=== PATIENT | female | born 1955 | race Caucasian/White ===

== ENCOUNTER 2016-11-10 12:42 | Inpatient (IN) | payer OTHER ==
[~2016-11-10 12:42] MED LIST: cefTRIAXone 2,000 MG in SODIUM CHLORIDE 0.9% 100 ML IVPB SCH
--- NOTE | 2016-11-10 13:10 | ED ---
General Adult HPI - General Chief complaint: Shortness of Breath Stated complaint: Sob Time Seen by Provider: 11/10/16 12:54 Source: patient, EMS, RN notes reviewed Mode of arrival: EMS Limitations: altered mental status - History of Present Illness Initial comments: Patient is a pleasant 61-year-old female presenting to the emergency department as a poor historian. Patient admits she is a poor historian however does not feel confused. Patient admits her abdomen is distended. Patient states she has had previous drainage of her abdomen. History is further limited. - Related Data Home Medications Medication Instructions Recorded Confirmed Cholecalciferol [Vitamin D3] 2,000 unit PO DAILY 11/10/16 11/10/16 Furosemide [Lasix] 40 mg PO DAILY 11/10/16 11/10/16 LORazepam ORAL CONC [Ativan 2 mg PO Q1H PRN 11/10/16 11/10/16 Intensol] LORazepam [Ativan] 2 mg PO Q6H PRN 11/10/16 11/10/16 Lactulose 40 ml PO QID 11/10/16 11/10/16 Magnesium Oxide [Magox 400] 400 mg PO BID 11/10/16 11/10/16 Multivitamins, Thera [Multivitamin 1 tab PO DIRECTED 11/10/16 11/10/16 (formulary)] Nicotine 21Mg/24Hr Patch [Habitrol 1 patch TRANSDERM DAILY 11/10/16 11/10/16 21Mg/24Hr Patch] Phenytoin Sodium Extended 100 mg PO TID 11/10/16 11/10/16 [Dilantin] Potassium Chloride ER [K-Dur 20] 20 meq PO DAILY 11/10/16 11/10/16 Propranolol HCl 10 mg PO TID 11/10/16 11/10/16 Spironolactone [Aldactone] 100 mg PO DAILY 11/10/16 11/10/16 Allergies Allergy/AdvReac Type Severity Reaction Status Date / Time No Known Allergies Allergy Verified 11/10/16 13:45 Review of Systems ROS Statement: Those systems with pertinent positive or pertinent negative responses have been documented in the HPI. ROS Other: All systems not noted in ROS Statement are negative. Constitutional: Denies: fever Eyes: Denies: eye pain ENT: Denies: ear pain Respiratory: Reports: cough Cardiovascular: Denies: chest pain Endocrine: Denies: fatigue Gastrointestinal: Reports: abdominal pain Genitourinary: Denies: dysuria Skin: Denies: rash Neurological: Denies: weakness Psychiatric: Denies: depression Past Medical History Past Medical History: Renal Disease Additional Past Medical History / Comment(s): cirrhosis,thrombocytopenia, alcohol abuse,hypokalemia History of Any Multi-Drug Resistant Organisms: Unobtainable Past Surgical History: Unable to Obtain Past Psychological History: Anxiety Smoking Status: Former smoker Past Alcohol Use History: Abuse, Heavy Past Drug Use History: None Reported General Exam Limitations: altered mental status General appearance: alert, in no apparent distress Head exam: Present: other (Ecchymosis right eyebrow) Eye exam: Present: normal appearance, PERRL ENT exam: Present: normal oropharynx Neck exam: Present: normal inspection. Absent: tenderness, meningismus Respiratory exam: Present: normal lung sounds bilaterally Cardiovascular Exam: Present: regular rate, normal rhythm GI/Abdominal exam: Present: distended (Ascites) Extremities exam: Present: pedal edema. Absent: calf tenderness Neurological exam: Present: alert, altered. Absent: motor sensory deficit Expanded Patient oriented to: Present: person, place. Absent: time Psychiatric exam: Present: normal affect, normal mood Skin exam: Absent: rash Course Vital Signs 11/10/16 11/10/16 12:52 13:24 Temperature 99.8 F H Pulse Rate 70 72 Respiratory 28 H 18 Rate Blood Pressure 116/66 116/55 O2 Sat by Pulse 99 96 Oximetry EKG Findings - EKG Comments: EKG Findings:: Normal sinus rhythm at 72. Normal intervals. Normal axis. Low QRS.. No acute ST change. Medical Decision Making - Medical Decision Making Patient reevaluated and unchanged. Patient updated on results and plan. Patient will be covered with IV antibiotics in case of early SBP. Computed tomography scan of the brain will be ordered. Case discussed in detail with Dr. millan, who will admit for Dr. Barnes. - Lab Data Result diagrams: 11/10/16 15:06 11/10/16 15:06 Lab Results 11/10/16 11/10/16 11/10/16 Range/Units 13:18 13:24 14:25 WBC (3.8-10.6) k/uL RBC (3.80-5.40) m/uL Hgb (11.4-16.0) gm/dL Hct (34.0-46.0) % MCV (80.0-100.0) fL MCH (25.0-35.0) pg MCHC (31.0-37.0) g/dL RDW (11.5-15.5) % Plt Count (150-450) k/uL Neutrophils % (Manual) % Lymphocytes % (Manual) % Monocytes % (Manual) % Eosinophils % (Manual) % Neutrophils # (Manual) (1.3-7.7) k/uL Lymphocytes # (Manual) (1.0-4.8) k/uL Monocytes # (Manual) (0-1.0) k/uL Eosinophils # (Manual) (0-0.7) k/uL Nucleated RBCs (0-0) /100 WBC Polychromasia Macrocytosis PT (9.0-12.0) sec INR (<1.1) APTT (22.0-30.0) sec Sodium (137-145) mmol/L Potassium (3.5-5.1) mmol/L Chloride (98-107) mmol/L Carbon Dioxide (22-30) mmol/L Anion Gap mmol/L BUN (7-17) mg/dL Creatinine (0.52-1.04) mg/dL Est GFR (MDRD) Af Amer (>60 ml/min/1.73 sqM) Est GFR (MDRD) Non-Af (>60 ml/min/1.73 sqM) Glucose (74-99) mg/dL Plasma Lactic Acid Vinnie 1.5 (0.7-2.0) mmol/L Calcium (8.4-10.2) mg/dL Total Bilirubin (0.2-1.3) mg/dL AST (14-36) U/L ALT (9-52) U/L Alkaline Phosphatase (38-126) U/L Ammonia 18 (<30) umol/L Total Protein (6.3-8.2) g/dL Albumin (3.5-5.0) g/dL Urine Color Yellow Urine Appearance Cloudy H (Clear) Urine pH 5.0 (5.0-8.0) Ur Specific [place] 1.011 (1.001-1.035) Urine Protein Negative (Negative) Urine Glucose (UA) Negative (Negative) Urine Ketones Negative (Negative) Urine Blood Negative (Negative) Urine Nitrite Negative (Negative) Urine Bilirubin Negative (Negative) Urine Urobilinogen <2.0 (<2.0) mg/dL Ur Leukocyte Esterase Large H (Negative) Urine RBC 3 (0-5) /hpf Urine WBC 18 H (0-5) /hpf Ur Squamous Epith Cells 18 H (0-4) /hpf Urine Bacteria Many H (None) /hpf Hyaline Casts 19 H (0-2) /lpf Urine Opiates Screen Not Detected (NotDetected) Ur Oxycodone Screen Not Detected (NotDetected) Urine Methadone Screen Not Detected (NotDetected) Ur Propoxyphene Screen Not Detected (NotDetected) Ur Barbiturates Screen Detected H (NotDetected) U Tricyclic Antidepress Not Detected (NotDetected) Ur Phencyclidine Scrn Not Detected (NotDetected) Ur Amphetamines Screen Not Detected (NotDetected) U Methamphetamines Scrn Not Detected (NotDetected) U Benzodiazepines Scrn Not Detected (NotDetected) Urine Cocaine Screen Not Detected (NotDetected) U Marijuana (THC) Screen Not Detected (NotDetected) Influenza Type A RNA Not Detected (Not Detectd) Influenza Type B (PCR) Not Detected (Not Detectd) 11/10/16 11/10/16 11/10/16 Range/Units 15:06 15:06 15:06 WBC 8.9 (3.8-10.6) k/uL RBC 3.21 L (3.80-5.40) m/uL Hgb 11.5 (11.4-16.0) gm/dL Hct 33.7 L (34.0-46.0) % MCV 105.0 H (80.0-100.0) fL MCH 35.7 H (25.0-35.0) pg MCHC 34.0 (31.0-37.0) g/dL RDW 15.2 (11.5-15.5) % Plt Count 135 L (150-450) k/uL Neutrophils % (Manual) 40.0 % Lymphocytes % (Manual) 33.0 % Monocytes % (Manual) 22.0 % Eosinophils % (Manual) 5.0 % Neutrophils # (Manual) 3.6 (1.3-7.7) k/uL Lymphocytes # (Manual) 2.9 (1.0-4.8) k/uL Monocytes # (Manual) 2.0 H (0-1.0) k/uL Eosinophils # (Manual) 0.4 (0-0.7) k/uL Nucleated RBCs 0 (0-0) /100 WBC Polychromasia Present Macrocytosis Moderate PT 15.7 H (9.0-12.0) sec INR 1.6 (<1.1) APTT 29.0 (22.0-30.0) sec Sodium 132 L (137-145) mmol/L Potassium 4.3 (3.5-5.1) mmol/L Chloride 100 (98-107) mmol/L Carbon Dioxide 24 (22-30) mmol/L Anion Gap 8 mmol/L BUN 13 (7-17) mg/dL Creatinine 0.51 L (0.52-1.04) mg/dL Est GFR (MDRD) Af Amer >60 (>60 ml/min/1.73 sqM) Est GFR (MDRD) Non-Af >60 (>60 ml/min/1.73 sqM) Glucose 75 (74-99) mg/dL Plasma Lactic Acid Vinnie (0.7-2.0) mmol/L Calcium 7.8 L (8.4-10.2) mg/dL Total Bilirubin 2.5 H (0.2-1.3) mg/dL AST 60 H (14-36) U/L ALT 36 (9-52) U/L Alkaline Phosphatase 146 H (38-126) U/L Ammonia (<30) umol/L Total Protein 6.2 L (6.3-8.2) g/dL Albumin 2.2 L (3.5-5.0) g/dL Urine Color Urine Appearance (Clear) Urine pH (5.0-8.0) Ur Specific [place] (1.001-1.035) Urine Protein (Negative) Urine Glucose (UA) (Negative) Urine Ketones (Negative) Urine Blood (Negative) Urine Nitrite (Negative) Urine Bilirubin (Negative) Urine Urobilinogen (<2.0) mg/dL Ur Leukocyte Esterase (Negative) Urine RBC (0-5) /hpf Urine WBC (0-5) /hpf Ur Squamous Epith Cells (0-4) /hpf Urine Bacteria (None) /hpf Hyaline Casts (0-2) /lpf Urine Opiates Screen (NotDetected) Ur Oxycodone Screen (NotDetected) Urine Methadone Screen (NotDetected) Ur Propoxyphene Screen (NotDetected) Ur Barbiturates Screen (NotDetected) U Tricyclic Antidepress (NotDetected) Ur Phencyclidine Scrn (NotDetected) Ur Amphetamines Screen (NotDetected) U Methamphetamines Scrn (NotDetected) U Benzodiazepines Scrn (NotDetected) Urine Cocaine Screen (NotDetected) U Marijuana (THC) Screen (NotDetected) Influenza Type A RNA (Not Detectd) Influenza Type B (PCR) (Not Detectd) - Radiology Data Radiology results: image reviewed (Abdominal x-rays shows nonspecific findings. Two-view chest x-ray shows left lower lobe atelectasis. Nonspecific abdomen.) Disposition Clinical Impression: Ascites, Altered mental status Disposition: ADMITTED IP TO THIS HOSP
[2016-11-10 13:56] LABS: Appearance,Urine Cloudy (Clear); Bacteria,Urine Many /hpf; Bilirubin,Urine Negative (Negative); Glucose,Urine (UA) Negative (Negative); Ketones,Urine Negative (Negative); Leukocyte Esterase,Urine Large (Negative); Nitrite,Urine Negative (Negative); Particle Count 5757; Protein,Urine Negative (Negative); RBC,Urine 3 /hpf (0-5); Specific Gravity,Urine 1.011 (1.001-1.035); Squamous Epithelial Cell,Urine 18 /hpf (0-4); UA Billing (MACRO vs. MICRO) MICRO; Urobilinogen,Urine <2.0 mg/dL (<2.0); WBC,Urine 18 /hpf (0-5)
--- NOTE | 2016-11-10 14:20 | XR ---
EXAMINATION TYPE: XR chest 2V DATE OF EXAM: 11/10/2016 2:02 PM COMPARISON: NONE INDICATION: Altered mental status, fall TECHNIQUE: Single frontal view of the chest is obtained. FINDINGS: The heart size is normal. The pulmonary vasculature is normal. Mild bibasilar infiltrates are present. Correlate for atelectasis. Areas within loop of bowel under t he right diaphragm. IMPRESSION: 1. Mild left lower lobe atelectasis. 2. Nonspecific air within the abdomen.
--- NOTE | 2016-11-10 14:21 | XR ---
EXAMINATION TYPE: XR abdomen 1V DATE OF EXAM: 11/10/2016 2:02 PM COMPARISON: NONE INDICATION: Pain abdomen distention mental status change TECHNIQUE: Single view abdomen supine FINDINGS: There is present within the colon. Some small bowel loops contain air present. No mass effect is evid ent. Psoas margins are poorly visualized. No organomegaly is present. IMPRESSION: 1. Nonspecific abdomen.
[2016-11-10 15:25] LABS: INR 1.6 (<1.1); Prothrombin Time 15.7 sec (9.0-12.0)
[2016-11-10 15:32] LABS: Aty Lym Flag Slight; CH 34.4; CHCM 32.9; HCT 33.7 % (34.0-46.0); HDW 2.23; HGB 11.5 gm/dL (11.4-16.0); MCH 35.7 pg (25.0-35.0); Macrocytosis Moderate; Mean Platelet Volume 7.5; RBC 3.21 m/uL (3.80-5.40); RDW 15.2 % (11.5-15.5); WBC 8.9 k/uL (3.8-10.6); WBC (Perox) 9.12
[2016-11-10 15:33] LABS: ALT 36 U/L (9-52); AST 60 U/L (14-36); Alkaline Phosphatase 146 U/L (38-126); Anion Gap 8 mmol/L; Blood Urea Nitrogen 13 mg/dL (7-17); Calcium 7.8 mg/dL (8.4-10.2); Carbon Dioxide 24 mmol/L (22-30); Chloride 100 mmol/L (98-107); Glucose 75 mg/dL (74-99); Non-African American GFR(MDRD) >60 (>60 ml/min/1.73 sqM); Potassium 4.3 mmol/L (3.5-5.1); Sodium 132 mmol/L (137-145); Total Bilirubin 2.5 mg/dL (0.2-1.3); Total Protein 6.2 g/dL (6.3-8.2)
[2016-11-10 15:47] LABS: Add Differential Manual Differential
[2016-11-10 15:49] LABS: Nucleated Red Blood Cells 0 /100 WBC (0-0); Polychromasia Present; Total Cells Counted 100
[2016-11-10 15:51] LABS: Creatine Kinase 27 U/L (30-135)
[2016-11-10 16:04] LABS: Creatine Kinase MB 0.5 ng/mL (0.0-2.4); Troponin I <0.012 ng/mL (0.000-0.034)
[2016-11-10] MEDS ORDERED: cefTRIAXone 2,000 MG in SODIUM CHLORIDE 0.9% 100 ML IVPB STA (16:11)
[2016-11-10] MEDS ORDERED: NALOXONE 0.4 MG/ML 1 ML VIAL IV PRN (16:11)
--- NOTE | 2016-11-10 16:54 | CT ---
EXAMINATION TYPE: CT brain wo con DATE OF EXAM: 11/10/2016 4:47 PM COMPARISON: NONE INDICATION: Altered mental status. DLP: 1165 mGycm, Automated exposure control for dose reduction was used. CONTRAST: None CT of the brain is performed utilizing 3 mm thick sections through the posterior fossa and 3 mm thick sections through the remaining calvarium. Study is performed within 24 hours of arrival to the hosp [facility]. No abnormal hyperdensity is present to suggest an acute intracranial hemorrhage. No mass lesion is evident. No acute infarcts are evident. Periventricular white matter hypodensity is present, likely on the bas is of chronic white matter ischemic changes. Ventricles and sulci are prominent for the patient age. Paranasal sinuses and mastoid air cells within the [id number] are clear. IMPRESSIONS: 1. Atrophy with periventricular white matter ischemic changes.
[2016-11-10] MEDS: SODIUM CHLORIDE 0.9% 1,000 ML IV SCH (17:12)
--- NOTE | 2016-11-10 17:13 | XR ---
EXAMINATION TYPE: XR abdomen 1V DATE OF EXAM: 11/10/2016 5:02 PM CLINICAL HISTORY: Abdominal distention. TECHNIQUE: Single left side down lateral decubitus of the abdomen is obtained. COMPARISON: Abdominal x-ray and chest x-ray from earlier today FINDINGS: Gas prominent bowel loops layer against the abdominal wall with air-fluid levels. No defini tive pneumoperitoneum is identified when correlating with upright chest x-ray earlier today. IMPRESSION: As above, no convincing evidence of pneumoperitoneum
[2016-11-10] MEDS ORDERED: LORazepam 1 MG TAB PO PRN ×2 (21:41)
[2016-11-10] MEDS: PROPRANOLOL 10 MG TAB PO SCH (22:35)
[2016-11-10] MEDS: PHENYTOIN SODIUM EXTENDED 100 MG CAP PO SCH (22:46)
[2016-11-10] MEDS: LACTULOSE 20 GM/30 ML CUP PO SCH (22:47)
[2016-11-10] MEDS: PHYTONADIONE ORAL 5 MG/5 ML ORAL.SYRG PO SCH (23:37)
[2016-11-10] MEDS: FUROSEMIDE 10 MG/ML 2 ML VIAL IV SCH (23:42)
[2016-11-11] MEDS ORDERED: cefTRIAXone 2,000 MG in SODIUM CHLORIDE 0.9% 100 ML IVPB SCH (06:00)
[2016-11-11] MEDS ORDERED: FUROSEMIDE 40 MG TAB PO SCH (09:00)
[2016-11-11] MEDS ORDERED: PANTOPRAZOLE 40 MG/10 ML VIAL IV SCH (09:00)
[2016-11-11] MEDS: SPIRONOLACTONE 25 MG TAB PO SCH (09:29)
[2016-11-11] MEDS: PROPRANOLOL 10 MG TAB PO SCH ×3 (09:29→21:17)
[2016-11-11] MEDS: PHENYTOIN SODIUM EXTENDED 100 MG CAP PO SCH ×3 (09:29→21:17)
[2016-11-11] MEDS: FUROSEMIDE 10 MG/ML 2 ML VIAL IV SCH (09:29)
[2016-11-11] MEDS: LACTULOSE 20 GM/30 ML CUP PO SCH ×3 (09:29→21:17)
[2016-11-11] MEDS: NICOTINE 21MG/24HR PATCH TRANSDERM SCH (09:30)
[2016-11-11] MEDS: MAGNESIUM OXIDE 400 MG TAB PO SCH ×2 (09:30→21:17)
[2016-11-11] MEDS: CHOLECALCIFEROL 1,000 UNIT TAB PO SCH (09:30)
[2016-11-11] MEDS: POTASSIUM CHLORIDE ER 20 MEQ TAB.ER PO SCH (09:30)
--- NOTE | 2016-11-11 09:42 | P.CONS ---
History of Present Illness - Reason for Consult Consult date: 11/11/16 ascites Requesting physician: Mohamud Park - History of Present Illness 61-year-old female patient Dr. Barnes with a past medical history of EtOH abuse with underlying alcohol liver disease thrombocytopenia ascites possible paracentesis. Patient presents with worsening ascites with chronic lower extremity edema Ortega wrap's. Patient is a poor historian most of medical history is obtained from nursing staff and medical records. She was evaluated at the GI clinic in [place] about a week ago with Dr. Vinson follow-up scheduled next month. Appears patient may have fallen recently she has ecchymosis to the right eye with an abrasion and scabbing. Unsure if patient is still drinking alcohol. She reports taking alcohol "for some time". Admission chemistries sodium 132. BUN 13 creatinine 0.5. Total bilirubin 2.5. AST 60. ALT 36. Alkaline phosphates 146. Ammonia 48. Albumin 2.2. INR 1.6. Influenza screen not detected. Hemoglobin 11.5. MCV 105. Platelet 135. White count 8.9. Urinalysis detected barbiturates. Afebrile. Review of Systems Constitutional: Denies fever, chills, sweats, weight gain, or loss. HEENT: Negative for migraines, blurred vision or loss, earaches, drainage, tinnitus, oral mucosal lesions, dysphagia, or odynophagia. CARDIAC: Hypertension Negative for chest pain, arrhythmias, or palpitation. RESPIRATORY: Negative for shortness of breath, hemoptysis, cough, or sputum production. GI: See HPI for pertinent findings. : Negative for hematuria, urgency, frequency, polyuria, or dysuria. GYNc: Negative vaginal discharge. MUSCULOSKELETAL: Negative for muscle aches, swelling, arthritis, and arthralgias. NEUROLOGIC: Negative for stroke or TIA. ENDOCRINE: Negative for thyroid problems. SKIN: Chronic bilateral lower extremity edema with Ortega wraps. Negative for rash or itching. PSYCHIATRIC: Negative history for depression and history of anxiety All systems: negative (See HPI) Past Medical History Past Medical History: Hypertension, Liver Disease, Renal Disease Additional Past Medical History / Comment(s): cirrhosis,thrombocytopenia, alcohol abuse,hypokalemia History of Any Multi-Drug Resistant Organisms: Unobtainable Past Surgical History: Unable to Obtain Past Psychological History: Anxiety Smoking Status: Former smoker Past Alcohol Use History: Abuse, Heavy Past Drug Use History: None Reported Medications and Allergies Home Medications Medication Instructions Recorded Confirmed Type Cholecalciferol [Vitamin D3] 2,000 unit PO DAILY 11/10/16 11/10/16 History Furosemide [Lasix] 40 mg PO DAILY 11/10/16 11/10/16 History LORazepam ORAL CONC [Ativan 2 mg PO Q1H PRN 11/10/16 11/10/16 History Intensol] LORazepam [Ativan] 2 mg PO Q6H PRN 11/10/16 11/10/16 History Lactulose 40 ml PO QID 11/10/16 11/10/16 History Magnesium Oxide [Magox 400] 400 mg PO BID 11/10/16 11/10/16 History Multivitamins, Thera [Multivitamin 1 tab PO DIRECTED 11/10/16 11/10/16 History (formulary)] Nicotine 21Mg/24Hr Patch [Habitrol 1 patch TRANSDERM DAILY 11/10/16 11/10/16 History 21Mg/24Hr Patch] Phenytoin Sodium Extended 100 mg PO TID 11/10/16 11/10/16 History [Dilantin] Potassium Chloride ER [K-Dur 20] 20 meq PO DAILY 11/10/16 11/10/16 History Propranolol HCl 10 mg PO TID 11/10/16 11/10/16 History Spironolactone [Aldactone] 100 mg PO DAILY 11/10/16 11/10/16 History Allergies Allergy/AdvReac Type Severity Reaction Status Date / Time No Known Allergies Allergy Verified 11/10/16 13:45 Physical Exam Vitals: Vital Signs Temp Pulse Pulse Resp BP BP Pulse Ox 11/11/16 07:00 97.2 F L 67 18 107/61 98 11/10/16 22:48 98.2 F 67 18 111/61 96 11/10/16 20:11 18 11/10/16 18:33 97.1 F L 62 18 148/84 97 11/10/16 18:15 97.0 F L 91 18 123/72 94 L 11/10/16 17:41 72 18 123/72 100 11/10/16 17:09 70 18 110/68 100 Intake and Output 11/10/16 11/11/16 11/11/16 22:59 06:59 14:59 Intake Total 310 Balance 310 Intake: Intake, IV Titration 310 Amount Sodium Chloride 0.9% 1, 160 000 ml @ 20 mls/hr IV . Q24H [facility] Rx#:[id number] cefTRIAXone 1,000 mg In 50 Sodium Chloride 0.9% 50 ml @ 100 mls/hr IVPB Q24H [facility] Rx#:[id number] cefTRIAXone 2,000 mg In 100 Sodium Chloride 0.9% 100 ml @ 100 mls/hr IVPB Q12H [facility] Rx#:[id number] Other: Voiding Method Diaper # Voids 1 # Bowel Movements 0 General appearance: The patient is alert, oriented, in no acute distress. HET: Head is normocephalic and atraumatic. Ecchymosis to right eye with scabbing supraorbital region. Pupils are equal and reactive. Oropharynx is clear without lesions. Neck: Supple without lymphadenopathy. Trachea midline. Heart: S1 S2. Regular rate and rhythm. Lungs: No crackles or wheezes are heard. Abdomen: Grossly distended tense with ascites with bowel sounds. No peritoneal signs. No palpable organomegaly or masses. Extremities: +2+3 bilateral lower extremity edema with Ortega wraps. Neurological: No focal deficits. Strength and sensation are grossly intact. Results CBC & Chem 7: 11/10/16 15:06 11/10/16 15:06 Labs: Abnormal Lab Results - Last 24 Hours (Table) 11/10/16 Range/Units 19:46 Ammonia 48 H (<30) umol/L Assessment and Plan (1) Alcoholic liver disease Narrative/Plan: Suspect cirrhosis Status: Acute (2) Thrombocytopenia Status: Acute (3) Coagulopathy Status: Acute (4) Macrocytosis Status: Acute (5) Hepatic encephalopathy Status: Acute (6) Ascites Status: Acute (7) ETOH abuse Status: Chronic Plan: 1. Therapeutic diagnostic paracentesis scheduled today. Will send ascitic fluid analysis for culture Gram stain, cell count, glucose, WBC, and cytology. Lasix 40 mg daily. Aldactone 100 mg daily. Lactulose 20 g 3 times daily titrated for at least 3 bowel movements daily. Low-salt diet. Alcohol abstinence was advised. Repeat ammonia level in a.m. Will obtain hepatitis panel and alpha-fetoprotein marker. Thank you for this kind referral and the opportunity to participate in the care of your patient. This consultation was discussed with Dr. Phillip. The impression and plan of care have been directed as dictated.
--- NOTE | 2016-11-11 09:53 | HP ---
DATE OF ADMISSION: 11/10/2016 PRESENTING COMPLAINT: Distended abdomen. HISTORY OF PRESENTING COMPLAINT: This is a 59-year-old patient of Dr. Barnes with chronic stable conditions include hypertension, cirrhosis, thrombocytopenia. Patient is rather lethargic, not really able to give much of a history. As per the ER notes, she has had previous drainage of the abdomen. Abdomen was distended. Per the EMS run sheet, patient simply tired, very distended abdomen, history of alcoholism in the past. REVIEW OF SYSTEMS: Difficult to obtain as patient is a poor historian. PAST MEDICAL HISTORY: Chronic alcoholism, ascites, cirrhosis, hypertension, low platelets. PAST SURGICAL HISTORY: Patient cannot state. SOCIAL HISTORY: Patient heavy alcohol drinker in the past; also a smoker. Patient is unable to give history. , lives with her . FAMILY HISTORY: Patient cannot state. HOME MEDICATIONS: 1. Dilantin 100 mg p.o. t.i.d. 2. Magnesium 4 mg b.i.d. 3. Lactulose 40 mL p.o. q.i.d. 4. Lasix 40 mg p.o. daily. 5. Potassium 20 mEq p.o. daily. 6. Nicotine 20 mg patch. 7. Multivitamin 1 tablet p.o. daily. 8. Aldactone 100 mg p.o. daily. 9. Propranolol 10 mg p.o. t.i.d. 10. Vitamin D3 2000 units p.o. daily. 11. Ativan 2 mg p.o. q.6 p.r.n. ALLERGIES: None. On examination, temperature 99.8, pulse 70, respiration 28, blood pressure 106/56, pulse ox 99% on room air. GENERAL APPEARANCE: Very thin built with diffuse wasting of the muscles, rather emaciated. Lethargic, but arousable. EYES: Pupils equal. Conjunctivae pale. HEENT: External appearance of nose and ears normal. Oral cavity, dry mucous membrane. NECK: JVD unable to assess. Mass not palpable. RESPIRATORY: Effort increased. LUNGS: Diminished breath sounds. CARDIOVASCULAR: First and second sounds. Gross edema present. ABDOMEN: Increasing distended, tense, superficial veins are prominent. Dullness to percussion on the dependent part. Liver and spleen not palpable. LYMPHATIC: No lymph node palpable in neck or axilla. PSYCHIATRY: Patient is rather lethargic. Able to answer some simple questions but rather lethargic. NEUROLOGICAL: Pupils equal. Cranial nerves grossly intact. The patient does move her limbs. MUSCULOSKELETAL: Diffuse wasting of the muscles. Spider nevi in the upper chest wall. INVESTIGATIONS: White count 8.9, hemoglobin 11.5, platelets 135, potassium 4.3, pro time 15.7, bilirubin 2.5, AST 60. Albumin 2.2. UA positive for leukocyte esterase and WBC. Urine drug screen positive for barbiturates. Plain abdominal x-ray: Some air fluid levels. ASSESSMENT: 1. Severe ascites, probably from underlying cirrhosis. 2. Alcoholic cirrhosis. 3. Suspect underlying portal hypertension given the fact that patient is on low-dose beta vika. 4. Severe protein calorie malnutrition with diffuse wasting of the muscles, hypoalbuminemia, and bony prominences. 5. Acute metabolic encephalopathy, likely from hepatic. 6. Thrombocytopenia from cirrhosis. 7. Coagulopathy from chronic liver disease cirrhosis. PLAN: Patient will be put on fluid restriction. Also start on IV Lasix. Will get large-volume paracentesis done. Lactulose will be given. Will do aspiration precautions. Also give some vitamin K overall prognosis is guarded. Also consult GI.
[2016-11-11] MEDS: PHYTONADIONE ORAL 5 MG/5 ML ORAL.SYRG PO SCH (10:59)
[2016-11-11] MEDS: FUROSEMIDE 40 MG TAB PO SCH (11:00)
--- NOTE | 2016-11-11 13:25 | US ---
EXAMINATION TYPE: US abdomen limited DATE OF EXAM: 11/11/2016 11:06 AM COMPARISON: NONE CLINICAL HISTORY: ascites. Moderate amount of abdominal ascites. *Incidental finding: gallstones with thickened gallbladder wal l IMPRESSION: Ascites.
--- NOTE | 2016-11-11 14:14 | US ---
EXAMINATION TYPE: US paracentesis abd w/image DATE OF EXAM: 11/11/2016 1:15 PM COMPARISON: NONE HISTORY: Ascites. PROCEDURE: Maximal barrier technique was utilized. The skin overlying a suitable pocket of fluid was localized with ultrasound and the overlying skin was prepped and draped. Ultrasound was utilized with sterile technique. Lidocaine was used for local anesthesia and a skin mario made with a scalpel. Catheter was advanced under direct ultrasound guidance into a suitable pocket of fluid and approximately 8.4 liter s of serous fluid were removed. Catheter was withdrawn and hemostasis achieved. There is no immedia te complication; the patient is discharged in stable condition. IMPRESSION: STATUS POST ULTRASOUND GUIDED PARACENTESIS FOR PALLIATION OF ASCITES. THIS PROCEDURE WA S PERFORMED BY THE UNDERSIGNED. Specimen sent for laboratory analysis
[2016-11-11 14:34] LABS: RBC, Body Fluid 562 /uL
--- NOTE | 2016-11-11 17:03 | P.CNNES ---
History of Present Illness Consult date: 11/11/16 Requesting physician: Mohamud Park Reason for Consult: Altered mental status History of Present Illness: Patient is a pleasant 59-year-old female who is being evaluated by the neurology service today 11/11/2016 per the request of Dr. Park for altered mental status. Patient is a poor historian. Patient does have history of cirrhosis with periodic paracentesis. Reportedly, patient had fall at home and was in rehab and missed paracentesis appointment. Patient became severely dyspneic and lethargic and was brought to the emergency room. Upon admission, WBC 8.9, RBC 3.21, hemoglobin 11.5, hematocrit 33.7. Albumin is 2.2 and high ammonia level of 48. Patient underwent paracentesis earlier today. At the time of my evaluation, patient is awake, alert, and oriented 3. Patient is sitting up in bed and appears to be in no acute distress. Review of Systems REVIEW OF SYSTEMS: Otherwise unremarkable and noncontributory. Past Medical History Past Medical History: Hypertension, Liver Disease, Renal Disease Additional Past Medical History / Comment(s): cirrhosis,thrombocytopenia, alcohol abuse,hypokalemia History of Any Multi-Drug Resistant Organisms: Unobtainable Past Surgical History: Unable to Obtain Past Psychological History: Anxiety Smoking Status: Former smoker Past Alcohol Use History: Abuse, Heavy Past Drug Use History: None Reported Medications and Allergies Home Medications Medication Instructions Recorded Confirmed Type Cholecalciferol [Vitamin D3] 2,000 unit PO DAILY 11/10/16 11/10/16 History Furosemide [Lasix] 40 mg PO DAILY 11/10/16 11/10/16 History LORazepam ORAL CONC [Ativan 2 mg PO Q1H PRN 11/10/16 11/10/16 History Intensol] LORazepam [Ativan] 2 mg PO Q6H PRN 11/10/16 11/10/16 History Lactulose 40 ml PO QID 11/10/16 11/10/16 History Magnesium Oxide [Magox 400] 400 mg PO BID 11/10/16 11/10/16 History Multivitamins, Thera [Multivitamin 1 tab PO DIRECTED 11/10/16 11/10/16 History (formulary)] Nicotine 21Mg/24Hr Patch [Habitrol 1 patch TRANSDERM DAILY 11/10/16 11/10/16 History 21Mg/24Hr Patch] Phenytoin Sodium Extended 100 mg PO TID 11/10/16 11/10/16 History [Dilantin] Potassium Chloride ER [K-Dur 20] 20 meq PO DAILY 11/10/16 11/10/16 History Propranolol HCl 10 mg PO TID 11/10/16 11/10/16 History Spironolactone [Aldactone] 100 mg PO DAILY 11/10/16 11/10/16 History Allergies Allergy/AdvReac Type Severity Reaction Status Date / Time No Known Allergies Allergy Verified 11/10/16 13:45 Physical Examination - Vital Signs Vital Signs: Vital Signs Temp Pulse Pulse Resp BP BP Pulse Ox 11/11/16 14:00 74 16 95/49 98 11/11/16 12:18 68 16 102/59 100 11/11/16 12:02 68 16 102/58 100 11/11/16 11:44 69 16 114/62 100 11/11/16 11:08 72 18 122/73 100 11/11/16 07:00 97.2 F L 67 18 107/61 98 11/10/16 22:48 98.2 F 67 18 111/61 96 11/10/16 20:11 18 11/10/16 18:33 97.1 F L 62 18 148/84 97 11/10/16 18:15 97.0 F L 91 18 123/72 94 L 11/10/16 17:41 72 18 123/72 100 11/10/16 17:09 70 18 110/68 100 Intake and Output 11/11/16 11/11/16 11/11/16 06:59 14:59 22:59 Intake Total 310 Balance 310 Intake: Intake, IV Titration 310 Amount Sodium Chloride 0.9% 1, 160 000 ml @ 20 mls/hr IV . Q24H [facility] Rx#:[id number] cefTRIAXone 1,000 mg In 50 Sodium Chloride 0.9% 50 ml @ 100 mls/hr IVPB Q24H [facility] Rx#:[id number] cefTRIAXone 2,000 mg In 100 Sodium Chloride 0.9% 100 ml @ 100 mls/hr IVPB Q12H [facility] Rx#:[id number] PHYSICAL EXAM: GENERAL APPEARANCE: Patient is a well-developed, female who appears to be in no acute distress. HEENT: Normocephalic, atraumatic, no facial asymmetry is seen. Neck is supple with no masses felt. CARDIOVASCULAR: Regular rate and rhythm. ABDOMEN: Tender, distended. EXTREMITIES: Show no edema or clubbing. NEUROLOGICAL EXAM: Patient is awake, alert, and oriented 3. Speech and language are normal. Strength is 4/5 in bilateral lower extremities and 5-/5 in bilateral upper extremities. Sensory is normal to light touch in all 4 extremities. No facial asymmetry is seen on cranial nerve testing. No tremors or seizure-like activity is noted. Results - Laboratory Findings CBC and BMP: 11/10/16 15:06 11/10/16 15:06 Abnormal Lab Findings: Abnormal Labs 11/10/16 19:46 Ammonia 48 H Assessment and Plan (1) Alcoholic liver disease Status: Acute (2) Altered mental status Status: Acute (3) Ascites Status: Acute (4) Coagulopathy Status: Acute (5) Hepatic encephalopathy Status: Acute Plan: Recommendations: Patient's mental status appears to be back at her baseline at this time. She is alert and oriented 3. Altered mental status appears to be related to hepatic encephalopathy. As previously mentioned, patient is a poor historian. Patient is on Dilantin 100 mg by mouth 3 times a day in the home setting. It is unclear regarding seizure history. Patient has not had any seizure activity reported during this admission. Continue current dose of Dilantin. I will order an EEG and Dilantin level. CT of the brain showed atrophy with periventricular white matter ischemic changes with no acute process. I do recommend physical therapy for her generalized weakness. Continue current medical management. Barring any abnormalities in the EEG patient is stable for discharge from neurology standpoint. I will continue to follow with you on an as-needed basis. Further recommendations to follow after testing. Thank you for allowing me to participate in the care of your patient. Feel free to call with any questions or concerns. I performed an examination of the patient and discussed the management with the SENIOR DESIGNER/ART DIRECTOR. I have reviewed the SENIOR DESIGNER/ART DIRECTOR notes and agree with the findings and plan of care.
[2016-11-11] MEDS: SODIUM CHLORIDE 0.9% 1,000 ML IV SCH (17:33)
[2016-11-11] MEDS: CEFUROXIME 250 MG TAB PO SCH (21:17)
[2016-11-11 22:21] LABS: Hepatitis B Surface Ag Index 0.06
[2016-11-11 22:27] LABS: Hepatitis B Core IgM Index 0.06
[2016-11-11 22:38] LABS: Hepatitis C Virus IgG Index 0.06
[2016-11-11 22:56] LABS: Hepatitis C Virus IgG Ab Negative (Negative)
--- NOTE | 2016-11-11 22:57 | PN ---
DATE OF SERVICE: 11/11/2016 PRESENTING COMPLAINT: Fluid overload. INTERVAL HISTORY: This is a patient with multiple problems including multiple complications from cirrhosis, did undergo large volume paracentesis, about 8 L of abdominal fluid was removed. Patient more awake today. Actually ate fairly well. Getting Lasix. Review of systems done for constitutional, cardiovascular, GI, pulmonary; relevant findings as above. Current medications are reviewed that include IV ceftriaxone, p.o. Lasix and Aldactone. On examination, temperature 97.2, pulse 87, respiration 18, blood pressure 122/33, pulse ox 100% on 3 liters. GENERAL APPEARANCE: Lying in bed, more awake. EYES: Pupils equal. Conjunctivae pale. NECK: JVD not raised. Mass not palpable. RESPIRATORY: Effort increased. LUNGS: Diminished breath sounds. CARDIOVASCULAR: First and second sounds normal. Decreased edema. ABDOMEN: Less distended, soft. Liver and spleen not palpable. PSYCHIATRY: A bit more awake, answering simple questions. MUSCULOSKELETAL: Diffuse wasting of muscles. INVESTIGATIONS: Patient's polynuclear WBCs 1. Urine cultures are pending. ASSESSMENT: 1. Severe ascites from cirrhosis status post large volume paracentesis. 2. Alcoholic cirrhosis. 3. Secondary portal hypertension from cirrhosis. 4. Severe protein calorie malnutrition with diffuse wasting of muscles. 5. Hypoalbuminemia. 6. Bony prominences from poor oral intake. 7. Acute metabolic encephalopathy probably hepatic with some improvement. 8. Thrombocytopenia from cirrhosis. 9. Coagulopathy from chronic liver disease and cirrhosis. 10. Medical debility, multifactorial. 11. Acute urinary tract infection. PLAN: Will check labs in the morning. Overall prognosis is guarded. The patient will probably go to inpatient rehab.
[2016-11-12] MEDS: NICOTINE 21MG/24HR PATCH TRANSDERM SCH (08:35)
[2016-11-12] MEDS: PROPRANOLOL 10 MG TAB PO SCH ×4 (08:37→21:08)
[2016-11-12] MEDS: PANTOPRAZOLE 40 MG TABLET PO SCH (08:38)
[2016-11-12] MEDS: PHENYTOIN SODIUM EXTENDED 100 MG CAP PO SCH ×3 (08:38→21:08)
[2016-11-12] MEDS: CHOLECALCIFEROL 1,000 UNIT TAB PO SCH (08:38)
[2016-11-12] MEDS: CEFUROXIME 250 MG TAB PO SCH ×2 (08:38→21:08)
[2016-11-12] MEDS: SPIRONOLACTONE 25 MG TAB PO SCH (08:38)
[2016-11-12] MEDS: FUROSEMIDE 40 MG TAB PO SCH (08:38)
[2016-11-12] MEDS: MAGNESIUM OXIDE 400 MG TAB PO SCH ×2 (08:38→21:08)
[2016-11-12] MEDS: POTASSIUM CHLORIDE ER 20 MEQ TAB.ER PO SCH (08:38)
[2016-11-12] MEDS: LACTULOSE 20 GM/30 ML CUP PO SCH ×3 (08:42→21:08)
[2016-11-12 09:55] LABS: Basophils # (A) 0.1 k/uL (0-0.2); Basophils % (A) 1 %; CH 34.2; CHCM 31.7; Eosinophils # (A) 0.4 k/uL (0-0.7); Eosinophils % (A) 5 %; HCT 36.6 % (34.0-46.0); HDW 2.16; HGB 12.4 gm/dL (11.4-16.0); Luc # (Auto) 0.36; Luc % (Auto) 4; Lymphocytes # (A) 2.1 k/uL (1.0-4.8); Lymphocytes % (A) 26 %; MCH 36.7 pg (25.0-35.0); MCHC 33.8 g/dL (31.0-37.0); MCV 108.5 fL (80.0-100.0); Macrocytosis Marked; Mean Platelet Volume 7.7; Monocytes # (A) 1.2 k/uL (0-1.0); Monocytes % (A) 15 %; Neutrophils # (A) 3.9 k/uL (1.3-7.7); Neutrophils % (A) 48 %; RBC 3.37 m/uL (3.80-5.40); RDW 15.3 % (11.5-15.5); WBC 8.1 k/uL (3.8-10.6); WBC (Perox) 8.53
[2016-11-12 10:03] LABS: ALT 36 U/L (9-52); AST 62 U/L (14-36); Alkaline Phosphatase 102 U/L (38-126); Anion Gap 6 mmol/L; Blood Urea Nitrogen 15 mg/dL (7-17); Calcium 7.6 mg/dL (8.4-10.2); Carbon Dioxide 27 mmol/L (22-30); Chloride 102 mmol/L (98-107); Glucose 129 mg/dL (74-99); Non-African American GFR(MDRD) >60 (>60 ml/min/1.73 sqM); Sodium 135 mmol/L (137-145); Total Bilirubin 2.8 mg/dL (0.2-1.3)
[2016-11-12 10:12] LABS: Potassium 4.5 mmol/L (3.5-5.1)
[2016-11-12] MEDS: PHYTONADIONE ORAL 5 MG/5 ML ORAL.SYRG PO SCH (13:14)
--- NOTE | 2016-11-12 16:33 | P.PN ---
Subjective Principal diagnosis: Patient is a pleasant 59-year-old female is being followed by the neurology service for encephalopathy. Patient is a poor historian. Patient is being followed for multiple complications from cirrhosis. Patient had paracentesis done yesterday with large amount of fluid removed. Patient is alert and oriented and conversant. Prior seizure history continues to be unclear. At the time of my evaluation, patient sitting up at the bedside in the chair and appears to be in no acute distress. Objective - Vital Signs Vital signs: Vital Signs Temp 97.0 F L 11/12/16 15:00 Pulse 62 11/12/16 15:00 Resp 16 11/12/16 15:00 BP 118/57 11/12/16 15:00 Pulse Ox 94 L 11/12/16 15:00 Intake & Output 11/11/16 11/12/16 11/12/16 18:59 06:59 18:59 Intake Total 50 200 Balance 50 200 Intake: Intake, IV Titration 50 Amount Sodium Chloride 0.9% 1, 50 000 ml @ 20 mls/hr IV . Q24H [facility] Rx#:[id number] Oral 200 Other: Voiding Method Diaper Diaper Diaper Incontinent Incontinent Incontinent # Voids 3 0 1 # Bowel Movements 1 - Exam PHYSICAL EXAM: GENERAL APPEARANCE: Patient is a well-developed, female who appears to be in no acute distress. HEENT: Normocephalic, atraumatic, no facial asymmetry is seen. Neck is supple with no masses felt. CARDIOVASCULAR: Regular rate and rhythm. ABDOMEN: Distended, ascites. EXTREMITIES: Show no edema or clubbing. NEUROLOGICAL EXAM: Patient is awake, alert, and oriented 3. Speech and language are normal. Strength is 4/5 in bilateral lower extremities and 5-/5 in bilateral upper extremities. Sensory is normal to light touch in all 4 extremities. No facial asymmetry is seen on cranial nerve testing. No tremors or seizure-like activity is noted. - Labs CBC & Chem 7: 11/12/16 09:32 11/12/16 09:32 Labs: Abnormal Lab Results - Last 24 Hours (Table) 11/12/16 11/12/16 11/12/16 Range/Units 09:32 09:32 09:32 RBC 3.37 L (3.80-5.40) m/uL MCV 108.5 H (80.0-100.0) fL MCH 36.7 H (25.0-35.0) pg Plt Count 131 L (150-450) k/uL Monocytes # 1.2 H (0-1.0) k/uL Sodium 135 L (137-145) mmol/L Glucose 129 H (74-99) mg/dL Calcium 7.6 L (8.4-10.2) mg/dL Total Bilirubin 2.8 H (0.2-1.3) mg/dL AST 62 H (14-36) U/L Ammonia 31 H (<30) umol/L Total Protein 6.0 L (6.3-8.2) g/dL Albumin 2.1 L (3.5-5.0) g/dL Microbiology - Last 24 Hours (Table) 11/11/16 11:20 Gram Stain - Preliminary Peritoneal Fluid Body Fluid Culture - Preliminary 11/11/16 11:20 Anaerobic Culture - Preliminary Peritoneal Fluid Assessment and Plan (1) Alcoholic liver disease Status: Acute (2) Altered mental status Status: Acute (3) Ascites Status: Acute (4) Coagulopathy Status: Acute (5) Hepatic encephalopathy Status: Acute Plan: Recommendations: Patient's mental status appears to be back at her baseline at this time. She is alert and oriented 3. Altered mental status appears to be related to hepatic encephalopathy. As previously mentioned, patient is a poor historian. Patient is on Dilantin 100 mg by mouth 3 times a day in the home setting. It is unclear regarding seizure history. Patient has not had any seizure activity reported during this admission. Continue current dose of Dilantin. EEG is pending and Dilantin level was therapeutic at 19.6. CT of the brain showed atrophy with periventricular white matter ischemic changes with no acute process. I do recommend physical therapy for her generalized weakness. Continue current medical management. Barring any abnormalities in the EEG patient is stable for discharge from neurology standpoint. I will continue to follow with you on an as-needed basis. Further recommendations to follow after testing. Thank you for allowing me to participate in the care of your patient. Feel free to call with any questions or concerns. I performed an examination of the patient and discussed the management with the TENSION WORKER. I have reviewed the TENSION WORKER notes and agree with the findings and plan of care.
--- NOTE | 2016-11-12 18:28 | PN ---
DATE OF SERVICE: 11/12/2016 PRESENTING COMPLAINT: Fluid overload. This is a patient with multiple medical problems, including multiple complications of cirrhosis, status post large-volume paracentesis. Sitting up in a chair. Did tolerate a diet. Patient had a large bowel movement today. Looking at going to be placed at rehab. Patient is more awake, answering questions, though still lethargic at times. Review systems done for constitutional, cardiovascular, GI, pulmonary; relevant findings as above. Current medications are reviewed that include p.o. Lasix, Dilantin, aldactone. On examination, temperature 97, pulse 62, respiration 16, blood pressure 118/57, pulse ox 94% on room air. GENERAL APPEARANCE: Sitting up on a chair. A bit tired but awake. EYES: Pupils equal. Conjunctivae pale. NECK: JVD not raised. Mass not palpable. RESPIRATORY: Effort increased. LUNGS: Diminished breath sounds. CARDIOVASCULAR: First and second sounds normal. LOWER EXTREMITIES: Ortega wrapped. ABDOMEN: Some distention. Soft. Liver and spleen not palpable. PSYCHIATRY: Awake. Answering simple questions but lethargic. MUSCULOSKELETAL: Diffuse wasting of the muscles. INVESTIGATIONS: White count 8.1, hemoglobin 12.4. Potassium 4.5. BUN and creatinine are normal. ASSESSMENT: 1. Severe ascites from cirrhosis, status post large-volume paracentesis. 2. Alcoholic cirrhosis. 3. Secondary portal hypertension from cirrhosis. 4. Severe protein-calorie malnutrition with diffuse wasting of muscles from decreased oral intake. 5. Hypoalbuminemia from cirrhosis. 6. Acute metabolic encephalopathy, probably hepatic, with some improvement. 7. Thrombocytopenia from cirrhosis. 8. Coagulopathy from chronic liver disease and cirrhosis. 9. Medical debility, multifactorial. 10. Acute urinary tract infection. PLAN: Continue current medication and treatment plan. Will discontinue patient's potassium. Looking at inpatient rehab.
--- NOTE | 2016-11-12 18:40 | PN ---
Patient is a 61-year-old white female who was admitted to the hospital with altered mental status, abdominal distention, for which she underwent large-volume paracentesis 2 days ago, and approximately 8.4 L of fluid was removed. She is at present on Lasix 40 mg daily as well as Aldactone 100 mg daily. She is somewhat confused as well as a poor historian. She denies any abdominal pain. Reports no nausea or vomiting. Eating her dinner with no complaints. On physical examination, appears comfortable, in no apparent distress. Vital signs are stable. Blood pressure 118/57, pulse rate 62, temperature 97. HEENT EXAMINATION: Unremarkable. Conjunctivae pink. Sclerae anicteric. Oral cavity with no lesions. NECK: No JVD or lymph node enlargement. Chest was clear to auscultation. HEART: Regular rate and rhythm. ABDOMEN: Soft. It was distended. There was some free fluid noted. EXTREMITIES: No pedal edema. SKIN: No rashes. NEURO: She is awake but not alert or oriented to name or place. LABS FROM TODAY: Ammonia is 31. AST 62. ALT is 36. T-bili is 2.8. WBC 8.1, hemoglobin 12.4, platelets 131. Hepatitis serologies for A, B and C are negative. IMPRESSION: 1. Alcoholic cirrhosis of the liver with portal hypertension. 2. Ascites, status post large-volume paracentesis 2 days ago, at present on Lasix 40 mg daily as well as Aldactone 100 mg daily and doing better. 3. Hepatic encephalopathy, on oral lactulose. 4. Mild dementia. RECOMMENDATIONS: 1. Continue with low-salt diet. 2. Continue current dose of diuretics. 3. Continue oral lactulose. 4. Repeat labs in the morning. We will follow her closely during her hospital stay.
[2016-11-13] MEDS: PHENYTOIN SODIUM EXTENDED 100 MG CAP PO SCH ×3 (08:07→21:14)
[2016-11-13] MEDS: SPIRONOLACTONE 25 MG TAB PO SCH (08:07)
[2016-11-13] MEDS: NICOTINE 21MG/24HR PATCH TRANSDERM SCH (08:07)
[2016-11-13] MEDS: PROPRANOLOL 10 MG TAB PO SCH ×3 (08:07→21:14)
[2016-11-13] MEDS: CEFUROXIME 250 MG TAB PO SCH (08:08)
[2016-11-13] MEDS: FUROSEMIDE 40 MG TAB PO SCH (08:08)
[2016-11-13] MEDS: PANTOPRAZOLE 40 MG TABLET PO SCH (08:08)
[2016-11-13] MEDS: CHOLECALCIFEROL 1,000 UNIT TAB PO SCH (08:08)
[2016-11-13] MEDS: LACTULOSE 20 GM/30 ML CUP PO SCH ×3 (08:08→21:14)
[2016-11-13] MEDS: MAGNESIUM OXIDE 400 MG TAB PO SCH ×2 (08:09→21:26)
[2016-11-13] MEDS: PHYTONADIONE ORAL 5 MG/5 ML ORAL.SYRG PO SCH (08:39)
[2016-11-13] MEDS: AMOXICILLIN 250 MG CAP PO SCH (16:06)
--- NOTE | 2016-11-13 16:23 | DS ---
DATE OF ADMISSION: 11/10/2016 DATE OF DISCHARGE: 11/13/2016 FINAL DIAGNOSES: 1. Severe ascites from cirrhosis leading to large-volume paracentesis. 2. Alcoholic cirrhosis causing secondary portal hypertension. 3. Severe protein-calorie malnutrition, including diffuse wasting of muscles/myopathy from decreased oral intake. 4. Hypoalbuminemia from cirrhosis. 5. Acute metabolic encephalopathy, probably hepatic. 6. Thrombocytopenia from cirrhosis. 7. Coagulopathy from chronic liver disease. 8. Medical debility, multifactorial. 9. Acute urinary tract infection from Enterococcus faecalis. HOSPITAL COURSE: This patient presented with large ascites, edema. Large-volume paracentesis was carried out. Aggressively diuresed. Also had a UTI with Enterococcus faecalis. Patient is tolerating a diet. Tired. Getting lactulose for hepatic encephalopathy. Overall prognosis is guarded. On examination, abdomen is distended. Edema is present. Patient is able to answer simple questions. CONSULTATIONS: 1. Dr. Yuri Phillip from GI. 2. Dr. Palacios from Neurology. CT scan of the brain showed some chronic changes. DISCHARGE MEDICATIONS: 1. Vitamin D3, 2000 units p.o. daily. 2. Magnesium oxide 400 mg p.o. b.i.d. 3. Multivitamin 1 tablet p.o. daily. 4. Nicotine 20 mg patch daily for 2 weeks. 5. Dilantin 100 mg p.o. t.i.d. 6. Potassium 20 mEq daily. 7. Propranolol 10 mg p.o. t.i.d. 8. Amoxicillin 250 mg p.o. q.8; 28 capsules. 9. Lasix 40 mg p.o. daily. 10. Ativan 1 mg p.o. q.6 p.r.n. for anxiety. 11. Lactulose 30 mL p.o. t.i.d. Titrate to 2 or 3 bowel movements a day. 12. Protonix 40 mg a day. 13. Aldactone 100 mg p.o. b.i.d. DIET: Fluid restriction 1800 mL a day. Low-salt diet. Follow up with Dr. Barnes upon discharge from [facility]. Follow up with Dr. Bray at [facility]. Follow up with Dr. Vinson in 2 weeks. Patient will probably need large-volume paracentesis in the near future. LABS: BMP in 4 days. Discharge planning more than 35 minutes.
--- NOTE | 2016-11-13 18:00 | PN ---
DATE OF SERVICE: 11/13/2016 Patient is a 61-year-old white female with history of alcoholic cirrhosis of the liver, admitted to the hospital with abdominal distention and altered mental status. She is doing much better today. She is status post large-volume paracentesis 2 days ago and approximately 8.4 L of fluid was removed. She is at present on Lasix and Aldactone at 40 and 100 mg, respectively. She is feeling much better. She denies any new symptoms other than abdominal distention. On physical examination she appears comfortable. Vital signs are stable. Blood pressure is 100/59, pulse rate 65, temperature 97.5. HEENT EXAMINATION: Unremarkable. Conjunctivae are pink, sclerae anicteric. Oral cavity with no lesions. NECK: No JVD or lymph node enlargement. Chest was clear to auscultation. HEART: Regular rate and rhythm. ABDOMEN: Soft, distended, tympanic. Some free fluid noted. EXTREMITIES: No pedal edema. SKIN: No rashes. NEURO: Alert and oriented x3. No focal deficits. LABS TODAY: WBC 8.1, hemoglobin 12.4, platelets 131. T-bili is 2.8. AST 62, ALT 36. Ammonia 31. IMPRESSION: 1. Ascites, status post large-volume paracentesis, at present on Lasix 40 and Aldactone 100 mg daily and doing well. 2. Elevated AST, ALT and total bilirubin of 2.8, consistent with chronic alcoholic liver disease. 3. Cirrhosis of the liver with portal hypertension/thrombocytopenia. RECOMMENDATIONS: 1. Continue with the current diuretic regimen. 2. Low-salt diet. 3. Continue with oral lactulose. 4. She can be discharged home with outpatient followup in 2 to 3 weeks.
[2016-11-14] MEDS ORDERED: AMOXICILLIN 250 MG CAP ONE (00:20)
--- NOTE | 2016-11-14 07:01 | EEG ---
DATE OF SERVICE: 11/12/2016 INDICATIONS FOR EXAMINATION: Altered mental status. AGE: 61Y DESCRIPTION OF THE PROCEDURE: This EEG was performed using a 21-channel digital electroencephalograph, following the international 10 to 20 system. DESCRIPTION OF THE RECORDING: From the beginning of the tracing, and with the patient's eyes closed, the background rhythm was mostly consisting of 7 Hz theta frequency in the posterior occipital leads. No obvious asymmetry is seen. Occasional movement artifacts are noticed. Photic stimulation was performed with no driving response seen. No pathological waves were elicited. More muscle and movement artifacts are seen later in the tracing. Rare sharp wave activity is seen mostly involving the left temporal region. No generalized epileptiform discharges were seen. The patient remains awake throughout the tracing. Her EKG lead showed a regular rate and rhythm. INTERPRETATION: This awake EEG is abnormal due to the presence of generalized slowing of the background rhythm, mostly in the theta range. This is consistent with mild encephalopathy. Rare sharp wave activity is seen in the left temporal region. This could be consistent with a reduced seizure threshold or focal epileptic discharges. No generalized epileptiform discharges were seen. Clinical correlation is recommended.
[2016-11-14 07:43] VITALS: BP 101/57; PULSE 63; TEMP 96.1
[2016-11-14] MEDS: PHENYTOIN SODIUM EXTENDED 100 MG CAP PO SCH (08:19)
[2016-11-14] MEDS: AMOXICILLIN 250 MG CAP PO SCH ×2 (08:19→10:00)
[2016-11-14] MEDS: SPIRONOLACTONE 25 MG TAB PO SCH (08:19)
[2016-11-14] MEDS: LACTULOSE 20 GM/30 ML CUP PO SCH (08:19)
[2016-11-14] MEDS: FUROSEMIDE 40 MG TAB PO SCH (08:20)
[2016-11-14] MEDS: NICOTINE 21MG/24HR PATCH TRANSDERM SCH (08:20)
[2016-11-14] MEDS: PROPRANOLOL 10 MG TAB PO SCH (08:20)
[2016-11-14] MEDS: MAGNESIUM OXIDE 400 MG TAB PO SCH (08:20)
[2016-11-14] MEDS: PANTOPRAZOLE 40 MG TABLET PO SCH (08:20)
[2016-11-14] MEDS: CHOLECALCIFEROL 1,000 UNIT TAB PO SCH (08:20)
[2016-11-14 08:41] VITALS: RESP 18
[2016-11-14] MEDS: PHYTONADIONE ORAL 5 MG/5 ML ORAL.SYRG PO SCH (11:48)
[2016-11-14] MEDS ORDERED: MULTIVITAMINS, THERA 1 EACH TAB PO SCH (12:00)
[2016-11-14 14:32] VITALS: BMI 28.9
== END 2016-11-14 14:35 | DRG 432 ==
LOC: EC 12:42 → 4MS4W 16:11
PROVIDERS: ADMIT Hospitalist; ATTEND Hospitalist
PROC: 0W9G3ZX Drainage of Peritoneal Cavity, Percutaneous Approach, Diagnostic (ICD-10-PCS; principal; 2016-11-11)
DX: K70.31 Alcoholic cirrhosis of liver with ascites (principal); E43 Unspecified severe protein-calorie malnutrition; D68.4 Acquired coagulation factor deficiency; K76.6 Portal hypertension; N39.0 Urinary tract infection, site not specified; D69.59 Other secondary thrombocytopenia; F03.90 Unspecified dementia, unspecified severity, without behavioral disturbance, psychotic disturbance, mood disturbance, and anxiety; K72.90 Hepatic failure, unspecified without coma; B95.2 Enterococcus as the cause of diseases classified elsewhere; D75.89 Other specified diseases of blood and blood-forming organs; F17.200 Nicotine dependence, unspecified, uncomplicated; I10 Essential (primary) hypertension; F10.20 Alcohol dependence, uncomplicated; F41.9 Anxiety disorder, unspecified; R32 Unspecified urinary incontinence; Z79.899 Other long term (current) drug therapy; Z68.28 Body mass index [BMI] 28.0-28.9, adult
CPT/HCPCS: 36415; 49083; 70450; 71020; 74000; 76705; 80053; 80074; 80185; 80306; 81001; 82042; 82105; 82140; 82550; 82553; 82945; 83605; 83880; 84484; 85025; 85610; 85730; 87040; 87070; 87075; 87077; 87086; 87186; 87205; 87502; 88108; 88305; 89050; 93005; 95816; 99285

== ENCOUNTER → 2019-05-25 | Outpatient (CLI) | payer MEDICARE, OTHER ==
--- NOTE | 2019-05-25 11:53 | XR ---
EXAMINATION TYPE: XR ankle complete LT, XR foot complete LT DATE OF EXAM: 05/25/2019 CLINICAL HISTORY: Pain and swelling for 3 months. TECHNIQUE: Frontal, lateral and oblique images of the left ankle and foot are obtained. COMPARISON: None. FINDINGS: Demineralization is present. There is no acute fracture/dislocation evident in the left ank le. Small inferior calcaneal spur. The ankle mortise appears within normal limits. Posterior pelvic p hleboliths. There is no acute fracture or dislocation evident in the left foot. Moderate to severe narrowing firs t metatarsophalangeal joint. Small superior calcaneal spur also noted. Leuv-[id number] spurring dors al surface midfoot level near navicular articulation with cuneiforms. Some flexion of the toes. Mild diffuse subcutaneous edema in the left foot. IMPRESSION: As above .
--- NOTE | 2019-05-25 14:38 | CT ---
EXAMINATION TYPE: CT abdomen pelvis wo con DATE OF EXAM: 05/25/2019 HISTORY: Distention and swelling. CT DLP: 884 mGycm. Automated Exposure Control for Dose Reduction was Utilized. TECHNIQUE: CT scan of the abdomen and pelvis is performed with oral but without IV contrast. COMPARISON: Limited abdominal ultrasound November 11, 2016 FINDINGS: Within the limitations of a non-contrast study, the following observations are made. LUNG BASES: Oval 1.4 x 0.7 cm structure deep to the pericardium could reflect trapped fluid coronal i mage 35. Solid mass at this level is not excluded. Suspect some pericardial ascites near apex axial i mage 1. Coronary artery calcification and/or stents. LIVER/GB: Heterogeneous small liver with lobulated peripheral margin consistent with underlying cirrh osis. Stone filled contracted gallbladder with mild wall thickening latter suspected product of under lying liver disease. No surrounding inflammatory change. Trace ascites anterior superior aspect of li tamara. PANCREAS: No significant abnormality is seen. SPLEEN: No definitive splenomegaly. ADRENALS: No significant abnormality is seen. KIDNEYS: Retroaortic left renal vein which is normal variant. BOWEL: Oral contrast extends to level of the proximal transverse colon. No suspicious small or large bowel dilatation. A few scattered diverticula throughout the proximal sigmoid colon. GENITAL ORGANS: Slightly retroverted uterus. LYMPH NODES: No greater than 1cm abdominal or pelvic lymph nodes are appreciated. OSSEOUS STRUCTURES: Slight grade 1 anterolisthesis of L5 on L6. Moderate to severe disc space narrowi ng and vacuum disc phenomenon at this level. Transitional type L6 vertebra. OTHER: Moderate to severe calcified plaque of the aorta extends into branch vessels. There is recanalized umbilical vein anterior to the liver. There are suspected some perigastric varic es with tiny linear or nodular prominence in the epigastric region just superior to the pancreas. The re may be collateral vessels at the gerda hepatis. IMPRESSION: Cirrhosis with underlying portal hypertension. Trace perihepatic ascites. No bowel obstru ction. No drainable abdominal or pelvic ascites noted. Intracardiac lesion of uncertain etiology and may benefit with contrast enhanced CT.
== END | disposition home or self-care (01) ==
LOC: RADCTMAIN 11:12
PROVIDERS: ATTEND Family Medicine
DX: M77.32 Calcaneal spur, left foot (principal); M79.89 Other specified soft tissue disorders; K74.60 Unspecified cirrhosis of liver; K76.6 Portal hypertension
CPT/HCPCS: 73610; 73630; 74176; Q9967

== ENCOUNTER → 2019-06-02 | Outpatient (CLI) | payer MEDICARE, OTHER ==
--- NOTE | 2019-06-02 15:18 | CT ---
EXAMINATION TYPE: CT chest w con DATE OF EXAM: 06/02/2019 COMPARISON: CT abdomen pelvis 05/25/2019 HISTORY: Abnormal findings on prior abdomen/pelvis ct scan. CT DLP: 448 mGycm Automated exposure control for dose reduction was used. CONTRAST: CT scan of the chest is performed with IV Contrast, patient injected with 100ml mL of Isovue 300. FINDINGS: LUNGS: The lungs are grossly clear, there is no concerning parenchymal mass or nodule identified. Ate lectasis or parenchymal scar in the region of the lingula. There is no pleural effusion or pneumotho rax seen. The tracheobronchial tree is patent. MEDIASTINUM: There are no greater than 1 cm hilar or mediastinal lymph nodes. No pericardial effusi on is seen. Thoracic aorta is of normal caliber. The heart is not enlarged. Left-sided pericardial t hickening with some pericardial nodule measuring 9 mm. Further evaluation with echocardiography advis ed. Findings may reflect trapped fluid. UPPER ABDOMEN: Chronic liver disease with venous collaterals noted. OTHER: No additional significant abnormality is seen. IMPRESSION: 1.Left-sided pericardial thickening with some pericardial nodule measuring 9 mm. Further evaluation w ith echocardiography advised. Findings may reflect trapped fluid.
== END | disposition home or self-care (01) ==
LOC: RADCTMAIN 13:28
PROVIDERS: ATTEND Family Medicine
DX: I31.8 Other specified diseases of pericardium (principal)
CPT/HCPCS: 82565; 84520; 71260; 36415; Q9967

== ENCOUNTER → 2019-06-24 | Outpatient (CLI) | payer MEDICARE, OTHER ==
[2019-06-24 14:12] LABS: Basophils % (A) 1 %; Eosinophils # (A) 0.2 k/uL (0-0.7); Eosinophils % (A) 3 %; HCT 40.5 % (34.0-46.0); HGB 13.3 gm/dL (11.4-16.0); Lymphocytes # (A) 1.8 k/uL (1.0-4.8); Lymphocytes % (A) 31 %; MCH 29.7 pg (25.0-35.0); MCHC 32.9 g/dL (31.0-37.0); MCV 90.3 fL (80.0-100.0); Mean Platelet Volume 7.5; Monocytes # (A) 0.6 k/uL (0-1.0); Monocytes % (A) 10 %; Neutrophils # (A) 3.1 k/uL (1.3-7.7); Neutrophils % (A) 53 %; Platelet Count 140 k/uL (150-450); RBC 4.48 m/uL (3.80-5.40); RDW 13.9 % (11.5-15.5); WBC 5.9 k/uL (3.8-10.6)
[2019-06-24 19:43] LABS: % Iron Saturation 23.56 (12.00-45.00); African American GFR (CKD) 105.4 (60.0-200.0); Albumin 4.3 g/dL (3.80-4.90); Albumin/Globulin Ratio 1.87 (1.60-3.17); Anion Gap 7.9 mmol/L (4.00-12.00); BUN/Creat Ratio 18.57 Ratio (12.00-20.00); Calcium 9.3 mg/dL (8.7-10.3); Carbon Dioxide 27.1 mmol/L (21.6-31.8); Globulin 2.3 g/dL (1.6-3.3); Magnesium 1.9 mg/dL (1.5-2.4); Non-African American GFR(CKD) 90.9 (60.0-200.0); Potassium 3.7 mmol/L (3.5-5.5); Total Bilirubin 0.8 mg/dL (0.3-1.2); Total Protein 6.6 g/dL (6.2-8.2); Uric Acid 6.3 mg/dL (2.9-7.7)
[2019-06-24 19:50] LABS: Ferritin 37.7 ng/mL (10.0-291.0)
== END | disposition home or self-care (01) ==
LOC: LABWHC1 13:26
DX: K74.69 Other cirrhosis of liver (principal); R14.0 Abdominal distension (gaseous); M25.579 Pain in unspecified ankle and joints of unspecified foot; M25.473 Effusion, unspecified ankle; Z79.899 Other long term (current) drug therapy
CPT/HCPCS: 36415; 80053; 82105; 82140; 82550; 82728; 82977; 83540; 83550; 83615; 83735; 83880; 84443; 84550; 85025

== ENCOUNTER → 2019-07-19 | Outpatient (CLI) | payer MEDICARE ==
[2019-07-19 17:04] LABS: Chol/HDL Ratio 4.21; LDL Cholesterol,Calculated 74.2 mg/dL (0.0-131.0); VLDL Calculation 18.8 mg/dL (5.00-40.00)
[2019-07-19 19:37] LABS: Hemoglobin A1C 5.4 % (4.0-6.0)
== END | disposition home or self-care (01) ==
LOC: LABWHC1 08:13
PROVIDERS: ATTEND Family Medicine
DX: K74.60 Unspecified cirrhosis of liver (principal); R14.0 Abdominal distension (gaseous); M25.579 Pain in unspecified ankle and joints of unspecified foot; M25.473 Effusion, unspecified ankle; Z79.899 Other long term (current) drug therapy
CPT/HCPCS: 36415; 80061; 82306; 83036

== ENCOUNTER → 2020-01-10 | Outpatient (CLI) | payer MEDICARE, OTHER ==
[2020-01-10 11:02] LABS: INR 1.3 (<1.2); Prothrombin Time 13.3 sec (9.0-12.0)
[2020-01-10 11:03] LABS: Basophils # (A) 0.1 k/uL (0-0.2); Basophils % (A) 1 %; Eosinophils # (A) 0.1 k/uL (0-0.7); Eosinophils % (A) 2 %; HCT 41.2 % (34.0-46.0); HGB 13.5 gm/dL (11.4-16.0); Lymphocytes # (A) 1.6 k/uL (1.0-4.8); Lymphocytes % (A) 23 %; MCH 29.3 pg (25.0-35.0); MCHC 32.8 g/dL (31.0-37.0); MCV 89.3 fL (80.0-100.0); Mean Platelet Volume 8.8; Monocytes # (A) 0.6 k/uL (0-1.0); Monocytes % (A) 9 %; Neutrophils # (A) 4.2 k/uL (1.3-7.7); Neutrophils % (A) 63 %; Platelet Count 158 k/uL (150-450); RBC 4.61 m/uL (3.80-5.40); RDW 14.7 % (11.5-15.5); WBC 6.7 k/uL (3.8-10.6)
[2020-01-10 17:20] LABS: African American GFR (CKD) 104.6 (60.0-200.0); Albumin 4.4 g/dL (3.80-4.90); Albumin/Globulin Ratio 2.1 (1.60-3.17); Anion Gap 8.8 mmol/L (4.00-12.00); BUN/Creat Ratio 12.86 Ratio (12.00-20.00); Calcium 9.6 mg/dL (8.7-10.3); Carbon Dioxide 24.2 mmol/L (21.6-31.8); Chol/HDL Ratio 3.9; Globulin 2.1 g/dL (1.6-3.3); LDL Cholesterol,Calculated 64.8 mg/dL (0.0-131.0); Non-African American GFR(CKD) 90.3 (60.0-200.0); Potassium 4.1 mmol/L (3.5-5.5); Total Bilirubin 0.9 mg/dL (0.2-1.2); Total Protein 6.5 g/dL (6.2-8.2); VLDL Calculation 19.2 mg/dL (5.00-40.00)
== END | disposition home or self-care (01) ==
LOC: LABWHC1 09:31
PROVIDERS: ATTEND Internal Medicine
DX: E78.5 Hyperlipidemia, unspecified (principal); K74.69 Other cirrhosis of liver
CPT/HCPCS: 36415; 80053; 80061; 82105; 85025; 85610

== ENCOUNTER → 2020-11-23 | Outpatient (CLI) | payer MEDICARE, OTHER ==
--- NOTE | 2020-11-23 12:42 | US ---
EXAMINATION TYPE: US abdomen complete DATE OF EXAM: 11/23/2020 COMPARISON: 07/19/2019 CLINICAL HISTORY: 65-year-old female K74.69 other cirrhosis of liver. TECHNIQUE: Multiple sonographic images of the abdomen are obtained. FINDINGS: EXAM MEASUREMENTS: Liver Length: 8.8 cm Gallbladder Wall: 0.6 cm CBD: 0.4 cm Spleen: 10.5 cm Right Kidney: 10.7 x 4.4 cm Left Kidney: 10.7 x 5.4 x 5.1 cm Scattered moderate ascites. Pancreas: Mostly obscured by bowel gas Liver: atrophic, nodular contour, heterogeneous. No focal lesion is seen. Gallbladder: Layering gravel or tiny calculi. Wall thickening is nonspecific and probably relates to cirrhosis. There is no abnormal hydropic change. Evidence for sonographic Roque's sign: no CBD: wnl Spleen: wnl Right Kidney: No hydronephrosis, limited visualization Left Kidney: Lobulated renal cortical contour. No hydronephrosis. Upper IVC: wnl Abd Aorta: Obscured by overlying bowel gas/ascites. IMPRESSION: 1. Shrunken cirrhotic liver. No ultrasound evidence for hepatoma. 2. Numerous small layering gallstones/gravel. Gallbladder wall thickening is nonspecific and most lik catherine relates to cirrhosis. No sonographic Roque's sign or hydropic change.
== END | disposition home or self-care (01) ==
LOC: RADUSWWP 09:01
PROVIDERS: ATTEND Internal Medicine
DX: K74.69 Other cirrhosis of liver (principal); K80.20 Calculus of gallbladder without cholecystitis without obstruction
CPT/HCPCS: 36415; 76700; 80053; 80061; 81001; 82105; 83036; 84443; 85025; 85610

== ENCOUNTER → 2020-11-23 | Outpatient (CLI) | payer MEDICARE, OTHER ==
[2020-11-23 13:39] LABS: Appearance,Urine Clear (Clear); Bilirubin,Urine Negative (Negative); Blood,Urine Negative (Negative); Color,Urine Yellow; Glucose,Urine (UA) Negative (Negative); Ketones,Urine Negative (Negative); Leukocyte Esterase,Urine Small (Negative); Mucus,Urine Many /hpf; Nitrite,Urine Negative (Negative); Protein,Urine Trace (Negative); RBC,Urine 2 /hpf (0-5); Specific Gravity,Urine 1.031 (1.001-1.035); Squamous Epithelial Cell,Urine <1 /hpf (0-4); Urobilinogen,Urine <2.0 mg/dL (<2.0); WBC,Urine 7 /hpf (0-5)
[2020-11-23 19:24] LABS: Basophils # (A) 0.06 X 10*3/uL (0.00-0.10); Eosinophils # (A) 0.12 X 10*3/uL (0.04-0.35); HCT 38.2 % (37.2-46.3); HGB 12.2 g/dL (12.0-15.0); Lymphocytes # (A) 1.19 X 10*3/uL (0.90-5.00); Lymphocytes % (A) 20.1 %; MCH 28.3 pg (27.0-32.0); MCHC 31.9 g/dL (32.0-37.0); MCV 88.6 fL (80.0-97.0); Mean Platelet Volume 12.8 fL (9.5-12.2); Monocytes # (A) 0.73 X 10*3/uL (0.20-1.00); Monocytes % (A) 12.3 %; Neutrophils # (A) 3.81 X 10*3/uL (1.80-7.70); Neutrophils % (A) 64.3 %; Platelet Count 154 X 10*3/uL (140-440); RBC 4.31 X 10*6/uL (4.10-5.20); RDW 14.5 % (11.5-14.5); WBC 5.93 X 10*3/uL (4.50-10.00)
[2020-11-23 20:09] LABS: INR 1.27 (0.90-1.11); Prothrombin Time 13.6 sec (9.9-11.9)
[2020-11-23 20:49] LABS: Hemoglobin A1C 5.4 % (4.0-6.0)
[2020-11-24 10:19] LABS: African American GFR (CKD) 110.1 (60.0-200.0); Albumin 4.5 g/dL (3.80-4.90); Albumin/Globulin Ratio 2.05 (1.60-3.17); Anion Gap 14.5 mmol/L (4.00-12.00); Calcium 9.6 mg/dL (8.7-10.3); Carbon Dioxide 20.5 mmol/L (21.6-31.8); Chol/HDL Ratio 4.23; Globulin 2.2 g/dL (1.6-3.3); LDL Cholesterol,Calculated 62.6 mg/dL (0.0-131.0); Total Bilirubin 0.7 mg/dL (0.2-1.2); Total Protein 6.7 g/dL (6.2-8.2); VLDL Calculation 21.4 mg/dL (5.00-40.00)
== END | disposition home or self-care (01) ==
LOC: LABWHC1 10:03
PROVIDERS: ATTEND Internal Medicine
DX: K74.69 Other cirrhosis of liver (principal); I48.91 Unspecified atrial fibrillation; Z79.899 Other long term (current) drug therapy
CPT/HCPCS: 36415; 80053; 80061; 81001; 82105; 83036; 84443; 85025; 85610

== ENCOUNTER → 2021-01-22 | Outpatient (CLI) | payer MEDICARE, OTHER ==
[2021-01-22 19:00] LABS: African American GFR (CKD) 109.3 (60.0-200.0); Albumin 4.2 g/dL (3.80-4.90); Albumin/Globulin Ratio 1.68 (1.60-3.17); Anion Gap 8.3 mmol/L (4.00-12.00); Calcium 8.8 mg/dL (8.7-10.3); Carbon Dioxide 21.7 mmol/L (21.6-31.8); Globulin 2.5 g/dL (1.6-3.3); Non-African American GFR(CKD) 94.3 (60.0-200.0); Potassium 4.1 mmol/L (3.5-5.5); Total Bilirubin 0.7 mg/dL (0.2-1.2); Total Protein 6.7 g/dL (6.2-8.2)
== END | disposition home or self-care (01) ==
LOC: LABWHC1 08:35
PROVIDERS: ATTEND Internal Medicine
DX: K74.69 Other cirrhosis of liver (principal)
CPT/HCPCS: 36415; 80053

== ENCOUNTER 2021-02-12 08:51 | Day surgery (SDC) | payer MEDICARE, OTHER ==
[2021-02-12 09:39] LABS: Mean Platelet Volume 8.7; Platelet Count 164 k/uL (150-450)
[2021-02-12 09:44] LABS: INR 1.1 (<1.2); Prothrombin Time 11.6 sec (9.0-12.0)
[2021-02-12 09:52] LABS: African American GFR (CKD) >90 (>60 ml/min/1.73 sqM); Non-African American GFR(CKD) >90 (>60 ml/min/1.73 sqM)
[2021-02-12] MEDS: ALBUMIN HUMAN 25% 50 ML in EMPTY BAG 1 BAG IVPB SCH ×3 (11:11→11:40)
[2021-02-12 11:29] VITALS: BP 115/73; RESP 18; TEMP 98.1
--- NOTE | 2021-02-12 17:03 | US ---
EXAMINATION TYPE: US paracentesis abd w/image DATE OF EXAM: 02/12/2021 CLINICAL HISTORY: Cirrhosis of liver. Ascites. COMPARISON: Abdominal ultrasound 11/23/2020 COLLAR STARCHER: Dr. Aggie Rai PROCEDURE: Preprocedure preliminary ultrasound imaging demonstrates large volume ascites. The procedure was discussed with the patient. The risks, complications, benefits, and alternatives we re discussed and any questions were answered. Informed consent was obtained. The patient was placed s upine on the ultrasound table and prepped and draped in the usual sterile fashion. All elements of maximal barrier technique were utilized. Under ultrasound guidance, access into the right upper quadrant was obtained with a 5 Cuban one-step centesis catheter. Approximately 6.2 liters of clear serosanguineous fluid was removed. Catheter was removed and sterile bandage was applied. The patient was stable throughout the procedure and remained stable upon discha rge from Department of Radiology. IMPRESSION: Successful ultrasound-guided paracentesis, with removal of 6.2 liters of clear serosanguineous fluid.
[2021-02-12 18:42] VITALS: PULSE 74
[2021-02-12 20:16] LABS: Appearance,BF Bloody; Color,BF Red; Nucleated Cells, Body Fluid 500 /uL; RBC, Body Fluid 154000 /uL
[2021-02-12 20:50] LABS: Mononuclear WBC,Body Fluid 94 %; Polynuclear WBC,Body Fluid 6 %; Total Cells Counted,Body Fluid 100
[2021-02-13 06:51] LABS: Albumin, Fluid Source Paracentesis Fluid
== END 2021-02-12 11:55 | disposition home or self-care (01) ==
LOC: RADPROMAIN 08:51
PROVIDERS: ATTEND Internal Medicine
DX: K74.69 Other cirrhosis of liver (principal); Z79.899 Other long term (current) drug therapy; Z79.01 Long term (current) use of anticoagulants
CPT/HCPCS: 88108; 88305; 82042; 89050; 82565; 85049; 85610; 84157; 49083; P9047

== ENCOUNTER → 2021-02-20 | Outpatient (CLI) | payer MEDICARE, OTHER ==
[2021-02-21 03:39] LABS: African American GFR (CKD) 103.9 (60.0-200.0); Albumin 4.3 g/dL (3.80-4.90); Albumin/Globulin Ratio 1.72 (1.60-3.17); Anion Gap 15.1 mmol/L (4.00-12.00); BUN/Creat Ratio 22.86 Ratio (12.00-20.00); Calcium 9.4 mg/dL (8.7-10.3); Carbon Dioxide 22.9 mmol/L (21.6-31.8); Globulin 2.5 g/dL (1.6-3.3); Non-African American GFR(CKD) 89.7 (60.0-200.0); Potassium 4.5 mmol/L (3.5-5.5); Total Bilirubin 0.5 mg/dL (0.3-1.2); Total Protein 6.8 g/dL (6.2-8.2)
== END | disposition home or self-care (01) ==
LOC: LABWHC1 08:15
PROVIDERS: ATTEND Internal Medicine
DX: K74.69 Other cirrhosis of liver (principal)
CPT/HCPCS: 36415; 80053

== ENCOUNTER → 2021-07-01 | Outpatient (CLI) | payer MEDICARE ==
--- NOTE | 2021-07-02 11:51 | MM ---
Reason for exam: screening (asymptomatic). Last mammogram was performed 1 year and 2 months ago. History: Patient is postmenopausal. Benign excisional biopsy of the left breast. Physical Findings: A clinical breast exam by your physician is recommended on an annual basis and results should be correlated with mammographic findings. MG 3D Screening Mammo W/Cad Bilateral CC and MLO view(s) were taken. Prior study comparison: May 10, 2020, mammogram, performed at [facility]. July 07, 2018, mammogram, performed at [facility]. The breast tissue is heterogeneously dense. This may lower the sensitivity of mammography. There are benign appearing round calcifications bilaterally. There is no discrete abnormality. ASSESSMENT: Benign, BI-RAD 2 RECOMMENDATION: Routine screening mammogram of both breasts in 1 year.
== END | disposition home or self-care (01) ==
LOC: RADMAMWWP 09:59
PROVIDERS: ATTEND Family Medicine
DX: Z12.31 Encounter for screening mammogram for malignant neoplasm of breast (principal); Z78.0 Asymptomatic menopausal state
CPT/HCPCS: 77063; 77067

== ENCOUNTER → 2021-08-22 | Outpatient (CLI) | payer MEDICARE ==
[2021-08-22 08:36] LABS: Basophils # (A) 0.1 k/uL (0-0.2); Basophils % (A) 1 %; Eosinophils # (A) 0.2 k/uL (0-0.7); Eosinophils % (A) 3 %; HGB 11.9 gm/dL (11.4-16.0); Lymphocytes # (A) 1.2 k/uL (1.0-4.8); Lymphocytes % (A) 23 %; MCH 28.6 pg (25.0-35.0); MCHC 32.2 g/dL (31.0-37.0); MCV 88.8 fL (80.0-100.0); Mean Platelet Volume 8.5; Monocytes # (A) 0.6 k/uL (0-1.0); Monocytes % (A) 11 %; Neutrophils % (A) 59 %; Platelet Count 146 k/uL (150-450); RBC 4.16 m/uL (3.80-5.40); RDW 14.8 % (11.5-15.5); WBC 5.1 k/uL (3.8-10.6)
[2021-08-22 15:09] LABS: Albumin 4.3 g/dL (3.8-4.9); Anion Gap 11.2 mmol/L (10.00-18.00); Blood Urea Nitrogen 14.4 mg/dL (9.0-27.0); Calcium 9.4 mg/dL (8.7-10.3); Carbon Dioxide 21.9 mmol/L (20.0-27.5); Non-African American GFR(CKD) 83.7 (60.0-200.0); Total Bilirubin 0.5 mg/dL (0.30-1.20); Total Protein 7.2 g/dL (6.2-8.2)
--- NOTE | 2021-08-22 16:05 | US ---
EXAMINATION TYPE: US abdomen complete DATE OF EXAM: 08/22/2021 COMPARISON: CT abdomen and pelvis May 25, 2019 CLINICAL HISTORY: K70.30 alcoholic cirrhosis of liver. cirrhosis EXAM MEASUREMENTS: Liver Length: 17.5 cm Gallbladder Wall: 0.5 cm CBD: 0.3 cm Spleen: 11.1 cm Right Kidney: 10.6 x 4.2 x 4.6 cm Left Kidney: 10.7 x 4.5 x 4.3 cm Pancreas: Tail obscured by overlying bowel gas. visualized portions appears heterogeneous Liver: nodular contour, heterogeneous Gallbladder: multiple stones, thickened GB wall Evidence for sonographic Roque's sign: no CBD: wnl Spleen: wnl Right Kidney: no evidence of hydronephrosis Left Kidney: no evidence of hydronephrosis Upper IVC: Obscured by overlying bowel gas Abd Aorta: Obscured by overlying bowel gas The visualized liver is heterogeneously hyperechoic with nodular peripheral contour and adjacent smal l amount of ascites. Finding consistent with known hepatocellular disease or cirrhosis. No intrahepat ic or extra hepatic biliary dilatation is seen. Evaluation for focal masses suboptimal due to the het erogeneity. The intrahepatic portion of the IVC and proximal abdominal aorta are within normal limits . Mid to distal abdominal aorta suboptimally seen secondary to overlying bowel gas. There is redemons tration of mobile shadowing gallstones. Gallbladder wall is thickened to 5 mm which is nonspecific fi nding with known liver disease. Common bile duct is within normal limits. The visualized portions of the pancreas are slightly heterogeneous. The spleen remains normal in size. Kidneys are symmetric and free of hydronephrosis. No renal lesions are seen. IMPRESSION: Cirrhotic liver with some adjacent ascites redemonstrated consistent with underlying port al venous hypertension. Spleen remains normal in size. No new biliary dilatation noted.
== END | disposition home or self-care (01) ==
LOC: RADUSWWP 07:45
PROVIDERS: ATTEND Internal Medicine Gastroenterology
DX: K70.30 Alcoholic cirrhosis of liver without ascites (principal)
CPT/HCPCS: 36415; 76700; 80053; 82105; 85025

== ENCOUNTER → 2022-01-17 | Outpatient (CLI) | payer MEDICARE ==
--- NOTE | 2022-01-17 11:22 | CTL ---
EXAMINATION TYPE: CT Low Dose Lung DATE OF EXAM ORDERED: 01/17/2022 HISTORY: 67-year-old female Z87.891, personal history of tobacco use. Lung cancer screening CT DLP: 92.[address] CTDI: 2.7 mGy Automated exposure control for dose reduction was used. SCREENING VISIT: Baseline COMPARISON: Prior CT chest 06/02/2019 TECHNIQUE: Low dose computed tomography scan was performed through the chest with coronal and sagitta l reconstructions. CT DIAGNOSTIC QUALITY: Satisfactory FINDINGS: Heart normal size with small pericardial effusion though decreased in size from 2019. A nodular low d ensity area measuring 9 mm along the anterior base of the heart remains unchanged from 2019, possible small pericardiac cyst. Extensive three-vessel coronary artery calcifications are present in remarka ble for coronary artery disease. Mild aneurysm ascending aorta at 4.0 cm versus 3.8 cm, previously. Mild atherosclerotic arch calcific ations with conventional arch vessel branching anatomy. No thoracic lymphadenopathy by CT size criteria. There is mild centrilobular emphysema with scattered areas of strandy scarring bilaterally. A few areas of groundglass density right upper and midlung seem to have been present in 2019 as well. However, there is an associated new 6 mm nodule in the right upper lobe, axial image 106. Unchanged 4 mm posterior right apical pulmonary nodule, axial image 60. Single small groundglass focus medial apex on the left. Redemonstrated cirrhotic morphology of the liver. Recanalized umbilical vein noted as well as new mod erate upper abdominal ascites. Bones: Moderate degenerative disc disease mid thoracic spine. IMPRESSION: 1. LungRADS Category 3 (probably benign, 1-2% chance of malignancy); a 6 mm right upper lobe pulmonar y nodule on baseline screening associated with a groundglass focus. Additional groundglass areas righ t upper and midlung were present previously. Areas of chronic interstitial scarring or adenomatous hy perplasia are considerations. Six-month follow-up CT chest recommended for the 6 mm nodule that has d eveloped. 2. COPD with mild emphysema. Recommend smoking cessation. 3. Redemonstrated cirrhosis and evidence of portal venous hypertension. There is new moderate upper a bdominal ascites. Appropriate GI/hepatology referral and management recommended. 4. 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 CAD with extensive three-vessel co ronary artery calcifications. CT LUNG RAD AND CT CHEST RECOMMENDATION: Lung-Rad 3 Probably Benign: 6 month follow-up LDCT. S Modifier (other clinically significant findings): S, see above
== END | disposition home or self-care (01) ==
LOC: RADCTMAIN 09:43
PROVIDERS: ATTEND Internal Medicine
DX: Z12.2 Encounter for screening for malignant neoplasm of respiratory organs (principal); R91.1 Solitary pulmonary nodule; J43.9 Emphysema, unspecified; I71.2 Thoracic aortic aneurysm, without rupture; I25.10 Atherosclerotic heart disease of native coronary artery without angina pectoris; Z87.891 Personal history of nicotine dependence
CPT/HCPCS: 71271

== ENCOUNTER → 2022-02-10 | Outpatient (CLI) | payer MEDICARE ==
--- NOTE | 2022-02-10 10:34 | US ---
EXAMINATION TYPE: US abdomen complete DATE OF EXAM: 02/10/2022 COMPARISON: US 2021, CT 2019 CLINICAL HISTORY: K70.30 ALCOHOLIC CIRRHOSIS OF LIVER. Alcoholic cirrhosis, hx gallstones. EXAM MEASUREMENTS: Liver Length: 15.5 cm Gallbladder Wall: 0.57 cm CBD: 0.32 cm Spleen: 10.0 cm Right Kidney: 11.2 x 6.3 x 4.5 cm Left Kidney: 10.1 x 4.2 x 5.2 cm Limited due to gas. Pancreas: Limited. Appears heterogeneous. Liver: Appears very coarse with nodular contour. Gallbladder: Wall appears thickened. Multiple hyperechoic foci with posterior shadowing seen within. Evidence for sonographic Roque's sign: no CBD: Portions seen appear wnl Spleen: Appears wnl Right Kidney: Appears wnl Left Kidney: Anechoic elongating appearance of possible dilated upper collecting system. Upper IVC: Appears wnl Abd Aorta: Proximal aorta appears ectatic measurin.6 cm in AP and 2.8 cm in transverse. Distal ao rta and iliacs are obscured. No aneurysm is visualized abdominal aorta. Visualized pancreas unremarkable. Visualized liver heterog eneously hyperechoic with adjacent ascites. Lobulated contour. Gallbladder has shadowing mobile galls tone. There is mild wall thickening up to 6 mm. Spleen is normal in size. No hydronephrosis seen bila terally. Small amount of intra-abdominal ascites greatest in the left lower quadrant is redemonstrate d. IMPRESSION: Persistent small amount of intraperitoneal ascites. Persistent cirrhotic liver. Suboptima l study without new biliary dilatation. Gallstones redemonstrated.
[2022-02-10 14:24] LABS: Basophils # (A) 0.05 X 10*3/uL (0.00-0.10); Basophils % (A) 0.9 %; Eosinophils # (A) 0.14 X 10*3/uL (0.04-0.35); Eosinophils % (A) 2.6 %; HCT 38.5 % (37.2-46.3); Immature Grans, Automated 0.2 %; Lymphocytes # (A) 1.06 X 10*3/uL (0.90-5.00); Lymphocytes % (A) 19.7 %; MCH 27.6 pg (27.0-32.0); MCHC 31.2 g/dL (32.0-37.0); MCV 88.7 fL (80.0-97.0); Mean Platelet Volume 12.2 fL (9.5-12.2); Monocytes # (A) 0.79 X 10*3/uL (0.20-1.00); Monocytes % (A) 14.7 %; NRBC Per 100 WBC 0 /100 WBCS (0.0-0.0); Neutrophils # (A) 3.33 X 10*3/uL (1.80-7.70); Neutrophils % (A) 61.9 %; Platelet Count 143 X 10*3/uL (140-440); RBC 4.34 X 10*6/uL (4.10-5.20); RDW 15.3 % (11.5-14.5); WBC 5.38 X 10*3/uL (4.50-10.00)
[2022-02-10 22:42] LABS: African American GFR (CKD) 87.8 (60.0-200.0); Albumin 4.3 g/dL (3.8-4.9); Albumin/Globulin Ratio 1.54 (1.60-3.17); Anion Gap 16.8 mmol/L (10.00-18.00); BUN/Creat Ratio 17.38 Ratio (12.00-20.00); Blood Urea Nitrogen 13.9 mg/dL (9.0-27.0); Calcium 9.5 mg/dL (8.7-10.3); Carbon Dioxide 19.2 mmol/L (20.0-27.5); Globulin 2.8 g/dL (1.6-3.3); Non-African American GFR(CKD) 75.8 (60.0-200.0); Potassium 4.5 mmol/L (3.5-5.5); Total Bilirubin 0.5 mg/dL (0.30-1.20); Total Protein 7.1 g/dL (6.2-8.2)
== END | disposition home or self-care (01) ==
LOC: RADUSWWP 08:51
PROVIDERS: ATTEND Internal Medicine Gastroenterology
DX: K80.20 Calculus of gallbladder without cholecystitis without obstruction (principal); K70.31 Alcoholic cirrhosis of liver with ascites
CPT/HCPCS: 76700; 80053; 82105; 85025

== ENCOUNTER → 2022-07-03 | Outpatient (CLI) | payer MEDICARE ==
--- NOTE | 2022-07-03 08:16 | CT ---
EXAMINATION TYPE: CT chest wo con DATE OF EXAM: 07/03/2022 COMPARISON: 06/02/2019 HISTORY: lung nodule CT DLP: 339.[address] of the chest was performed with lung and mediastinal window settings submitted. The la ck of contrast limits evaluation of the vascular, mediastinal and parenchymal structures including th e upper abdomen. LUNGS: Groundglass nodule right upper lobe is unchanged relative to prior examination and measures 8 mm. Additional right lower lobe groundglass nodule measures 6 mm versus 6 mm previously. Additional 6 .3 mm groundglass nodule right lower lobe is also unchanged. No new nodules are seen. As noted previo usly there is a pericardial nodule measuring 9 mm versus 9 mm on prior examination. The lungs are oth erwise clear. No focal consolidation or pleural effusion. No volume loss. MEDIASTINUM/ALMA: Thoracic aorta is of normal caliber with limited evaluation given lack of contrast . The heart is mildly enlarged. Pericardial thickening anteriorly air or fluid is unchanged relativ e to prior study. No evidence for mediastinal mass. No lymph nodes greater than 1cm. UPPER ABDOMEN: Large amount of ascites within the upper abdomen. Findings suspicious for cirrhotic li tamara disease. Venous collaterals redemonstrated. OTHER: No significant other abnormality. IMPRESSION: 1. Stable groundglass nodules as noted likely reflect postinflammatory change. 2. Pericardial nodule is unchanged. 3. No new nodules.
--- NOTE | 2022-07-03 12:16 | US ---
EXAMINATION TYPE: US st tissue neck DATE OF EXAM: 07/03/2022 COMPARISON: NONE CLINICAL HISTORY: 67-year-old female R221 MASS OF LEFT SIDE OF NECK. Palpable on left side of neck fo r over 1 year, no pain, no change in size, no recent infections TECHNIQUE: Limited ultrasound examination along the left side of neck particularly targeted to the pa tient's palpable sites. FINDINGS: Multiple thickened lymph nodes seen at area of palpable. These show rounded appearance with effacemen t of the fatty hilum. Largest is at the submandibular region measuring 1.8 x 2.0 x 1.4cm IMPRESSION: Left-sided cervical lymphadenopathy. Largest node measuring 1.8 cm short axis in the left submandibul ar region. Neoplastic etiology should be excluded.
--- NOTE | 2022-07-04 16:24 | MM ---
Reason for Exam: Screening (asymptomatic). Last mammogram was performed 1 year(s) and 1 month(s) ago. Patient History: Menarche at age 12. Patient has no children. Postmenopausal. Benign Excisional Biopsy on the left side. Risk Values: Sanjana 5 year model risk: 2.2%. NCI Lifetime model risk: 7.2%. Prior Study Comparison: 07/07/2018 Screening Mammogram, [facility]. 05/10/2020 Screening Mammogram, [facility]. 07/01/2021 Bilateral Screening Mammogram, [facility]. Tissue Density: The breast tissue is heterogeneously dense. This may lower the sensitivity of mammography. Findings: Analyzed By CAD. No significant interval change. No suspicious groups of microcalcifications, spiculated or lobular masses, architectural distortion or other secondary signs of malignancy are mammographically apparent. Overall Assessment: Benign, BI-RAD 2 Management: Screening Mammogram of both breasts in 1 year. A negative mammogram report should not preclude additional follow up of suspicious palpable abnormalities. Patient should continue monthly self breast exam. A clinical breast exam by your physician is recommended on an annual basis and results should be correlated with mammographic findings. Electronically signed and approved by: Ignacio Trammell D.O. Radiologis
== END | disposition home or self-care (01) ==
LOC: RADCTMAIN 07:41
PROVIDERS: ATTEND Family Medicine
DX: Z12.31 Encounter for screening mammogram for malignant neoplasm of breast (principal); R91.8 Other nonspecific abnormal finding of lung field; Z78.0 Asymptomatic menopausal state; R59.0 Localized enlarged lymph nodes; Z98.890 Other specified postprocedural states
CPT/HCPCS: 71250; 76536; 77063; 77067

== ENCOUNTER → 2022-08-08 | Outpatient (CLI) | payer MEDICARE ==
--- NOTE | 2022-08-08 08:39 | US ---
EXAMINATION TYPE: US abdomen complete DATE OF EXAM: 08/08/2022 COMPARISON: Abdominal ultrasound 02/10/2022 CLINICAL HISTORY: K70.30 CIRRHOSIS. Hx liver cirrhosis, gallstones and ascites. TECHNIQUE: Multiple sonographic images of the abdomen are obtained. FINDINGS: EXAM MEASUREMENTS: Liver Length: 15.9 cm Gallbladder Wall: 0.5 cm Spleen: 9.8 cm Right Kidney: 10.8 x 5.7 x 3.8 cm Left Kidney: 9.6 x 3.7 x 5.2 cm Pancreas: Not well visualized Liver: Appears coarse and lobular. Gallbladder: Mobile stones and wall thickening Evidence for sonographic Roque's sign: neg CBD: Obscured by overlying bowel gas Spleen: wnl Right Kidney: No hydronephrosis or masses seen, cortex appears lobular. Left Kidney: No hydronephrosis or masses seen, cortex appears lobular. Prominent pyramids seen. Upper IVC: wnl Abd Aorta: Mid and distal portion obscured by bowel gas. Cirrhotic appearance of the liver with nodular contour and coarsened echotexture. No focal lesion ritesh ntified. The intrahepatic portion of the IVC and proximal abdominal aorta are within normal limits. T he mid and distal portion of the abdominal aorta is obscured by overlying bowel gas. Cholelithiasis d emonstrated with wall thickening likely related to known cirrhosis/ascites. Common bile duct is obscu red by overlying bowel gas. The visualized portions of the pancreas are homogenous. The spleen is un remarkable. Kidneys are symmetric and free of hydronephrosis. No renal lesions are seen. Small amou nt of intra-abdominal ascites. IMPRESSION: 1. Hepatic cirrhosis without focal lesion identified. 2. Small amount of intraperitoneal ascites. 3. Cholelithiasis without evidence of acute cholecystitis.
[2022-08-08 15:25] LABS: Basophils # (A) 0.05 X 10*3/uL (0.00-0.10); Eosinophils # (A) 0.13 X 10*3/uL (0.04-0.35); Eosinophils % (A) 2.5 %; HCT 38.2 % (37.2-46.3); HGB 11.9 g/dL (12.0-15.0); Immature Grans, Automated 0.2 %; Lymphocytes # (A) 1.21 X 10*3/uL (0.90-5.00); Lymphocytes % (A) 23.3 %; MCH 28.4 pg (27.0-32.0); MCHC 31.2 g/dL (32.0-37.0); MCV 91.2 fL (80.0-97.0); Mean Platelet Volume 12.4 fL (9.5-12.2); Monocytes # (A) 0.77 X 10*3/uL (0.20-1.00); Monocytes % (A) 14.8 %; NRBC Per 100 WBC 0 /100 WBCS (0.0-0.0); Neutrophils # (A) 3.03 X 10*3/uL (1.80-7.70); Neutrophils % (A) 58.2 %; Platelet Count 172 X 10*3/uL (140-440); RBC 4.19 X 10*6/uL (4.10-5.20); RDW 14.7 % (11.5-14.5)
[2022-08-08 15:50] LABS: African American GFR (CKD) 103.2 (60.0-200.0); Albumin 4.4 g/dL (3.8-4.9); Albumin/Globulin Ratio 1.69 (1.60-3.17); Anion Gap 10.8 mmol/L (10.00-18.00); Blood Urea Nitrogen 14.7 mg/dL (9.0-27.0); Calcium 9.5 mg/dL (8.7-10.3); Carbon Dioxide 23.2 mmol/L (20.0-27.5); Globulin 2.6 g/dL (1.6-3.3); Potassium 4.5 mmol/L (3.5-5.5); Total Bilirubin 0.6 mg/dL (0.30-1.20)
== END | disposition home or self-care (01) ==
LOC: RADUSWWP 07:35
PROVIDERS: ATTEND Internal Medicine Gastroenterology
DX: K80.20 Calculus of gallbladder without cholecystitis without obstruction (principal); K70.31 Alcoholic cirrhosis of liver with ascites
CPT/HCPCS: 76700; 80053; 82105; 85025

== ENCOUNTER 2022-08-18 12:19 | Day surgery (SDC) | payer MEDICARE ==
[2022-08-18] MEDS ORDERED: ALPRAZolam 0.25 MG TAB PO PRN (12:51)
[2022-08-18 13:04] VITALS: TEMP 97.4
[2022-08-18 13:48] VITALS: RESP 14
[2022-08-18 14:16] VITALS: BP 118/60; PULSE 61
--- NOTE | 2022-08-18 14:18 | US ---
ULTRASOUND GUIDED FNA AND CORE BIOPSY LEFT NECK MASS: CLINICAL HISTORY: Left neck mass FINDINGS: The procedure was explained to the patient. The risks, complications, benefits and alternatives were discussed and any questions were answered. Informed consent was obtained. Patient was placed supin e on the ultrasound table and prepped and draped in the usual sterile fashion. Utilizing a 25 gauge needle, three passes were made into the question of left neck mass. Needle 18-gauge core biopsy samp le also obtained. Patient was stable throughout the procedure. Pathology is pending. All elements of maximal barrier technique were utilized. IMPRESSION: 1. Successful ultrasound guided FNA and core biopsy neck mass.
== END 2022-08-18 13:55 | disposition home or self-care (01) ==
LOC: RADPROMAIN 12:19
PROVIDERS: ATTEND Otolaryngology
DX: R22.1 Localized swelling, mass and lump, neck (principal); I48.91 Unspecified atrial fibrillation; I10 Essential (primary) hypertension; K76.9 Liver disease, unspecified; Z79.01 Long term (current) use of anticoagulants; Z79.02 Long term (current) use of antithrombotics/antiplatelets; Z79.83 Long term (current) use of bisphosphonates; Z79.891 Long term (current) use of opiate analgesic; Z80.42 Family history of malignant neoplasm of prostate; F17.210 Nicotine dependence, cigarettes, uncomplicated; F10.20 Alcohol dependence, uncomplicated; D49.89 Neoplasm of unspecified behavior of other specified sites
CPT/HCPCS: 10005; 88173; 88305; 88341; 88342

== ENCOUNTER → 2022-09-01 | Outpatient (CLI) | payer MEDICARE ==
[2022-09-01 07:47] LABS: African American GFR (CKD) >90 (>60 ml/min/1.73 sqM); Blood Urea Nitrogen 16 mg/dL (7-17); Non-African American GFR(CKD) >90 (>60 ml/min/1.73 sqM)
--- NOTE | 2022-09-01 08:57 | CT ---
EXAMINATION TYPE: CT soft tissue neck w con DATE OF EXAM: 09/01/2022 HISTORY: lump COMPARISON: Neck ultrasound July 03, 2022 CT DLP: 451 mGycm. Automated Exposure Control for Dose Reduction was Utilized. TECHNIQUE: CT scan of the neck is performed with IV Contrast, patient injected with 70 mL of Isovue 300, axial images are obtained, coronal and sagittal reformatted images are reviewed. FINDINGS: Airway: Mild emphysematous change. Areas of linear scarring and additional scarlike with slight nodul arity measuring up to 5 mm right upper lobe axial image 88. This is unchanged from most recent chest CT. Slight blunting of the right piriform sinus without obvious mass. Subcentimeter posterior left th yroid nodule axial image 58. Parotid/submandibular glands: Slight asymmetric prominence to left submandibular gland without surrou nding fat stranding or suspicious mass. Carotid/Vascular Structures: Moderate to severe calcified plaque bilateral carotid bulb level extends into proximal internal carotid arteries bilaterally without significant stenosis seen . Moderate per ipheral plaque at origin of the 3 great vessels without significant stenosis. Osseous Structures: Exaggerated cervical curvature. Slight S-shaped scoliosis. Multilevel facet degen erative change in the cervical spine. Other: There are prominent small enhancing vessels present vascular anomaly in the region of the ante rior left parapharyngeal space extending into the left external jugular vein. At the palpable abnormality anterior to the jugular and carotid vessels there is 1.0 cm hypodense rou nd lesion axial image 58 with mild surrounding fat stranding corresponding to ultrasound finding Dece mber 1, correlate with biopsy results August 18. This is along the course of the anterior aspect of the SCM. There are additional abnormal right neck masses in the posterior cervical triangle superior to this, for reference is a 1.6 x 1.3 cm oval mass axial image 48 at the superior level of the hyoid bone, suspect abnormal neck adenopathy. IMPRESSION: Left neck masses suspicious for abnormal adenopathy. Correlate with biopsy performed . Primary mucosal mass or neoplasm not clearly seen. Consider PET/CT follow-up based on clinica l correlation.
== END | disposition home or self-care (01) ==
LOC: RADCTMAIN 06:57
PROVIDERS: ATTEND Otolaryngology
DX: R22.1 Localized swelling, mass and lump, neck (principal)
CPT/HCPCS: 82565; 84520; 70491; 36415; Q9967

== ENCOUNTER 2022-10-29 12:53 | Day surgery (SDC) | payer MEDICARE ==
[2022-10-29 13:36] LABS: Mean Platelet Volume 8.2; Platelet Count 239 k/uL (150-450)
[2022-10-29 13:45] LABS: INR 1.1 (<1.2); Prothrombin Time 11.7 sec (9.0-12.0)
[2022-10-29] MEDS: ALBUMIN HUMAN 25% 50 ML in EMPTY BAG 1 BAG IVPB SCH ×4 (14:00→15:09)
[2022-10-29 14:20] VITALS: TEMP 97.8
[2022-10-29 14:25] VITALS: RESP 16
[2022-10-29 15:09] VITALS: BP 99/54; PULSE 65
--- NOTE | 2022-10-29 15:52 | US ---
Ultrasound-guided paracentesis. DATE OF EXAM: 10/29/2022 CLINICAL HISTORY: Ascites The procedure was discussed with the patient. The risks, complications, benefits, and alternatives we re discussed and any questions were answered. Informed consent was obtained. The patient was placed s upine on the ultrasound table and prepped and draped in the usual sterile fashion. All elements of maximal barrier technique were utilized. Under ultrasound guidance, access into the right lower quadrant was obtained, via the paracentesis catheter system and direct ultrasound guidanc e. The patient was stable throughout the procedure and remained stable upon discharge from Department of Radiology. IMPRESSION: Successful paracentesis under ultrasound guidance.
== END 2022-10-29 15:30 | disposition home or self-care (01) ==
LOC: EEVIPCON 12:53 → RADPROMAIN 12:53
PROVIDERS: ATTEND Internal Medicine Gastroenterology
DX: R18.8 Other ascites (principal)
CPT/HCPCS: 82565; 85049; 85610; 36415; 49083; P9047

== ENCOUNTER → 2022-12-10 | Outpatient (CLI) | payer MEDICARE ==
[2022-12-10 15:35] LABS: Basophils # (A) 0 X 10*3/uL (0.00-0.10); Basophils % (A) 0 %; Eosinophils # (A) 0 X 10*3/uL (0.04-0.35); Eosinophils % (A) 0 %; HCT 25.7 % (37.2-46.3); HGB 8.1 g/dL (12.0-15.0); Immature Grans, Automated 0.6 %; Lymphocytes # (A) 0.54 X 10*3/uL (0.90-5.00); Lymphocytes % (A) 4.3 %; MCH 29.7 pg (27.0-32.0); MCHC 31.5 g/dL (32.0-37.0); MCV 94.1 fL (80.0-97.0); Mean Platelet Volume 11.8 fL (9.5-12.2); Monocytes # (A) 0.53 X 10*3/uL (0.20-1.00); Monocytes % (A) 4.2 %; NRBC Per 100 WBC 0 /100 WBCS (0.0-0.0); Neutrophils # (A) 11.33 X 10*3/uL (1.80-7.70); Neutrophils % (A) 90.9 %; Platelet Count 247 X 10*3/uL (140-440); RBC 2.73 X 10*6/uL (4.10-5.20); RDW 15.4 % (11.5-14.5); WBC 12.48 X 10*3/uL (4.50-10.00)
[2022-12-10 19:15] LABS: African American GFR (CKD) 14.2 (60.0-200.0); Albumin 3.8 g/dL (3.8-4.9); Albumin/Globulin Ratio 1.62 (1.60-3.17); Anion Gap 17.7 mmol/L (10.00-18.00); BUN/Creat Ratio 19.58 Ratio (12.00-20.00); Blood Urea Nitrogen 70.7 mg/dL (9.0-27.0); Calcium 9.1 mg/dL (8.7-10.3); Carbon Dioxide 17.6 mmol/L (20.0-27.5); Globulin 2.3 g/dL (1.6-3.3); Non-African American GFR(CKD) 12.3 (60.0-200.0); Potassium 5.6 mmol/L (3.5-5.5); Total Bilirubin 0.3 mg/dL (0.30-1.20); Total Protein 6.1 g/dL (6.2-8.2)
== END | disposition home or self-care (01) ==
LOC: LABWHC1 09:25
PROVIDERS: ATTEND Internal Medicine Gastroenterology
DX: K70.30 Alcoholic cirrhosis of liver without ascites (principal)
CPT/HCPCS: 36415; 80053; 85025

== ENCOUNTER → 2022-12-18 | Outpatient (CLI) | payer MEDICARE ==
[2022-12-18 14:51] LABS: HCT 25.9 % (37.2-46.3); HGB 8.1 g/dL (12.0-15.0); MCH 29.5 pg (27.0-32.0); MCHC 31.3 g/dL (32.0-37.0); MCV 94.2 fL (80.0-97.0); Mean Platelet Volume 11.6 fL (9.5-12.2); NRBC Per 100 WBC 0 /100 WBCS (0.0-0.0); Platelet Count 265 X 10*3/uL (140-440); RBC 2.75 X 10*6/uL (4.10-5.20); RDW 15.8 % (11.5-14.5); WBC 11.23 X 10*3/uL (4.50-10.00)
[2022-12-18 15:03] LABS: African American GFR (CKD) 41.1 (60.0-200.0); Albumin 3.7 g/dL (3.8-4.9); Albumin/Globulin Ratio 1.76 (1.60-3.17); Anion Gap 13.4 mmol/L (10.00-18.00); BUN/Creat Ratio 23.47 Ratio (12.00-20.00); Blood Urea Nitrogen 35.2 mg/dL (9.0-27.0); Calcium 8.6 mg/dL (8.7-10.3); Carbon Dioxide 20.6 mmol/L (20.0-27.5); Globulin 2.1 g/dL (1.6-3.3); Non-African American GFR(CKD) 35.4 (60.0-200.0); Potassium 3.6 mmol/L (3.5-5.5); Total Bilirubin 0.3 mg/dL (0.30-1.20); Total Protein 5.8 g/dL (6.2-8.2)
[2022-12-18 15:23] LABS: Basophils # (A) 0.02 X 10*3/uL (0.00-0.10); Basophils % (A) 0.2 %; Eosinophils # (A) 0.06 X 10*3/uL (0.04-0.35); Eosinophils % (A) 0.5 %; Immature Grans, Automated 0.6 %; Lymphocytes # (A) 0.74 X 10*3/uL (0.90-5.00); Lymphocytes % (A) 6.6 %; Monocytes # (A) 1.54 X 10*3/uL (0.20-1.00); Monocytes % (A) 13.7 %; Neutrophils % (A) 78.4 %
[2022-12-18 15:24] LABS: RBC Morphology NORMAL
== END | disposition home or self-care (01) ==
LOC: LABWHC1 09:19
PROVIDERS: ATTEND Internal Medicine Gastroenterology
DX: K70.30 Alcoholic cirrhosis of liver without ascites (principal)
CPT/HCPCS: 36415; 80053; 85025

== ENCOUNTER 2022-12-25 12:50 | Day surgery (SDC) | payer MEDICARE ==
[2022-12-25 13:40] LABS: Platelet Count 177 k/uL (150-450)
[2022-12-25 13:46] VITALS: RESP 16; TEMP 98.1
[2022-12-25 14:09] LABS: INR 1.1 (<1.2); Prothrombin Time 11.4 sec (9.0-12.0)
[2022-12-25] MEDS: ALBUMIN HUMAN 25% 50 ML in EMPTY BAG 1 BAG IVPB SCH ×3 (14:22→14:59)
[2022-12-25 15:21] VITALS: BP 102/51; PULSE 68
[2022-12-25] MEDS ORDERED: ALBUMIN HUMAN 25% 50 ML in EMPTY BAG 1 BAG IVPB ONE (15:30)
--- NOTE | 2022-12-25 15:49 | US ---
EXAMINATION TYPE: US paracentesis abd w/image DATE OF EXAM: 12/25/2022 CLINICAL HISTORY: 67-year-old female K70.30, alcoholic cirrhosis of liver without ascites The procedure was discussed with the patient. The risks, complications, benefits, and alternatives we re discussed and any questions were answered. Informed consent was obtained. The patient was placed s upine on the ultrasound table and prepped and draped in the usual sterile fashion. All elements of maximal barrier technique were utilized. Ultrasound was utilized to determine the precise skin entry site along the right lower quadrant. Utilizing trocar technique, a 6 Palauan safety centesis catheter was inserted into the right lower pau drant ascites collection. Approximately 8.8 liters of serosanguineous fluid was removed. The patient was stable throughout the procedure. The catheter was removed, hemostasis obtained, and a dressing placed. The patient remained stable upon discharge from Department of Radiology. IMPRESSION: Successful therapeutic paracentesis under ultrasound guidance. 9.9 L of typical serosanguineous fluid was removed.
== END 2022-12-25 15:49 | disposition home or self-care (01) ==
LOC: RADPROMAIN 12:50
PROVIDERS: ATTEND Internal Medicine Gastroenterology
DX: R18.8 Other ascites (principal)
CPT/HCPCS: 82565; 85049; 85610; 36415; 49083; P9047

== ENCOUNTER 2023-01-01 11:34 | Day surgery (SDC) | payer MEDICARE ==
[2022-12-31 15:10] VITALS: BMI 20.5
[2023-01-01] MEDS ORDERED: LIDOCAINE 1% INJ 10MG/ML (5 ML VIAL-PF) SQ ONE (12:31)
[2023-01-01 12:42] VITALS: RESP 16
[2023-01-01 12:43] VITALS: BP 98/56; PULSE 59
--- NOTE | 2023-01-01 13:09 | XR ---
EXAMINATION TYPE: XR chest 1V DATE OF EXAM: 01/01/2023 COMPARISON: 11/10/2016 HISTORY: 67-year-old female PICC line placement TECHNIQUE: Single frontal view of the chest is obtained. FINDINGS: Heart upper limits of normal in size. Minimal atherosclerotic arch calcifications. Left PICC tip at t he cavoatrial junction. No consolidation or pleural effusion. IMPRESSION: No acute process seen.
--- NOTE | 2023-01-01 15:10 | IR ---
PICC LINE PLACEMENT: HISTORY: Infection requiring long-term antibiotic therapy PROCEDURE: Ultrasound guidance of PICC line placement. OPERATIONS RESEARCH ANALYST: Dr. Dobbs. COMPLICATIONS: None ANESTHESIA: 1. 1% Lidocaine locally. FINDINGS/TECHNIQUE: The procedure was explained to the patient. The risks, complications, benefits and alternatives were discussed and any questions were answered. Informed consent was obtained. The patient was placed supine on the fluoroscopic table and prepped and draped in the usual sterile [facility] ion. Utilizing a 21 gauge needle and sonographic guidance, access in the left basilic vein was achi eved and there is placement of a 0.018 guidewire. The vein is patent. A 5-F. sheath was placed over the guidewire. The guidewire and dilator were removed and a 5-F. Double lumen PICC line was placed through the sheath with the chest x-ray confirming the tip at the level of the SVC. The sheath was r emoved, the catheter was flushed and sutured into position. The patient was stable throughout the pr ocedure and remained stable upon discharge from the Department of Radiology. The vein puncture was patent under ultrasound. A meyer scale image was obtained to document patency of the vein punctured. All elements of the maximal barrier technique were utilized. IMPRESSION: 1. Successful PICC line placement under ultrasound performed bedside.
== END 2023-01-01 13:10 | disposition home or self-care (01) ==
LOC: CATHCVL 11:34
PROVIDERS: ATTEND Radiology Diagnostic Radiology
DX: T82.898A Other specified complication of vascular prosthetic devices, implants and grafts, initial encounter (principal); Y82.8 Other medical devices associated with adverse incidents; C13.9 Malignant neoplasm of hypopharynx, unspecified; I70.0 Atherosclerosis of aorta
CPT/HCPCS: 36573; 71045; C1751; C1769; J2001

== ENCOUNTER 2023-01-26 08:43 | Observation (INO) | payer MEDICARE ==
--- NOTE | 2023-01-26 09:11 | ED ---
General Adult HPI - General Chief complaint: Dizziness Stated complaint: Weakness Time Seen by Provider: 01/26/23 08:48 Source: patient Mode of arrival: EMS Limitations: no limitations - History of Present Illness Initial comments: Dictation was produced using [employer] dictation software. please excuse any grammatical, word or spelling errors. Chief Complaint: 68-year-old female presents emergency department for syncopal episode History of Present Illness: Patient 68-year-old female she has multiple comorbidities. She presents to emergency department after syncopal episode. Patient states she got up this morning to use the bathroom. She tried to have a urinary movement however states that she couldn't have one because her kidneys are acting up. She stood up and fell to the ground. Patient has history of cardiac disease. States that she laid on the ground for several minutes. When she starts to feel a symptomatic she crawled to her bed when EMS was finally called. Since that since being in the ER her symptoms feel significantly improved The ROS documented in this emergency department record has been reviewed and confirmed by me. Those systems with pertinent positive or negative responses have been documented in the HPI. All other systems are other negative and/or noncontributory. - Related Data Home Medications Medication Instructions Recorded Confirmed Lactulose [Constulose] 20 gm PO DAILY 02/06/21 01/26/23 Rivaroxaban [Xarelto] 20 mg PO HS 02/06/21 01/26/23 Rosuvastatin [Crestor] 10 mg PO DAILY 08/15/22 01/26/23 diphenhydrAMINE [Benadryl] 25 mg PO HS PRN 08/15/22 01/26/23 Melatonin 5 mg PO HS PRN 10/02/22 01/26/23 Unk Elevation Shake 1 bottle PO DAILY 10/02/22 01/26/23 Ondansetron [Zofran] 4 mg PO Q6H PRN 12/09/22 01/26/23 Acetaminophen-Codeine 300-30mg 1 tab PO Q4H PRN 01/26/23 01/26/23 [Tylenol w/codeine #3] Furosemide [Lasix] 40 mg PO SUWEFR 01/26/23 01/26/23 Lidocaine Viscous 2% [Xylocaine 10 - 15 ml PO ACHS PRN 01/26/23 01/26/23 Viscous] Loperamide HCl [Imodium A-D] 2 - 4 mg PO QID PRN 01/26/23 01/26/23 Midodrine HCl [ProAmatine] 10 mg PO TID 01/26/23 01/26/23 Spironolactone 100 mg PO SUWEFR 01/26/23 01/26/23 Allergies Allergy/AdvReac Type Severity Reaction Status Date / Time bee venom protein (honey bee) Allergy Nausea & Verified 01/26/23 11:02 Vomiting Review of Systems ROS Statement: Those systems with pertinent positive or pertinent negative responses have been documented in the HPI. ROS Other: All systems not noted in ROS Statement are negative. Past Medical History Past Medical History: Atrial Fibrillation, Hyperlipidemia, Liver Disease, Rheumatoid Arthritis (RA) Additional Past Medical History / Comment(s): hypopharnyx cancer-currently receiving radiation daily M-F (throat is sore when swallowing), last chemo on 12-31-22 ,cirrhosis-had paracentesis done on 12-25-22 removed 9.9 L per report, thrombocytopenia, alcohol abuse, hypokalemia, hypotension History of Any Multi-Drug Resistant Organisms: Unobtainable Past Surgical History: Heart Catheterization Additional Past Surgical History / Comment(s): breast biopy (benign), bilateral eye surgery; Left lymph node biopsy October Past Anesthesia/Blood Transfusion Reactions: No Reported Reaction Past Psychological History: No Psychological Hx Reported Smoking Status: Current some day smoker Past Alcohol Use History: None Reported Past Drug Use History: None Reported - Past Family History Brother(s) Family Medical History: Cancer Additional Family Medical History / Comment(s): pancreatic cancer General Exam - General Exam Comments Initial Comments: PHYSICAL EXAM: General Impression: Alert and oriented x3, not in acute distress HEENT: Normocephalic atraumatic, extra-ocular movements intact, pupils equal and reactive to light bilaterally, mucous membranes moist. Cardiovascular: Heart regular rate and rhythm Chest: Able to complete full sentences, no retractions, no tachypnea Abdomen: abdomen soft, non-tender, distended, no organomegaly, positive fluid wave Musculoskeletal: Pulses present and equal in all extremities, no peripheral edema Motor: no focal deficits noted Neurological: CN II-XII grossly intact, no focal motor or sensory deficits noted Skin: Intact with no visualized rashes Psych: Normal affect and mood Limitations: no limitations Course Vital Signs 01/26/23 08:44 Temperature 98.5 F Pulse Rate 62 Respiratory 18 Rate Blood Pressure 101/57 O2 Sat by Pulse 100 Oximetry EKG Findings - EKG Comments: EKG Findings:: My EKG interpretation: Ventricular rate 70, sinus rhythm,. 144, QRS 74, QTC 43, sinus arrhythmia. No [place] prolongation, no QTC prolongation, no ST or T-wave changes noted. Overall, this EKG is unremarkable Medical Decision Making - Medical Decision Making Was pt. sent in by a medical professional or institution (, [facility], LEARNING COORDINATOR, urgent care, hospital, or fpc...) When possible be specific @ -No Did you speak to anyone other than the patient for history (EMS, parent, family, police, friend...)? What history was obtained from this source @ -No Did you review nursing and triage notes (agree or disagree)? Why? @ -I reviewed and agree with nursing and triage notes Were old charts reviewed (outside hosp., previous admission, EMS record, old EKG, old radiological studies, urgent care reports/EKG's, fpc records)? Report findings @ -None done Differential Diagnosis (chest pain, altered mental status, abdominal pain women, abdominal pain men, vaginal bleeding, musculoskeletal, weakness, fever, dyspnea, syncope, headache, dizziness, GI bleed, back pain, seizure, CVA, palpatations, mental health)? @ -Differential Syncope: Valvular disease, hypertrophic cardiomyopathy, pulmonary embolism, tamponade, tachycardia, bradycardia, [place], hypovolemia, hemorrhage, dissection, anemia, intracranial hemorrhage, seizure, hypoglycemia, carbon monoxide poisoning, this is not meant to be an all-inclusive list. EKG interpreted by me (3pts min.). @ -as above X-rays interpreted by me (1pt min.). @ -None done CT interpreted by me (1pt min.). @ -None done U/S interpreted by me (1pt. min.). @ -None done What testing was considered but not performed or refused? (CT, X-rays, U/S, labs)? Why? @ -None What meds were considered but not given or refused? Why? @ -None Did you discuss the management of the patient with other professionals (professionals i.e. , [facility], LEARNING COORDINATOR, lab, RT, psych nurse, clinical social work aide, squeegee operator, teacher, community services officer, nurse case management)? Give summary @ -Imaging EKG and medical history including risk factors discussed with Dr. Meneses for admission Was smoking cessation discussed for >3mins.? @ -No Was critical care preformed (if so, how long)? @ -No Were there social determinants of health that impacted care today? How? (Homelessness, low income, unemployed, alcoholism, drug addiction, transportation, low edu. Level, literacy, decrease access to med. care, [facility], rehab)? @ -No Was there de-escalation of care discussed even if they declined (Discuss DNR or withdrawal of care, Hospice)? DNR status @ -No What co-morbidities impacted this encounter? (DM, HTN, Smoking, COPD, CAD, Cancer, CVA, ARF, Chemo, Hep., AIDS, mental health diagnosis, sleep apnea, morbid obesity)? @ -None Was patient admitted / discharged? Hospital course, mention meds given and route, prescriptions, significant lab abnormalities, going to OR and other pertinent info. @ -68-year-old female presents emergency Department with syncopal episode. Vital signs upon arrival are within acceptable limits. Patient's well-appearing reports no symptoms at this time. She does have multiple risk factors. Patient agreeable for admission. Labs all within acceptable limits. Undiagnosed new problem with uncertain prognosis? @ -No Drug Therapy requiring intensive monitoring for toxicity (Heparin, Nitro, Insulin, Cardizem)? @ -No Were any procedures done? @ -No Diagnosis/symptom? Acute, or Chronic, or Acute on Chronic? Uncomplicated (without systemic symptoms) or Complicated (systemic symptoms)? @ -Syncopal episode Side effects of treatment? @ -No Exacerbation, Progression, or Severe Exacerbation? @ -No Poses a threat to life or bodily function? How? (Chest pain, [place], [place], pneumonia, PE, COPD, DKA, ARF, appy, cholecystitis, CVA, Diverticulitis, Homicidal, Suicidal, threat to staff... and all critical care pts) @ -yes - Lab Data Result diagrams: 01/26/23 09:08 01/26/23 09:08 Lab Results 01/26/23 01/26/23 01/26/23 Range/Units 09:08 09:08 09:08 WBC 3.6 L (3.8-10.6) k/uL RBC 2.78 L (3.80-5.40) m/uL Hgb 8.8 L (11.4-16.0) gm/dL Hct 27.5 L (34.0-46.0) % MCV 98.7 (80.0-100.0) fL MCH 31.8 (25.0-35.0) pg MCHC 32.2 (31.0-37.0) g/dL RDW 18.6 H (11.5-15.5) % Plt Count 152 (150-450) k/uL MPV 8.3 Neutrophils % 76 % Lymphocytes % 6 % Monocytes % 12 % Eosinophils % 1 % Basophils % 1 % Neutrophils # 2.7 (1.3-7.7) k/uL Lymphocytes # 0.2 L (1.0-4.8) k/uL Monocytes # 0.4 (0-1.0) k/uL Eosinophils # 0.0 (0-0.7) k/uL Basophils # 0.0 (0-0.2) k/uL Hypochromasia Moderate Anisocytosis Slight Macrocytosis Slight PT 15.8 H (9.0-12.0) sec INR 1.6 H (<1.2) APTT 28.0 (22.0-30.0) sec Sodium 138 (137-145) mmol/L Potassium 3.1 L (3.5-5.1) mmol/L Chloride 106 (98-107) mmol/L Carbon Dioxide 20 L (22-30) mmol/L Anion Gap 12 mmol/L BUN 33 H (7-17) mg/dL Creatinine 1.37 H (0.52-1.04) mg/dL Est GFR (CKD-EPI)AfAm 46 (>60 ml/min/1.73 sqM) Est GFR (CKD-EPI)NonAf 40 (>60 ml/min/1.73 sqM) Glucose 83 (74-99) mg/dL Plasma Lactic Acid Vinnie (0.7-2.0) mmol/L Calcium 8.0 L (8.4-10.2) mg/dL Magnesium 1.8 (1.6-2.3) mg/dL Total Bilirubin 0.9 (0.2-1.3) mg/dL AST 27 (14-36) U/L ALT 15 (4-34) U/L Alkaline Phosphatase 56 (38-126) U/L Creatine Kinase 29 L (30-135) U/L Troponin I (0.000-0.034) ng/mL Total Protein 5.6 L (6.3-8.2) g/dL Albumin 3.1 L (3.5-5.0) g/dL 01/26/23 01/26/23 Range/Units 09:08 09:08 WBC (3.8-10.6) k/uL RBC (3.80-5.40) m/uL Hgb (11.4-16.0) gm/dL Hct (34.0-46.0) % MCV (80.0-100.0) fL MCH (25.0-35.0) pg MCHC (31.0-37.0) g/dL RDW (11.5-15.5) % Plt Count (150-450) k/uL MPV Neutrophils % % Lymphocytes % % Monocytes % % Eosinophils % % Basophils % % Neutrophils # (1.3-7.7) k/uL Lymphocytes # (1.0-4.8) k/uL Monocytes # (0-1.0) k/uL Eosinophils # (0-0.7) k/uL Basophils # (0-0.2) k/uL Hypochromasia Anisocytosis Macrocytosis PT (9.0-12.0) sec INR (<1.2) APTT (22.0-30.0) sec Sodium (137-145) mmol/L Potassium (3.5-5.1) mmol/L Chloride (98-107) mmol/L Carbon Dioxide (22-30) mmol/L Anion Gap mmol/L BUN (7-17) mg/dL Creatinine (0.52-1.04) mg/dL Est GFR (CKD-EPI)AfAm (>60 ml/min/1.73 sqM) Est GFR (CKD-EPI)NonAf (>60 ml/min/1.73 sqM) Glucose (74-99) mg/dL Plasma Lactic Acid Vinnie 1.7 (0.7-2.0) mmol/L Calcium (8.4-10.2) mg/dL Magnesium (1.6-2.3) mg/dL Total Bilirubin (0.2-1.3) mg/dL AST (14-36) U/L ALT (4-34) U/L Alkaline Phosphatase (38-126) U/L Creatine Kinase (30-135) U/L Troponin I 0.020 (0.000-0.034) ng/mL Total Protein (6.3-8.2) g/dL Albumin (3.5-5.0) g/dL Disposition Clinical Impression: Syncope Disposition: ADMITTED IP TO THIS HOSP Condition: Fair Referrals: Emery Mckeon MD [Primary Care Provider] - 1-2 days Decision Time: 11:00
[2023-01-26 09:35] LABS: ALT 15 U/L (4-34); AST 27 U/L (14-36); African American GFR (CKD) 46 (>60 ml/min/1.73 sqM); Albumin 3.1 g/dL (3.5-5.0); Alkaline Phosphatase 56 U/L (38-126); Anion Gap 12 mmol/L; Blood Urea Nitrogen 33 mg/dL (7-17); Carbon Dioxide 20 mmol/L (22-30); Chloride 106 mmol/L (98-107); Creatine Kinase 29 U/L (30-135); Glucose 83 mg/dL (74-99); Magnesium 1.8 mg/dL (1.6-2.3); Non-African American GFR(CKD) 40 (>60 ml/min/1.73 sqM); Potassium 3.1 mmol/L (3.5-5.1); Sodium 138 mmol/L (137-145); Total Bilirubin 0.9 mg/dL (0.2-1.3); Total Protein 5.6 g/dL (6.3-8.2)
[2023-01-26 09:52] LABS: INR 1.6 (<1.2); Prothrombin Time 15.8 sec (9.0-12.0)
[2023-01-26 10:45] LABS: Anisocytosis Slight; Basophils % (A) 1 %; Eosinophils % (A) 1 %; HCT 27.5 % (34.0-46.0); HGB 8.8 gm/dL (11.4-16.0); Hypochromasia Moderate; Lymphocytes # (A) 0.2 k/uL (1.0-4.8); Lymphocytes % (A) 6 %; MCH 31.8 pg (25.0-35.0); MCHC 32.2 g/dL (31.0-37.0); MCV 98.7 fL (80.0-100.0); Macrocytosis Slight; Mean Platelet Volume 8.3; Monocytes # (A) 0.4 k/uL (0-1.0); Monocytes % (A) 12 %; Neutrophils # (A) 2.7 k/uL (1.3-7.7); Neutrophils % (A) 76 %; Platelet Count 152 k/uL (150-450); RBC 2.78 m/uL (3.80-5.40); RDW 18.6 % (11.5-15.5); WBC 3.6 k/uL (3.8-10.6)
[2023-01-26] MEDS ORDERED: NALOXONE 0.4 MG/ML 1 ML VIAL IV PRN (11:36)
[2023-01-26 15:10] LABS: Appearance,Urine Turbid (Clear); Bacteria,Urine Many /hpf; Bilirubin,Urine Negative (Negative); Blood,Urine Large (Negative); Color,Urine Yellow; Glucose,Urine (UA) Negative (Negative); Ketones,Urine 1+ (Negative); Leukocyte Esterase,Urine Large (Negative); Mucus,Urine Rare /hpf; Nitrite,Urine Positive (Negative); Protein,Urine 2+ (Negative); RBC,Urine >182 /hpf (0-5); Specific Gravity,Urine 1.019 (1.001-1.035); Squamous Epithelial Cell,Urine 3 /hpf (0-4); Urobilinogen,Urine <2.0 mg/dL (<2.0); WBC,Urine >182 /hpf (0-5)
--- NOTE | 2023-01-26 16:54 | P.HPIM ---
History of Present Illness H&P Date: 01/26/23 68-year-old female with PMH of atrial fibrillation, dyslipidemia, cirrhosis, smoker, history of alcohol abuse, hypopharyngeal CA presents ED for syncopal episode. Patient reports waking up this morning to use the washroom. She reports feeling lightheaded when standing up from the toilet. She was able to walk 7 feet prior to passing out. She is unsure if she hit her head. She was able to get back in bed and go back to sleep prior to calling EMS. She currently reports feeling well. Patient states that she was supposed to have a radiation treatment today. Patient reports dysuria and difficulty urinating. She reports decreased appetite. She denies any headache, lower extremity edema, nausea or vomiting, fever or chills, cough, chest pain, shortness of breath, palpitations, changes in bowel habits. She denies any numbness/weakness/tingling of the extremities. In the ED, vital signs are stable. CBC showed WBC count of 3.6, hemoglobin of 8.8. Correlation panel showed INR 1.6. CMP shows potassium of 3.1, bicarb of 20, BUN of 33, creatinine 1.37, calcium of 8, albumin at 3.1. CPK was 29. Magnesium 1.8. Lactic acid 1.7. Urinalysis positive for nitrite and large leukocyte esterase. EKG showed sinus rhythm with PVCs, low voltage QRS, ventricular rate of 70. Pertinent positives and negatives as discussed in HPI, a complete review of systems was performed and all other systems are negative. General: non toxic, no distress, appears at stated age, cachectic Derm: warm, dry Head: atraumatic, normocephalic, symmetric Eyes: EOMI, no lid lag, anicteric sclera Mouth: no lip lesion, mucus membranes moist Cardiovascular: Irregularly irregular, no murmur Lungs: CTA bilateral, no rhonchi, no rales , no accessory muscle use Abdominal: soft, distended, no guarding, no appreciable organomegaly Ext: no gross muscle atrophy, no edema, no contractures Neuro: no focal neuro deficits Psych: Alert, oriented, appropriate affect Syncopal episode likely orthostatic Acute kidney injury Hypokalemia Urinary tract infection Normocytic anemia Supratherapeutic INR Chronic conditions: Atrial fibrillation, dyslipidemia, cirrhosis, smoker, history of alcohol abuse, hypopharyngeal CA Based on my assessment of this patient, this patient meets a high complexity level of care. Patient has an acute diagnosis of syncope that poses a threat to life or bodily function. Given her history, this is likely orthostatic in nature. Trend Trop/EKG to rule out ACS. Echocardiogram to evaluate for valvular causes. Telemetry monitoring. Fall precautions. Replace potassium with potassium chloride 40 meq IV. Start Rocephin 1g IV QD and follow urine culture. Abdominal US to evaluate for ascites. CT head ordered. PT and OT consult. Oncology consulted for continuity of care. Xarelto for DVT prophylaxis. FULL CODE. I have reviewed the following [employer] consultant notes: I have reviewed the results of the following tests: CBC, CMP, Coagulation panel, Magnesium level, Lactic acid, Troponin, UA, CPK as above. I have ordered the following tests: Troponin. Echocardiogram. CT head. Abd US. CBC and BMP ordered for tomorrow morning. I have discussed the care of this patient with the following independent historian: I have independently interpreted the following test below: EKG interpreted as above. I have discussed the management of this patient with the following physician: Past Medical History Past Medical History: Atrial Fibrillation, Hyperlipidemia, Liver Disease, Rheumatoid Arthritis (RA) Additional Past Medical History / Comment(s): hypopharnyx cancer-currently receiving radiation daily M- (throat is sore when swallowing), last chemo on 12-31-22 ,cirrhosis-had paracentesis done on 12-25-22 removed 9.9 L per report, thrombocytopenia, alcohol abuse, hypokalemia, hypotension History of Any Multi-Drug Resistant Organisms: Unobtainable Past Surgical History: Heart Catheterization Additional Past Surgical History / Comment(s): breast biopy (benign), bilateral eye surgery; Left lymph node biopsy October Past Anesthesia/Blood Transfusion Reactions: No Reported Reaction Past Psychological History: No Psychological Hx Reported Smoking Status: Current some day smoker Past Alcohol Use History: None Reported Additional Past Alcohol Use History / Comment(s): quit drinking 2016 Past Drug Use History: None Reported - Past Family History Brother(s) Family Medical History: Cancer Additional Family Medical History / Comment(s): pancreatic cancer Medications and Allergies Home Medications Medication Instructions Recorded Confirmed Type Lactulose [Constulose] 20 gm PO DAILY 02/06/21 01/26/23 History Rivaroxaban [Xarelto] 20 mg PO HS 02/06/21 01/26/23 History Rosuvastatin [Crestor] 10 mg PO DAILY 08/15/22 01/26/23 History diphenhydrAMINE [Benadryl] 25 mg PO HS PRN 08/15/22 01/26/23 History Melatonin 5 mg PO HS PRN 10/02/22 01/26/23 History Unk Elevation Shake 1 bottle PO DAILY 10/02/22 01/26/23 History Ondansetron [Zofran] 4 mg PO Q6H PRN 12/09/22 01/26/23 History Acetaminophen-Codeine 300-30mg 1 tab PO Q4H PRN 01/26/23 01/26/23 History [Tylenol w/codeine #3] Furosemide [Lasix] 40 mg PO SUWEFR 01/26/23 01/26/23 History Lidocaine Viscous 2% [Xylocaine 10 - 15 ml PO ACHS PRN 01/26/23 01/26/23 History Viscous] Loperamide HCl [Imodium A-D] 2 - 4 mg PO QID PRN 01/26/23 01/26/23 History Midodrine HCl [ProAmatine] 10 mg PO TID 01/26/23 01/26/23 History Spironolactone 100 mg PO SUWEFR 01/26/23 01/26/23 History Allergies Allergy/AdvReac Type Severity Reaction Status Date / Time bee venom protein (honey bee) Allergy Nausea & Verified 01/26/23 11:02 Vomiting Physical Exam Vitals: Vital Signs Temp Pulse Pulse Pulse Pulse Resp BP 01/26/23 14:00 98.1 F 71 76 66 18 01/26/23 12:48 75 16 106/58 01/26/23 08:44 98.5 F 62 18 101/57 BP BP BP Pulse Ox 01/26/23 14:00 110/54 93/44 105/52 98 01/26/23 12:48 100 01/26/23 08:44 100 Intake and Output 01/26/23 01/26/23 01/26/23 06:59 14:59 22:59 Other: Weight 51.71 kg Results CBC & Chem 7: 01/26/23 09:08 01/26/23 09:08 Labs: Abnormal Lab Results - Last 24 Hours (Table) 01/26/23 01/26/23 01/26/23 Range/Units 09:08 09:08 09:08 WBC 3.6 L (3.8-10.6) k/uL RBC 2.78 L (3.80-5.40) m/uL Hgb 8.8 L (11.4-16.0) gm/dL Hct 27.5 L (34.0-46.0) % RDW 18.6 H (11.5-15.5) % Lymphocytes # 0.2 L (1.0-4.8) k/uL PT 15.8 H (9.0-12.0) sec INR 1.6 H (<1.2) Potassium 3.1 L (3.5-5.1) mmol/L Carbon Dioxide 20 L (22-30) mmol/L BUN 33 H (7-17) mg/dL Creatinine 1.37 H (0.52-1.04) mg/dL Calcium 8.0 L (8.4-10.2) mg/dL Creatine Kinase 29 L (30-135) U/L Total Protein 5.6 L (6.3-8.2) g/dL Albumin 3.1 L (3.5-5.0) g/dL Urine Appearance (Clear) Urine Protein (Negative) Urine Ketones (Negative) Urine Blood (Negative) Urine Nitrite (Negative) Ur Leukocyte Esterase (Negative) Urine RBC (0-5) /hpf Urine WBC (0-5) /hpf Urine WBC Clumps (None) /hpf Urine Bacteria (None) /hpf Urine Mucus (None) /hpf 01/26/23 Range/Units 14:00 WBC (3.8-10.6) k/uL RBC (3.80-5.40) m/uL Hgb (11.4-16.0) gm/dL Hct (34.0-46.0) % RDW (11.5-15.5) % Lymphocytes # (1.0-4.8) k/uL PT (9.0-12.0) sec INR (<1.2) Potassium (3.5-5.1) mmol/L Carbon Dioxide (22-30) mmol/L BUN (7-17) mg/dL Creatinine (0.52-1.04) mg/dL Calcium (8.4-10.2) mg/dL Creatine Kinase (30-135) U/L Total Protein (6.3-8.2) g/dL Albumin (3.5-5.0) g/dL Urine Appearance Turbid H (Clear) Urine Protein 2+ H (Negative) Urine Ketones 1+ H (Negative) Urine Blood Large H (Negative) Urine Nitrite Positive H (Negative) Ur Leukocyte Esterase Large H (Negative) Urine RBC >182 H (0-5) /hpf Urine WBC >182 H (0-5) /hpf Urine WBC Clumps Many H (None) /hpf Urine Bacteria Many H (None) /hpf Urine Mucus Rare H (None) /hpf
[2023-01-26] MEDS: SODIUM CHLORIDE 0.9% 1,000 ML IV SCH (17:04)
[2023-01-26] MEDS: MIDODRINE 5 MG TAB PO SCH (17:05)
--- NOTE | 2023-01-26 17:37 | CT ---
EXAMINATION TYPE: CT brain wo con DATE OF EXAM: 01/26/2023 COMPARISON: 11/10/2016 HISTORY: syncope possible head trauma. CT DLP: 1047.[address] of the brain was performed. The ventricles, basal cisterns and sulci overlying the cerebral convexities demonstrate mild enlargem ent. There is no evidence for intracranial hemorrhage or sulcal effacement. There is decreased attenuation about the periventricular white matter and deep white matter of both c erebral hemispheres, compatible with chronic small vessel ischemia. Differential diagnosis does inclu de demyelination. No mass effects are seen.No midline shift. Osseous calvarium is intact. If symptoms persist consider MRI. IMPRESSION: 1. Age related atrophic and chronic small vessel ischemic change without acute intracranial process s een at this time.
[2023-01-26] MEDS: POTASSIUM CHLORIDE 10 MEQ in WATER FOR INJECTION 1 100ML.BAG IVPB SCH ×4 (17:45→23:26)
--- NOTE | 2023-01-26 19:39 | US ---
EXAMINATION TYPE: US abdomen limited DATE OF EXAM: 01/26/2023 COMPARISON: NONE CLINICAL INDICATION: Female, 68 years old with history of ascites; ascites check Fluid seen in all four quadrants IMPRESSION: four-quadrant ascites.
[2023-01-26] MEDS: RIVAROXABAN 20 MG TAB PO SCH (21:57)
[2023-01-26] MEDS: Acetaminophen-Codeine 300-30mg TAB PO PRN (22:24)
[2023-01-27] MEDS ORDERED: DEXTROSE 5% IN WATER 100 ML with AMIODARONE 150 MG IV ONE (02:07)
[2023-01-27] MEDS ORDERED: AMIODARONE 360 MG in DEXTROSE 5% IN WATER 200 ML IV ONE ×2 (02:16)
[2023-01-27] MEDS: SODIUM CHLORIDE 0.9% 1,000 ML IV SCH (05:36)
[2023-01-27 06:21] LABS: African American GFR (CKD) 62 (>60 ml/min/1.73 sqM); Anion Gap 7 mmol/L; Blood Urea Nitrogen 29 mg/dL (7-17); Calcium 7.6 mg/dL (8.4-10.2); Carbon Dioxide 21 mmol/L (22-30); Chloride 110 mmol/L (98-107); Glucose 86 mg/dL (74-99); Non-African American GFR(CKD) 54 (>60 ml/min/1.73 sqM); Potassium 3.4 mmol/L (3.5-5.1); Sodium 138 mmol/L (137-145)
[2023-01-27] MEDS: Acetaminophen-Codeine 300-30mg TAB PO PRN ×3 (06:46→22:26)
[2023-01-27] MEDS ORDERED: AMIODARONE 450 MG in DEXTROSE 5% IN WATER 250 ML IV SCH ×2 (08:15)
[2023-01-27] MEDS: ATORVASTATIN 20 MG TAB PO SCH (09:21)
[2023-01-27] MEDS: LACTULOSE 20 GM/30 ML CUP PO SCH (09:21)
[2023-01-27] MEDS: METOPROLOL TARTRATE 12.5 MG TAB PO SCH ×2 (09:21→22:05)
[2023-01-27] MEDS: POTASSIUM CHLORIDE ER 20 MEQ TAB.ER PO SCH ×2 (09:21→13:15)
[2023-01-27] MEDS: MIDODRINE 5 MG TAB PO SCH ×3 (09:22→17:56)
--- NOTE | 2023-01-27 10:10 | P.CRDCN ---
History of Present Illness Consult date: 01/27/23 Consult reason: sycope History of present illness: History of present illness: This is a 68-year-old female patient of Dr. reddy with past medical history of liver cirrhosis and recurrent paracentesis, paroxysmal atrial fibrillation, valvular heart disease with aortic and mitral regurgitation, dilatation of the aortic, thoracic aorta, hypertension, dyslipidemia, coronary artery disease, hypopharyngeal cancer, history of alcohol abuse. We have been asked to evaluate the patient for syncopal episode. Patient apparently was walking to the [employer] and felt lightheaded than falling down and passing out. She denies any injury to herself. Patient denies having any chest pain. Patient was found to be in and out of atrial fibrillation overnight. She was briefly started on amiodarone drip by attending. EKG sinus rhythm 2, atrial fibrillation and ventricular rate of 157 at 2 AM, sinus rhythm at 2:30 AM WBC 3.6, hemoglobin 8.8, platelet count 152. INR 1.6. Potassium 3. 1 repeat today 3.4, BUN 33 creatinine 1.379 1.06. Troponin negative 3. CK 29. Magnesium 1.8. Liver function tests normal. Urinalysis positive for infection. Home cardiac medications: Lasix 40 mg Thursday, midodrine 10 mg 3 times daily, Xarelto 29 g at bedtime, Crestor 10 mg daily, aldactone 100 mg on Thursday Cardiac catheterization 2018 intermediate to severe disease of the RCA and left circumflex. Echocardiogram 07/2022 normal EF, moderate TR, moderate MR, dilated aorta at 3.9 cm. Lexiscan stress test 2018 normal EF, small reversible defect in the distal anterior wall indicating possible ischemia. Review Of Systems: At the time of my evaluation: Constitutional: No fever, no chills. Reports weakness, and fatigue. EENT: No headache. Reports dizziness. Lungs: Reports chronic shortness of breath, cough, no sputum production. No wheezing. Cardiovascular: No chest pain, no lower extremity edema. Reports palpitations. No paroxysmal nocturnal dyspnea. No orthopnea. Reports lightheadedness or dizziness. Reports syncopal episodes. Abdominal: No abdominal pain. Chronic abdominal distention. No nausea, vomi ting. No bloody or tarry stools. Musculoskeletal: No myalgias. No muscle weakness, no frequent falls. No back pain. No neck pain. Integumentary: No wounds. No rash. No unusual bruising. Neurologic: No aphasia. No facial droop. No change in mentation. No head injury. No headache. Physical examination: Gen: This is a fragile appearing 68-year-old female. Patient appears much older than 68 years. She is resting in bed and appears to be in no acute distress. VS: reviewed HEENT: Head is atraumatic, normocephalic. Pupils equal, round. Sclerae is anicteric. NECK: Supple. No JVD. . LUNGS: Clear to auscultation. No wheezes or rhonchi. No intercostal retractions. HEART: Regular rate and rhythm. Systolic murmur. ABDOMEN: Soft and distended. EXTREMITIES: No pedal edema. No calf tenderness. NEUROLOGICAL: Patient is awake, alert and oriented x3. Assessment: Near syncopal episode Paroxysmal atrial fibrillation with episodes of RVR Acute kidney injury Hypokalemia Urinary tract infection Noncritical coronary artery disease Hypertension Dyslipidemia Cirrhosis of the liver Tobacco use Plan: Continue patient's cardiac medications Start patient on Lopressor 12.5 mg twice daily Continue telemetry monitoring Monitor potassium and replace as indicated Obtain 2-D echocardiogram and Doppler study to assess cardiac structure and function Event monitor for 14 days at time of discharge Further recommendations to follow based upon clinical course Thank you kindly for this consultation. Nurse practitioner note has been reviewed, I agree with documented findings and plan of care. Patient was seen and examined. Past Medical History Past Medical History: Atrial Fibrillation, Hyperlipidemia, Liver Disease, Rheumatoid Arthritis (RA) Additional Past Medical History / Comment(s): hypopharnyx cancer-currently receiving radiation daily M-F (throat is sore when swallowing), last chemo on 12-31-22 ,cirrhosis-had paracentesis done on 12-25-22 removed 9.9 L per report, thrombocytopenia, alcohol abuse, hypokalemia, hypotension History of Any Multi-Drug Resistant Organisms: Unobtainable Past Surgical History: Heart Catheterization Additional Past Surgical History / Comment(s): breast biopy (benign), bilateral eye surgery; Left lymph node biopsy October Past Anesthesia/Blood Transfusion Reactions: No Reported Reaction Past Psychological History: No Psychological Hx Reported Smoking Status: Current some day smoker Past Alcohol Use History: None Reported Additional Past Alcohol Use History / Comment(s): quit drinking 2016 Past Drug Use History: None Reported - Past Family History Brother(s) Family Medical History: Cancer Additional Family Medical History / Comment(s): pancreatic cancer Medications and Allergies Home Medications Medication Instructions Recorded Confirmed Type Lactulose [Constulose] 20 gm PO DAILY 02/06/21 01/26/23 History Rivaroxaban [Xarelto] 20 mg PO HS 02/06/21 01/26/23 History Rosuvastatin [Crestor] 10 mg PO DAILY 08/15/22 01/26/23 History diphenhydrAMINE [Benadryl] 25 mg PO HS PRN 08/15/22 01/26/23 History Melatonin 5 mg PO HS PRN 10/02/22 01/26/23 History Unk Elevation Shake 1 bottle PO DAILY 10/02/22 01/26/23 History Ondansetron [Zofran] 4 mg PO Q6H PRN 12/09/22 01/26/23 History Acetaminophen-Codeine 300-30mg 1 tab PO Q4H PRN 01/26/23 01/26/23 History [Tylenol w/codeine #3] Furosemide [Lasix] 40 mg PO SUWEFR 01/26/23 01/26/23 History Lidocaine Viscous 2% [Xylocaine 10 - 15 ml PO ACHS PRN 01/26/23 01/26/23 History Viscous] Loperamide HCl [Imodium A-D] 2 - 4 mg PO QID PRN 01/26/23 01/26/23 History Midodrine HCl [ProAmatine] 10 mg PO TID 01/26/23 01/26/23 History Spironolactone 100 mg PO SUWEFR 01/26/23 01/26/23 History Allergies Allergy/AdvReac Type Severity Reaction Status Date / Time bee venom protein (honey bee) Allergy Nausea & Verified 01/26/23 11:02 Vomiting Physical Exam Vitals: Vital Signs Temp Pulse Pulse Pulse Pulse Pulse Resp 01/27/23 06:50 98.1 F 84 19 01/27/23 02:26 80 01/27/23 01:46 97.9 F 136 H 16 01/26/23 21:12 77 85 77 01/26/23 20:00 98.0 F 69 16 01/26/23 14:00 98.1 F 71 76 66 18 01/26/23 12:48 75 16 01/26/23 08:44 98.5 F 62 18 BP BP BP BP Pulse Ox 01/27/23 06:50 93/52 99 01/27/23 02:26 01/27/23 01:46 91/67 96 01/26/23 21:12 119/57 113/60 114/60 98 01/26/23 20:00 124/62 100 01/26/23 14:00 110/54 93/44 105/52 98 01/26/23 12:48 106/58 100 01/26/23 08:44 101/57 100 Intake and Output 01/26/23 01/27/23 01/27/23 22:59 06:59 14:59 Intake Total 414 Balance 414 Intake: Oral 414 Other: Voiding Method Bedside Commode # Voids 5 2 Results 01/26/23 09:08 01/27/23 05:45 Cardiac Enzymes 01/26/23 01/26/23 01/26/23 Range/Units 09:08 09:08 16:45 AST 27 (14-36) U/L Troponin I 0.020 0.024 (0.000-0.034) ng/mL 01/26/23 Range/Units 20:39 AST (14-36) U/L Troponin I 0.019 (0.000-0.034) ng/mL Coagulation 01/26/23 Range/Units 09:08 PT 15.8 H (9.0-12.0) sec APTT 28.0 (22.0-30.0) sec CBC 01/26/23 Range/Units 09:08 WBC 3.6 L (3.8-10.6) k/uL RBC 2.78 L (3.80-5.40) m/uL Hgb 8.8 L (11.4-16.0) gm/dL Hct 27.5 L (34.0-46.0) % Plt Count 152 (150-450) k/uL Comprehensive Metabolic Panel 01/26/23 01/27/23 Range/Units 09:08 05:45 Sodium 138 138 (137-145) mmol/L Potassium 3.1 L 3.4 L (3.5-5.1) mmol/L Chloride 106 110 H (98-107) mmol/L Carbon Dioxide 20 L 21 L (22-30) mmol/L BUN 33 H 29 H (7-17) mg/dL Creatinine 1.37 H 1.06 H (0.52-1.04) mg/dL Glucose 83 86 (74-99) mg/dL Calcium 8.0 L 7.6 L (8.4-10.2) mg/dL AST 27 (14-36) U/L ALT 15 (4-34) U/L Alkaline Phosphatase 56 (38-126) U/L Total Protein 5.6 L (6.3-8.2) g/dL Albumin 3.1 L (3.5-5.0) g/dL Current Medications Generic Name Dose Route Start Last Admin Trade Name Freq PRN Reason Stop Dose Admin Acetaminophen/Codeine Phosphate 1 each 01/26/23 16:30 01/27/23 06:46 Acetaminophen-Codeine 300-30mg Tab PO 1 each Q4H PRN Administration Pain Atorvastatin Calcium 20 mg 01/27/23 09:00 Atorvastatin 20 Mg Tab PO DAILY SHREE Furosemide 40 mg 01/28/23 09:00 Furosemide 40 Mg Tab PO SuWeFr@0900 SHREE Sodium Chloride 1,000 mls @ 75 mls/hr 01/26/23 11:45 01/27/23 05:36 Saline 0.9% IV 75 mls/hr .[id number] SHREE Administration Ceftriaxone Sodium 1 gm/ 50 mls @ 100 mls/hr 01/26/23 16:45 01/26/23 17:04 Sodium Chloride IVPB 100 mls/hr Q24HR SHREE Administration Protocol Lactulose 20 gm 01/27/23 09:00 Lactulose 20 Gm/30 Ml Cup PO DAILY SHREE Midodrine 10 mg 01/26/23 17:30 01/26/23 17:05 Midodrine 5 Mg Tab PO 10 mg AC-TID SHREE Administration Naloxone HCl 0.2 mg 01/26/23 11:36 Naloxone 0.4 Mg/Ml 1 Ml Vial IV Q2M PRN Opioid Reversal Rivaroxaban 20 mg 01/26/23 21:00 01/26/23 21:57 Rivaroxaban 20 Mg Tab PO 20 mg HS SHREE Administration Protocol Spironolactone 100 mg 01/28/23 09:00 Spironolactone 25 Mg Tab PO SuWeFr@0900 SHREE Intake and Output 01/26/23 01/27/23 01/27/23 22:59 06:59 14:59 Intake Total 414 Balance 414 Intake: Oral 414 Other: Voiding Method Bedside Commode # Voids 5 2 01/26/23 09:08 01/27/23 05:45
--- NOTE | 2023-01-27 13:28 | CA ---
Transthoracic Echo Report Name: Nina Hoskins Age: 68 Gender: F : 1955 Exam Date: 01/27/2023 08:42 Exam Location: [facility] Ht (in): 64 Wt (lb): 114 Ordering Physician: Ángela Anna MD Attending/Referring Phys: Fashion Supervisor Mary Gamble [facility] Procedure CPT: Indications: Syncope Cardiac Hx: Technical Quality: Fair Contrast 1: Total Dose (mL): Contrast 2: Total Dose (mL): MEASUREMENTS (Male / Female) Normal Values 2D ECHO LV Diastolic Diameter PLAX 5.1 cm 4.2 - 5.9 / 3.9 - 5.3 cm LV Systolic Diameter PLAX 3.4 cm IVS Diastolic Thickness 0.7 cm 0.6 - 1.0 / 0.6 - 0.9 cm LVPW Diastolic Thickness 0.7 cm 0.6 - 1.0 / 0.6 - 0.9 cm LV Relative Wall Thickness 0.3 M-MODE Aortic Root Diameter MM 3.0 cm LA Systolic Diameter MM 3.5 cm LA Ao Ratio MM 1.2 AV Cusp Separation MM 1.9 cm DOPPLER AV Peak Velocity 130.5 cm/s AV Peak Gradient 6.8 mmHg AV Mean Velocity 81.1 cm/s AV Mean Gradient 3.1 mmHg AV Velocity Time Integral 24.7 cm LVOT Peak Velocity 131.7 cm/s LVOT Peak Gradient 6.9 mmHg LVOT Velocity Time Integral 23.4 cm Mitral E Point Velocity 64.8 cm/s Mitral A Point Velocity 93.4 cm/s Mitral E to A Ratio 0.7 MV Deceleration Time 213.3 ms LV E' Lateral Velocity 15.1 cm/s Mitral E to LV E' Lateral Ratio 4.3 LV E' Septal Velocity 11.9 cm/s Mitral E to LV E' Septal Ratio 5.4 TR Peak Velocity 282.2 cm/s TR Peak Gradient 31.9 mmHg Right Atrial Pressure 3.0 mmHg Pulmonary Artery Systolic Pressu 34.9 mmHg Right Ventricular Systolic Press 36.9 mmHg FINDINGS Left Ventricle Normal Left ventricular wall thickness, systolic function with no obvious regional wall motion abnormalities. Left ventricular cavity size at the upper limits of normal. Left ventricular ejection fraction is estimated at 55-60%. Right Ventricle Normal right ventricular size and function. Mild pulmonary hypertension. Right Atrium Normal right atrial size. Left Atrium Mild left atrial dilatation. Mitral Valve Structurally normal mitral valve. Moderate mitral regurgitation. Aortic Valve Trileaflet aortic valve. No aortic valve stenosis or regurgitation. Tricuspid Valve Structurally normal tricuspid valve. Moderate tricuspid regurgitation. Pulmonic Valve Structurally normal pulmonic valve. Mild pulmonic regurgitation. Pericardium No pericardial effusion. Aorta Normal size aortic root. CONCLUSIONS Normal LV size and systolic function. Mild left atrial enlargement. Moderate mitral and tricuspid regurgitation. No pericardial effusion no significant pulmonary hypertension Previewed by: Dr. Alpa Corey MD (Electronically Signed) Final Date: 27 January 2023 13:27
--- NOTE | 2023-01-27 17:06 | P.PN ---
Subjective Progress Note Date: 01/27/23 Patient has noted complaints today. Reports generalized weakness is still present but feels improved from admission. Gen: awake, alert HEENT: normocephalic, atraumatic, good hearing acuity, moist mucous membranes Resp: good air exchange, breathing comfortably with no accessory muscle use, crackles in the bases to the midchest CVS: good distal perfusion x 4, regular rate and rhythm with holosystolic murmur GI: soft, NTTP, ND, ascites is present : no SPT, no CVAT, martinez catheter not present MSK: Bilateral pitting edema, no clubbing Neuro: non-focal, moving all extremities Psych: cooperative, euthymic mood Hospital course: 68-year-old female with PMH of atrial fibrillation, dyslipidemia, cirrhosis, smoker, history of alcohol abuse, hypopharyngeal CA presented to the ED for syncopal episode. In the ED, vital signs are stable. CBC showed WBC count of 3.6, hemoglobin of 8.8. Correlation panel showed INR 1.6. CMP shows potassium of 3.1, bicarb of 20, BUN of 33, creatinine 1.37, calcium of 8, albumin at 3.1. CPK was 29. Magnesium 1.8. Lactic acid 1.7. Urinalysis positive for nitrite and large leukocyte esterase. EKG showed sinus rhythm with PVCs, low voltage QRS, ventricular rate of 70. Assessment: Syncopal episode likely orthostatic Acute kidney injury Hypokalemia Urinary tract infection Normocytic anemia Supratherapeutic INR Chronic conditions: Atrial fibrillation, dyslipidemia, cirrhosis, smoker, history of alcohol abuse, hypopharyngeal CA Plan: Today, patient is afebrile, 102/56, heart rate 69, 100% on room air Sodium is 138, potassium is 3.4, chloride is 110, CO2 is 21, BUN is 29, creatinine is 1.06 Abdominal ultrasound reviewed, ascites in all 4 quadrants Continue ceftriaxone 1 g every 24 hours continue Lasix 40 mg, spironolactone 100 mg Continue metoprolol 25 mg twice a day Continue Midodrin 10 mg before meals 3 times a day Continue Xarelto Paracentesis ordered for tomorrow Patient is full code Objective - Vital Signs Vital signs: Vital Signs Temp 97.3 F L 01/27/23 14:27 Pulse 69 01/27/23 14:27 Resp 18 01/27/23 14:27 BP 102/56 01/27/23 14:27 Pulse Ox 100 01/27/23 14:27 FiO2 Intake & Output 01/26/23 01/27/23 01/27/23 18:59 06:59 18:59 Intake Total 414 118 Balance 414 118 Weight 51.71 kg Intake: Oral 414 118 Other: Voiding Method Bedside Commode Bedside Commode # Voids 2 1 - Labs CBC & Chem 7: 01/26/23 09:08 01/27/23 05:45 Labs: Abnormal Lab Results - Last 24 Hours (Table) 01/27/23 Range/Units 05:45 Potassium 3.4 L (3.5-5.1) mmol/L Chloride 110 H (98-107) mmol/L Carbon Dioxide 21 L (22-30) mmol/L BUN 29 H (7-17) mg/dL Creatinine 1.06 H (0.52-1.04) mg/dL Calcium 7.6 L (8.4-10.2) mg/dL
--- NOTE | 2023-01-27 18:43 | P.CONS ---
History of Present Illness - Reason for Consult Consult date: 01/27/23 Just completed definitive treatment for sq cell carcinoma of the head/neck Requesting physician: Ángela Anna - Chief Complaint dizzy, fall - History of Present Illness Ms Mendoza there is a pleasant female pt of Dr. Perez, with PMH a-fib, EtOH abuse, liver cirrhosis, hypertension, hyperlipidemia, current every day smoker, who recently completed chemo treatment for squamous cell carcinoma, 3 more XRT to go. Patient noted a lump left upper neck early 2021. Slowly increased in size, then began to cause discomfort with swallowing. CT of the chest 07/03/22 showed stable groundglass nodules, postinflammatory changes, stable pericardial nodule. Ultrasound of the neck on the same day showed multiple thickened lymph nodes at the area of the palpable mass, largest submandibular measuring 1.8 x 2 x 1.4 cm. US FNA and core biopsy of the neck 08/18/22 positive for metastatic carcinoma, review at [facility], primary of the aerodigestive tract. Staging PET/CT 09/12/22 showed abnormal activity left oral cavity near the base of the tongue, extending to left piriform sinus. 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 She was seen by Medical and Radiation Oncology. She required complete dental extraction before treatment could begin due to high risk of infection. She started weekly carbo/XRT 12/09/22, last chemotherapy 01/20/23, due to complete radiation this week. Patient did very well up until this last week. She had been losing a little bit of weight, reported decreased fluid and oral intake secondary to di scomfort swallowing. Dr. Perez had the patient stop diuretics as well as decrease dose of some of her blood pressure medications due to hypotension, he then started her on Midodrin. Unfortunately, patient did have an episode of syncope, she reports she passed out, manage to get herself back up to the bed, she lost control of her bowels, woke up a few hours later to go to radiation but, she said she needed to go to the emergency room instead. She was hypotensive on admission, EKG showing A. fib with RVR, BUN and creatinine were elevated 33/1.37. Urine specimen very suspicious, pending culture and sensitivity. Patient has been started on antibiotics. She is reporting today that she feels well. She is tolerating oral intake fairly well, she modifies the textures of her foods to be tolerable. Patient has recurrent ascites secondary to liver cirrhosis, she had a paracentesis 12/23. She feels that she could probably have another one now. Review of Systems 10 point ROS is neg except as stated in HPI Past Medical History Past Medical History: Atrial Fibrillation, Cancer, Hyperlipidemia, Liver Dis ease, Rheumatoid Arthritis (RA) Additional Past Medical History / Comment(s): hypopharnyx cancer-currently receiving radiation daily M-F (throat is sore when swallowing), last chemo on 12-31-22 ,cirrhosis-had paracentesis done on 12-25-22 removed 9.9 L per report, thrombocytopenia, alcohol abuse, hypokalemia, hypotension History of Any Multi-Drug Resistant Organisms: Unobtainable Past Surgical History: Heart Catheterization Additional Past Surgical History / Comment(s): breast biopy (benign), bilateral eye surgery; Left lymph node biopsy October Past Anesthesia/Blood Transfusion Reactions: No Reported Reaction Past Psychological History: No Psychological Hx Reported Smoking Status: Current some day smoker Past Alcohol Use History: None Reported Additional Past Alcohol Use History / Comment(s): quit drinking 2016 Past Drug Use History: None Reported - Past Family History Brother(s) Family Medical History: Cancer Additional Family Medical History / Comment(s): pancreatic cancer Medications and Allergies Home Medications Medication Instructions Recorded Confirmed Type Lactulose [Constulose] 20 gm PO DAILY 02/06/21 01/26/23 History Rivaroxaban [Xarelto] 20 mg PO HS 02/06/21 01/26/23 History Rosuvastatin [Crestor] 10 mg PO DAILY 08/15/22 01/26/23 History diphenhydrAMINE [Benadryl] 25 mg PO HS PRN 08/15/22 01/26/23 History Melatonin 5 mg PO HS PRN 10/02/22 01/26/23 History Unk Elevation Shake 1 bottle PO DAILY 10/02/22 01/26/23 History Ondansetron [Zofran] 4 mg PO Q6H PRN 12/09/22 01/26/23 History Acetaminophen-Codeine 300-30mg 1 tab PO Q4H PRN 01/26/23 01/26/23 History [Tylenol w/codeine #3] Furosemide [Lasix] 40 mg PO SUWEFR 01/26/23 01/26/23 History Lidocaine Viscous 2% [Xylocaine 10 - 15 ml PO ACHS PRN 01/26/23 01/26/23 History Viscous] Loperamide HCl [Imodium A-D] 2 - 4 mg PO QID PRN 01/26/23 01/26/23 History Midodrine HCl [ProAmatine] 10 mg PO TID 01/26/23 01/26/23 History Spironolactone 100 mg PO SUWEFR 01/26/23 01/26/23 History Allergies Allergy/AdvReac Type Severity Reaction Status Date / Time bee venom protein (honey bee) Allergy Nausea & Verified 01/26/23 11:02 Vomiting Physical Exam Vitals: Vital Signs Temp Pulse Pulse Pulse Pulse Pulse Resp 01/27/23 06:50 98.1 F 84 19 01/27/23 02:26 80 01/27/23 01:46 97.9 F 136 H 16 01/26/23 21:12 77 85 77 01/26/23 20:00 98.0 F 69 16 01/26/23 14:00 98.1 F 71 76 66 18 01/26/23 12:48 75 16 BP BP BP BP Pulse Ox 01/27/23 06:50 93/52 99 01/27/23 02:26 01/27/23 01:46 91/67 96 01/26/23 21:12 119/57 113/60 114/60 98 01/26/23 20:00 124/62 100 01/26/23 14:00 110/54 93/44 105/52 98 01/26/23 12:48 106/58 100 Intake and Output 01/26/23 01/27/23 01/27/23 22:59 06:59 14:59 Intake Total 414 Balance 414 Intake: Oral 414 Other: Voiding Method Bedside Commode # Voids 5 2 1 - Constitutional General appearance: cooperative, no acute distress, thin - EENT Eyes: anicteric sclerae, EOMI ENT: hearing grossly normal - Neck Neck: lymphadenopathy (Left anterior cervical, swelling) - Respiratory Respiratory: bilateral: CTA - Cardiovascular Rhythm: regular Heart sounds: normal: S1, S2 Abnormal Heart Sounds: no systolic murmur, no diastolic murmur, no rub, no S3 Gallop, no S4 Gallop, no click, no other leg Peripheral Edema: bilateral: 1+ - Gastrointestinal Dullness to percussion lower abd 3/4 up. Distant bowel sounds. General gastrointestinal: no absent bowel sounds, no decreased bowel sounds, distended, no hepatomegaly, no hyperactive bowel sounds, no normal bowel sounds, no organomegaly, no rigid, no scaphoid, soft, no splenomegaly, no tenderness, no umbilical hernia, no ventral hernia - Integumentary Left neck/supraclavicular area moderate radiation burn noted Right padilla skin tear from a different fall - Neurologic Neurologic: CNII-XII intact - Musculoskeletal Musculoskeletal: strength equal bilaterally - Psychiatric Psychiatric: A&O x's 3, appropriate affect, intact judgment & insight Results CBC & Chem 7: 01/26/23 09:08 01/27/23 05:45 Labs: Abnormal Lab Results - Last 24 Hours (Table) 01/26/23 01/26/23 01/27/23 Range/Units 09:08 14:00 05:45 WBC 3.6 L (3.8-10.6) k/uL RBC 2.78 L (3.80-5.40) m/uL Hgb 8.8 L (11.4-16.0) gm/dL Hct 27.5 L (34.0-46.0) % RDW 18.6 H (11.5-15.5) % Lymphocytes # 0.2 L (1.0-4.8) k/uL Potassium 3.4 L (3.5-5.1) mmol/L Chloride 110 H (98-107) mmol/L Carbon Dioxide 21 L (22-30) mmol/L BUN 29 H (7-17) mg/dL Creatinine 1.06 H (0.52-1.04) mg/dL Calcium 7.6 L (8.4-10.2) mg/dL Urine Appearance Turbid H (Clear) Urine Protein 2+ H (Negative) Urine Ketones 1+ H (Negative) Urine Blood Large H (Negative) Urine Nitrite Positive H (Negative) Ur Leukocyte Esterase Large H (Negative) Urine RBC >182 H (0-5) /hpf Urine WBC >182 H (0-5) /hpf Urine WBC Clumps Many H (None) /hpf Urine Bacteria Many H (None) /hpf Urine Mucus Rare H (None) /hpf Comments: Echo report reviewed CT Scan - head: report reviewed US - abdomen: report reviewed Assessment and Plan (1) Syncope Current Visit: Yes Status: Acute Priority: High Code(s): R55 - SYNCOPE AND COLLAPSE SNOMED Code(s): 422743579 (2) Squamous cell carcinoma of head and neck Current Visit: Yes Status: Acute Priority: High Code(s): C76.0 - MALIGNANT NEOPLASM OF HEAD, FACE AND NECK SNOMED Code(s): 663146226 (3) Antineoplastic chemotherapy induced anemia Current Visit: Yes Status: Acute Code(s): D64.81 - ANEMIA DUE TO ANTINEOPLASTIC CHEMOTHERAPY; T45.1X5A - ADVERSE EFFECT OF ANTINEOPLASTIC AND IMMUNOSUP DRUGS, INIT SNOMED Code(s): 299757263810444 Plan: Syncope -Patient's blood pressure medications were attempting to be adjusted due to lower BP After weight loss -A. fib with RVR, possibly secondary to dehydration. Cardiology consulted -Brain CT negative for an acute intracranial process -Hydration -Urine is highly suspicious for infection, on empiric antibiotics, pending culture and sensitivity. May have contributed to patient's syncopal episode Squamous cell carcinoma of the head and neck -Case discussed with Radiation Oncology. The plan is to complete the last 2 doses of radiation. They will do this while she is inpatient -Chemotherapy has been completed. Mild hematological toxicities. -Q shift oral care, salt and soda ordered -Patient is completed chemotherapy treatment. She had a PICC line inserted chemo administration. Nursing is reporting inability to draw from the PICC line. It is okay to pull PICC line, please send tip for culture. -Patient has lab encounter is an follow-up with Dr. Perez already scheduled. Chemotherapy-induced anemia -Mild, no acute intervention -Once treatment complete, will check for nutritional deficiencies and supplement at that time -Transfuse for hemoglobin less than 7
[2023-01-27] MEDS ORDERED: CALCIUM CARBONATE 500 MG CHEWABLE PO PRN (20:58)
[2023-01-27] MEDS: SALT AND SODA MOUTHWASH 1,000 ML PO SCH (22:06)
[2023-01-27] MEDS: RIVAROXABAN 20 MG TAB PO SCH (22:06)
[2023-01-28] MEDS: SALT AND SODA MOUTHWASH 1,000 ML PO SCH ×4 (00:34→15:00)
[2023-01-28] MEDS: MIDODRINE 5 MG TAB PO SCH ×2 (06:30→13:43)
[2023-01-28 07:21] VITALS: PULSE 73
[2023-01-28] MEDS ORDERED: ONDANSETRON 4 MG/2 ML VIAL IVP STA (07:23)
[2023-01-28] MEDS ORDERED: FUROSEMIDE 40 MG TAB PO SCH (09:00)
[2023-01-28] MEDS ORDERED: SPIRONOLACTONE 25 MG TAB PO SCH (09:00)
[2023-01-28] MEDS: LACTULOSE 20 GM/30 ML CUP PO SCH (09:49)
[2023-01-28] MEDS: METOPROLOL TARTRATE 12.5 MG TAB PO SCH (09:49)
[2023-01-28] MEDS: ATORVASTATIN 20 MG TAB PO SCH (09:50)
[2023-01-28] MEDS ORDERED: POTASSIUM CHLORIDE ER 20 MEQ TAB.ER PO STA (10:16)
--- NOTE | 2023-01-28 10:17 | P.PN ---
Subjective Progress Note Date: 01/28/23 History of present illness: This is a 68-year-old female patient of Dr. Kay with past medical history of liver cirrhosis and recurrent paracentesis, paroxysmal atrial fibrillation, valvular heart disease with aortic and mitral regurgitation, dilatation of the aortic, thoracic aorta, hypertension, dyslipidemia, coronary artery disease, hypopharyngeal cancer, history of alcohol abuse. We have been asked to evaluate the patient for syncopal episode. Patient apparently was walking to the bathroom and felt lightheaded than falling down and passing out. She denies any injury to herself. Patient denies having any chest pain. Patient was found to be in and out of atrial fibrillation overnight. She was briefly started on amiodarone drip by attending. EKG sinus rhythm 2, atrial fibrillation and ventricular rate of 157 at 2 AM, sinus rhythm at 2:30 AM WBC 3.6, hemoglobin 8.8, platelet count 152. INR 1.6. Potassium 3. 1 repeat today 3.4, BUN 33 creatinine 1.379 1.06. Troponin negative 3. CK 29. Magnesium 1.8. Liver function tests normal. Urinalysis positive for infection. Home cardiac medications: Lasix 40 mg Thursday, midodrine 10 mg 3 times daily, Xarelto 29 g at bedtime, Crestor 10 mg daily, aldactone 100 mg on Thursday Cardiac catheterization 2018 intermediate to severe disease of the RCA and left circumflex. Echocardiogram 07/2022 normal EF, moderate TR, moderate MR, dilated aorta at 3.9 cm. Lexiscan stress test 2018 normal EF, small reversible defect in the distal anterior wall indicating possible ischemia. 01/28 Patient is seen today in follow-up. Echocardiogram reveals normal LV size and systolic function. Mild left atrial enlargement. Moderate mitral and tricuspid regurgitation. No pericardial effusion. No significant pulmonary hypertension. Patient noted to have episode of A. fib RVR yesterday afternoon after receiving first dose of Lopressor but heart rate is currently controlled and she is currently in sinus rhythm. Heart rate is in the 60s and 70s, blood pressure 119/68, pulse ox 100% on room air. Repeat blood work reveals sodium 138, potassium 3.4, chloride 110, CO2 21, BUN 29 creatinine 1.06. Physical examination: Gen: This is a fragile appearing 68-year-old female. Patient appears much older than 68 years. She is resting in bed and appears to be in no acute distress. VS: reviewed HEENT: Head is atraumatic, normocephalic. Pupils equal, round. Sclerae is anicteric. NECK: Supple. No JVD. . LUNGS: Clear to auscultation. No wheezes or rhonchi. No intercostal retractions. HEART: Regular rate and rhythm. Systolic murmur. ABDOMEN: Soft and distended. EXTREMITIES: No pedal edema. No calf tenderness. NEUROLOGICAL: Patient is awake, alert and oriented x3. Assessment: Near syncopal episode Paroxysmal atrial fibrillation with episodes of RVR Acute kidney injury Hypokalemia Urinary tract infection Noncritical coronary artery disease Hypertension Dyslipidemia Cirrhosis of the liver Tobacco use Plan: Continue patient's cardiac medications Continue patient on Lopressor 12.5 mg twice daily Event monitor for 14 days at time of discharge Patient is cleared for discharge from cardiology. Patient will follow-up with Dr. Kay in 4 weeks. Nurse practitioner note has been reviewed, I agree with documented findings and plan of care. Patient was seen and examined. Objective - Vital Signs Vital signs: Vital Signs Temp 98 F 01/28/23 07:11 Pulse 73 01/28/23 07:11 Resp 16 01/28/23 07:11 BP 114/66 01/28/23 07:11 Pulse Ox 100 01/28/23 07:11 FiO2 Intake & Output 01/27/23 01/28/23 01/28/23 18:59 06:59 18:59 Intake Total 236 Balance 236 Intake: Oral 236 Other: Voiding Method Bedside Commode # Voids 1 2 - Labs CBC & Chem 7: 01/26/23 09:08 01/27/23 05:45 Labs: Microbiology - Last 24 Hours (Table) 01/26/23 14:00 Urine Culture - Preliminary Urine,Voided Gram Neg Bacilli
[2023-01-28] MEDS: Acetaminophen-Codeine 300-30mg TAB PO PRN (13:46)
[2023-01-28] MEDS ORDERED: MAG HYDROX/AL HYDROX/SIMETH 30 ML, LIDOCAINE VISCOUS 2% 30 ML, diphenhydrAMINE ELIXIR 7... PO SCH ×5 (15:00)
--- NOTE | 2023-01-28 15:04 | P.DS ---
Providers Date of admission: 01/26/23 11:37 Expected date of discharge: 01/28/23 Attending physician: Melva Lu DO Consults: 01/26/23 16:33 Consult Physician Routine Consulting Provider: Naif Perez Consult Reason/Comments: Cont of care Do you want consulting provider notified?: Yes 01/27/23 02:08 Consult Physician Routine Consulting Provider: Mehdi Kay Consult Reason/Comments: afib wtih RVR Do you want consulting provider notified?: Yes Primary care physician: Emery Mckeon MD Hospital Course: Assessment: Syncopal episode likely orthostatic Acute kidney injury Hypokalemia Urinary tract infection Normocytic anemia Supratherapeutic INR Chronic conditions: Atrial fibrillation, dyslipidemia, cirrhosis, smoker, history of alcohol abuse, hypopharyngeal CA Hospital course: 68-year-old female with PMH of atrial fibrillation, dyslipidemia, cirrhosis, smoker, history of alcohol abuse, hypopharyngeal CA presented to the ED for syncopal episode. In the ED, vital signs are stable. CBC showed WBC count of 3.6, hemoglobin of 8.8. Correlation panel showed INR 1.6. CMP shows potassium of 3.1, bicarb of 20, BUN of 33, creatinine 1.37, calcium of 8, albumin at 3.1. CPK was 29. Magnesium 1.8. Lactic acid 1.7. Urinalysis positive for nitrite and large leukocyte esterase. EKG showed sinus rhythm with PVCs, low voltage QRS, ventricular rate of 70. Patient was admitted to the hospital for workup of syncope. Patient seen by cardiology, who recommended echocardiogram. Echocardiogram showed good ejection fraction, no evidence of diastolic dysfunction, moderate valvular disease, but no obvious ideology of syncope. Patient was subsequently discharged home with cardiac event monitor and follow- up with cardiology. Patient was also seen by oncology given her history of laryngeal cancer, and was cleared for removal of PICC line during this hospitalization. She'll follow up on an outpatient basis to complete her radiation therapy. On discharge, she was also given prescription for therapeutic paracentesis. I spent 40 minutes coordinating this discharge on 01/28 Gen: awake, alert HEENT: normocephalic, atraumatic, good hearing acuity, moist mucous membranes Resp: good air exchange, breathing comfortably with no accessory muscle use, crackles in the bases to the midchest CVS: good distal perfusion x 4, regular rate and rhythm with holosystolic murmur GI: soft, NTTP, ND, ascites is present : no SPT, no CVAT, martinez catheter not present MSK: Bilateral pitting edema, no clubbing Neuro: non-focal, moving all extremities Psych: cooperative, euthymic mood Patient Condition at Discharge: Good Plan - Discharge Summary Discharge Rx Participant: Yes New Discharge Prescriptions: New Cefdinir 300 mg PO Q12HR #6 cap Metoprolol Tartrate [Lopressor] 12.5 mg PO BID #60 tab Continue Rivaroxaban [Xarelto] 20 mg PO HS Lactulose [Constulose] 20 gm PO DAILY Melatonin 5 mg PO HS PRN PRN Reason: Insomnia Spironolactone 100 mg PO SUWEFR Furosemide [Lasix] 40 mg PO SUWEFR Lidocaine Viscous 2% [Xylocaine Viscous] 10 - 15 ml PO ACHS PRN PRN Reason: Pain Midodrine HCl [ProAmatine] 10 mg PO TID Loperamide HCl [Imodium A-D] 2 - 4 mg PO QID PRN PRN Reason: Diarrhea diphenhydrAMINE [Benadryl] 25 mg PO HS PRN PRN Reason: Itching Rosuvastatin [Crestor] 10 mg PO DAILY Unk Elevation Shake 1 bottle PO DAILY Ondansetron [Zofran] 4 mg PO Q6H PRN PRN Reason: Nausea Acetaminophen-Codeine 300-30mg [Tylenol w/codeine #3] 1 tab PO Q4H PRN PRN Reason: Pain Discharge Medication List Lactulose [Constulose] 20 gm PO DAILY 02/06/21 [History] Rivaroxaban [Xarelto] 20 mg PO HS 02/06/21 [History] Rosuvastatin [Crestor] 10 mg PO DAILY 08/15/22 [History] diphenhydrAMINE [Benadryl] 25 mg PO HS PRN 08/15/22 [History] Melatonin 5 mg PO HS PRN 10/02/22 [History] Unk Elevation Shake 1 bottle PO DAILY 10/02/22 [History] Ondansetron [Zofran] 4 mg PO Q6H PRN 12/09/22 [History] Acetaminophen-Codeine 300-30mg [Tylenol w/codeine #3] 1 tab PO Q4H PRN 01/26/23 [History] Furosemide [Lasix] 40 mg PO SUWEFR 01/26/23 [History] Lidocaine Viscous 2% [Xylocaine Viscous] 10 - 15 ml PO ACHS PRN 01/26/23 [History] Loperamide HCl [Imodium A-D] 2 - 4 mg PO QID PRN 01/26/23 [History] Midodrine HCl [ProAmatine] 10 mg PO TID 01/26/23 [History] Spironolactone 100 mg PO SUWEFR 01/26/23 [History] Cefdinir 300 mg PO Q12HR #6 cap 01/28/23 [Rx] Metoprolol Tartrate [Lopressor] 12.5 mg PO BID #60 tab 01/28/23 [Rx] Follow up Appointment(s)/Referral(s): Naif Perez MD [STAFF PHYSICIAN] - 02/04/23 9:00 am (This is for follow up lab draw.) Mehdi Kay MD [STAFF PHYSICIAN] - 03/04/23 2:15 pm Emery Mckeon MD [Primary Care Provider] - 1-2 days Ambulatory/Diagnostic Orders: Ambulatory Miscellaneous Order [MISC.AMB] Location: None Selected Miscellaneous Radiology Order [RAD.AMB] Location: None Selected Patient Instructions/Handouts: Syncope (DC) Activity/Diet/Wound Care/Special Instructions: 2 week event monitor Please hold your xarelto the day before your paracentesis Discharge Disposition: HOME SELF-CARE
[2023-01-28 15:07] VITALS: BP 119/62; RESP 18; TEMP 97.9
--- NOTE | 2023-01-28 18:01 | P.PN ---
Subjective Progress Note Date: 01/28/23 Principal diagnosis: Syncope In follow-up today patient denies any fevers, nausea or vomiting, chest pain, urine symptoms, diarrhea or constipation. Denies feeling any palpitations. Her oral irritation is moderate, some sore throat with swallowing. She is independently ambulatory. Objective - Vital Signs Vital signs: Vital Signs Temp 98 F 01/28/23 07:11 Pulse 73 01/28/23 07:11 Resp 16 01/28/23 07:11 BP 114/66 01/28/23 07:11 Pulse Ox 100 01/28/23 07:11 FiO2 Intake & Output 01/27/23 01/28/23 01/28/23 18:59 06:59 18:59 Intake Total 236 240 Balance 236 240 Intake: Oral 236 240 Other: Voiding Method Bedside Commode Bedside Commode # Voids 1 2 1 - Constitutional General appearance: Present: cooperative, no acute distress, thin - EENT EENT Comment(s): oral mucosa shallow ulceration on the lt Eyes: Present: abnormal pupil, EOMI ENT: Present: hearing grossly normal - Respiratory Details: congested cough - Cardiovascular Rhythm: regular Heart sounds: normal: S1, S2 Abnormal Heart Sounds: Absent: systolic murmur, diastolic murmur, rub, S3 Gallop, S4 Gallop, click, other - Peripheral edema leg Peripheral Edema: bilateral: None - Gastrointestinal General gastrointestinal: Present: normal bowel sounds, soft - Integumentary Integumentary Comment(s): radiation changes to the left neck - Neurologic Neurologic: Present: CNII-XII intact - Musculoskeletal Musculoskeletal: Present: strength equal bilaterally - Psychiatric Psychiatric: Present: A&O x's 3, appropriate affect, intact judgment & insight - Labs CBC & Chem 7: 01/26/23 09:08 01/27/23 05:45 Labs: Microbiology - Last 24 Hours (Table) 01/26/23 14:00 Urine Culture - Preliminary Urine,Voided Gram Neg Bacilli Assessment and Plan (1) Syncope Status: Acute Priority: High Code(s): R55 - SYNCOPE AND COLLAPSE SNOMED Code(s): 584882656 (2) Squamous cell carcinoma of head and neck Status: Acute Priority: High Code(s): C76.0 - MALIGNANT NEOPLASM OF HEAD, FACE AND NECK SNOMED Code(s): 519671775 (3) Antineoplastic chemotherapy induced anemia Status: Acute Code(s): D64.81 - ANEMIA DUE TO ANTINEOPLASTIC CHEMOTHERAPY; T45.1X5A - ADVERSE EFFECT OF ANTINEOPLASTIC AND IMMUNOSUP DRUGS, INIT SNOMED Code(s): 170489946135073 Plan: Syncope -A. fib with RVR, possibly secondary to dehydration. Cardiology consulted. Plans for a monitor on DC -Brain CT negative for an acute intracranial process -IV hydration. Patient is tolerating some liquid oral intake. -Urine is highly suspicious for infection, on empiric antibiotics, pending culture and sensitivity. May have contributed to patient's syncopal episode Squamous cell carcinoma of the head and neck -Radiation Oncology Completing last few doses of radiation. Last dose tomorrow -Chemotherapy has been completed. Mild hematological toxicities. -Q shift oral care, salt and soda ordered, Cool solution ordered -PICC line inserted for chemo administration, This has been DC'd because of nonfunctioning. Sent for culture. -Oncology follow-up already scheduled. Chemotherapy-induced anemia -Mild, no acute intervention
== END 2023-01-28 16:54 | disposition home or self-care (01) ==
LOC: EC 08:43 → 6NMEDSUR 11:37
PROVIDERS: ADMIT Internal Medicine; ATTEND Internal Medicine
DX: R55 Syncope and collapse (principal); N17.9 Acute kidney failure, unspecified; I48.0 Paroxysmal atrial fibrillation; N39.0 Urinary tract infection, site not specified; C14.0 Malignant neoplasm of pharynx, unspecified; E78.5 Hyperlipidemia, unspecified; M06.9 Rheumatoid arthritis, unspecified; I49.3 Ventricular premature depolarization; E87.6 Hypokalemia; D64.81 Anemia due to antineoplastic chemotherapy; T45.1X5A Adverse effect of antineoplastic and immunosuppressive drugs, initial encounter; I08.3 Combined rheumatic disorders of mitral, aortic and tricuspid valves; I10 Essential (primary) hypertension; I25.10 Atherosclerotic heart disease of native coronary artery without angina pectoris; R18.8 Other ascites; I27.20 Pulmonary hypertension, unspecified; K74.60 Unspecified cirrhosis of liver; S81.811A Laceration without foreign body, right lower leg, initial encounter; D69.6 Thrombocytopenia, unspecified; F17.200 Nicotine dependence, unspecified, uncomplicated; I08.1 Rheumatic disorders of both mitral and tricuspid valves; I37.1 Nonrheumatic pulmonary valve insufficiency; F10.10 Alcohol abuse, uncomplicated; Z79.899 Other long term (current) drug therapy; Z79.01 Long term (current) use of anticoagulants; Z92.21 Personal history of antineoplastic chemotherapy; Z92.3 Personal history of irradiation; Z80.0 Family history of malignant neoplasm of digestive organs; W19.XXXA Unspecified fall, initial encounter
CPT/HCPCS: 96361; 96365; 96366 ×3; 96367; 96375; 99285; 36415; 93005; 93306; 93270; 97530; 97162; 80053; 80048; 82550; 83605; 83735; 84484; 85025; 85610; 85730; 81001; 87070; 87086; 87077; 87186; 76705; 70450; G0378 ×3; J2405; J0696 ×3; J3480

== ENCOUNTER 2023-02-11 08:12 | Day surgery (SDC) | payer MEDICARE ==
[2023-02-11 08:53] VITALS: TEMP 97.6
[2023-02-11 08:58] LABS: Mean Platelet Volume 8.3; Platelet Count 156 k/uL (150-450)
[2023-02-11 09:03] LABS: INR 1.3 (<1.2); Prothrombin Time 13.2 sec (9.0-12.0)
[2023-02-11 09:05] LABS: African American GFR (CKD) 57 (>60 ml/min/1.73 sqM); Non-African American GFR(CKD) 50 (>60 ml/min/1.73 sqM)
[2023-02-11] MEDS: ALBUMIN HUMAN 25% 50 ML in EMPTY BAG 1 BAG IVPB SCH ×3 (09:42→10:23)
[2023-02-11 10:03] VITALS: PULSE 48
[2023-02-11 10:20] VITALS: BP 132/62; RESP 6
--- NOTE | 2023-02-11 14:17 | US ---
Ultrasound-guided paracentesis. DATE OF EXAM: 02/11/2023 CLINICAL HISTORY: Ascites The procedure was discussed with the patient. The risks, complications, benefits, and alternatives we re discussed and any questions were answered. Informed consent was obtained. The patient was placed s upine on the ultrasound table and prepped and draped in the usual sterile fashion. All elements of maximal barrier technique were utilized. Under ultrasound guidance, access into the right lower quadrant was obtained, via the paracentesis catheter system and direct ultrasound guidanc e. Approximately 5.5 liters of straw-colored fluid was removed. The patient was stable throughout the pr ocedure and remained stable upon discharge from Department of Radiology. IMPRESSION: Successful paracentesis under ultrasound guidance.
== END 2023-02-11 10:35 | disposition home or self-care (01) ==
LOC: RADPROMAIN 08:12
PROVIDERS: ATTEND Registered Nurse Oncology
DX: R18.8 Other ascites (principal)
CPT/HCPCS: 82565; 85049; 85610; 36415; 49083; P9047

== ENCOUNTER 2023-04-08 08:03 | Day surgery (SDC) | payer MEDICARE ==
[2023-04-08 08:47] VITALS: TEMP 98
[2023-04-08 09:00] LABS: INR 1.2 (<1.2)
[2023-04-08 09:02] LABS: Basophils % (A) 0 %; Eosinophils # (A) 0.2 k/uL (0-0.7); Eosinophils % (A) 3 %; HCT 23.8 % (34.0-46.0); HGB 7.4 gm/dL (11.4-16.0); Hypochromasia Marked; Lymphocytes # (A) 0.6 k/uL (1.0-4.8); Lymphocytes % (A) 10 %; MCH 27.9 pg (25.0-35.0); MCHC 31.1 g/dL (31.0-37.0); MCV 89.5 fL (80.0-100.0); Mean Platelet Volume 8.8; Monocytes # (A) 0.7 k/uL (0-1.0); Monocytes % (A) 13 %; Neutrophils # (A) 4.2 k/uL (1.3-7.7); Neutrophils % (A) 72 %; Platelet Count 234 k/uL (150-450); Poikilocytosis Slight; RBC 2.66 m/uL (3.80-5.40); RDW 15.5 % (11.5-15.5); WBC 5.9 k/uL (3.8-10.6)
[2023-04-08 09:14] LABS: ALT 15 U/L (4-34); African American GFR (CKD) 69 (>60 ml/min/1.73 sqM); Albumin 3.4 g/dL (3.5-5.0); Anion Gap 9 mmol/L; Blood Urea Nitrogen 25 mg/dL (7-17); Calcium 8.5 mg/dL (8.4-10.2); Carbon Dioxide 22 mmol/L (22-30); Chloride 101 mmol/L (98-107); Glucose 88 mg/dL (74-99); Non-African American GFR(CKD) 60 (>60 ml/min/1.73 sqM); Sodium 132 mmol/L (137-145); Total Bilirubin 0.7 mg/dL (0.2-1.3); Total Protein 6.4 g/dL (6.3-8.2)
[2023-04-08 09:25] LABS: AST 52 U/L (14-36); Alkaline Phosphatase 57 U/L (38-126); Potassium 3.7 mmol/L (3.5-5.1)
[2023-04-08] MEDS: ALBUMIN HUMAN 25% 50 ML in EMPTY BAG 1 BAG IVPB SCH ×4 (09:36→10:02)
[2023-04-08 10:13] VITALS: PULSE 71; RESP 16
[2023-04-08 10:52] VITALS: BP 99/60
--- NOTE | 2023-04-08 11:33 | US ---
Ultrasound-guided paracentesis. DATE OF EXAM: 04/08/2023 CLINICAL HISTORY: Ascites The procedure was discussed with the patient. The risks, complications, benefits, and alternatives we re discussed and any questions were answered. Informed consent was obtained. The patient was placed s upine on the ultrasound table and prepped and draped in the usual sterile fashion. All elements of maximal barrier technique were utilized. Under ultrasound guidance, access into the right lower quadrant was obtained, via the paracentesis catheter system and direct ultrasound guidanc e. Approximately 13 liters of straw-colored fluid was removed. The patient was stable throughout the pro cedure and remained stable upon discharge from Department of Radiology. IMPRESSION: Successful paracentesis under ultrasound guidance.
== END 2023-04-08 11:06 | disposition home or self-care (01) ==
LOC: RADPROMAIN 08:03
PROVIDERS: ATTEND Registered Nurse Oncology
DX: R18.8 Other ascites (principal)
CPT/HCPCS: 80053; 85025; 85610; 82105; 36415; 49083; P9047

== ENCOUNTER → 2023-04-17 | Outpatient (CLI) | payer MEDICARE ==
--- NOTE | 2023-04-20 12:36 | PE ---
EXAMINATION TYPE: PET CT fusion skull to thigh DATE OF EXAM: 04/17/2023 COMPARISON: No pertinent recent CT exams Prior PET/CT: 09/12/2022 HISTORY: Head and neck cancer TECHNIQUE: Following the intravenous administration of 13.72 mCi of F-18 FDG, whole body images are performed from the skull base to the midthigh. Images are reviewed on the computer in the coronal, a xial, and sagittal planes. Reconstructed rotating images are created on independent workstation and reviewed on the computer. A localization and attenuation correction CT is performed in conjunction with the PET scan. DLP: 338.81 mGycm SCAN: Subsequent Blood glucose: 97 mg/dL Average Mediastinum SUV: Average Liver SUV: FINDINGS: NECK: New increased radiotracer is within the right tonsillar pillar with an SUV of 2.05. There is s ome new focal uptake within the posterior neck, image 22, with an SUV of 2.18. These areas are not id entified on the dedicated neck imaging. Previous uptake through the left neck has resolved over the interval. THORAX: New areas of uptake: Right lung image 63, SUV value 2.13. Left lung nodule image 55, SUV value of 2.5. There is increased activity along the posterior lateral intercostal region on the left with an SUV va lue of 2.4. Right lung anterior rib uptake image 61, SUV value 1.53. Increased uptake may be within an anterior rib, image 96, SUV 1.27 Anterior right intervertebral uptake is present, image 109 SUV 3.1. ABDOMEN: There is intense new uptake within the stomach with an SUV value of 4.23. This extends to th e gastric cardia and fundus of the stomach. There is some intense uptake within the ascending colon which could be related to colitis. Some wall thickening may be present on the CT images. PELVIS: No abnormal uptake OSSEOUS STRUCTURES: No abnormal uptake LOCALIZATION CT: Ascites is present. Wall thickening within the ascending and proximal transverse col on is present. Correlate for ascites. These areas correlate with increased radiotracer accumulation. COMPARISON: Improving within the neck. New abnormal uptake within the chest wall, stomach and intesti eliceo. IMPRESSION: 1. Lung nodules with uptake appear to be new. Metastatic disease should be considered. 2. Significant ascites. 3. Prior left neck uptake has largely resolved. Right neck tonsillar pillar uptake is evident. 4. Intercostal uptake within the anterior right lower lung and posterior lateral left lung. Metastasi s should be considered. 5. Uptake within the gastric cardia and fundus. Direct visualization recommended. 6. Uptake within the ascending and proximal transverse colon could be inflammatory in nature. Correla te with symptoms.
== END | disposition home or self-care (01) ==
LOC: RADPETMAIN 12:10
PROVIDERS: ATTEND Radiology Radiation Oncology
DX: C77.0 Secondary and unspecified malignant neoplasm of lymph nodes of head, face and neck (principal); C01 Malignant neoplasm of base of tongue; R18.8 Other ascites; R91.8 Other nonspecific abnormal finding of lung field
CPT/HCPCS: 78815; A9552

== ENCOUNTER 2023-06-03 09:01 | Day surgery (SDC) | payer MEDICARE ==
[2023-06-03 10:04] LABS: ALT 19 U/L (4-34); AST 38 U/L (14-36); African American GFR (CKD) 80 (>60 ml/min/1.73 sqM); Albumin 3.9 g/dL (3.5-5.0); Alkaline Phosphatase 94 U/L (38-126); Anion Gap 14 mmol/L; Blood Urea Nitrogen 19 mg/dL (7-17); Calcium 9.2 mg/dL (8.4-10.2); Carbon Dioxide 24 mmol/L (22-30); Chloride 96 mmol/L (98-107); Glucose 71 mg/dL (74-99); Non-African American GFR(CKD) 70 (>60 ml/min/1.73 sqM); Potassium 4.5 mmol/L (3.5-5.1); Sodium 134 mmol/L (137-145); Total Bilirubin 0.6 mg/dL (0.2-1.3); Total Protein 7.2 g/dL (6.3-8.2)
[2023-06-03 10:10] LABS: INR 1.2 (<1.2); Prothrombin Time 12.7 sec (10.0-12.5)
[2023-06-03 10:15] LABS: Anisocytosis Slight; Basophils % (A) 0 %; Eosinophils # (A) 0.1 k/uL (0-0.7); Eosinophils % (A) 1 %; HCT 34.1 % (34.0-46.0); Hypochromasia Marked; Lymphocytes # (A) 0.6 k/uL (1.0-4.8); Lymphocytes % (A) 9 %; MCH 26.2 pg (25.0-35.0); MCHC 30.6 g/dL (31.0-37.0); MCV 85.7 fL (80.0-100.0); Mean Platelet Volume 9.4; Monocytes # (A) 0.8 k/uL (0-1.0); Monocytes % (A) 11 %; Neutrophils # (A) 5.2 k/uL (1.3-7.7); Neutrophils % (A) 77 %; Platelet Count 227 k/uL (150-450); RBC 3.98 m/uL (3.80-5.40); RDW 17.5 % (11.5-15.5); WBC 6.8 k/uL (3.8-10.6)
[2023-06-03 10:16] LABS: HGB 10.4 gm/dL (11.4-16.0)
[2023-06-03 10:40] VITALS: RESP 18; TEMP 97.8
[2023-06-03] MEDS: ALBUMIN HUMAN 25% 50 ML in EMPTY BAG 1 BAG IVPB SCH ×3 (11:00→12:44)
--- NOTE | 2023-06-03 12:45 | US ---
Ultrasound-guided paracentesis. DATE OF EXAM: 06/03/2023 CLINICAL HISTORY: Ascites The procedure was discussed with the patient. The risks, complications, benefits, and alternatives we re discussed and any questions were answered. Informed consent was obtained. The patient was placed s upine on the ultrasound table and prepped and draped in the usual sterile fashion. All elements of maximal barrier technique were utilized. Under ultrasound guidance, access into the right lower quadrant was obtained, via the paracentesis catheter system and direct ultrasound guidanc e. Approximately 7.4 liters of straw-colored fluid was removed. The patient was stable throughout the pr ocedure and remained stable upon discharge from Department of Radiology. IMPRESSION: Successful paracentesis under ultrasound guidance.
[2023-06-03 18:18] VITALS: BP 110/64; PULSE 67
== END 2023-06-03 11:45 | disposition home or self-care (01) ==
LOC: RADPROMAIN 09:01
PROVIDERS: ATTEND Internal Medicine Gastroenterology
DX: R18.8 Other ascites (principal)
CPT/HCPCS: 80053; 85025; 85610; 36415; 49083; P9047

== ENCOUNTER 2023-06-24 12:59 | Day surgery (SDC) | payer MEDICARE ==
[2023-06-24 14:04] LABS: Mean Platelet Volume 7.4; Platelet Count 233 k/uL (150-450)
[2023-06-24 14:15] VITALS: TEMP 99
[2023-06-24 14:16] LABS: INR 1.2 (<1.2); Prothrombin Time 12.5 sec (10.0-12.5)
[2023-06-24 14:22] LABS: African American GFR (CKD) 84 (>60 ml/min/1.73 sqM); Non-African American GFR(CKD) 73 (>60 ml/min/1.73 sqM)
[2023-06-24] MEDS: ALBUMIN HUMAN 25% 50 ML in EMPTY BAG 1 BAG IVPB SCH ×3 (14:41→15:16)
[2023-06-24 15:14] VITALS: RESP 16
[2023-06-24 15:42] VITALS: BP 115/66; PULSE 72
--- NOTE | 2023-06-24 15:52 | US ---
EXAMINATION TYPE: US paracentesis abd w/image DATE OF EXAM: 06/24/2023 2:38 PM CLINICAL INDICATION:Female, 68 years old with history of R18.8 Other Ascites; COMPARISON: 06/03/2023 ATTENDING: Dr. Herbert Worthy PROCEDURE: Informed consent was obtained. The risks of the procedure were extensively explained incl uding risk of damage to surrounding bowel with perforation and need for additional procedures. Proced ure was performed in the ultrasound procedure suite. Ultrasound imaging of the abdomen demonstrate as citic fluid. An appropriate access site was localized to the right lower abdomen. Timeout was taken p er protocol. The skin was prepped and draped in the usual sterile fashion and then locally anesthetiz ed with 1% lidocaine. The peritoneal cavity was then accessed via a 5-Bhutanese one-step needle/cathete r. Approximately 3200 cc of darker red fluid was obtained. Postprocedural imaging of the abdomen de monstrate a minimal amount of abdominal fluid. Patient tolerated procedure well without immediate complication. Hemostasis at the procedural site w as obtained with a sterile bandage placed. The patient was monitored in the holding area following th e procedure and was subsequently discharged in stable condition. IMPRESSION: Ultrasound guided paracentesis, with approximately 3200 cc of darker red fluid drained. No immediate complications were evident.
== END 2023-06-24 16:00 | disposition home or self-care (01) ==
LOC: RADPROMAIN 12:59
PROVIDERS: ATTEND Internal Medicine Gastroenterology
DX: R18.8 Other ascites (principal)
CPT/HCPCS: 82565; 85049; 85610; 36415; 49083; P9047

== ENCOUNTER 2023-06-26 07:05 | Inpatient (IN) | payer MEDICARE ==
[~2023-06-26 07:05] MED LIST changes: +DEXAMETHASONE SOD PHOSPHATE 4 MG/ML 1 ML VIAL IV ONE; +MIDAZOLAM 2 MG/2 ML VIAL IV PRN; +ONDANSETRON 4 MG/2 ML VIAL IVP ONE; -cefTRIAXone 2,000 MG in SODIUM CHLORIDE 0.9% 100 ML IVPB SCH
--- NOTE | 2023-06-26 08:17 | CT ---
EXAMINATION TYPE: CT chest wo con DATE OF EXAM: 06/26/2023 COMPARISON: Head CT 04/17/2023 HISTORY: Abnormal finding, pre bronchial navigation CT DLP: 191.[address] of the chest was performed with lung and mediastinal window settings submitted. The la ck of contrast limits evaluation of the vascular, mediastinal and parenchymal structures including th e upper abdomen. LUNGS: Large left-sided pneumothorax identified estimated at greater than 50%. There is left hilar ma ss density seen which main part reflect collapsed lung. Given large pneumothorax measurement is diffi cult. Scattered pulmonary nodules seen bilaterally. Total number of nodules on the right is difficult to count however is greater than 30. The largest nodule is seen anteriorly and is pleural-based and measures 2.3 x 2.0 cm and demonstrates adjacent rib destruction. Total number of left-sided nodules i s difficult to count given left upper lobe collapse as well as large pneumothorax. The lungs are arcenio r and free of infiltrate. No atelectasis. No pulmonary nodule or mass is detected. No pleural effus ion. No CT evidence of interstitial lung disease. MEDIASTINUM/ALMA: Aneurysmal dilatation ascending thoracic aorta at 4.1 cm AP dimension. Mild cardiom egaly. No evidence for mediastinal mass. No lymph nodes greater than 1cm. UPPER ABDOMEN: Upper abdominal ascites and varices noted. Cholelithiasis as well as nonobstructing ne phrolithiasis. OTHER: No significant other abnormality. IMPRESSION: 1. Large left-sided pneumothorax estimated at greater than 50%. 2. Multiple scattered bilateral pulmonary nodules as discussed above.
[2023-06-26] MEDS: LACTATED RINGERS 1,000 ML IV SCH ×3 (08:20→13:58)
[2023-06-26] MEDS ORDERED: NALOXONE 0.4 MG/ML 1 ML VIAL IV PRN (08:47)
[2023-06-26] MEDS ORDERED: ACETAMINOPHEN TAB 325 MG TAB PO PRN (08:48)
[2023-06-26] MEDS ORDERED: MELATONIN 3 MG TABLET PO PRN (08:48)
[2023-06-26] MEDS ORDERED: bisacodyL 5 MG TABLET.DR PO PRN (08:48)
[2023-06-26] MEDS ORDERED: IPRATROPIUM-ALBUTEROL 3 ML NEB INHALATION PRN (08:56)
[2023-06-26] MEDS ORDERED: BENZONATATE 100 MG CAP PO PRN (08:56)
[2023-06-26] MEDS ORDERED: MORPHINE SULFATE 4 MG/ML SYRINGE IVP PRN (08:58)
[2023-06-26] MEDS ORDERED: IV FLUID CONTINUATION 900 ML IV ONE (09:07)
--- NOTE | 2023-06-26 09:19 | P.CNPUL ---
History of Present Illness Consult date: 06/26/23 Reason for consult: pneumothorax History of present illness: Is a 68-year-old female patient with bilateral pulmonary nodules who was scheduled to undergo today a robotic bronchoscopy and biopsy of the pulmonary nodules for tissue diagnosis. The patient has multiple metastatic nodules largest in the left upper lobe and tissue sampling was requested by medical oncology. This is based on the most recent PET scan findings that was done in April 2023. A CAT scan of the chest was done using the 1 mm ION protocol for robotic bronchoscopy and the CAT scan showed a large left-sided pneumothorax. Based on this finding, the procedure was canceled. Upon further questioning, the patient was having some increased cough and congestion and shortness of breath over the past 1 week. She also had some pain across her chest extending to her back. No trauma to her chest. No previous history of pneumothoraces. She is a chronic smoker. She presented to us with labored breathing this morning and the CAT scan of the chest confirmed the presence of a large left-sided pneumothorax in addition to prednisone but the pulmonary nodules. Based on that, the procedure was aborted and a chest tube was inserted in the left lung Going back to the history, the patient has history of alcoholic liver cirrhosis. She has history of recurrent ascites and she undergoes periodic paracenteses every 4 weeks. The last paracentesis was done 2 days ago. She has history of chronic atrial fibrillation maintained on anticoagulation with Xarelto and this is currently on hold. It at the same time, the patient has history of malignancy that dates back in July 2022. She started off by having a lump in her left neck that was progressively enlarging. At that time, the findings are listed and the core biopsy of the left neck mass that was done on 08/18/2022 showed metastatic carcinoma. Following that, a PET/CT that was done on 09/12/2022 showed abnormal activity in the left oral cavity near the base of the tongue extending to the left piriform sinus. The patient had multiple left- sided large lymph nodes in her neck largest being about 1.7 cm in size. The patient underwent a triple endoscopy that was done on 10/08/2022 and it revealed a primary site of cancer in the left lateral hypopharynx. 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 At that time, she was referred to medical oncology she was started on a combination of chemoradiation therapy and chemotherapy was carboplatin and based and she completed treatment on 12/09/2022. She also underwent dental extraction November 2022. No reported aspiration. She is maintain on a combination of Lasix and Aldactone regarding her liver cirrhosis. She has chronic A. fib. The patient was evaluated in the preop area. She was able to maintain a pulse ox above 90% on room air oxygen. She was supplemented by O2. She was transferred to postop for a chest tube insertion. No hypotension. No evidence of any tension based on underlying pneumothorax. Review of Systems Constitutional: Reports fatigue, Reports weakness, Reports weight loss Eyes: denies as per HPI, denies blurred vision, denies bulging eye, denies decreased vision, denies diplopia, denies discharge, denies dry eye, denies irritation, denies itching, denies pain, denies photophobia, denies loss of peripheral vision, denies loss of vision, denies tunnel vision/blind spots Ears: deny: decreased hearing, ear discharge, earache, tinnitus Ears, nose, mouth and throat: Reports as per HPI Breasts: absent: as per HPI, change in shape, gynecomastia, masses, nipple discharge, pain, skin changes, swelling Cardiovascular: Reports decreased exercise tolerance, Reports dyspnea on exertion, Reports shortness of breath Respiratory: Reports congestion, Reports cough, Reports dyspnea, Reports wheezing Gastrointestinal: Reports as per HPI Genitourinary: Reports as per HPI Menstruation: Reports as per HPI Musculoskeletal: Reports as per HPI Musculoskeletal: absent: ankle pain, ankle stiffness, ankle swelling Integumentary: Reports as per HPI Neurological: Reports as per HPI Psychiatric: Reports as per HPI Endocrine: Reports as per HPI Hematologic/Lymphatic: Reports as per HPI Allergic/Immunologic: Reports as per HPI Past Medical History Past Medical History: Atrial Fibrillation, Cancer, Hyperlipidemia, Liver Disease, Rheumatoid Arthritis (RA) Additional Past Medical History / Comment(s): hypopharnyx cancer, had chemo,cirrhosis-multiple paracentesis, thrombocytopenia, alcohol abuse, hypokalemia, hypotension newly diagnosed lung cancer 04/28/23, acites History of Any Multi-Drug Resistant Organisms: Unobtainable Past Surgical History: Heart Catheterization Additional Past Surgical History / Comment(s): breast biopsy (benign), bilateral eye surgery; Left lymph node biopsy October. paracentesis Past Anesthesia/Blood Transfusion Reactions: No Reported Reaction Past Psychological History: No Psychological Hx Reported Smoking Status: Current some day smoker Past Alcohol Use History: None Reported Additional Past Alcohol Use History / Comment(s): quit drinking 2016 Past Drug Use History: None Reported - Past Family History Brother(s) Family Medical History: Cancer Additional Family Medical History / Comment(s): pancreatic cancer Medications and Allergies Home Medications Medication Instructions Recorded Confirmed Type Lactulose [Constulose] 10 gm PO DAILY 02/06/21 06/24/23 History Rivaroxaban [Xarelto] 20 mg PO HS 02/06/21 06/24/23 History diphenhydrAMINE [Benadryl] 25 mg PO HS PRN 08/15/22 06/24/23 History Melatonin 5 mg PO HS PRN 10/02/22 06/24/23 History Acetaminophen-Codeine 300-30mg 500 mg PO TID 01/26/23 06/24/23 History [Tylenol w/codeine #3] Furosemide [Lasix] 40 mg PO BID 01/26/23 06/24/23 History Midodrine HCl [ProAmatine] 10 mg PO TID 01/26/23 06/24/23 History Spironolactone 100 mg PO BID 01/26/23 06/24/23 History Metoprolol Tartrate [Lopressor] 50 mg PO BID 03/26/23 06/24/23 History Calcium Carb/Mag Ox/Zinc Sulf 1 each PO DAILY 06/24/23 06/24/23 History [Ckb-Ado-Hmxf 334-134-5 mg Tab] Meal Replacement Shake 1 can PO DAILY 06/24/23 06/24/23 History Rosuvastatin [Crestor] 10 mg PO HS 06/24/23 06/24/23 History Allergies Allergy/AdvReac Type Severity Reaction Status Date / Time bee venom protein (honey bee) Allergy Nausea & Verified 06/26/23 07:56 Vomiting Physical Exam Vitals: Vital Signs Temp Pulse Resp BP Pulse Ox 06/26/23 08:04 98.4 F 63 24 157/87 95 Intake and Output 06/25/23 06/26/23 06/26/23 22:59 06:59 14:59 Other: Weight 44 kg Gen. appearance the patient is thin and frail and cachectic with a body mass of 16.7 Head exam was generally normal. There was no scleral icterus or corneal arcus. Mucous membranes were moist. The patient is edentulous. Adequate posterior oropharynx. No masses visualized. Neck was supple and without jugular venous distension, thyromegaly, or carotid bruits. Carotids were easily palpable bilaterally. There was no adenopathy. Lungs sounds are diminished bilaterally and there is marked diminished breath on the left compared to the right. The patient is also scattered rhonchi and sca ttered expiratory wheeze Cardiac exam revealed the PMI to be normally situated and sized. The rhythm was regular and no extrasystoles were noted during several minutes of auscultation. The first and second heart sounds were normal and physiologic splitting of the second heart sound was noted. There were no murmurs, rubs, clicks, or gallops. Abdomen exam reveals evidence Of ascites which is small in size as the patient undergone a paracentesis approximately 2 days ago. Examination of the extremities revealed easily palpable radial, femoral and pedal pulses. There was no cyanosis, clubbing or edema. Examination of the skin revealed no evidence of significant rashes, suspicious appearing nevi or other concerning lesions. Neurologically, the patient is awake and alert and the patient does not have any focal neurological deficit. Cranial nerves are essentially intact. 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 treated with concurrent chemoradiation therapy Liver cirrhosis maintain and accommodation of Lasix and Aldactone Recurrent ascites requiring periodic paracentesis every 4 weeks History of alcoholism History of atrial fibrillation maintained on anticoagulation Plan The Ion robotic bronchoscopy was canceled The patient was given a thoravent to her left chest/lungs and the tube to be attached pleural VAC, applying 20 cm of water of suction Incentive spirometer Daily chest x-rays Cardiothoracic surgery consultation Possible regular chest tube insertion of this intervention failed to expand her lungs Bronchodilators Placed the patient on empiric Antibiotic coverage Keep anticoagulation hold We'll continue to follow We'll place consultation for pulmonary and cardiothoracic surgery and oncology. No immediate plans to schedule a biopsy for this patient.
--- NOTE | 2023-06-26 09:19 | P.HPIM ---
History of Present Illness H&P Date: 06/26/23 Patient is a 68-year-old female with 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 Recent PET CT in April 2023 showed pulmonary nodules largest of which was in the left upper lobe and the patient initially came in for possible Ion Bronch. However free operative CT of the chest revealed a large left-sided pneumothorax and subsequently the procedure was aborted. We're asked to come and evaluate the patient for possible admission to the medical floor. An urgent Serevent was placed by Dr. Mohr to -20 suction. Arrangements are made for admission to the medical oncology floor Patient seen and examined at bedside. Patient recently received her flu vaccine. At the last several days she has had worsening shortness of breath associated with coughing. She did undergo paracentesis on 06/24/23 with removal of fluid. Patient gets paracentesis every 3 weeks. She reports that on 06/24 she did have a mild fever for 100 at the time of her paracentesis. She denies any unusual nausea, vomiting, diarrhea. She denies any lightheadedness or dizziness. Prior to the chest tube insertion I valued the patient and she was having dyspnea. It has resolved after chest tube insertion. She does use a walker at home. Vital signs reviewed General: nontoxic, mild distress, appears at stated age Derm: warm, dry Eyes: EOMI, no lid lag, anicteric sclera, pupils equal round reactive to light ENT: Nose and ears atraumatic, no thrush, no pharyngeal erythema Cardiovascular: S1S2 reg, no murmur, positive posterior tibial pulse bilateral, no edema, capillary refill less than 2 seconds Lungs: Course bs bilateral, no rhonchi, no rales, no wheeze, 3 word conversational did well, + sternal retractions Abdominal: soft, mild distention, nontender to palpation, no guarding, no appreciable organomegaly, normal bowel sounds Ext: no gross muscle atrophy, no contractures Neuro: CN II-XII grossly intact, light touch intact all 4 extremities, finger to nose within normal limits, Psych: Alert, oriented, appropriate affect Assessment/Plan: Large left-sided pneumothorax Left-sided pulmonary nodules Acute respiratory distress History of squamous cell carcinoma of the head and neck status post chemo and radiation therapy - Admit to inpatient, oncology floor - D/W Dr. Mohr at length - Status post for about placed 06/26 -Consult pulmonary, CT surgery, and oncology -[place] 5/325 every 6 hours when necessary moderate pain, morphine for every 4 hours IV plus when necessary severe pain -DuoNeb's every 4 scheduled and every 2 when necessary -Mucinex 600 mg oral twice daily, Tessalon 100 mg oral 3 times daily as needed for cough -Unasyn 3 g every 6 hours IV piggyback -Check RSV, COVID-19 and influenza A/B swab -Stat CBC, CMP, PT, PTT -Repeat chest x-ray in 4 hours and in a.m. Alcoholic cirrhosis, compensated Orthostatic hypotension Paroxysmal atrial fibrillation Rheumatoid arthritis -Resume metoprolol 50 mg twice daily, midodrine 10 mg 3 times daily, lactulose 10 mg daily, Lasix 40 mg twice daily, Crestor 10 mg at night, Aldactone 100 mg twice daily -Hold xarelto given need for CT tube Imaging: Stat Chest x-ray ordered and reviewed by myself shows improvement in left-sided pneumothorax, but not complete resolution -Repeat CT chest which confirmed large left-sided pneumothorax Data Review: Await CBC, CMP, PT, PTT The patient is admitted with an anticipated greater than 2 midnight stay for evaluation of [pneumothorax]. Surrogate decision-maker: CODE STATUS:Full DVT prophylaxis: Heparin Anticipated discharge date: Pending Clinical Course Anticipated discharge place: Pending Clinical Course This dictation was prepared using iodine voice recognition software. Though every attempt is made to correct errors during dictation some may still exist. Past Medical History Past Medical History: Atrial Fibrillation, Cancer, Hyperlipidemia, Liver Disease, Rheumatoid Arthritis (RA) Additional Past Medical History / Comment(s): hypopharnyx cancer, had chemo,cirrhosis-multiple paracentesis, thrombocytopenia, alcohol abuse, hypokalemia, hypotension newly diagnosed lung cancer 04/28/23, acites History of Any Multi-Drug Resistant Organisms: Unobtainable Past Surgical History: Heart Catheterization Additional Past Surgical History / Comment(s): breast biopsy (benign), bilateral eye surgery; Left lymph node biopsy October. paracentesis Past Anesthesia/Blood Transfusion Reactions: No Reported Reaction Past Psychological History: No Psychological Hx Reported Smoking Status: Current some day smoker Past Alcohol Use History: None Reported Additional Past Alcohol Use History / Comment(s): quit drinking 2016 Past Drug Use History: None Reported - Past Family History Brother(s) Family Medical History: Cancer Additional Family Medical History / Comment(s): pancreatic cancer Medications and Allergies Home Medications Medication Instructions Recorded Confirmed Type Lactulose [Constulose] 10 gm PO DAILY 02/06/21 06/24/23 History Rivaroxaban [Xarelto] 20 mg PO HS 02/06/21 06/24/23 History diphenhydrAMINE [Benadryl] 25 mg PO HS PRN 08/15/22 06/24/23 History Melatonin 5 mg PO HS PRN 10/02/22 06/24/23 History Acetaminophen-Codeine 300-30mg 500 mg PO TID 01/26/23 06/24/23 History [Tylenol w/codeine #3] Furosemide [Lasix] 40 mg PO BID 01/26/23 06/24/23 History Midodrine HCl [ProAmatine] 10 mg PO TID 01/26/23 06/24/23 History Spironolactone 100 mg PO BID 01/26/23 06/24/23 History Metoprolol Tartrate [Lopressor] 50 mg PO BID 03/26/23 06/24/23 History Calcium Carb/Mag Ox/Zinc Sulf 1 each PO DAILY 06/24/23 06/24/23 History [Tsk-Ges-Ainm 334-134-5 mg Tab] Meal Replacement Shake 1 can PO DAILY 06/24/23 06/24/23 History Rosuvastatin [Crestor] 10 mg PO HS 06/24/23 06/24/23 History Allergies Allergy/AdvReac Type Severity Reaction Status Date / Time bee venom protein (honey bee) Allergy Nausea & Verified 06/26/23 07:56 Vomiting Physical Exam Osteopathic Statement: *. No significant issues noted on an osteopathic structural exam other than those noted in the History and Physical/Consult. Vitals: Vital Signs Temp Pulse Resp BP Pulse Ox 06/26/23 08:40 66 25 H 122/60 100 06/26/23 08:04 98.4 F 63 24 157/87 95 Intake and Output 06/25/23 06/26/23 06/26/23 22:59 06:59 14:59 Intake Total 100 Balance 100 Intake: IV 100 Other: Weight 44 kg Thrombosis Risk Factor Assmnt - Choose All That Apply Each Factor Represents 1 point: Serious lung disease incl. pneumonia (< 1month) Each Risk Factor Represents 2 Points: Age 61-74 years Thrombosis Risk Factor Assessment Total Risk Factor Score: 3 Thrombosis Risk Factor Assessment Level: Moderate Risk
[2023-06-26] MEDS ORDERED: ONDANSETRON 4 MG/2 ML VIAL IVP PRN (09:20)
--- NOTE | 2023-06-26 09:21 | P.PCN ---
Date of Procedure: 06/26/23 Preoperative Diagnosis: Pneumothorax, left-sided Postoperative Diagnosis: Pneumothorax, left-sided Procedure(s) Performed: Left-sided thoravent insertion Anesthesia: local Surgeon: Frank Mohr Estimated Blood Loss (ml): 0 Pathology: none sent Condition: stable Disposition: floor Operative Findings: This procedure was done in the recovery. The patient had a large left-sided pneumothorax confirmed by CAT scan of the chest. The skin was cleaned by ChloraPrep. Following that, a 1% lidocaine was used to infused the subcutaneous tissue between the second and third intercostal space on the left. After achieving adequate local anesthetics, an incision was done by a scalpel. Following that, a 13 F thorvent catheter was inserted successfully into the left hemithorax over a trocar. The trocar was removed. The catheter was easily passed into the left hemithorax and secured in place. Appropriate dressing was applied. The left sided pneumothorax was evacuated by many was suctioning at the bedside using a three-way valve. Following that, the tube was attached to a Pleur-evac at 20 cm suction. Chest x-rays to follow. No complications. The patient remains hemodynamically stable. Adequate oxygenation. Oxygen desaturations.
--- NOTE | 2023-06-26 09:23 | XR ---
EXAMINATION TYPE: XR chest 1V portable DATE OF EXAM: 06/26/2023 9:09 AM CLINICAL INDICATION:Female, 68 years old with history of chest tube placement; COMPARISON: Chest radiographs from 01/01/2023. TECHNIQUE: XR chest 1V portable Frontal view of the chest. FINDINGS: Lungs/Pleura: There is no evidence of pleural effusion, focal consolidation, or pneumothorax. Pulmonary vascularity: Unremarkable. Heart/mediastinum: Cardiomediastinal silhouette is unremarkable. Musculoskeletal: No acute osseous pathology. Other findings: None Lines/Tubes: Left thoracotomy tube is present without evidence of pneumothorax. IMPRESSION: Left thoracotomy tube without definitive pneumothorax.
[2023-06-26 10:50] LABS: Anisocytosis Slight; HGB 9.5 gm/dL (11.4-16.0); Hypochromasia Moderate; MCH 26.1 pg (25.0-35.0); MCHC 31.7 g/dL (31.0-37.0); MCV 82.3 fL (80.0-100.0); Mean Platelet Volume 7.9; Microcytosis Slight; Platelet Count 240 k/uL (150-450); RBC 3.65 m/uL (3.80-5.40); RDW 17.8 % (11.5-15.5); WBC 8.4 k/uL (3.8-10.6)
[2023-06-26 11:00] LABS: ALT 19 U/L (4-34); AST 35 U/L (14-36); African American GFR (CKD) >90 (>60 ml/min/1.73 sqM); Albumin 3.5 g/dL (3.5-5.0); Alkaline Phosphatase 95 U/L (38-126); Anion Gap 9 mmol/L; Blood Urea Nitrogen 19 mg/dL (7-17); Calcium 9.4 mg/dL (8.4-10.2); Carbon Dioxide 26 mmol/L (22-30); Chloride 94 mmol/L (98-107); Glucose 84 mg/dL (74-99); Non-African American GFR(CKD) 87 (>60 ml/min/1.73 sqM); Phosphorus 3.8 mg/dL (2.5-4.5); Potassium 4.8 mmol/L (3.5-5.1); Sodium 129 mmol/L (137-145); Total Bilirubin 0.6 mg/dL (0.2-1.3); Total Protein 6.5 g/dL (6.3-8.2)
[2023-06-26 11:01] LABS: INR 1.1 (<1.2); Partial Thromboplastin Time 22.7 sec (22.0-30.0); Prothrombin Time 11.6 sec (10.0-12.5)
--- NOTE | 2023-06-26 11:02 | P.GSCN ---
History of Present Illness Consult date: 06/26/23 Reason for Consult: pneumothorax Requesting physician: Melva Meneses History of present illness: This is a 68 year old female who follow outpatient with Dr. Mckeon for primary care, Dr. Perez for oncology, and Dr. Mohr for pulmonology. 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 She presented to [facility] for scheduled robotic bronchoscopy with Dr. Mohr. A CT scan was done and the patient was found to have large left sided pneumothorax. Her procedure was canceled and she is to be admitted for evaluation and treatment. A thoravent was placed to the left chest wall by Dr. Mohr with improvement of her pneumothorax. Upon further questioning the patient stated she has been short of breath for about 1 week, coinsiding with her flu vaccine given 1 week ago. Currently states her shortness of breath is much better. Cardiothoracic surgery was consulted for management of thoravent. Review of Systems ROS was completed and was negative except as noted - Respiratory Reports as per HPI, Reports cough with sputum, Reports dyspnea Past Medical History Past Medical History: Atrial Fibrillation, Cancer, COPD, Hyperlipidemia, Liver Disease, Rheumatoid Arthritis (RA) Additional Past Medical History / Comment(s): hypopharnyx cancer, had chemo,cirrhosis-multiple paracentesis, thrombocytopenia, hypokalemia, hypotension newly diagnosed lung cancer 04/28/23, acites History of Any Multi-Drug Resistant Organisms: Unobtainable Past Surgical History: Heart Catheterization Additional Past Surgical History / Comment(s): breast biopsy (benign), bilateral eye surgery; Left lymph node biopsy October. paracentesis Past Anesthesia/Blood Transfusion Reactions: No Reported Reaction Past Psychological History: No Psychological Hx Reported Smoking Status: Current every day smoker Past Alcohol Use History: Abuse Additional Past Alcohol Use History / Comment(s): quit drinking 2016 Past Drug Use History: None Reported Additional History: Still smokes 2-3 cigarettes daily, used to smoke 1 pk/day x 50 years - Past Family History Brother(s) Family Medical History: Cancer Additional Family Medical History / Comment(s): pancreatic cancer Medications and Allergies Home Medications Medication Instructions Recorded Confirmed Type Lactulose [Constulose] 10 gm PO DAILY 02/06/21 06/24/23 History Rivaroxaban [Xarelto] 20 mg PO HS 02/06/21 06/24/23 History diphenhydrAMINE [Benadryl] 25 mg PO HS PRN 08/15/22 06/24/23 History Melatonin 5 mg PO HS PRN 10/02/22 06/24/23 History Acetaminophen-Codeine 300-30mg 500 mg PO TID 01/26/23 06/24/23 History [Tylenol w/codeine #3] Furosemide [Lasix] 40 mg PO BID 01/26/23 06/24/23 History Midodrine HCl [ProAmatine] 10 mg PO TID 01/26/23 06/24/23 History Spironolactone 100 mg PO BID 01/26/23 06/24/23 History Metoprolol Tartrate [Lopressor] 50 mg PO BID 03/26/23 06/24/23 History Calcium Carb/Mag Ox/Zinc Sulf 1 each PO DAILY 06/24/23 06/24/23 History [Yjv-[id number] 334-134-5 mg Tab] Meal Replacement Shake 1 can PO DAILY 06/24/23 06/24/23 History Rosuvastatin [Crestor] 10 mg PO HS 06/24/23 06/24/23 History Allergies Allergy/AdvReac Type Severity Reaction Status Date / Time bee venom protein (honey bee) Allergy Nausea & Verified 06/26/23 07:56 Vomiting Surgical - Exam Vital Signs Temp Pulse Resp BP Pulse Ox 98.4 F 63 24 157/87 95 06/26/23 08:04 06/26/23 08:04 06/26/23 08:04 06/26/23 08:04 06/26/23 08:04 CONSTITUTIONAL: Awake and alert, appears comfortable, cooperative, cachectic, no pain, no acute distress EYES: Pupils equal, round, reactive to light, normal ocular movement ENT: Moist mucous membranes NECK: No masses, no bruits, trachea midline RESPIRATORY: Lungs sounds diminished left greater than right, expiratory wheezes heard. Respirations even, nonlabored. Currently on 2 LPM with oxygen saturation 100%. Strong productive cough CARDIOVASCULAR: S1, S2 present. Regular rate and rhythm, sinus rhythm on telemetry. Palpable peripheral pulses bilaterally. No edema present GASTROINTESTINAL: Abdomen soft, nontender, nondistended. There is no rebound or guarding present. Active bowel sounds present 4 quadrants. GENITOURINARY: Deferred INTEGUMENTARY: Skin is warm and dry NEUROLOGIC: Cranial nerves II through XII intact, normal coordination, no obvious motor or sensory deficits, speech is normal MUSKULOSKELETAL: Able to move all extremities, strength equal bilaterally, normal posture PSYCHIATRIC: Alert and oriented to person place and time, appropriate affect, intact judgment and insight Results - Imaging Chest x-ray: report reviewed, image reviewed CT scan - chest: report reviewed, image reviewed Assessment and Plan Assessment: Large left sided pneumothorax, status post placement of thoravent by Dr. 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 Chart/ diagnostics were reviewed, case discussed with Dr. Fuentes. Recommend to continue thoravent to continuous wall suction for now, will repeat CXR this afternoon and again in the morning. Will place to water seal and discontinue when able. There is currently no air leak present with coughing. Wean oxygen as able. Incentive spirometry ordered and should be encouraged. Patient's called numerous times by RN, no answer and voicemail box full. Will update when able. Increase activity as tolerated. Medical management of other comorbidities per internal medicine, pulmonology, oncology. More recommendations to follow. Thank you Dr. Meneses for this consult, we will follow along with you. I have personally seen and examined the patient, performed the documentation and the assessment and plan as written. Number of minutes spent on the visit: 30. JIM Sanches
[2023-06-26] MEDS: IPRATROPIUM-ALBUTEROL 3 ML NEB INHALATION SCH ×3 (13:28→19:49)
--- NOTE | 2023-06-26 13:41 | XR ---
EXAMINATION TYPE: XR chest 1V portable DATE OF EXAM: 06/26/2023 1:08 PM CLINICAL INDICATION:Female, 68 years old with history of Pneumothorax; [facility] COMPARISON: Chest radiographs from 06/26/2023. TECHNIQUE: XR chest 1V portable Frontal view of the chest. FINDINGS: Lungs/Pleura: Prominent interstitial lung markings are seen scattered throughout the lungs with bethany ening of the diaphragm and increased lucency of the lung apices. No evidence of focal consolidation, pneumothorax or pleural effusion. Pulmonary vascularity: Unremarkable. Heart/mediastinum: Cardiomediastinal silhouette is unremarkable. Musculoskeletal: No acute osseous pathology. Other findings: None Lines/Tubes: Left thoracotomy tube is present without evidence of pneumothorax. IMPRESSION: 1. Similar exam with left thoracotomy tube no obvious visceral pleural line identified to suggest pn eumothorax. 2. COPD changes.
[2023-06-26] MEDS: METOPROLOL TARTRATE 50 MG TAB PO SCH ×2 (13:51→19:56)
[2023-06-26] MEDS: guaiFENesin 600 MG TABLET.ER PO SCH ×2 (13:51→19:56)
[2023-06-26] MEDS: FUROSEMIDE 40 MG TAB PO SCH ×2 (13:51→18:08)
[2023-06-26] MEDS: LACTULOSE 20 GM/30 ML CUP PO SCH (13:51)
[2023-06-26] MEDS: MIDODRINE 5 MG TAB PO SCH ×2 (13:51→15:55)
[2023-06-26] MEDS: AMPICILLIN-SULBACTAM 3 GM in SODIUM CHLORIDE 0.9% 100 ML IVPB SCH ×3 (13:51→22:52)
[2023-06-26] MEDS: SPIRONOLACTONE 25 MG TAB PO SCH ×2 (13:51→18:08)
[2023-06-26] MEDS: HEPARIN SODIUM,PORCINE 5,000 UNIT/ML 1 ML VIAL SQ SCH ×2 (16:00→22:52)
[2023-06-26] MEDS: HYDROcodone/APAP 5-325MG 1 EACH TAB PO PRN (18:06)
[2023-06-26] MEDS: ATORVASTATIN 20 MG TAB PO SCH (19:56)
[2023-06-26] MEDS: diphenhydrAMINE 25 MG CAP PO PRN (20:22)
--- NOTE | 2023-06-27 00:04 | P.HPIM ---
History of Present Illness H&P Date: 06/26/23 the patient is a 68-year-old white female, well known to our service. She was diagnosed with carcinoma of the hypopharynx initially in 10/23. In that time staging appear to indicate nonmetastatic disease, and the patient was treated with curative intent with combined chemoradiation . She has multiple medical problems, including cirrhosis or liver decompensation with ascites requiring regular paracentesis. Despite that she actually tolerated the above-mentioned treatment reasonably well. Unfortunately on posttreatment staging she was found to have multiple lung nodules. As the patient also has a long-standing history of smoking, biopsy was recommended to confirm the primary site, that is recurrence of her head and neck cancer versus new primary. The patient was not felt to be a candidate for CT- guided needle biopsy by IR, and came into the hospital for elective bronchoscopy with biopsy by primary medicine. However imaging prior to the procedure showed large left pneumothorax that appeared to be spontaneous. The patient therefore had chest tube placement and was admitted to for further management. The patient denies any increased shortness of breath or baseline. Based on endurance is reducible appears to be overall stable according to her. She continues on regular paracentesis, with the most recent one performed on 06/24/23 Review of Systems Constitutional: Reports fatigue, Reports poor appetite, Reports weakness Eyes: denies blurred vision, denies pain Ears: deny: decreased hearing, ear discharge, earache, tinnitus Ears, nose, mouth and throat: Reports as per HPI Cardiovascular: Reports decreased exercise tolerance Respiratory: Reports dyspnea Gastrointestinal: Denies abdominal pain, Denies diarrhea, Denies nausea, Denies vomiting Genitourinary: Denies dysuria, Denies hematuria Menstruation: Reports postmenopausal Musculoskeletal: Reports muscle weakness Integumentary: Denies pruritus, Denies rash Neurological: Reports weakness Psychiatric: Reports as per HPI, Reports anxiety Endocrine: Reports fatigue Hematologic/Lymphatic: Reports as per HPI Past Medical History Past Medical History: Atrial Fibrillation, Cancer, COPD, Hyperlipidemia, Liver Disease, Rheumatoid Arthritis (RA) Additional Past Medical History / Comment(s): hypopharnyx cancer, had chemo,cirrhosis-multiple paracentesis, thrombocytopenia, hypokalemia, hypotension newly diagnosed lung cancer 04/28/23, acites History of Any Multi-Drug Resistant Organisms: Unobtainable Past Surgical History: Heart Catheterization Additional Past Surgical History / Comment(s): breast biopsy (benign), bilateral eye surgery; Left lymph node biopsy October. paracentesis Past Anesthesia/Blood Transfusion Reactions: No Reported Reaction Past Psychological History: No Psychological Hx Reported Smoking Status: Current every day smoker Past Alcohol Use History: Abuse Additional Past Alcohol Use History / Comment(s): quit drinking 2016 Past Drug Use History: None Reported - Past Family History Brother(s) Family Medical History: Cancer Additional Family Medical History / Comment(s): pancreatic cancer Medications and Allergies Home Medications Medication Instructions Recorded Confirmed Type Lactulose [Constulose] 10 gm PO DAILY 02/06/21 06/24/23 History Rivaroxaban [Xarelto] 20 mg PO HS 02/06/21 06/24/23 History diphenhydrAMINE [Benadryl] 25 mg PO HS PRN 08/15/22 06/24/23 History Melatonin 5 mg PO HS PRN 10/02/22 06/24/23 History Acetaminophen-Codeine 300-30mg 500 mg PO TID 01/26/23 06/24/23 History [Tylenol w/codeine #3] Furosemide [Lasix] 40 mg PO BID 01/26/23 06/24/23 History Midodrine HCl [ProAmatine] 10 mg PO TID 01/26/23 06/24/23 History Spironolactone 100 mg PO BID 01/26/23 06/24/23 History Metoprolol Tartrate [Lopressor] 50 mg PO BID 03/26/23 06/24/23 History Calcium Carb/Mag Ox/Zinc Sulf 1 each PO DAILY 06/24/23 06/24/23 History [[id number]-Jgu-Zbeb 334-134-5 mg Tab] Meal Replacement Shake 1 can PO DAILY 06/24/23 06/24/23 History Rosuvastatin [Crestor] 10 mg PO HS 06/24/23 06/24/23 History Allergies Allergy/AdvReac Type Severity Reaction Status Date / Time bee venom protein (honey bee) Allergy Nausea & Verified 06/26/23 07:56 Vomiting Physical Exam Vitals: Vital Signs Temp Pulse Pulse Resp BP Pulse Ox 06/26/23 23:42 98.7 F 78 22 113/58 96 06/26/23 20:02 64 06/26/23 19:49 78 06/26/23 19:26 99.1 F 72 22 96/57 92 L 06/26/23 15:43 71 17 127/68 98 06/26/23 15:34 68 06/26/23 15:16 66 98 06/26/23 13:13 98.8 F 70 18 113/62 06/26/23 13:10 98.8 F 71 17 113/62 06/26/23 11:32 75 20 119/61 100 06/26/23 09:49 60 20 124/68 100 06/26/23 09:34 56 L 22 123/62 100 06/26/23 09:19 98.9 F 67 22 126/66 100 06/26/23 08:40 66 25 H 122/60 100 06/26/23 08:04 98.4 F 63 24 157/87 95 Intake and Output 06/26/23 06/26/23 06/27/23 14:59 22:59 06:59 Intake Total 500 540 Balance 500 540 Intake: IV 500 Oral 540 Other: # Voids 1 Weight 44 kg - Constitutional General appearance: no acute distress - EENT Eyes: EOMI, PERRLA ENT: hearing grossly normal, normal oropharynx - Neck Neck: no lymphadenopathy Thyroid: bilateral: normal size - Respiratory Respiratory: left: diminished - Cardiovascular Rhythm: regular Heart sounds: normal: S1, S2 - Gastrointestinal free fluid positive, General gastrointestinal: distended, normal bowel sounds, organomegaly (liver edge palpable about 1-2 fingers below right costal margin), soft - Integumentary Integumentary: normal - Neurologic Neurologic: CNII-XII intact - Musculoskeletal Musculoskeletal: generalized weakness, strength equal bilaterally - Psychiatric Psychiatric: A&O x's 3, appropriate affect Results CBC & Chem 7: 06/26/23 10:27 06/26/23 10:27 Labs: Abnormal Lab Results - Last 24 Hours (Table) 06/26/23 06/26/23 Range/Units 10:27 10:27 RBC 3.65 L (3.80-5.40) m/uL Hgb 9.5 L (11.4-16.0) gm/dL Hct 30.0 L (34.0-46.0) % RDW 17.8 H (11.5-15.5) % Sodium 129 L (137-145) mmol/L Chloride 94 L (98-107) mmol/L BUN 19 H (7-17) mg/dL Chest x-ray: report reviewed CT scan - chest: report reviewed Thrombosis Risk Factor Assmnt - Choose All That Apply Any of the Below Risk Factors Present?: Yes Each Factor Represents 1 point: Abnormal pulmonary function (COPD) Each Risk Factor Represents 2 Points: Age 61-74 years Thrombosis Risk Factor Assessment Total Risk Factor Score: 3 Thrombosis Risk Factor Assessment Level: Moderate Risk Assessment and Plan (1) Pneumothorax Narrative/Plan: this appears to be spontaneous, as noted. The patient had prominent chest tube placed, and has been admitted. Defer to pulmonary medicine and thoracic surgery for management of the same. Current Visit: Yes Status: Acute Code(s): J93.9 - PNEUMOTHORAX, UNSPECIFIED SNOMED Code(s): 90914368 (2) Lung nodule Narrative/Plan: the patient has multiple lung nodules, concerning for metastatic recurrence ve rsus new primary with metastatic involvement. She was coming in for an elective bronchoscopy with biopsy. This has been placed on hold and will be rescheduled, once the patient is stable from her acute issues. Current Visit: Yes Status: Acute Code(s): R91.1 - SOLITARY PULMONARY NODULE SNOMED Code(s): 422627098 Plan: initiate systemic therapy, once pathology on lung nodules is confirmed
[2023-06-27] MEDS: IPRATROPIUM-ALBUTEROL 3 ML NEB INHALATION SCH ×6 (00:17→20:20)
[2023-06-27] MEDS: HYDROcodone/APAP 5-325MG 1 EACH TAB PO PRN ×3 (06:18→20:12)
[2023-06-27] MEDS: MIDODRINE 5 MG TAB PO SCH ×3 (06:50→15:43)
[2023-06-27] MEDS: AMPICILLIN-SULBACTAM 3 GM in SODIUM CHLORIDE 0.9% 100 ML IVPB SCH ×4 (06:50→23:10)
--- NOTE | 2023-06-27 07:20 | P.PN ---
Subjective Progress Note Date: 06/27/23 Principal diagnosis: Large left sided pneumothorax status post placement of thoravent by Dr. Mohr. 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 States she feels better, feels breathing is better, denies pain. Remains in sinus rhythm, hemodynamically stable, currently on 2 LPM NC with oxygen saturation in the mid to high 90s. Able to achieve 750-1000 mL on incentive spirometer. Left sided thoravent in place with minimal drainage, no air leak present. CXR reviewed. No other new concerns. Objective - Vital Signs Vital signs: Vital Signs Temp 98 F 06/27/23 03:40 Pulse 73 06/27/23 03:40 Resp 20 06/27/23 03:40 BP 97/52 06/27/23 03:40 Pulse Ox 96 06/27/23 03:40 FiO2 Intake & Output 06/26/23 06/27/23 06/27/23 18:59 06:59 18:59 Intake Total 1040 Output Total 60 Balance 1040 -60 Weight 44 kg 44.6 kg Intake: IV 500 Oral 540 Output: Chest Tube Drainage 60 Thora-Vent Left Upper 60 Anterior Chest Other: # Voids 1 5 - Exam CONSTITUTIONAL: Appears comfortable, cooperative, no acute distress RESPIRATORY: Lungs sounds diminished bilaterally with faint expiratory wheezes present. Respirations even, nonlabored. Currently on 2 LPM NC with oxygen saturation 96%. Able to achieve 750-1000 mL on incentive spirometry. Strong cough. CARDIOVASCULAR: S1, S2 present. Regular rate and rhythm, sinus rhythm on telemetry. Palpable peripheral pulses bilaterally. No edema present. No calf pain or tenderness noted GASTROINTESTINAL: Abdomen soft, nontender, nondistended. Active bowel sounds present 4 quadrants. Tolerating diet GENITOURINARY: Continues to void INTEGUMENTARY: Skin is warm and dry NEUROLOGIC: Cranial nerves II through XII intact MUSKULOSKELETAL: Able to move all extremities, strength equal bilaterally PSYCHIATRIC: Alert and oriented to person place and time, appropriate affect, intact judgment and insight INVASIVE LINES AND TUBES: Left sided thoravent present, atrium connected to continuous wall suction, no air leak present, minimal drainage - Allied health notes Allied health notes reviewed: nursing - Labs CBC & Chem 7: 06/26/23 10:27 06/26/23 10:27 Labs: Abnormal Lab Results - Last 24 Hours (Table) 06/26/23 06/26/23 Range/Units 10:27 10:27 RBC 3.65 L (3.80-5.40) m/uL Hgb 9.5 L (11.4-16.0) gm/dL Hct 30.0 L (34.0-46.0) % RDW 17.8 H (11.5-15.5) % Sodium 129 L (137-145) mmol/L Chloride 94 L (98-107) mmol/L BUN 19 H (7-17) mg/dL - Imaging and Cardiology Chest x-ray: image reviewed Assessment and Plan Assessment: Large left sided pneumothorax, status post placement of thoravent by Dr. 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
--- NOTE | 2023-06-27 07:28 | XR ---
EXAMINATION TYPE: XR chest 1V portable DATE OF EXAM: 06/27/2023 HISTORY: Shortness of breath. COMPARISON: None. TECHNIQUE: Single view of the chest is submitted. FINDINGS: Demonstrated are scattered senescent parenchymal change. Left-sided thoracotomy tube is redemonstrat ed. No sizable thorax identified. Scattered pulmonary nodules are redemonstrated. There is no evidence for focal infiltrate. The heart is stable. Hilar and mediastinal structures are within normal limits. Degenerative changes are seen of the dorsal spine. IMPRESSION: 1. Left-sided thoracotomy tube is redemonstrated. No sizable thorax identified. Scattered pulmonary nodules are redemonstrated.
[2023-06-27] MEDS: HEPARIN SODIUM,PORCINE 5,000 UNIT/ML 1 ML VIAL SQ SCH ×3 (09:18→23:10)
[2023-06-27] MEDS: LACTULOSE 20 GM/30 ML CUP PO SCH (09:18)
[2023-06-27] MEDS: FUROSEMIDE 40 MG TAB PO SCH ×2 (09:18→20:53)
[2023-06-27] MEDS: SPIRONOLACTONE 25 MG TAB PO SCH ×2 (09:18→20:53)
[2023-06-27] MEDS: guaiFENesin 600 MG TABLET.ER PO SCH ×2 (09:18→20:13)
[2023-06-27] MEDS: METOPROLOL TARTRATE 50 MG TAB PO SCH ×2 (09:18→20:12)
[2023-06-27 09:22] LABS: Anisocytosis Slight; HCT 28.1 % (34.0-46.0); HGB 8.7 gm/dL (11.4-16.0); Hypochromasia Marked; MCH 25.9 pg (25.0-35.0); MCHC 31.1 g/dL (31.0-37.0); MCV 83.3 fL (80.0-100.0); Mean Platelet Volume 8.6; Platelet Count 207 k/uL (150-450); RBC 3.37 m/uL (3.80-5.40); RDW 17.7 % (11.5-15.5); WBC 8.9 k/uL (3.8-10.6)
[2023-06-27 09:36] LABS: INR 1.1 (<1.2)
[2023-06-27 09:50] LABS: ALT 18 U/L (4-34); AST 27 U/L (14-36); African American GFR (CKD) 74 (>60 ml/min/1.73 sqM); Albumin 3.3 g/dL (3.5-5.0); Alkaline Phosphatase 95 U/L (38-126); Anion Gap 14 mmol/L; Blood Urea Nitrogen 17 mg/dL (7-17); Calcium 8.9 mg/dL (8.4-10.2); Carbon Dioxide 23 mmol/L (22-30); Chloride 93 mmol/L (98-107); Glucose 149 mg/dL (74-99); Non-African American GFR(CKD) 65 (>60 ml/min/1.73 sqM); Potassium 3.9 mmol/L (3.5-5.1); Sodium 130 mmol/L (137-145); Total Bilirubin 0.5 mg/dL (0.2-1.3); Total Protein 6.3 g/dL (6.3-8.2)
--- NOTE | 2023-06-27 14:39 | P.PN ---
Subjective Progress Note Date: 06/27/23 Principal diagnosis: Dyspnea CC: Dyspnea Subjective: Ms. Recinos was seen and examined. Dyspnea has improved. No chest pain. Plan of care discussed with her. Objective: Vitals: Reviewed General: No acute distress HEENT: Mucous membranes moist neck supple Cardiovascular: RRR, S1-S2 Lungs: Breath sounds equal. Diminished without wheezing Abdomen: Distended and nontender Extremities: No lower extremity edema, muscle wasting Pertinent labs and imaging reviewed Assessment and plan: 1. Left-sided pneumothorax Status post chest tube placement. Management per pulmonology. Serial chest x- rays. Antitussives. 2. Acute respiratory distress secondary to #1 3. History of squamous cell carcinoma of the head and neck status post chemo and radiation 4. Alcohol liver cirrhosis, hypotonic hyponatremia secondary to fluid overload Continue with diuretics. Serial BMPs 5. Paroxysmal A. fib AC was held by prior provider and she has chest tube. Continue with metoprolol. 6. History of orthostatic hypotension On midodrine VTE prophylaxis with subcu heparin Objective - Vital Signs Vital signs: Vital Signs Temp 98.1 F 06/27/23 08:00 Pulse 60 06/27/23 12:00 Resp 16 06/27/23 12:00 BP 101/61 06/27/23 12:00 Pulse Ox 98 06/27/23 12:00 FiO2 Intake & Output 06/26/23 06/27/23 06/27/23 18:59 06:59 18:59 Intake Total 1040 594 Output Total 60 Balance 1040 -60 594 Weight 44 kg 44.6 kg Intake: IV 500 Oral 540 594 Output: Chest Tube Drainage 60 Thora-Vent Left Upper 60 Anterior Chest Other: # Voids 1 5 3 - Labs CBC & Chem 7: 06/27/23 07:57 06/27/23 07:57 Labs: Abnormal Lab Results - Last 24 Hours (Table) 06/27/23 06/27/23 Range/Units 07:57 07:57 RBC 3.37 L (3.80-5.40) m/uL Hgb 8.7 L (11.4-16.0) gm/dL Hct 28.1 L (34.0-46.0) % RDW 17.7 H (11.5-15.5) % Sodium 130 L (137-145) mmol/L Chloride 93 L (98-107) mmol/L Glucose 149 H (74-99) mg/dL Albumin 3.3 L (3.5-5.0) g/dL
--- NOTE | 2023-06-27 14:45 | P.PN ---
Subjective Progress Note Date: 06/27/23 Principal diagnosis: Acute spontaneous left-sided pneumothorax Is a 68-year-old female patient with bilateral pulmonary nodules who was scheduled to undergo today a robotic bronchoscopy and biopsy of the pulmonary nodules for tissue diagnosis. The patient has multiple metastatic nodules largest in the left upper lobe and tissue sampling was requested by medical oncology. This is based on the most recent PET scan findings that was done in April 2023. A CAT scan of the chest was done using the 1 mm ION protocol for robotic bronchoscopy and the CAT scan showed a large left-sided pneumothorax. Based on this finding, the procedure was canceled. Upon further questioning, the patient was having some increased cough and congestion and shortness of breath over the past 1 week. She also had some pain across her chest extending to her back. No trauma to her chest. No previous history of pneumothoraces. She is a chronic smoker. She presented to us with labored br eathing this morning and the CAT scan of the chest confirmed the presence of a large left-sided pneumothorax in addition to prednisone but the pulmonary nodules. Based on that, the procedure was aborted and a chest tube was inserted in the left lung Going back to the history, the patient has history of alcoholic liver cirrhosis. She has history of recurrent ascites and she undergoes periodic paracenteses every 4 weeks. The last paracentesis was done 2 days ago. She has history of chronic atrial fibrillation maintained on anticoagulation with Xarelto and this is currently on hold. It at the same time, the patient has history of malignancy that dates back in July 2022. She started off by having a lump in her left neck that was progressively enlarging. At that time, the findings a re listed and the core biopsy of the left neck mass that was done on 08/18/2022 showed metastatic carcinoma. Following that, a PET/CT that was done on 09/12/2022 showed abnormal activity in the left oral cavity near the base of the tongue extending to the left piriform sinus. The patient had multiple left- sided large lymph nodes in her neck largest being about 1.7 cm in size. The patient underwent a triple endoscopy that was done on 10/08/2022 and it revealed a primary site of cancer in the left lateral hypopharynx. 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 At that time, she was referred to medical oncology she was started on a combination of chemoradiation therapy and chemotherapy was carboplatin and based and she completed treatment on 12/09/2022. She also underwent dental extraction November 2022. No reported aspiration. She is maintain on a combination of Lasix and Aldactone regarding her liver cirrhosis. She has chronic A. fib. The patient was evaluated in the preop area. She was able to maintain a pulse ox above 90% on room air oxygen. She was supplemented by O2. She was transferred to postop for a chest tube insertion. No hypotension. No evidence of any tension based on underlying pneumothorax. Patient was reevaluated today on 06/27/23, patient is doing well, continues to have chest tube in place, she is on 2 L nasal cannula, does not seem to be in any distress, no air leak is present, patient is still connected to Pleur-evac and wall suction. Chest x-ray continues to show complete expansion of the left lung and no evidence of any sizable pneumothorax. CBC is relatively normal basic metabolic profile is normal except for low sodium of 130 Objective - Vital Signs Vital signs: Vital Signs Temp 98.1 F 06/27/23 08:00 Pulse 60 06/27/23 12:00 Resp 16 06/27/23 12:00 BP 101/61 06/27/23 12:00 Pulse Ox 98 06/27/23 12:00 FiO2 Intake & Output 06/26/23 06/27/23 06/27/23 18:59 06:59 18:59 Intake Total 1040 594 Output Total 60 Balance 1040 -60 594 Weight 44 kg 44.6 kg Intake: IV 500 Oral 540 594 Output: Chest Tube Drainage 60 Thora-Vent Left Upper 60 Anterior Chest Other: # Voids 1 5 3 - Exam Physical Exam: Revealed a 68-year-old female in no distress Head: Atraumatic, normocephalic HEENT:[Neck is supple.] [No neck masses.] [No thyromegaly.] [No JVD.] Chest: [Clear throughout, no crackles, no rhonchi, no wheezes.] Left sided thoravent is noted, connected to Pleur-evac, no air leak noted, connected to wall suction minimal drainage Cardiac Exam: [Normal S1 and S2, no S3 gallop, no murmur.] Abdomen: [Soft, nontender, no megaly, no rebound, no guarding, normal bowel sounds.] Extremities: [No clubbing, no edema, no cyanosis.] Neurological Exam: [No focal neurologic deficit.] - Labs CBC & Chem 7: 06/27/23 07:57 06/27/23 07:57 Labs: Abnormal Lab Results - Last 24 Hours (Table) 06/27/23 06/27/23 Range/Units 07:57 07:57 RBC 3.37 L (3.80-5.40) m/uL Hgb 8.7 L (11.4-16.0) gm/dL Hct 28.1 L (34.0-46.0) % RDW 17.7 H (11.5-15.5) % Sodium 130 L (137-145) mmol/L Chloride 93 L (98-107) mmol/L Glucose 149 H (74-99) mg/dL Albumin 3.3 L (3.5-5.0) g/dL Assessment and Plan Assessment: Impression: Acute left sided spontaneous pneumothorax Status post left thoravent placement postoperative day #1 Multiple new pulmonary nodules, will need further evaluation down the line on outpatient basis Tobacco dependence syndrome History of liver cirrhosis and ascites requiring multiple paracentesis procedures Paroxysmal atrial fibrillation Dyslipidemia Recommendation: Continue thoravent Placed on waterseal. Continue to monitor for air leak Ambulate Increase activity as tolerated Resume home meds Daily chest x-rays Will follow Time with Patient: Less than 30
[2023-06-27] MEDS: LACTATED RINGERS 1,000 ML IV SCH ×2 (18:43→18:45)
[2023-06-27] MEDS: MELATONIN 5 MG TABLET PO PRN (20:12)
[2023-06-27] MEDS: diphenhydrAMINE 25 MG CAP PO PRN (20:13)
[2023-06-27] MEDS: ATORVASTATIN 20 MG TAB PO SCH (20:13)
[2023-06-28] MEDS: IPRATROPIUM-ALBUTEROL 3 ML NEB INHALATION SCH ×6 (00:03→20:47)
[2023-06-28] MEDS: MIDODRINE 5 MG TAB PO SCH ×3 (06:12→16:04)
[2023-06-28] MEDS: AMPICILLIN-SULBACTAM 3 GM in SODIUM CHLORIDE 0.9% 100 ML IVPB SCH ×3 (06:12→16:05)
[2023-06-28] MEDS: HYDROcodone/APAP 5-325MG 1 EACH TAB PO PRN ×4 (06:12→22:12)
[2023-06-28] MEDS: LACTATED RINGERS 1,000 ML IV SCH (06:29)
--- NOTE | 2023-06-28 07:56 | P.PN ---
Subjective Progress Note Date: 06/28/23 Principal diagnosis: Large left sided pneumothorax status post placement of thoravent by Dr. Mohr. 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 States she feels better, feels breathing is better, denies pain. Remains in sinus rhythm, hemodynamically stable, currently on 2 LPM NC with oxygen saturation in the high 90s. Able to achieve 1000 mL on incentive spirometer. Left sided thoravent in place to water seal for >24 hours with minimal drainage, no air leak present. CXR reviewed. No other new concerns. Objective - Vital Signs Vital signs: Vital Signs Temp 98.6 F 06/28/23 03:19 Pulse 69 06/28/23 03:19 Resp 16 06/28/23 03:19 BP 91/53 06/28/23 03:19 Pulse Ox 99 06/28/23 03:19 FiO2 Intake & Output 06/27/23 06/28/23 06/28/23 18:59 06:59 18:59 Intake Total 594 475 Output Total 20 Balance 594 455 Weight 46.5 kg Intake: Oral 594 475 Output: Chest Tube Drainage 20 Thora-Vent Left Upper 20 Anterior Chest Other: # Voids 3 2 # Bowel Movements 0 - Exam CONSTITUTIONAL: Appears comfortable, cooperative, no acute distress RESPIRATORY: Lungs sounds diminished bilaterally. Respirations even, nonlabored. Currently on 2 LPM NC with oxygen saturation 99%. Able to achieve 1000 mL on incentive spirometry. Strong cough. CARDIOVASCULAR: S1, S2 present. Regular rate and rhythm, sinus rhythm on telemetry. Palpable peripheral pulses bilaterally. No edema present. No calf pain or tenderness noted GASTROINTESTINAL: Abdomen soft, nontender, nondistended. Active bowel sounds present 4 quadrants. Tolerating diet GENITOURINARY: Continues to void INTEGUMENTARY: Skin is warm and dry NEUROLOGIC: Cranial nerves II through XII intact MUSKULOSKELETAL: Able to move all extremities, strength equal bilaterally PSYCHIATRIC: Alert and oriented to person place and time, appropriate affect, intact judgment and insight INVASIVE LINES AND TUBES: Left sided thoravent present, atrium to water seal, no air leak present, minimal drainage - Allied health notes Allied health notes reviewed: nursing - Labs CBC & Chem 7: 06/27/23 07:57 06/27/23 07:57 Labs: Abnormal Lab Results - Last 24 Hours (Table) 06/27/23 06/27/23 Range/Units 07:57 07:57 RBC 3.37 L (3.80-5.40) m/uL Hgb 8.7 L (11.4-16.0) gm/dL Hct 28.1 L (34.0-46.0) % RDW 17.7 H (11.5-15.5) % Sodium 130 L (137-145) mmol/L Chloride 93 L (98-107) mmol/L Glucose 149 H (74-99) mg/dL Albumin 3.3 L (3.5-5.0) g/dL - Imaging and Cardiology Chest x-ray: image reviewed Assessment and Plan Assessment: Large left sided pneumothorax, status post placement of thoravent by Dr. Rubén philip Shortness of breath, secondary to above History of head and neck squamous cell cancer status post chemo and radiation Multiple new pulmonary lung nodules discoverd on PET/CT Current tobacco use COPD Alcoholism with cessation in 2017 Current cirrhosis with multiple paracentesis Paroxysmal atrial fibrillation on Xarelto for anticoagulation, last dose Xarelto 06/21/23, currently sinus Hyperlipidemia Plan: Thoravent clamped, will unclamp and look for air leak. If no air leak will discontinue thoravent. Dressing to remain in place for 24 hours Will repeat CXR 2 hours after thoravent removal. If stable patient is cleared for discharge from thoracic surgery standpoint Wean oxygen as tolerated Encourage incentive spirometry use Increase activity as tolerated Medical management of other comorbidities per internal medicine, pulmonology, oncology
[2023-06-28] MEDS: guaiFENesin 600 MG TABLET.ER PO SCH ×2 (08:45→21:59)
[2023-06-28] MEDS: HEPARIN SODIUM,PORCINE 5,000 UNIT/ML 1 ML VIAL SQ SCH ×2 (08:45→16:04)
[2023-06-28] MEDS: LACTULOSE 20 GM/30 ML CUP PO SCH (08:45)
[2023-06-28] MEDS: METOPROLOL TARTRATE 50 MG TAB PO SCH ×2 (08:45→21:59)
[2023-06-28] MEDS: SPIRONOLACTONE 25 MG TAB PO SCH ×2 (08:45→22:00)
[2023-06-28] MEDS: FUROSEMIDE 40 MG TAB PO SCH ×2 (08:45→21:59)
--- NOTE | 2023-06-28 08:46 | XR ---
EXAMINATION TYPE: XR chest 2V DATE OF EXAM: 06/28/2023 6:27 AM CLINICAL INDICATION:Female, 68 years old with history of pneumothorax. COMPARISON: Chest radiograph 06/27/2023. TECHNIQUE: XR chest 2V Frontal and lateral views of the chest. FINDINGS: Lungs/Pleura: No evidence of pleural effusion or pneumothorax. Scattered pulmonary nodules are again identified. Pulmonary vascularity: Unremarkable. Heart/mediastinum: Cardiomediastinal silhouette is unremarkable. Musculoskeletal: No acute osseous pathology. Other findings: Left-sided thoracostomy tube is present. IMPRESSION: Overall stable exam demonstrating left-sided thoracostomy tube and multifocal pulmonary nodules.
[2023-06-28 09:31] LABS: Anisocytosis Slight; Basophils % (A) 0 %; Eosinophils # (A) 0.3 k/uL (0-0.7); Eosinophils % (A) 5 %; HCT 26.5 % (34.0-46.0); HGB 8.3 gm/dL (11.4-16.0); Hypochromasia Moderate; Lymphocytes # (A) 0.4 k/uL (1.0-4.8); Lymphocytes % (A) 7 %; MCH 26.1 pg (25.0-35.0); MCHC 31.4 g/dL (31.0-37.0); MCV 83.1 fL (80.0-100.0); Mean Platelet Volume 7.8; Microcytosis Slight; Monocytes # (A) 0.6 k/uL (0-1.0); Monocytes % (A) 10 %; Neutrophils # (A) 4.6 k/uL (1.3-7.7); Neutrophils % (A) 76 %; Platelet Count 189 k/uL (150-450); RBC 3.19 m/uL (3.80-5.40); RDW 17.4 % (11.5-15.5)
[2023-06-28 09:48] LABS: African American GFR (CKD) 84 (>60 ml/min/1.73 sqM); Anion Gap 10 mmol/L; Blood Urea Nitrogen 21 mg/dL (7-17); Calcium 8.4 mg/dL (8.4-10.2); Carbon Dioxide 23 mmol/L (22-30); Chloride 94 mmol/L (98-107); Glucose 117 mg/dL (74-99); Non-African American GFR(CKD) 73 (>60 ml/min/1.73 sqM); Potassium 4.6 mmol/L (3.5-5.1); Sodium 127 mmol/L (137-145)
--- NOTE | 2023-06-28 10:41 | XR ---
EXAMINATION TYPE: XR chest 2V DATE OF EXAM: 06/28/2023 10:36 AM CLINICAL INDICATION:Female, 68 years old with history of pneumothorax; LOCATED WITHIN [facility] COMPARISON: Chest radiograph same day, 06/27/2023. TECHNIQUE: XR chest 2V Frontal and lateral views of the chest. FINDINGS: Lungs/Pleura: Interval removal of left-sided thoracostomy tube. No evidence of residual pneumothorax. No pleural effusions. Multifocal pulmonary nodules are again identified. Pulmonary vascularity: Unremarkable. Heart/mediastinum: Cardiomediastinal silhouette is stable. Musculoskeletal: No acute osseous pathology. IMPRESSION: Interval removal of left-sided thoracostomy tube, no residual pneumothorax.
--- NOTE | 2023-06-28 10:55 | P.PN ---
Subjective Progress Note Date: 06/28/23 Principal diagnosis: Dyspnea CC: Dyspnea Subjective: Ms. Recinos was seen and examined. Chest tube was removed. She is still expensive dyspnea with minimal ambulation. Awaiting PT assessment. Objective: Vitals: Reviewed General: No acute distress HEENT: Mucous membranes moist neck supple Cardiovascular: RRR, S1-S2 Lungs: Breath sounds equal. Diminished without wheezing Abdomen: Distended and nontender Extremities: No lower extremity edema, muscle wasting Pertinent labs and imaging reviewed Assessment and plan: 1. Left-sided pneumothorax Status post chest tube placement and removal. Management per pulmonology. Serial chest x-rays. Antitussives. 2. Acute respiratory distress secondary to #1, improved 3. History of squamous cell carcinoma of the head and neck status post chemo and radiation 4. Alcohol liver cirrhosis, hypotonic hyponatremia secondary to fluid overload Continue with diuretics. Serial BMPs. Sodium is decreased today. Urine studies to be unreliable but hyponatremia most likely secondary to her cirrhosis. Continue with diuretics. BNP next a.m. 5. Paroxysmal A. fib AC was held by prior provider and she has chest tube. Continue with metoprolol. 6. History of orthostatic hypotension On midodrine VTE prophylaxis with subcu heparin Discussion: Awaiting PT assessment. Anticipate discharge within 24 hours if does well with PT and sodium levels improve. Objective - Vital Signs Vital signs: Vital Signs Temp 98.4 F 06/28/23 08:00 Pulse 70 06/28/23 08:16 Resp 16 06/28/23 08:00 BP 97/53 06/28/23 08:00 Pulse Ox 94 L 06/28/23 08:00 FiO2 Intake & Output 06/27/23 06/28/23 06/28/23 18:59 06:59 18:59 Intake Total 955 238 9694 Output Total 20 Balance 335 189 6228 Weight 46.5 kg Intake: Oral 132 238 7261 Output: Chest Tube Drainage 20 Thora-Vent Left Upper 20 Anterior Chest Other: # Voids 3 2 # Bowel Movements 0 - Labs CBC & Chem 7: 06/28/23 08:45 06/28/23 08:45 Labs: Abnormal Lab Results - Last 24 Hours (Table) 06/28/23 06/28/23 Range/Units 08:45 08:45 RBC 3.19 L (3.80-5.40) m/uL Hgb 8.3 L (11.4-16.0) gm/dL Hct 26.5 L (34.0-46.0) % RDW 17.4 H (11.5-15.5) % Lymphocytes # 0.4 L (1.0-4.8) k/uL Sodium 127 L (137-145) mmol/L Chloride 94 L (98-107) mmol/L BUN 21 H (7-17) mg/dL Glucose 117 H (74-99) mg/dL
--- NOTE | 2023-06-28 15:03 | P.PN ---
Subjective Progress Note Date: 06/28/23 Principal diagnosis: Acute spontaneous left-sided pneumothorax Is a 68-year-old female patient with bilateral pulmonary nodules who was scheduled to undergo today a robotic bronchoscopy and biopsy of the pulmonary nodules for tissue diagnosis. The patient has multiple metastatic nodules largest in the left upper lobe and tissue sampling was requested by medical oncology. This is based on the most recent PET scan findings that was done in April 2023. A CAT scan of the chest was done using the 1 mm ION protocol for robotic bronchoscopy and the CAT scan showed a large left-sided pneumothorax. Based on this finding, the procedure was canceled. Upon further questioning, the patient was having some increased cough and congestion and shortness of breath over the past 1 week. She also had some pain across her chest extending to her back. No trauma to her chest. No previous history of pneumothoraces. She is a chronic smoker. She presented to us with labored br eathing this morning and the CAT scan of the chest confirmed the presence of a large left-sided pneumothorax in addition to prednisone but the pulmonary nodules. Based on that, the procedure was aborted and a chest tube was inserted in the left lung Going back to the history, the patient has history of alcoholic liver cirrhosis. She has history of recurrent ascites and she undergoes periodic paracenteses every 4 weeks. The last paracentesis was done 2 days ago. She has history of chronic atrial fibrillation maintained on anticoagulation with Xarelto and this is currently on hold. It at the same time, the patient has history of malignancy that dates back in July 2022. She started off by having a lump in her left neck that was progressively enlarging. At that time, the findings a re listed and the core biopsy of the left neck mass that was done on 08/18/2022 showed metastatic carcinoma. Following that, a PET/CT that was done on 09/12/2022 showed abnormal activity in the left oral cavity near the base of the tongue extending to the left piriform sinus. The patient had multiple left- sided large lymph nodes in her neck largest being about 1.7 cm in size. The patient underwent a triple endoscopy that was done on 10/08/2022 and it revealed a primary site of cancer in the left lateral hypopharynx. 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 At that time, she was referred to medical oncology she was started on a combination of chemoradiation therapy and chemotherapy was carboplatin and based and she completed treatment on 12/09/2022. She also underwent dental extraction November 2022. No reported aspiration. She is maintain on a combination of Lasix and Aldactone regarding her liver cirrhosis. She has chronic A. fib. The patient was evaluated in the preop area. She was able to maintain a pulse ox above 90% on room air oxygen. She was supplemented by O2. She was transferred to postop for a chest tube insertion. No hypotension. No evidence of any tension based on underlying pneumothorax. Patient was reevaluated today on 06/27/23, patient is doing well, continues to have chest tube in place, she is on 2 L nasal cannula, does not seem to be in any distress, no air leak is present, patient is still connected to Pleur-evac and wall suction. Chest x-ray continues to show complete expansion of the left lung and no evidence of any sizable pneumothorax. CBC is relatively normal basic metabolic profile is normal except for low sodium of 130 Patient was reevaluated today on 06/28/23, agent is doing great, patient had her left-sided chest tube to waterseal for the last 24 hours, there was no air leak, hence it was removed by surgery today. Patient is relatively asymptomatic, repeat chest x-ray done by thoracic surgery 2 hours later after the chest tube has been removed showed no evidence of pneumothorax, hence the patient could be cleared for discharge home on follow-up with Dr. Mohr Objective - Vital Signs Vital signs: Vital Signs Temp 98.4 F 06/28/23 08:00 Pulse 76 06/28/23 14:53 Resp 16 06/28/23 12:00 BP 92/51 06/28/23 12:00 Pulse Ox 100 06/28/23 12:00 FiO2 Intake & Output 06/27/23 06/28/23 06/28/23 18:59 06:59 18:59 Intake Total 453 342 5427 Output Total 20 Balance 740 464 9507 Weight 46.5 kg Intake: Oral 298 944 9986 Output: Chest Tube Drainage 20 Thora-Vent Left Upper 20 Anterior Chest Other: # Voids 3 2 1 # Bowel Movements 0 - Exam Physical Exam: Revealed a 68-year-old female in no distress, on room air O2 sats is 100% Head: Atraumatic, normocephalic HEENT:[Neck is supple.] [No neck masses.] [No thyromegaly.] [No JVD.] Chest: [Clear throughout, no crackles, no rhonchi, no wheezes.] Chest tube has been removed Cardiac Exam: [Normal S1 and S2, no S3 gallop, no murmur.] Abdomen: [Soft, nontender, no megaly, no rebound, no guarding, normal bowel sounds.] Extremities: [No clubbing, no edema, no cyanosis.] Neurological Exam: [No focal neurologic deficit.] - Labs CBC & Chem 7: 06/28/23 08:45 06/28/23 08:45 Labs: Abnormal Lab Results - Last 24 Hours (Table) 06/28/23 06/28/23 Range/Units 08:45 08:45 RBC 3.19 L (3.80-5.40) m/uL Hgb 8.3 L (11.4-16.0) gm/dL Hct 26.5 L (34.0-46.0) % RDW 17.4 H (11.5-15.5) % Lymphocytes # 0.4 L (1.0-4.8) k/uL Sodium 127 L (137-145) mmol/L Chloride 94 L (98-107) mmol/L BUN 21 H (7-17) mg/dL Glucose 117 H (74-99) mg/dL Assessment and Plan Assessment: Impression: Acute left sided spontaneous pneumothorax Status post left thoravent placement postoperative day #2 Multiple new pulmonary nodules, will need further evaluation down the line on outpatient basis Tobacco dependence syndrome History of liver cirrhosis and ascites requiring multiple paracentesis procedures Paroxysmal atrial fibrillation Dyslipidemia Recommendation: Follow-up chest x-ray today after removal of chest tube showed no pneumothorax hence we'll clear the patient for discharge Will need to follow-up with Dr. Mohr Cleared for discharge by pulmonary today. Time with Patient: Less than 30
[2023-06-28] MEDS: ATORVASTATIN 20 MG TAB PO SCH (21:59)
[2023-06-28] MEDS: diphenhydrAMINE 25 MG CAP PO PRN (22:12)
[2023-06-28] MEDS ORDERED: DEXTROSE 5% IN WATER 100 ML with AMIODARONE 150 MG IV ONE (23:00)
[2023-06-28] MEDS ORDERED: AMIODARONE 360 MG in DEXTROSE 5% IN WATER 200 ML IV ONE ×2 (23:15)
[2023-06-29] MEDS: AMPICILLIN-SULBACTAM 3 GM in SODIUM CHLORIDE 0.9% 100 ML IVPB SCH ×5 (00:02→23:41)
[2023-06-29] MEDS: HEPARIN SODIUM,PORCINE 5,000 UNIT/ML 1 ML VIAL SQ SCH ×3 (00:07→16:37)
[2023-06-29] MEDS: IPRATROPIUM-ALBUTEROL 3 ML NEB INHALATION SCH ×5 (03:09→20:23)
[2023-06-29] MEDS: HYDROcodone/APAP 5-325MG 1 EACH TAB PO PRN ×3 (03:45→16:37)
[2023-06-29] MEDS: MIDODRINE 5 MG TAB PO SCH ×3 (06:14→16:36)
[2023-06-29] MEDS ORDERED: AMIODARONE 450 MG in DEXTROSE 5% IN WATER 250 ML IV SCH ×2 (06:30)
[2023-06-29 06:57] LABS: Anisocytosis Slight; Basophils % (A) 0 %; Eosinophils # (A) 0.3 k/uL (0-0.7); Eosinophils % (A) 4 %; HCT 26.2 % (34.0-46.0); HGB 8.4 gm/dL (11.4-16.0); Hypochromasia Moderate; Lymphocytes # (A) 0.5 k/uL (1.0-4.8); Lymphocytes % (A) 7 %; MCH 26.4 pg (25.0-35.0); MCHC 32.2 g/dL (31.0-37.0); MCV 81.9 fL (80.0-100.0); Mean Platelet Volume 7.7; Microcytosis Slight; Monocytes # (A) 0.8 k/uL (0-1.0); Monocytes % (A) 11 %; Neutrophils # (A) 5.3 k/uL (1.3-7.7); Neutrophils % (A) 74 %; Platelet Count 187 k/uL (150-450); RBC 3.19 m/uL (3.80-5.40); RDW 17.7 % (11.5-15.5); WBC 7.1 k/uL (3.8-10.6)
[2023-06-29 07:27] LABS: African American GFR (CKD) 81 (>60 ml/min/1.73 sqM); Anion Gap 11 mmol/L; Blood Urea Nitrogen 20 mg/dL (7-17); Calcium 8.5 mg/dL (8.4-10.2); Carbon Dioxide 23 mmol/L (22-30); Chloride 94 mmol/L (98-107); Glucose 92 mg/dL (74-99); Non-African American GFR(CKD) 70 (>60 ml/min/1.73 sqM); Potassium 4.5 mmol/L (3.5-5.1); Sodium 128 mmol/L (137-145)
--- NOTE | 2023-06-29 07:57 | XR ---
EXAMINATION TYPE: XR chest 1V portable DATE OF EXAM: 06/29/2023 CLINICAL HISTORY: Difficulty breathing progress study. Pneumothorax. TECHNIQUE: Single AP portable upright view of the chest is obtained. COMPARISON: Chest x-ray from one day earlier and older studies FINDINGS: There is chronic parenchymal changes bilaterally left multifocal bilateral nodular increas ed opacities redemonstrated. No pleural effusion or pneumothorax is seen. Cardiac silhouette size sta ble within normal limits. Osseous structures are intact. IMPRESSION: Chronic changes with bilateral pulmonary nodules or nodular opacities redemonstrated. No pneumothorax seen. No significant change from one day earlier.
[2023-06-29] MEDS: guaiFENesin 600 MG TABLET.ER PO SCH ×2 (09:06→20:01)
[2023-06-29] MEDS: LACTULOSE 20 GM/30 ML CUP PO SCH (09:06)
[2023-06-29] MEDS: FUROSEMIDE 40 MG TAB PO SCH ×3 (09:06→20:02)
[2023-06-29] MEDS: SPIRONOLACTONE 25 MG TAB PO SCH ×2 (09:08→20:02)
[2023-06-29] MEDS: METOPROLOL TARTRATE 50 MG TAB PO SCH ×2 (09:16→20:01)
--- NOTE | 2023-06-29 12:13 | P.PN ---
Subjective Progress Note Date: 06/29/23 Principal diagnosis: Respiratory failure. The patient was evaluated in the preop area. She was able to maintain a pulse ox above 90% on room air oxygen. She was supplemented by O2. She was transferred to postop for a chest tube insertion. No hypotension. No evidence of any tension based on underlying pneumothorax. Patient was reevaluated today on 06/27/23, patient is doing well, continues to have chest tube in place, she is on 2 L nasal cannula, does not seem to be in any distress, no air leak is present, patient is still connected to Pleur-evac and wall suction. Chest x-ray continues to show complete expansion of the left lung and no evidence of any sizable pneumothorax. CBC is relatively normal basic metabolic profile is normal except for low sodium of 130 Patient was reevaluated today on 06/28/23, agent is doing great, patient had her left-sided chest tube to waterseal for the last 24 hours, there was no air leak, hence it was removed by surgery today. Patient is relatively asymptomatic, repeat chest x-ray done by thoracic surgery 2 hours later after the chest tube has been removed showed no evidence of pneumothorax, hence the patient could be cleared for discharge home on follow-up with Dr. Mohr Progress note dated 06/29/2023. The patient was seen today in room 361. The patient's currently on room air. The patient is not receiving any IV fluids at this time. The antibiotic in my opinion could be discontinued. In addition, the patient is apparently being evaluated for possible discharge. No decision has been made as yet. Today's laboratory data includes a white count of 7.1, hemoglobin 8.4, hematocrit 26.2, and a platelet count of 187,000. Sodium 128, potassium 4.5, chlorides 94, CO2 23, BUN 20, and creatinine 0.85. Anion gap is normal at 11. Magnesium level is 1.9. Chest x-ray shows chronic changes with bilateral pulmonary nodules or nodular opacities. Objective - Vital Signs Vital signs: Vital Signs Temp 98.3 F 06/29/23 09:00 Pulse 62 06/29/23 09:00 Resp 18 06/29/23 09:00 BP 107/61 06/29/23 09:00 Pulse Ox 100 06/29/23 09:00 FiO2 Intake & Output 1106/29/23 06/29/23 18:59 06:59 18:59 Intake Total 1138 180 Balance 1138 180 Intake: Oral 1138 180 Other: # Voids 1 2 - Exam No acute distress, oriented 3. Currently on room air. Saturations are 99%. HEENT examination is grossly unremarkable. Mucous membranes are moist. No oral lesions. Neck supple. Full range of motion. No adenopathy thyromegaly or neck vein dis tention. Cardiovascular examination reveals regular rhythm rate. S1-S2 normal. No S3 or S4. No discernible murmur noted. Heart sounds are distant. Heart rate 62 bpm. Lungs reveal clear breath sounds. Breath sounds are equal bilaterally. No adventitious lung sounds including wheezes rhonchi or crackles. Abdomen soft bowel sounds are heard. No masses or tenderness. Extremities are intact. No cyanosis clubbing or edema. Skin is without rash or lesion. Neurologic examination is brief but nonfocal. - Labs CBC & Chem 7: 06/29/23 06:38 06/29/23 06:38 Labs: Abnormal Lab Results - Last 24 Hours (Table) 06/29/23 06/29/23 Range/Units 06:38 06:38 RBC 3.19 L (3.80-5.40) m/uL Hgb 8.4 L (11.4-16.0) gm/dL Hct 26.2 L (34.0-46.0) % RDW 17.7 H (11.5-15.5) % Lymphocytes # 0.5 L (1.0-4.8) k/uL Sodium 128 L (137-145) mmol/L Chloride 94 L (98-107) mmol/L BUN 20 H (7-17) mg/dL Assessment and Plan Assessment: Acute left-sided spontaneous pneumothorax, with Thora-vent placement, and subsequent removal. Multiple new pulmonary nodules, would need outpatient evaluation. Tobacco dependence syndrome. History of liver cirrhosis, and ascites. Paroxysmal atrial fibrillation. Hyperlipidemia. Plan: Plan dated 06/29/2023. The patient's antibiotic in my opinion can be discontinued. The patient's currently on room air, and not receiving any IV fluids. The patient will need outpatient evaluation. The patient will be seen by my partner in the outpatient setting. Labs, x-rays, and medications are all reviewed. The patient's overall prognosis remains guarded. Her most recent chest x-ray shows that the pneumothorax has resolved. Thora-vent was removed. Additional recommendations and suggestions are forthcoming. Time with Patient: Less than 30
[2023-06-29 12:28] VITALS: BMI 17.6
--- NOTE | 2023-06-29 16:05 | P.PN ---
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 Recent PET CT in April 2023 showed pulmonary nodules largest of which was in the left upper lobe and the patient initially came in for possible Ion Bronch. However free operative CT of the chest revealed a large left-sided pneumothorax and subsequently the procedure was aborted. We're asked to come and evaluate the patient for possible admission to the medical floor. An urgent thoravent was placed by Dr. Mohr to -20 suction. Arrangements are made for admission to the medical oncology floor. CT surgery consulted, followed the patient during this hospitalization, clamped and discontinued on 06/28 with repeat CXR showing no PTX. Cleared by CT surgery for discharge. Patient went into A-Fib with RVR on 06/28. EKG showing ST wave depression and ventricular rate of 188. Cardiology consulted, started on Amiodarone drip. 06/29 Patient was seen and examined. No complaints. Currently on Amiodarone drip at 0.5 mg/min. CXR shows no obvious PTX. General: non toxic, no distress, appears at stated age Derm: warm, dry Head: atraumatic, normocephalic, symmetric Eyes: EOMI, no lid lag, anicteric sclera Cardiovascular: S1S2 reg, no murmur Lungs: Decreased BS bilateral, no rhonchi, no rales , no accessory muscle use Ext: no gross muscle atrophy, no edema, no contractures Neuro: no focal neuro deficits Psych: Alert, oriented, appropriate affect Based on my assessment of this patient, this patient meets a high complexity level of care. Patient has an acute diagnosis of PTX status post thoravent removed on 06/28 subsequently went into A-Fib RVR that poses a threat to life or bodily function. A-Fib with RVR: 01/2023 Echo normal LV systolic function, moderate MR/TR. Currently on Amiodarone drip at 0.5 mg/min. Per CT surgery, OK to restart Xarelto tonight. Metoprolol 50 mg PO BID. Telemetry monitoring. Mag ordered. Cardiology consult. L sided PTX: Thoravent removed 06/28. CT surgery and Pulm on board. Hyponatremia: Due to cirrhosis. Hypervolemic. Lasix 40 mg PO BID. Orthostatic hypotension: Midodrine 10 mg PO TID. 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 GI Prophylaxis: Designated medical POA if patient is not able to make medical decisions for themselves: I have reviewed the following desktop support consultant notes: Cardio, CT surgery, Pulm, Oncology note. I have reviewed the results of the following tests: CBC, BMP. I have ordered the following tests: Mag. I have discussed the care of this patient with the following independent historian: I have independently interpreted the following test below: CXR as above. I have discussed the management of this patient with the following physician: This patient has a high risk of morbidity due to the following reasons: This patient meets a high level of care for the following reasons: Amiodarone drip. Hemodynamic monitoring. Objective - Vital Signs Vital signs: Vital Signs Temp 98.5 F 06/28/23 20:00 Pulse 64 06/29/23 04:00 Resp 16 06/29/23 04:00 BP 102/60 06/29/23 04:00 Pulse Ox 100 06/29/23 04:00 FiO2 Intake & Output 06/28/23 06/29/23 06/29/23 18:59 06:59 18:59 Intake Total 1138 180 Balance 1138 180 Intake: Oral 1138 180 Other: # Voids 1 2 - Labs CBC & Chem 7: 06/29/23 06:38 06/29/23 06:38 Labs: Abnormal Lab Results - Last 24 Hours (Table) 06/28/23 06/28/23 06/29/23 Range/Units 08:45 08:45 06:38 RBC 3.19 L 3.19 L (3.80-5.40) m/uL Hgb 8.3 L 8.4 L (11.4-16.0) gm/dL Hct 26.5 L 26.2 L (34.0-46.0) % RDW 17.4 H 17.7 H (11.5-15.5) % Lymphocytes # 0.4 L 0.5 L (1.0-4.8) k/uL Sodium 127 L (137-145) mmol/L Chloride 94 L (98-107) mmol/L BUN 21 H (7-17) mg/dL Glucose 117 H (74-99) mg/dL 06/29/23 Range/Units 06:38 RBC (3.80-5.40) m/uL Hgb (11.4-16.0) gm/dL Hct (34.0-46.0) % RDW (11.5-15.5) % Lymphocytes # (1.0-4.8) k/uL Sodium 128 L (137-145) mmol/L Chloride 94 L (98-107) mmol/L BUN 20 H (7-17) mg/dL Glucose (74-99) mg/dL
[2023-06-29] MEDS: AMIODARONE 200 MG TAB PO SCH (20:00)
[2023-06-29] MEDS: ATORVASTATIN 20 MG TAB PO SCH (20:00)
[2023-06-29] MEDS: diphenhydrAMINE 25 MG CAP PO PRN (20:01)
[2023-06-29] MEDS: MELATONIN 5 MG TABLET PO PRN (20:06)
[2023-06-29] MEDS ORDERED: RIVAROXABAN 20 MG TAB PO SCH (21:00)
--- NOTE | 2023-06-29 22:01 | CONS ---
CONSULTATION HISTORY OF PRESENT ILLNESS: Nina is a 68-year-old lady with history of paroxysmal atrial fibrillation, hypertension, and dyslipidemia who underwent bronchoscopy with biopsy for bilateral pulmonary nodule and subsequently developed collapse of the lung and required a chest tube placement. During that time, she developed an episode of atrial fibrillation with rapid ventricular rate last night for which Cardiology had been consulted. She is treated with IV amiodarone and had converted to sinus rhythm and at the time of my evaluation, she is in normal sinus rhythm. She also has history of alcoholic liver cirrhosis and has metastatic cancer and has ascites that is being drained intermittently. The patient was on Xarelto, which is currently on hold for the biopsy, it should be resumed whenever it is feasible from the standpoint of the pulmonary surgery and primary. From my standpoint, I am going to switch the IV amiodarone to oral Cordarone and resume the Xarelto whenever you can. PAST MEDICAL HISTORY: Significant for CA lung, metastatic liver disease, ascites, lung nodule, alcoholic cirrhosis, orthostatic hypotension, and paroxysmal atrial fibrillation. MEDICATIONS: At home included, 1. Crestor. 2. Xarelto. 3. Spironolactone. 4. Lopressor. 5. Midodrine. 6. Lasix. ALLERGIES: To honey bee. FAMILY HISTORY: Negative for premature coronary artery disease. SOCIAL HISTORY: Negative for current smoking, EtOH abuse, or drug abuse. REVIEW OF SYSTEMS: HEENT: Unremarkable. CARDIAC: As described above. RESPIRATORY: As described above. GI: Negative. GENITOURINARY: Negative. ALLERGY/IMMUNOLOGY: Negative. SKIN: Negative. MUSCULOSKELETAL: Significant for arthritis. PSYCHOSOCIAL: Negative. DERM: Negative. CONSTITUTIONAL: Negative. ONCOLOGICAL: Negative. DIRECTOR OF INTELLIGENCE: Negative. Rest of the system review is not relevant. PHYSICAL EXAMINATION: GENERAL: Comfortable at rest, afebrile. VITAL SIGNS: Stable. CHEST: Diminished air entry bilaterally. HEART: Reveals first and second heart sounds. No gallop. Has a systolic murmur at the left lower sternal border. ABDOMEN: Soft. EXTREMITIES: Did not reveal any edema. Peripheral pulses are felt. LABORATORY DATA: Labs show that hemoglobin is 8.4, platelet count is 187, potassium is 4.5, creatinine is 0.85. ASSESSMENT: 1. Paroxysmal atrial fibrillation. 2. Metastatic liver cancer, cirrhosis liver, ascites. 3. History of lung biopsy, complicated by pneumothorax. PLAN: Continue with the oral amiodarone. Resume the Xarelto. MMODL / IJN: [id number] /
[2023-06-30] MEDS: IPRATROPIUM-ALBUTEROL 3 ML NEB INHALATION SCH ×4 (00:11→12:59)
[2023-06-30] MEDS: HYDROcodone/APAP 5-325MG 1 EACH TAB PO PRN (05:46)
[2023-06-30] MEDS: AMPICILLIN-SULBACTAM 3 GM in SODIUM CHLORIDE 0.9% 100 ML IVPB SCH ×2 (05:47→12:21)
[2023-06-30] MEDS: MIDODRINE 5 MG TAB PO SCH ×2 (06:16→12:21)
[2023-06-30] MEDS: LACTULOSE 20 GM/30 ML CUP PO SCH (08:24)
[2023-06-30] MEDS: METOPROLOL TARTRATE 50 MG TAB PO SCH (08:25)
[2023-06-30] MEDS: AMIODARONE 200 MG TAB PO SCH (08:25)
[2023-06-30] MEDS: FUROSEMIDE 40 MG TAB PO SCH (08:25)
[2023-06-30] MEDS: guaiFENesin 600 MG TABLET.ER PO SCH (08:25)
[2023-06-30] MEDS: SPIRONOLACTONE 25 MG TAB PO SCH (08:25)
--- NOTE | 2023-06-30 11:38 | P.PN ---
Subjective Progress Note Date: 06/30/23 Principal diagnosis: Respiratory failure. The patient was evaluated in the preop area. She was able to maintain a pulse ox above 90% on room air oxygen. She was supplemented by O2. She was transferred to postop for a chest tube insertion. No hypotension. No evidence of any tension based on underlying pneumothorax. Patient was reevaluated today on 06/27/23, patient is doing well, continues to have chest tube in place, she is on 2 L nasal cannula, does not seem to be in any distress, no air leak is present, patient is still connected to Pleur-evac and wall suction. Chest x-ray continues to show complete expansion of the left lung and no evidence of any sizable pneumothorax. CBC is relatively normal basic metabolic profile is normal except for low sodium of 130 Patient was reevaluated today on 06/28/23, agent is doing great, patient had her left-sided chest tube to waterseal for the last 24 hours, there was no air leak, hence it was removed by surgery today. Patient is relatively asymptomatic, repeat chest x-ray done by thoracic surgery 2 hours later after the chest tube has been removed showed no evidence of pneumothorax, hence the patient could be cleared for discharge home on follow-up with Dr. Mohr Progress note dated 06/29/2023. The patient was seen today in room 361. The patient's currently on room air. The patient is not receiving any IV fluids at this time. The antibiotic in my opinion could be discontinued. In addition, the patient is apparently being evaluated for possible discharge. No decision has been made as yet. Today's laboratory data includes a white count of 7.1, hemoglobin 8.4, hematocrit 26.2, and a platelet count of 187,000. Sodium 128, potassium 4.5, chlorides 94, CO2 23, BUN 20, and creatinine 0.85. Anion gap is normal at 11. Magnesium level is 1.9. Chest x-ray shows chronic changes with bilateral pulmonary nodules or nodular opacities. Progress note dated 06/30/2023. 68-year-old female seen in room 361. Currently, the patient's getting saline at 20 mL an hour. Her room air saturation is 97%. The patient apparently developed some atrial fibrillation with RVR. She apparently is back in normal sinus rhythm now. The patient is hoping to be discharged soon. No new labs today. Labs from June 29 are reviewed. Her sodium was 128, potassium was normal. Magnesium was 1.9 which is normal. Also, BUN was 20 with a creatinine of 0.85. Hemoglobin 8.4. Platelet count was normal. Objective - Vital Signs Vital signs: Vital Signs Temp 99.5 F 06/30/23 08:04 Pulse 77 06/30/23 09:48 Resp 18 06/30/23 09:48 BP 115/67 06/30/23 08:04 Pulse Ox 97 06/30/23 09:42 FiO2 Intake & Output 06/29/23 06/30/23 06/30/23 18:59 06:59 18:59 Intake Total 660 240 Output Total 1100 Balance -440 240 Weight 46.5 kg Intake: Oral 660 240 Output: Urine 1100 Other: Voiding Method Bedside Commode Bedside Commode # Voids 1 2 # Bowel Movements 1 1 - Exam No acute distress, oriented 3. Currently on room air. Saturations are 97%. HEENT examination is grossly unremarkable. Mucous membranes are moist. No oral lesions. Neck supple. Full range of motion. No adenopathy thyromegaly or neck vein distention. Cardiovascular examination reveals regular rhythm rate. S1-S2 normal. No S3 or S4. No discernible murmur noted. Heart sounds are distant. Heart rate 77 bpm. Lungs reveal clear breath sounds. Breath sounds are equal bilaterally. No adventitious lung sounds including wheezes rhonchi or crackles. Abdomen soft bowel sounds are heard. No masses or tenderness. Extremities are intact. No cyanosis clubbing or edema. Skin is without rash or lesion. Neurologic examination is brief but nonfocal. - Labs CBC & Chem 7: 06/29/23 06:38 06/29/23 06:38 Assessment and Plan Assessment: Acute left-sided spontaneous pneumothorax, with Thora-vent placement, and subsequent removal. Brief episode of atrial fibrillation with rapid ventricular response. Multiple new pulmonary nodules, needs outpatient evaluation. Tobacco dependence syndrome. History of liver cirrhosis, and ascites. Paroxysmal atrial fibrillation. Hyperlipidemia. Plan: Plan dated 06/29/2023. The patient's antibiotic in my opinion can be discontinued. The patient's currently on room air, and not receiving any IV fluids. The patient will need outpatient evaluation. The patient will be seen by my partner in the outpatient setting. Labs, x-rays, and medications are all reviewed. The patient's overall prognosis remains guarded. Her most recent chest x-ray shows that the pneumothorax has resolved. Thora-vent was removed. Additional recommendations and suggestions are forthcoming. Plan dated 06/30/2023. Patient is seen today in room 3 patient continues on room air. The patient is receiving saline at 20 mL an hour. Saturations are 97%. The patient had a brief episode of atrial fibrillation with RVR. She does have a history of paroxysmal atrial fibrillation. Chest x-ray from yesterday shows a completely expanded lung, without evidence of pneumothorax. Labs, x-rays, and medications are reviewed. Prognosis is guarded. We will continue to follow the patient, and make recommendations along the way. Time with Patient: Less than 30
[2023-06-30 12:35] VITALS: BP 93/58; TEMP 98.8
--- NOTE | 2023-06-30 12:53 | P.DS ---
Providers Date of admission: 06/26/23 08:47 Expected date of discharge: 06/30/23 Attending physician: Melva Lu DO Consults: 06/26/23 08:49 Consult Physician Routine Consulting Provider: Frank Mohr Consult Reason/Comments: ptx Do you want consulting provider notified?: Already Contacted 06/26/23 08:59 Consult Physician Routine Consulting Provider: Naif Perez Consult Reason/Comments: Cancer, PTX Do you want consulting provider notified?: Yes Consult Physician Urgent Consulting Provider: Jorge Ye Consult Reason/Comments: PTX management Do you want consulting provider notified?: Already Contacted 06/29/23 08:29 Consult Physician Stat Consulting Provider: Mehdi Kay Consult Reason/Comments: AFib Do you want consulting provider notified?: Yes Primary care physician: Emery Mckeon MD Hospital Course: Patient is a 68-year-old female with 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 Recent PET CT in April 2023 showed pulmonary nodules largest of which was in the left upper lobe and the patient initially came in for possible Ion Bronch. However free operative CT of the chest revealed a large left-sided pneumothorax and subsequently the procedure was aborted. We're asked to come and evaluate the patient for possible admission to the medical floor. An urgent thoravent was placed by Dr. Mohr to -20 suction. Arrangements are made for admission to the medical oncology floor. CT surgery consulted, followed the patient during this hospitalization, clamped and discontinued on 06/28 with repeat CXR showing no PTX. Cleared by CT surgery for discharge. Patient went into A-Fib with RVR on 06/28. EKG showing ST wave depression and ventricular rate of 188. Cardiology consulted, started on Amiodarone drip, switched to PO on 06/29. Xarelto restarted on 06/29 as well. 06/30 Patient was seen and examined. No complaints. A-Fib with RVR resolved. Discharge held yesterday due to soft BP, now normotensive. Plans for discharge today. Follow up with PCP within 1-2 days of discharge. Follow up with Cardiology, Pulmonology and CT surgery within 1 week of discharge. No indication to continue IV antibitoics. Pertinent studies include CXR, Chest CT Pertinent procedures include thoravent General: non toxic, no distress, appears at stated age Derm: warm, dry Head: atraumatic, normocephalic, symmetric Eyes: EOMI, no lid lag, anicteric sclera Cardiovascular: S1S2 reg, no murmur Lungs: Decreased BS bilateral, no rhonchi, no rales , no accessory muscle use Ext: no gross muscle atrophy, no edema, no contractures Neuro: no focal neuro deficits Psych: Alert, oriented, appropriate affect Discharge Diagnosis: A-Fib with RVR L sided Pneumothorax Hyponatremia due to cirrhosis Normocytic anemia Orthostatic hypotension Chronic conditions: 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 Patient Condition at Discharge: Stable Plan - Discharge Summary Discharge Rx Participant: No New Discharge Prescriptions: New Amiodarone [Cordarone] 200 mg PO BID #60 tab guaiFENesin [Mucinex] 600 mg PO Q12HR tab HYDROcodone/APAP 5-325MG [[place] 5-325] 1 each PO Q4HR PRN #18 tab PRN Reason: Moderate Pain (Scale 4 To 6) Benzonatate [Tessalon Perles] 100 mg PO TID PRN #30 cap PRN Reason: Cough Continue Rivaroxaban [Xarelto] 20 mg PO HS Lactulose [Constulose] 10 gm PO DAILY Melatonin 5 mg PO HS PRN PRN Reason: Insomnia Spironolactone 100 mg PO BID Furosemide [Lasix] 40 mg PO BID Midodrine HCl [ProAmatine] 10 mg PO TID Metoprolol Tartrate [Lopressor] 50 mg PO BID Rosuvastatin [Crestor] 10 mg PO HS diphenhydrAMINE [Benadryl] 25 mg PO HS PRN PRN Reason: Itching Calcium Carb/Mag Ox/Zinc Sulf [Flp-Lxp-Stok 334-134-5 mg Tab] 1 each PO DAILY Meal Replacement Shake 1 can PO DAILY Discontinued Acetaminophen-Codeine 300-30mg [Tylenol w/codeine #3] 500 mg PO TID Discharge Medication List Lactulose [Constulose] 10 gm PO DAILY 02/06/21 [History] Rivaroxaban [Xarelto] 20 mg PO HS 02/06/21 [History] diphenhydrAMINE [Benadryl] 25 mg PO HS PRN 08/15/22 [History] Melatonin 5 mg PO HS PRN 10/02/22 [History] Furosemide [Lasix] 40 mg PO BID 01/26/23 [History] Midodrine HCl [ProAmatine] 10 mg PO TID 01/26/23 [History] Spironolactone 100 mg PO BID 01/26/23 [History] Metoprolol Tartrate [Lopressor] 50 mg PO BID 03/26/23 [History] Calcium Carb/Mag Ox/Zinc Sulf [Idn-Nib-Tvcj 334-134-5 mg Tab] 1 each PO DAILY 06/24/23 [History] Meal Replacement Shake 1 can PO DAILY 06/24/23 [History] Rosuvastatin [Crestor] 10 mg PO HS 06/24/23 [History] Amiodarone [Cordarone] 200 mg PO BID #60 tab 06/30/23 [Rx] Benzonatate [Tessalon Perles] 100 mg PO TID PRN #30 cap 06/30/23 [Rx] HYDROcodone/APAP 5-325MG [[place] 5-325] 1 each PO Q4HR PRN #18 tab 06/30/23 [Rx] guaiFENesin [Mucinex] 600 mg PO Q12HR tab 06/30/23 [Rx] Follow up Appointment(s)/Referral(s): Emery Mckeon MD [Primary Care Provider] - 3 Days Raheem Villela MD [STAFF PHYSICIAN] - 1 Week Mendoza Phillip MD [STAFF PHYSICIAN] - 1 Week Frank Mohr MD [STAFF PHYSICIAN] - 1 Week Activity/Diet/Wound Care/Special Instructions: Keep chest tube dressing in place for 24 hours, then may remove and shower daily Continue to use incentive spirometry Recommend quitting smoking Quitting smoking is the most important step you can take to improve your health. For additional information and assistance to quit smoking, please call the [place] tobacco quit line (2-164-APAV-NOW/ ) or online: [email or web address] Discharge Disposition: HOME SELF-CARE
[2023-06-30 13:37] VITALS: PULSE 65; RESP 16
--- NOTE | 2023-06-30 19:45 | P.PN ---
Subjective Progress Note Date: 06/30/23 At today's visit patient is reporting improvement in shortness of breath. Reporting persisting pain upon inspiration. Patient afebrile. SpO2 94% on room air Objective - Vital Signs Vital signs: Vital Signs Temp 98.8 F 06/30/23 12:00 Pulse 65 06/30/23 13:07 Resp 16 06/30/23 13:07 BP 93/58 06/30/23 12:00 Pulse Ox 98 06/30/23 12:00 FiO2 Intake & Output 06/30/23 06/30/23 07/01/23 06:59 18:59 06:59 Intake Total 596 Balance 596 Intake: Oral 596 Other: Voiding Method Bedside Commode Bedside Commode # Voids 2 3 # Bowel Movements 1 - Constitutional General appearance: Present: average body habitus, no acute distress - EENT Eyes: Present: anicteric sclerae, EOMI ENT: Present: hearing grossly normal - Respiratory Respiratory: bilateral: diminished, rhonchi - Cardiovascular Rhythm: regular Heart sounds: normal: S1, S2 - Integumentary Integumentary: Absent: cyanotic - Neurologic Neurologic Comment(s): grossly intact - Musculoskeletal Musculoskeletal: Present: strength equal bilaterally - Psychiatric Psychiatric: Present: A&O x's 3 - Labs CBC & Chem 7: 06/29/23 06:38 06/29/23 06:38 - Imaging and Cardiology Chest x-ray: report reviewed Assessment and Plan (1) Lung nodule Status: Acute Priority: High Code(s): R91.1 - SOLITARY PULMONARY NODULE SNOMED Code(s): 441834652 (2) Pneumothorax Status: Acute Priority: High Code(s): J93.9 - PNEUMOTHORAX, UNSPECIFIED SNOMED Code(s): 28185827 Plan: Pneumothorax: -This appears to be spontaneous, as noted. The patient had prominent chest tube placed, and has been admitted. -Repeat CXR on 06/29 showed no pneumothorax. Reporting improvement in breathing -Defer to pulmonary medicine and thoracic surgery for management of the same. Lung nodule: -The patient has multiple lung nodules, concerning for metastatic recurrence versus new primary with metastatic involvement. She was coming in for an elective bronchoscopy with biopsy. This has been placed on hold and will be rescheduled, once the patient is stable from her acute issues. Plan: Initiate systemic therapy, once pathology on lung nodules is confirmed. F/u in clinic scheduled with Dr. Perez on 07/06
== END 2023-06-30 15:00 | disposition home or self-care (01) | DRG 200 ==
LOC: ORWHC2ENDO 07:05 → 3SCARD 08:47
PROVIDERS: ADMIT Internal Medicine; ATTEND Internal Medicine
PROC: 0W9B30Z Drainage of Left Pleural Cavity with Drainage Device, Percutaneous Approach (ICD-10-PCS; principal; 2023-06-26 08:00)
DX: J93.83 Other pneumothorax (principal); C22.9 Malignant neoplasm of liver, not specified as primary or secondary; C79.9 Secondary malignant neoplasm of unspecified site; E87.1 Hypo-osmolality and hyponatremia; E87.0 Hyperosmolality and hypernatremia; R06.03 Acute respiratory distress; R91.8 Other nonspecific abnormal finding of lung field; K70.31 Alcoholic cirrhosis of liver with ascites; I10 Essential (primary) hypertension; J44.9 Chronic obstructive pulmonary disease, unspecified; M06.9 Rheumatoid arthritis, unspecified; E78.5 Hyperlipidemia, unspecified; E87.70 Fluid overload, unspecified; D64.9 Anemia, unspecified; I48.0 Paroxysmal atrial fibrillation; F17.210 Nicotine dependence, cigarettes, uncomplicated; I95.1 Orthostatic hypotension; Z79.01 Long term (current) use of anticoagulants; Z85.118 Personal history of other malignant neoplasm of bronchus and lung; Z85.818 Personal history of malignant neoplasm of other sites of lip, oral cavity, and pharynx; Z85.89 Personal history of malignant neoplasm of other organs and systems; Z92.21 Personal history of antineoplastic chemotherapy; Z92.3 Personal history of irradiation; Z20.822 Contact with and (suspected) exposure to COVID-19; Z79.899 Other long term (current) drug therapy; Z53.9 Procedure and treatment not carried out, unspecified reason; F10.20 Alcohol dependence, uncomplicated; Z91.030 Bee allergy status; Z71.6 Tobacco abuse counseling
CPT/HCPCS: 43762; 71045; 71046; 71250; 80048; 80053; 83735; 84100; 85025; 85027; 85610; 85730; 87636; 94640; 94760

== ENCOUNTER 2023-07-15 12:59 | Day surgery (SDC) | payer MEDICARE ==
[2023-07-15 13:33] LABS: Platelet Count 310 k/uL (150-450)
[2023-07-15 13:38] LABS: INR 1.2 (<1.2); Prothrombin Time 12.7 sec (10.0-12.5)
[2023-07-15 13:41] VITALS: TEMP 98
[2023-07-15 14:03] LABS: African American GFR (CKD) 62 (>60 ml/min/1.73 sqM); Non-African American GFR(CKD) 54 (>60 ml/min/1.73 sqM)
[2023-07-15 15:01] VITALS: BP 94/59; PULSE 55; RESP 16
[2023-07-15] MEDS: ALBUMIN HUMAN 25% 50 ML in EMPTY BAG 1 BAG IVPB SCH (15:07)
--- NOTE | 2023-07-16 08:22 | US ---
Ultrasound-guided paracentesis. DATE OF EXAM: 07/15/2023 CLINICAL HISTORY: Ascites Preliminary imaging demonstrated only a very small amount of ascites. Case discussed patient wished f or the procedure. IMPRESSION: Deferred paracentesis due to insufficient fluid.
== END 2023-07-15 15:30 | disposition home or self-care (01) ==
LOC: RADPROMAIN 12:59
PROVIDERS: ATTEND Internal Medicine Gastroenterology
DX: Z53.8 Procedure and treatment not carried out for other reasons (principal); R18.8 Other ascites
CPT/HCPCS: 36415; 76705; 82565; 85049; 85610

== ENCOUNTER 2023-08-12 12:26 | Day surgery (SDC) | payer MEDICARE ==
[2023-08-12 13:39] LABS: Anisocytosis Slight; Basophils % (A) 0 %; Eosinophils % (A) 0 %; HCT 27.5 % (34.0-46.0); Hypochromasia Slight; Lymphocytes # (A) 0.5 k/uL (1.0-4.8); Lymphocytes % (A) 5 %; MCH 27.9 pg (25.0-35.0); MCHC 32.7 g/dL (31.0-37.0); MCV 85.3 fL (80.0-100.0); Mean Platelet Volume 7.8; Monocytes # (A) 1.1 k/uL (0-1.0); Monocytes % (A) 11 %; Neutrophils # (A) 8.1 k/uL (1.3-7.7); Neutrophils % (A) 82 %; Platelet Count 266 k/uL (150-450); RBC 3.22 m/uL (3.80-5.40); RDW 18.6 % (11.5-15.5)
[2023-08-12 13:48] LABS: INR 1.1 (<1.2)
[2023-08-12 13:50] VITALS: BP 106/60; PULSE 54; RESP 16; TEMP 98.6
[2023-08-12 14:01] LABS: ALT 27 U/L (4-34); AST 37 U/L (14-36); African American GFR (CKD) 55 (>60 ml/min/1.73 sqM); Albumin 3.4 g/dL (3.5-5.0); Alkaline Phosphatase 118 U/L (38-126); Anion Gap 11 mmol/L; Blood Urea Nitrogen 29 mg/dL (7-17); Calcium 9.2 mg/dL (8.4-10.2); Carbon Dioxide 23 mmol/L (22-30); Chloride 93 mmol/L (98-107); Glucose 88 mg/dL (74-99); Non-African American GFR(CKD) 47 (>60 ml/min/1.73 sqM); Potassium 5.1 mmol/L (3.5-5.1); Sodium 127 mmol/L (137-145); Total Bilirubin 0.6 mg/dL (0.2-1.3); Total Protein 6.6 g/dL (6.3-8.2)
--- NOTE | 2023-08-12 17:56 | US ---
EXAM: US discontinued paracentesis DATE OF EXAM: 08/12/2023 2:55 PM COMPARISON STUDIES: 07/15/2023 PATIENT HISTORY: 68-year-old female R18.8, there is ascites, referred for ultrasound-guided therapeut ic paracentesis FINDINGS: Initial scanning for procedural planning shows only mild abdominal ascites, mostly in the right upper quadrant in a perihepatic location. Only trace ascites fluid is present within the lower quadrants, not enough for safe paracentesis. Underlying cirrhotic liver in the right upper quadrant. RECOMMENDATION: There is only mild abdominal ascites, predominantly in a perihepatic location, minimally increased fr om 07/15/2023. The amount of fluid in the lower quadrants is not enough for safe therapeutic paracent esis. Underlying cirrhosis. The patient can return for therapeutic paracentesis when there is adequat e flow in accumulation. Findings and impression were discussed with the patient.
== END 2023-08-12 15:00 | disposition home or self-care (01) ==
LOC: RADPROMAIN 12:26
PROVIDERS: ATTEND Internal Medicine Gastroenterology
DX: Z53.8 Procedure and treatment not carried out for other reasons (principal); R18.8 Other ascites
CPT/HCPCS: 36415; 76705; 80053; 85025; 85610

== ENCOUNTER 2023-09-23 12:34 | Day surgery (SDC) | payer MEDICARE ==
--- NOTE | 2023-09-23 13:16 | US ---
Ultrasound-guided paracentesis. DATE OF EXAM: 09/23/2023 CLINICAL HISTORY: Ascites Preliminary imaging demonstrated the bowel to be opposed to the anterior abdominal wall no safe air p assage for percutaneous access into the small amount of ascites. IMPRESSION: Discontinued paracentesis..
[2023-09-23 13:39] VITALS: BP 116/72; PULSE 89; RESP 16
== END 2023-09-23 13:05 | disposition home or self-care (01) ==
LOC: RADPROMAIN 12:34
PROVIDERS: ATTEND Internal Medicine Gastroenterology
DX: Z53.8 Procedure and treatment not carried out for other reasons (principal); R18.8 Other ascites
CPT/HCPCS: 76705

== ENCOUNTER 2023-10-09 17:13 | Inpatient (IN) | payer MEDICARE ==
--- NOTE | 2023-10-09 18:03 | ED ---
General Adult HPI - General Chief complaint: Chest Pain Stated complaint: Body Pain-Lung Cancer Time Seen by Provider: 10/09/23 17:25 Source: patient, family Mode of arrival: wheelchair Limitations: no limitations - History of Present Illness Initial comments: Dictation was produced using [employer] dictation software. please excuse any grammatical, word or spelling errors. Chief Complaint: 68-year-old female presents to the emergency department chest pain History of Present Illness: Patient 68-year-old female she has past medical history of lung cancer. She states she does not know what kind of cancer. She complains of 2-day history of chest pain. States that the pain initially began substernally and now is radiated down to her bilateral lower rib margins. Nonradiating. She does complain of some ear pain as well. Mild shortness of breath. Denies any fever. She has had a cough. The ROS documented in this emergency department record has been reviewed and confirmed by me. Those systems with pertinent positive or negative responses h ave been documented in the HPI. All other systems are other negative and/or noncontributory. - Related Data Home Medications Medication Instructions Recorded Confirmed Lactulose [Constulose] 10 gm PO PC-LUNCH 02/06/21 10/09/23 Rivaroxaban [Xarelto] 20 mg PO HS 02/06/21 10/09/23 Furosemide [Lasix] 40 mg PO BID 01/26/23 10/09/23 Midodrine HCl [ProAmatine] 10 mg PO TID 01/26/23 10/09/23 Spironolactone 100 mg PO DAILY 01/26/23 10/09/23 Metoprolol Tartrate [Lopressor] 50 mg PO BID 03/26/23 10/09/23 Calcium Carb/Mag Ox/Zinc Sulf 1 tab PO DAILY 06/24/23 10/09/23 [Qde-Tbw-Cwnt 334-134-5 mg Tab] Rosuvastatin [Crestor] 10 mg PO DAILY 06/24/23 10/09/23 Acetaminophen Tab [Tylenol Tab] 500 mg PO DIRECTED PRN 08/12/23 10/09/23 Amiodarone HCl [Pacerone] 100 mg PO DAILY 09/23/23 10/09/23 Multivit with Calcium,Iron,Min 1 tab PO DAILY 09/23/23 10/09/23 [Women's Multivitamin] diphenhydrAMINE [Benadryl] 25 - 50 mg PO HS PRN 09/23/23 10/09/23 Mirtazapine [Remeron] 15 mg PO DIRECTED 10/09/23 10/09/23 Allergies Allergy/AdvReac Type Severity Reaction Status Date / Time bee venom protein (honey bee) Allergy Nausea & Verified 10/09/23 20:29 Vomiting Review of Systems ROS Statement: Those systems with pertinent positive or pertinent negative responses have been documented in the HPI. ROS Other: All systems not noted in ROS Statement are negative. 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 History of Any Multi-Drug Resistant Organisms: None Reported Past Surgical History: Heart Catheterization Additional Past Surgical History / Comment(s): breast biopsy (benign), bilateral eye surgery; Left lymph node biopsy October. paracentesis' Past Anesthesia/Blood Transfusion Reactions: No Reported Reaction Past Psychological History: No Psychological Hx Reported Smoking Status: Current every day smoker Past Alcohol Use History: Abuse Past Drug Use History: None Reported - Past Family History Brother(s) Family Medical History: Cancer Additional Family Medical History / Comment(s): pancreatic cancer General Exam - General Exam Comments Initial Comments: PHYSICAL EXAM: General Impression: Alert and oriented x3, not in acute distress HEENT: Normocephalic atraumatic, extra-ocular movements intact, pupils equal and reactive to light bilaterally, mucous membranes moist. Cardiovascular: Heart regular rate and rhythm Chest: Able to complete full sentences, no retractions, no tachypnea Abdomen: abdomen soft, non-tender, non-distended, no organomegaly Musculoskeletal: Pulses present and equal in all extremities, no peripheral edema Motor: no focal deficits noted Neurological: CN II-XII grossly intact, no focal motor or sensory deficits noted Skin: Intact with no visualized rashes Psych: Normal affect and mood Limitations: no limitations Course Vital Signs 10/09/23 17:15 Temperature 97.9 F Pulse Rate 59 L Respiratory 22 Rate Blood Pressure 157/68 O2 Sat by Pulse 99 Oximetry EKG Findings - EKG Comments: EKG Findings:: My EKG interpretation: Ventricular rate 65, sinus rhythm, HI interval 165, QRS 80, QTc 395. No HI prolongation, no QTC prolongation, no ST or T-wave changes noted. Overall, this EKG is unremarkable Medical Decision Making - Medical Decision Making Was pt. sent in by a medical professional or institution (, MEHDI, TABLET MACHINE OPERATOR, urgent care, hospital, or shelter...) When possible be specific @ -No Did you speak to anyone other than the patient for history (EMS, parent, family, police, friend...)? What history was obtained from this source @ -No Did you review nursing and triage notes (agree or disagree)? Why? @ -I reviewed and agree with nursing and triage notes Were old charts reviewed (outside hosp., previous admission, EMS record, old EKG, old radiological studies, urgent care reports/EKG's, shelter records)? Report findings @ -No old charts were reviewed Differential Diagnosis (chest pain, altered mental status, abdominal pain women, abdominal pain men, vaginal bleeding, musculoskeletal, weakness, fever, dyspnea, syncope, headache, dizziness, GI bleed, back pain, seizure, CVA, palp atations, mental health)? @ -Differential Chest Pain: Stable Angina, Unstable Angina, STEMI, NSTEMI Aortic Dissection, Pneumothorax, Musculoskeletal, Esophageal Spasm GERD, Cholecystitis, Pancreatitis, Zoster, this is not meant to be an all-inclusive list. EKG interpreted by me (3pts min.). @ -See above X-rays interpreted by me (1pt min.). @ -Chest x-ray is nonacute. Redemonstration of bilateral pulmonary nodularity CT interpreted by me (1pt min.). @ -CTA of the chest shows no saddle emboli U/S interpreted by me (1pt. min.). @ -None done What testing was considered but not performed or refused? (CT, X-rays, U/S, labs)? Why? @ -None What meds were considered but not given or refused? Why? @ -None Did you discuss the management of the patient with other professionals (professionals i.e. , MEHDI, TABLET MACHINE OPERATOR, lab, RT, psych nurse, medical social worker, remelt furnace expediter, teacher, chief security and safety officer, bilingual case manager)? Give summary @ -Patient case discussed with hospitalist for admission Was smoking cessation discussed for >3mins.? @ -No Was critical care preformed (if so, how long)? @ -No Were there social determinants of health that impacted care today? How? (Homelessness, low income, unemployed, alcoholism, drug addiction, transportation, low edu. Level, literacy, decrease access to med. care, intermediate, r ehab)? @ -No Was there de-escalation of care discussed even if they declined (Discuss DNR or withdrawal of care, Hospice)? DNR status @ -No What co-morbidities impacted this encounter? (DM, HTN, Smoking, COPD, CAD, Cancer, CVA, ARF, Chemo, Hep., AIDS, mental health diagnosis, sleep apnea, morbid obesity)? @ -None Was patient admitted / discharged? Hospital course, mention meds given and route, prescriptions, significant lab abnormalities, going to OR and other pertinent info. @ -68-year-old female with known bilateral lung cancer presents to the ER for chest pain. Vital signs are stable. Patient not tachycardic. Not hypoxic with normal blood pressure. Laboratory evaluation obtained. Leukocytosis 16.1. Coag panel is unremarkable. D-dimer 3.04. Metabolic panel is within acceptable limits. Calcium significantly elevated level 13.6. Likely related to malignancy. Viral testing negative. Troponin is negative. Patient will be admitted to medicine with consultation to oncology. Patient treated with IV fluids Undiagnosed new problem with uncertain prognosis? @ -No Drug Therapy requiring intensive monitoring for toxicity (Heparin, Nitro, Insulin, Cardizem)? @ -No Were any procedures done? @ -No Diagnosis/symptom? Acute, or Chronic, or Acute on Chronic? Uncomplicated (without systemic symptoms) or Complicated (systemic symptoms)? @ -Hypercalcemia Side effects of treatment? @ -No Exacerbation, Progression, or Severe Exacerbation? @ -No Poses a threat to life or bodily function? How? (Chest pain, USA, CA, pneumonia, PE, COPD, DKA, ARF, appy, cholecystitis, CVA, Diverticulitis, Homicidal, Suicidal, threat to staff... and all critical care pts) @ -yes - Lab Data Result diagrams: 10/09/23 17:47 10/09/23 17:47 Lab Results 10/09/23 10/09/23 10/09/23 Range/Units 17:47 17:47 17:47 WBC 16.1 H (3.8-10.6) k/uL RBC 3.87 (3.80-5.40) m/uL Hgb 10.6 L (11.4-16.0) gm/dL Hct 33.4 L (34.0-46.0) % MCV 86.3 (80.0-100.0) fL MCH 27.3 (25.0-35.0) pg MCHC 31.6 (31.0-37.0) g/dL RDW 17.0 H (11.5-15.5) % Plt Count 339 (150-450) k/uL MPV 7.9 Neutrophils % 84 % Lymphocytes % 5 % Monocytes % 8 % Eosinophils % 1 % Basophils % 0 % Neutrophils # 13.6 H (1.3-7.7) k/uL Lymphocytes # 0.8 L (1.0-4.8) k/uL Monocytes # 1.3 H (0-1.0) k/uL Eosinophils # 0.1 (0-0.7) k/uL Basophils # 0.1 (0-0.2) k/uL Hypochromasia Slight Anisocytosis Slight PT 12.8 H (10.0-12.5) sec INR 1.2 H (<1.2) APTT 23.5 (22.0-30.0) sec D-Dimer 3.04 H (<0.60) mg/L FEU Sodium 134 L (137-145) mmol/L Potassium 4.7 (3.5-5.1) mmol/L Chloride 95 L (98-107) mmol/L Carbon Dioxide 27 (22-30) mmol/L Anion Gap 12 mmol/L BUN 35 H (7-17) mg/dL Creatinine 1.58 H (0.52-1.04) mg/dL Est GFR (CKD-EPI)AfAm 38 (>60 ml/min/1.73 sqM) Est GFR (CKD-EPI)NonAf 33 (>60 ml/min/1.73 sqM) Glucose 103 H (74-99) mg/dL Calcium 13.6 H* (8.4-10.2) mg/dL Magnesium 2.7 H (1.6-2.3) mg/dL Total Bilirubin 1.1 (0.2-1.3) mg/dL AST 41 H (14-36) U/L ALT 14 (4-34) U/L Alkaline Phosphatase 159 H (38-126) U/L Troponin I (0.000-0.034) ng/mL Total Protein 7.2 (6.3-8.2) g/dL Albumin 3.7 (3.5-5.0) g/dL Influenza Type A (PCR) (Not Detectd) Influenza Type B (PCR) (Not Detectd) RSV (PCR) (Not Detectd) SARS-CoV-2 (PCR) (Not Detectd) 10/09/23 10/09/23 Range/Units 17:47 18:46 WBC (3.8-10.6) k/uL RBC (3.80-5.40) m/uL Hgb (11.4-16.0) gm/dL Hct (34.0-46.0) % MCV (80.0-100.0) fL MCH (25.0-35.0) pg MCHC (31.0-37.0) g/dL RDW (11.5-15.5) % Plt Count (150-450) k/uL MPV Neutrophils % % Lymphocytes % % Monocytes % % Eosinophils % % Basophils % % Neutrophils # (1.3-7.7) k/uL Lymphocytes # (1.0-4.8) k/uL Monocytes # (0-1.0) k/uL Eosinophils # (0-0.7) k/uL Basophils # (0-0.2) k/uL Hypochromasia Anisocytosis PT (10.0-12.5) sec INR (<1.2) APTT (22.0-30.0) sec D-Dimer (<0.60) mg/L FEU Sodium (137-145) mmol/L Potassium (3.5-5.1) mmol/L Chloride (98-107) mmol/L Carbon Dioxide (22-30) mmol/L Anion Gap mmol/L BUN (7-17) mg/dL Creatinine (0.52-1.04) mg/dL Est GFR (CKD-EPI)AfAm (>60 ml/min/1.73 sqM) Est GFR (CKD-EPI)NonAf (>60 ml/min/1.73 sqM) Glucose (74-99) mg/dL Calcium (8.4-10.2) mg/dL Magnesium (1.6-2.3) mg/dL Total Bilirubin (0.2-1.3) mg/dL AST (14-36) U/L ALT (4-34) U/L Alkaline Phosphatase (38-126) U/L Troponin I <0.012 (0.000-0.034) ng/mL Total Protein (6.3-8.2) g/dL Albumin (3.5-5.0) g/dL Influenza Type A (PCR) Not Detected (Not Detectd) Influenza Type B (PCR) Not Detected (Not Detectd) RSV (PCR) Not Detected (Not Detectd) SARS-CoV-2 (PCR) Not Detected (Not Detectd) Disposition Clinical Impression: Hypercalcemia Disposition: ADMITTED IP TO THIS HOSP Condition: Fair Referrals: Emery Mckeon MD [Primary Care Provider] - 1-2 days Decision Time: 21:33
[2023-10-09 18:26] LABS: Anisocytosis Slight; Basophils # (A) 0.1 k/uL (0-0.2); Basophils % (A) 0 %; Eosinophils # (A) 0.1 k/uL (0-0.7); Eosinophils % (A) 1 %; HCT 33.4 % (34.0-46.0); HGB 10.6 gm/dL (11.4-16.0); Hypochromasia Slight; Lymphocytes # (A) 0.8 k/uL (1.0-4.8); Lymphocytes % (A) 5 %; MCH 27.3 pg (25.0-35.0); MCHC 31.6 g/dL (31.0-37.0); MCV 86.3 fL (80.0-100.0); Mean Platelet Volume 7.9; Monocytes # (A) 1.3 k/uL (0-1.0); Monocytes % (A) 8 %; Neutrophils # (A) 13.6 k/uL (1.3-7.7); Neutrophils % (A) 84 %; Platelet Count 339 k/uL (150-450); RBC 3.87 m/uL (3.80-5.40); WBC 16.1 k/uL (3.8-10.6)
[2023-10-09 18:40] LABS: ALT 14 U/L (4-34); AST 41 U/L (14-36); African American GFR (CKD) 38 (>60 ml/min/1.73 sqM); Albumin 3.7 g/dL (3.5-5.0); Alkaline Phosphatase 159 U/L (38-126); Anion Gap 12 mmol/L; Blood Urea Nitrogen 35 mg/dL (7-17); Carbon Dioxide 27 mmol/L (22-30); Chloride 95 mmol/L (98-107); Glucose 103 mg/dL (74-99); Magnesium 2.7 mg/dL (1.6-2.3); Non-African American GFR(CKD) 33 (>60 ml/min/1.73 sqM); Potassium 4.7 mmol/L (3.5-5.1); Sodium 134 mmol/L (137-145); Total Bilirubin 1.1 mg/dL (0.2-1.3); Total Protein 7.2 g/dL (6.3-8.2)
[2023-10-09 18:48] LABS: Calcium 13.6 mg/dL (8.4-10.2)
[2023-10-09 18:49] LABS: INR 1.2 (<1.2); Partial Thromboplastin Time 23.5 sec (22.0-30.0); Prothrombin Time 12.8 sec (10.0-12.5)
--- NOTE | 2023-10-09 19:04 | XR ---
EXAMINATION TYPE: XR chest 2V DATE OF EXAM: 10/09/2023 COMPARISON: 09/24/2023 HISTORY: 68-year-old female with chest pain TECHNIQUE: AP and lateral views FINDINGS: Heart normal size. Aorta within normal limits. Innumerable bilateral nodularity redemonstrated, large st left suprahilar and 4.2 cm. IMPRESSION: Ongoing numerous bilateral pulmonary nodularity, largest measuring 4.2 cm at the left suprahilar komal on. We note bronchoscopy on 09/24/2023; correlate for any known diagnosis. Nodularity may be slightly enlarging.
[2023-10-09] MEDS: SODIUM CHLORIDE 0.9% 1,000 ML IV STA (20:34)
[2023-10-09] MEDS ORDERED: NALOXONE 0.4 MG/ML 1 ML VIAL IV PRN (21:28)
[2023-10-09] MEDS: SODIUM CHLORIDE 0.9% 1,000 ML IV SCH (22:36)
--- NOTE | 2023-10-10 01:12 | CT ---
EXAMINATION TYPE: CT angio chest CT DLP: 203.6 mGycm, Automated exposure control for dose reduction was used. DATE OF EXAM: 10/09/2023 9:12 PM COMPARISON: Earlier same date 2V chest x-ray, CT chest without contrast 09/24/2023 CLINICAL INDICATION:Female, 68 years old with history of positive D-dimer; High dimer, lung cancer. TECHNIQUE/CONTRAST: CTA scan of the thorax is performed with IV Contrast, patient injected with 60 cc mL of Isovue 300, M IP images are created and reviewed these are created on a separate workstation.. FINDINGS: Study is limited by suboptimal contrast bolus. The right arm was injected. Heterogeneity in the SVC, right heart, and to a lesser degree pulmonary outflow tract, seems to represent mixing of opacified a nd unopacified blood. There is no clear-cut pulmonary arterial filling defect to convincingly call PE . Pulmonary trunk is nonenlarged measuring 2.6 cm. Right and left main pulmonary arteries appear norm ally enhancing. In the bilateral hilar regions, there is mild narrowing of some of the smaller branch es which are surrounded by hilar adenopathy and pulmonary nodules/masses. Aorta shows mild/moderate mixed mostly calcified atherosclerotic disease without evidence of dissecti on flap. This involves the origins of the branch vessels as well without significant stenosis. Fusifo rm ectasia of the ascending aorta up to 3.9 cm. Descending aorta is 2.6 cm. Heart size is overall normal with an element of LVH possible. There are moderate to severe coronary a rterial calcifications. Small amount of pericardial thickening and/or fluid anteriorly on the left ap pears similar. Nodule up to 1.3 cm within the anterior pericardial fat image 111 is again noted. Lower neck partially shows moderate to heavy atherosclerotic calcifications of the bilateral carotid arteries. Presumed metastatic deposit/lymph node within the left neck measures 1.3 cm essentially unc hanged. An adjacent 0.8 cm soft tissue nodule is also stable. Thyroid appears within normal limits. Multiple enlarged mediastinal nodes appear essentially stable with no new or enlarging nodes seen. Fo r example a lower right anterior paratracheal node measures 1.6 cm. There is again conglomerate right suprahilar mass/adenopathy extending cranially along the right paratracheal region, posterolateral t o the trachea and in contiguity with an approximately 2.4 cm prevertebral mass posterior to the trach ea which is essentially unchanged. Left hilar region mass measures 3.5 x 2.5 cm, either necrotic amber opathy or lung mass. Soft tissue density along the left internal mammary artery measures 2.5 x 1.7 cm . Mass within the right anterior chest wall involving the anterior second rib measures about 4.3 x 3. 1 cm, unchanged. Mass in the lateral right chest wall which appears pleural-based measuring about 2.8 x 1.1 cm, appears essentially stable. This partially involves the adjacent seventh rib, with small c ortical erosions seen with suspected nondisplaced pathologic fracture and there is a small amount of periosteal new bone formation. Acute appearing mildly displaced fracture of the right anterolateral e ighth rib is seen image 126; the fracture appears new from previous but there is a similar appearance of the adjacent rib with partial erosion redemonstrated, therefore this is likely pathologic fractur e. There is a similar appearance of adjacent soft tissue thickening in the chest wall, not easily mukul surable but appears similar to the prior study. This may involve the right hemidiaphragm. Degenerative changes of the thoracic spine again noted without clear evidence of fracture or metastat ic bony lesion. No distinct evidence of new osseous metastatic disease otherwise in the scope of the exam. Heterogeneously dense breast tissues are seen. Mild body wall edema. No definite enlarged axillary no cm. Trachea and right-sided bronchi appear patent. Left mainstem and upper lobe bronchi appear patent, wi th several small bronchial segments coursing adjacent to the largest left upper lobe lung mass. Some density within the left lower lobe bronchi proximally could represent invasion by tumor and/or mucous secretions. There are numerable pulmonary nodules and masses seen again bilaterally. Largest is a left upper lobe mass image 44 series 406 measuring 4.5 x 4.1 cm and measured a similar fashion on the prior was 4.3 x 3.9 cm. Another example is a 3.3 x 2.4 cm pleural-based mass in the left lower lobe image 74, which was 3.2 x 2.3 cm. The numerous other lesions appear to be either stable or minimally enlarged. A few show some small foci of central cavitation. No definite new lesion is seen. No acute infiltrate, ple ural effusion, or pneumothorax. Limited cuts through the upper abdomen redemonstrate severe cirrhotic morphology of the liver. Umbili alo vein likely recanalized, and there are some venous collaterals again seen extending into the ante rior body wall and cranially into the chest; any possible small intermixed metastatic lesions here ca nnot be excluded. Visualized adrenals appear mildly thickened with no clear-cut adrenal mass. There i s a similar appearance of several small intraperitoneal nodular densities within the upper abdomen wh ich likely represent metastatic deposits. A moderate amount of abdominal ascites is again seen, stabl e to minimally increased from prior. A couple of punctate renal calcifications are again seen bilater ally. Amorphous increased attenuation is seen within the stomach, nonspecific. IMPRESSION: 1. No evidence of acute pulmonary arterial embolus. 2. Redemonstrated are findings consistent with extensive metastatic disease, including multiple bila teral lung nodules and masses, largest in the left upper lobe 4.5 cm. Overall the lung lesions appear stable to minimally enlarged. 3. Multiple enlarged mediastinal nodes/metastases, and bilateral hilar adenopathy/masses appear esse ntially unchanged. 4. Small amount of pericardial thickening and/or fluid appears similar. Stable small metastatic nodu le in the pericardial fat. 5. A couple small metastatic deposits in the left neck, and along the left internal mammary artery, appear similar. 6. Mass within the right anterior chest wall involving the anterior second rib appears unchanged. 7. Pleural-based mass in the lateral right chest wall appears stable. This partially erodes the sameer cent seventh rib, and there is suspected nondisplaced pathologic fracture. 8. Acute appearing mildly displaced pathologic fracture of the right anterolateral eighth rib, with a similar appearance of partial erosion of this rib, and adjacent metastatic masslike thickening in t he chest wall. 9. Density within the left lower lobe bronchi proximally could represent invasion by tumor and/or mu cous secretions. 10. Severe hepatic cirrhotic morphology. 11. Similar appearance of several small intraperitoneal nodular densities within the upper abdomen, likely metastatic deposits. 12. Moderate volume ascites, stable to minimally increased from prior. 13. Nonspecific amorphous increased attenuation within the stomach, could represent ingested radiode nse material, pathologic enhancement, or even hemorrhage/GI bleed. Please correlate clinically.
[2023-10-10] MEDS ORDERED: diphenhydrAMINE 25 MG CAP PO PRN (01:40)
--- NOTE | 2023-10-10 02:25 | P.HPIM ---
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 She does have chronic cough and episodes of epistaxis. She also admits to significant weight loss. She was diagnosed and treated for head and neck cancer back in 2022 in December with chemotherapy followed by discovering recurrent cancer later that year toward earlier this year with bronchoscopy confirming squamous cell cancer. Currently awaiting to start immunotherapy Patient also has history of liver cirrhosis secondary to heavy alcohol consumption currently denies any alcohol or smoking Patient otherwise provides very poor history. She indicated that she saw her c ardiologist 2 weeks ago where she had a stress test that was reported to her to be normal at that time however she continued to have those episodes of chest pain. Patient denies any falling she utilizes a cane for ambulation review of systems Pertinent positives as noted in HPI. All other systems were reviewed and are negative on exam Constitutional: No acute distress, cachectic Eyes: Anicteric sclerae, moist conjunctiva, Pupils equal round reactive to light ENMT: NC/AT Oropharynx clear, no erythema, or exudates Lungs: Decreased breath sounds throughout Clear to percussion Normal respiratory effort, no accessory muscle use Cardiovascular: Heart regular in rate and rhythm, No murmurs, gallops, or rubs No peripheral edema Abdominal: Soft Nontender, no guarding, rebound or rigidity Abdomen moving with respiration Normoactive bowel sounds Liver palpable 3-4 fingers below costal margin margin, slightly nodular surface nontender firm to touch Extremities: No digital cyanosis No clubbing Pedal pulses intact and symmetrical Radial pulses intact and symmetrical No calf tenderness Psychiatric: Alert and oriented to person, place and time Neuro Muscles Strength 4/5 in all 4 extremities Sensation to light touch grossly present throughout Cranial nerves II-XII grossly intact Past Medical History Past Medical History: Atrial Fibrillation, Cancer, COPD, Hyperlipidemia, Liver Disease, Rheumatoid Arthritis (RA) Additional Past Medical History / Comment(s): 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 History of Any Multi-Drug Resistant Organisms: None Reported Past Surgical History: Heart Catheterization Additional Past Surgical History / Comment(s): breast biopsy (benign), bilateral eye surgery; Left lymph node biopsy October. paracentesis' Past Anesthesia/Blood Transfusion Reactions: No Reported Reaction Past Psychological History: No Psychological Hx Reported Smoking Status: Current every day smoker Past Alcohol Use History: Abuse Additional Past Alcohol Use History / Comment(s): smokes 2 cigarettes / day, hx of 1 ppd, smoking for 50 years. hx of heavy alcohol use., quit drinking 2016 Past Drug Use History: None Reported Additional Drug Use History / Comment(s): past marijuana use - Past Family History Brother(s) Family Medical History: Cancer Additional Family Medical History / Comment(s): pancreatic cancer Medications and Allergies Home Medications Medication Instructions Recorded Confirmed Type Lactulose [Constulose] 10 gm PO PC-LUNCH 02/06/21 10/09/23 History Rivaroxaban [Xarelto] 20 mg PO HS 02/06/21 10/09/23 History Furosemide [Lasix] 40 mg PO BID 01/26/23 10/09/23 History Midodrine HCl [ProAmatine] 10 mg PO TID 01/26/23 10/09/23 History Spironolactone 100 mg PO DAILY 01/26/23 10/09/23 History Metoprolol Tartrate [Lopressor] 50 mg PO BID 03/26/23 10/09/23 History Calcium Carb/Mag Ox/Zinc Sulf 1 tab PO DAILY 06/24/23 10/09/23 History [Jos-Ofa-Ztot 334-134-5 mg Tab] Rosuvastatin [Crestor] 10 mg PO DAILY 06/24/23 10/09/23 History Acetaminophen Tab [Tylenol Tab] 500 mg PO DIRECTED PRN 08/12/23 10/09/23 History Amiodarone HCl [Pacerone] 100 mg PO DAILY 09/23/23 10/09/23 History Multivit with Calcium,Iron,Min 1 tab PO DAILY 09/23/23 10/09/23 History [Women's Multivitamin] diphenhydrAMINE [Benadryl] 25 - 50 mg PO HS PRN 09/23/23 10/09/23 History Mirtazapine [Remeron] 15 mg PO DIRECTED 10/09/23 10/09/23 History Allergies Allergy/AdvReac Type Severity Reaction Status Date / Time bee venom protein (honey bee) Allergy Nausea & Verified 10/09/23 20:29 Vomiting Physical Exam Vitals: Vital Signs Temp Pulse Pulse Resp BP BP Pulse Ox 10/10/23 01:10 98.6 F 65 16 131/64 98 10/09/23 23:30 62 18 122/66 99 10/09/23 22:51 68 19 127/99 100 10/09/23 17:15 97.9 F 59 L 22 157/68 99 Intake and Output 10/09/23 10/09/23 10/10/23 14:59 22:59 06:59 Output Total 100 Balance -100 Output: Stool 100 Other: Weight 50.349 kg 50.349 kg Results CBC & Chem 7: 10/09/23 17:47 10/09/23 17:47 Labs: Abnormal Lab Results - Last 24 Hours (Table) 10/09/23 10/09/23 10/09/23 Range/Units 17:47 17:47 17:47 WBC 16.1 H (3.8-10.6) k/uL Hgb 10.6 L (11.4-16.0) gm/dL Hct 33.4 L (34.0-46.0) % RDW 17.0 H (11.5-15.5) % Neutrophils # 13.6 H (1.3-7.7) k/uL Lymphocytes # 0.8 L (1.0-4.8) k/uL Monocytes # 1.3 H (0-1.0) k/uL PT 12.8 H (10.0-12.5) sec INR 1.2 H (<1.2) D-Dimer 3.04 H (<0.60) mg/L FEU Sodium 134 L (137-145) mmol/L Chloride 95 L (98-107) mmol/L BUN 35 H (7-17) mg/dL Creatinine 1.58 H (0.52-1.04) mg/dL Glucose 103 H (74-99) mg/dL Calcium 13.6 H* (8.4-10.2) mg/dL Magnesium 2.7 H (1.6-2.3) mg/dL AST 41 H (14-36) U/L Alkaline Phosphatase 159 H (38-126) U/L Assessment and Plan Assessment: 68-year-old female with history of head and neck cancer with recent diagnosis of 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 Liver cirrhosis secondary to alcohol abuse. Coming in for right-sided chest pain recently had a negative stress test about 2 weeks ago however due to persistent pleuritic chest pain and right-sided abdominal pain she came in seeking help, I discussed the case with ED doctor and accepted the admission for moderate hypercalcemia, with acute pathologic fracture of the rib with anticipated length of stay more than 2 midnights Moderate hypercalcemia calcium level 13.6 (13.8 corrected to albumen level) Currently symptomatic with abdominal pain Check PTH intact, vitamin D hydroxy 25 and vitamin D hydroxy 1, 25, phosphorus, Aggressive IV fluid hydration status post 1 L bolus continue with normal saline 150 cc/h, goal urine output more than 100 cc/h Add Lasix IV push 40 mg twice daily starting in the morning to avoid fluid overload due to mild renal impairment Calcitonin 200 units subcu once, reevaluate calcium in the morning if responsive continue twice daily Zoledronic acid one-time dose of 4 mg, due to pathologic fracture to prevent further bone resorption, close monitoring of renal function due to mild impairment reassess in the morning before continuing with therapy, Acute kidney injury Mild elevation of creatinine 1.5, BUN 35 Sodium 134 potassium 4.7 Repeat renal function in the morning Monitor urine output Elevated D-dimer 3.04 with pleuritic chest pain rule out PE CT angio of the chest performed, no acute PE Chronic findings redemonstrated please refer to full report, including redemonstration of extensive metastatic disease multiple bilateral lung nodules and masses and possible pathologic fracture Liver cirrhosis CAT scan picked up on moderate volume ascites that is stable compared to before History of alcohol abuse A-fib on Xarelto Continue Xarelto Continue with amiodarone Continue with metoprolol 50 mg p.o. twice daily History of head and neck cancer Squamous cell cancer of the lung with metastasis Oncology consult for further recommendations Fall precautions Full code DVT prophylaxis on Xarelto for A-fib
[2023-10-10] MEDS: CALCITONIN INJ 200 UNIT/ML (MDV) VIAL SQ ONE (02:58)
[2023-10-10] MEDS: SODIUM CHLORIDE 0.9% 1,000 ML IV SCH (03:00)
[2023-10-10] MEDS: RIVAROXABAN 20 MG TAB PO SCH (03:00)
[2023-10-10] MEDS: ZOLEDRONIC ACID 4 MG in SODIUM CHLORIDE 0.9% 100 ML IV ONE (03:00)
[2023-10-10] MEDS: ATORVASTATIN 20 MG TAB PO SCH (08:52)
[2023-10-10] MEDS: MIDODRINE 5 MG TAB PO SCH (08:52)
[2023-10-10] MEDS: METOPROLOL TARTRATE 50 MG TAB PO SCH (08:52)
[2023-10-10] MEDS: AMIODARONE 100 MG TAB PO SCH (08:52)
[2023-10-10] MEDS: FUROSEMIDE 10 MG/ML 4 ML VIAL IV SCH (09:36)
[2023-10-10 09:41] LABS: HCT 27.9 % (37.2-46.3); HGB 8.9 g/dL (12.0-15.0); MCH 26.5 pg (27.0-32.0); MCHC 31.9 g/dL (32.0-37.0); NRBC Per 100 WBC 0 X 10*3/uL (0.00-0.01); Platelet Count 330 X 10*3/uL (140-440); RBC 3.36 X 10*6/uL (4.10-5.20); RDW 17.6 % (11.5-14.5)
[2023-10-10 10:31] LABS: Phosphorus 4.2 mg/dL (2.4-5.1)
[2023-10-10 10:35] LABS: ALT 12 U/L (8-44); AST 27 U/L (13-35); Albumin 3.5 g/dL (3.8-4.9); Albumin/Globulin Ratio 1.09 Ratio (1.60-3.17); Alkaline Phosphatase 145 U/L (41-126); BUN/Creat Ratio 19.69 Ratio (12.00-20.00); Blood Urea Nitrogen 31.5 mg/dL (9.0-27.0); Calcium 13.7 mg/dL (8.7-10.3); Carbon Dioxide 25.4 mmol/L (21.6-31.8); Chloride 95 mmol/L (96-109); Globulin 3.2 g/dL (1.6-3.3); Glucose 89 mg/dL (70-110); Potassium 3.9 mmol/L (3.5-5.5); Sodium 135 mmol/L (135-145); Total Bilirubin 0.7 mg/dL (0.3-1.2); Total Protein 6.7 g/dL (6.2-8.2)
[2023-10-10 11:01] LABS: Basophils # (A) 0.05 X 10*3/uL (0.00-0.10); Basophils % (A) 0.4 %; Eosinophils # (A) 0.07 X 10*3/uL (0.04-0.35); Eosinophils % (A) 0.5 %; Lymphocytes # (A) 0.68 X 10*3/uL (0.90-5.00); Monocytes # (A) 1.74 X 10*3/uL (0.20-1.00); Monocytes % (A) 12.8 %; Neutrophils % (A) 80.9 %; RBC Morphology Normal (Normal)
--- NOTE | 2023-10-10 11:26 | P.PN ---
Subjective Progress Note Date: 10/10/23 No new complaints. Pt still has some abd pain in the epigastric area, does report some back pain in the middle of her back. Ca is still elevated at 13.5 Gen: In NAD, non-toxic, elderly cachectic woman HEENT: normocephalic, atraumatic, hearing acuity is intant, mucous membranes moist CVS: perfusing all extremities well, no pitting edema, Respiratory: symmetric chest expansion, no accessory muscle use, GI: soft, tenderness to palpation in the epigastrium : no suprapubic tenderness, no CVA tenderness MSK/Derm: no rashes, cyanosis, tenderness to palpation of the mid back around T11/12 Neuro: CN II-XII intact, no motor weakness, Psych: cooperative, euthymic mood, judgment and insight is intact Hospital course: 68-year-old female with history of head and neck cancer 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 Mild elevation of creatinine 1.5, BUN 35 Sodium 134 potassium 4.7 Elevated D-dimer 3.04 with pleuritic chest pain rule out PE CT angio of the chest performed, no acute PE Chronic findings redemonstrated please refer to full report, including redemonstration of extensive metastatic disease multiple bilateral lung nodules and masses and possible pathologic fracture CAT scan picked up on moderate volume ascites that is stable compared to before Assessment/plan: Moderate hypercalcemia calcium level 13.6 (13.8 corrected to albumen level) Currently symptomatic with abdominal pain Check PTH intact, vitamin D hydroxy 25 and vitamin D hydroxy 1, 25, phosphorus, Aggressive IV fluid hydration status post 1 L bolus continue with normal saline 150 cc/h, goal urine output more than 100 cc/h Add Lasix IV push 40 mg twice daily starting in the morning to avoid fluid overload due to mild renal impairment Calcitonin 200 units subcu once, reevaluate calcium in the morning if responsive continue twice daily Zoledronic acid one-time dose of 4 mg, due to pathologic fracture to prevent further bone resorption, close monitoring of renal function due to mild impairment reassess in the morning before continuing with therapy, Acute kidney injury Repeat renal function in the morning Monitor urine output Liver cirrhosis History of alcohol abuse A-fib on Xarelto Continue Xarelto Continue with amiodarone Continue with metoprolol 50 mg p.o. twice daily History of head and neck cancer Squamous cell cancer of the lung with metastasis Oncology consult for further recommendations Fall precautions Full code DVT prophylaxis on Xarelto for A-fib Objective - Vital Signs Vital signs: Vital Signs Temp 98.0 F 10/10/23 07:11 Pulse 68 10/10/23 07:11 Resp 17 10/10/23 07:11 BP 125/60 10/10/23 07:11 Pulse Ox 98 10/10/23 07:11 FiO2 Intake & Output 10/09/23 10/10/23 10/10/23 18:59 06:59 18:59 Output Total 100 Balance -100 Weight 50.349 kg 50.349 kg Output: Stool 100 Other: # Voids 1 1 # Bowel Movements 1 - Labs CBC & Chem 7: 10/10/23 04:51 10/10/23 04:51 Labs: Abnormal Lab Results - Last 24 Hours (Table) 10/09/23 10/09/23 10/09/23 Range/Units 17:47 17:47 17:47 WBC 16.1 H (3.8-10.6) k/uL RBC (4.10-5.20) X 10*6/uL Hgb 10.6 L (11.4-16.0) gm/dL Hct 33.4 L (34.0-46.0) % MCH (27.0-32.0) pg MCHC (32.0-37.0) g/dL RDW 17.0 H (11.5-15.5) % Immature Gran # (0.00-0.04) X 10*3/uL Neutrophils # 13.6 H (1.3-7.7) k/uL Lymphocytes # 0.8 L (1.0-4.8) k/uL Monocytes # 1.3 H (0-1.0) k/uL PT 12.8 H (10.0-12.5) sec INR 1.2 H (<1.2) D-Dimer 3.04 H (<0.60) mg/L FEU Sodium 134 L (137-145) mmol/L Chloride 95 L (98-107) mmol/L Anion Gap (4.00-12.00) mmol/L BUN 35 H (7-17) mg/dL Creatinine 1.58 H (0.52-1.04) mg/dL Est GFR (CKD-EPI) (>=60) Glucose 103 H (74-99) mg/dL Calcium 13.6 H* (8.4-10.2) mg/dL Magnesium 2.7 H (1.6-2.3) mg/dL AST 41 H (14-36) U/L Alkaline Phosphatase 159 H (38-126) U/L Albumin (3.8-4.9) g/dL Albumin/Globulin Ratio (1.60-3.17) Ratio 10/10/23 10/10/23 Range/Units 04:51 04:51 WBC 13.60 H (3.8-10.6) k/uL RBC 3.36 L (4.10-5.20) X 10*6/uL Hgb 8.9 L (11.4-16.0) gm/dL Hct 27.9 L (34.0-46.0) % MCH 26.5 L (27.0-32.0) pg MCHC 31.9 L (32.0-37.0) g/dL RDW 17.6 H (11.5-15.5) % Immature Gran # 0.06 H (0.00-0.04) X 10*3/uL Neutrophils # 11.00 H (1.3-7.7) k/uL Lymphocytes # 0.68 L (1.0-4.8) k/uL Monocytes # 1.74 H (0-1.0) k/uL PT (10.0-12.5) sec INR (<1.2) D-Dimer (<0.60) mg/L FEU Sodium (137-145) mmol/L Chloride 95 L (98-107) mmol/L Anion Gap 14.60 H (4.00-12.00) mmol/L BUN 31.5 H (7-17) mg/dL Creatinine 1.6 H (0.52-1.04) mg/dL Est GFR (CKD-EPI) 35 L (>=60) Glucose (74-99) mg/dL Calcium 13.7 A* (8.4-10.2) mg/dL Magnesium (1.6-2.3) mg/dL AST (14-36) U/L Alkaline Phosphatase 145 H (38-126) U/L Albumin 3.5 L (3.8-4.9) g/dL Albumin/Globulin Ratio 1.09 L (1.60-3.17) Ratio
[2023-10-10] MEDS ORDERED: MORPHINE SULFATE 2 MG/ML SYRINGE IVP PRN ×2 (18:06)
--- NOTE | 2023-10-10 18:36 | P.CONS ---
History of Present Illness - Reason for Consult Consult date: 10/10/23 metastatic cancer Requesting physician: Gautam Molina - Chief Complaint right sided pain - History of Present Illness Ms. 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 Workup in the ER including CT/PE with bilateral lung mets, no PE, and concern for pathologic rib fracture. Blood work revealed acute kidney injury as well as hypercalcemia. She was recently seen by Dr. Lyman about a week ago and palliative immunotherapy was discussed. CT of the abdomen pelvis was ordered to complete staging at that time however it does not appear that this has been done yet. Oncologic history: patient of Dr. Perez Ms Mendoza there is a pleasant white female, with multiple medical problems. The patient states that she had noted a lump in the left upper neck in early 2021. There was slow increase in size with subsequent development of some discomfort. She was referred to ENT when she brought it to the attention of her PCP, in 08/25. She had a CT of the chest without contrast on 07/03/22, that showed stable groundglass nodules assistive of postinflammatory changes, as well as a stable pericardial nodule. Ultrasound of the neck on the same day showed multiple thickened lymph nodes at the area of the palpable mass, largest submandibular one measuring 1.8 x 2 x 1.4 cm. Patient had an ultrasound-guided FNA and core biopsy of the neck mass in 08/18/42, that showed metastatic carcinoma. the material was limited, and after consultation at the [facility] this was initially read as metastatic adenocarcinoma of the head and neck or aerodigestive tract. CT of the soft tissue of the neck on 09/01/23 left neck masses consistent with abnormal adenopathy. A primary mucosal mass was not clearly seen. Carotid Do pplers in 09/19/22 showed no hemodynamically significant stenosis. PET CT on 09/12/22 showed abnormal activity in the left oral cavity near the base of the tongue, extending into the left piriform sinus. Multiple left-sided large nodes, which are positive, proceeding including left parapharyngeal, level II, level III and level IV with the largest 1.7 cm at level III. The patient then underwent triple endoscopy on 10/08/22 revealing the primary site in the left lateral hypopharynx. Biopsy showed invasive poorly differentiated squamous cell carcinoma, p 16 negative, and p40 positive the patient was then referred here, and also to radiation oncology. She denied any prior history of malignancy, other than nonmelanoma skin cancers. She has long-standing history of smoking a pack a day for more than 50 years. He started cutting down in 2016, and currently smokes 2-3 cigarettes a day. She also has a history of heavy alcohol use and alcoholic cirrhosis. She quit in 2016. the patient does have liver decompensation with ascites, requiring large volume paracentesis in 10/23. Prior episode of the same was in 2020. the patient was seen by radiation oncology, and also recommended concurrent chemoradiation. Weekly carboplatin as needed is status post ordered. However the patient had very poor dentition, and was recommended extractions prior to be able to start radiation. the patient completed her dental extractions the end of 11/23. Apparently other lesion was seen involving the left posterior tongue, that was biopsied by the dentist, with results showing squamous cell ca. 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 She is s/p 7 weekly cycles, completing chemotherapy on 01/20/23. She completed radiation on 01/27/23. the patient was then admitted to the hospital in early 02/22 with syncopal/near-syncopal episodes. These were felt to be orthostatic, and improved with hydration and adjustment of the BP medications. she had a follow-up PET scan in 04/25, that unfortunately appeared to show metastatic recurrence of bilateral, positive lung nodules Discussion of options, the patient decided for active treatment. She was referred for a biopsy. However when she went into the hospital for bronchoscopic biopsy ( wk 3 of 06/25) she was found to have a large spontaneous pneumothorax requiring chest tube placement. Therefore biopsy was deferred. the patient slowly recovered from the pneumothorax. Her case was discussed with pulmonary medicine to reschedule her biopsy. this was performed on 09/24/23, and confirmed malignancy with abundant tumor necrosis, and small amounts of malignant cell fragments consistent with squamous cell carcinoma. the tumor was p16 negative, p40 positive, consistent with her head and neck malignancy. 10/01/23: clinic visit. she denied any fever/chills/nausea/vomiting. Respiratory status is at baseline. her swallowing is mostly normal. She states that her appetite and taste are adequate currently. She continues to require large volume paracentesis periodically. she states however that the attempted procedure in wk 2 of 08/26 did not find enough fluid to drain. leg swelling is controlled with intermittent Lasix . She has not noted any new masses. She denied any new cough, or change in mental status. Review of systems otherwise as per HPI and negative out of 10. Palliative intent treatment discussed, and pt opted to proceed with palliative immunotherapy. CT AP ordered to complete staging. 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 History of Any Multi-Drug Resistant Organisms: None Reported Past Surgical History: Heart Catheterization Additional Past Surgical History / Comment(s): breast biopsy (benign), bilateral eye surgery; Left lymph node biopsy October. paracentesis' Past Anesthesia/Blood Transfusion Reactions: No Reported Reaction Past Psychological History: No Psychological Hx Reported Smoking Status: Current every day smoker Past Alcohol Use History: Abuse Additional Past Alcohol Use History / Comment(s): smokes 2 cigarettes / day, hx of 1 ppd, smoking for 50 years. hx of heavy alcohol use., quit drinking 2016 Past Drug Use History: None Reported Additional Drug Use History / Comment(s): past marijuana use - Past Family History Brother(s) Family Medical History: Cancer Additional Family Medical History / Comment(s): pancreatic cancer Medications and Allergies Home Medications Medication Instructions Recorded Confirmed Type Lactulose [Constulose] 10 gm PO PC-LUNCH 02/06/21 10/09/23 History Rivaroxaban [Xarelto] 20 mg PO HS 02/06/21 10/09/23 History Furosemide [Lasix] 40 mg PO BID 01/26/23 10/09/23 History Midodrine HCl [ProAmatine] 10 mg PO TID 01/26/23 10/09/23 History Spironolactone 100 mg PO DAILY 01/26/23 10/09/23 History Metoprolol Tartrate [Lopressor] 50 mg PO BID 03/26/23 10/09/23 History Calcium Carb/Mag Ox/Zinc Sulf 1 tab PO DAILY 06/24/23 10/09/23 History [Dyv-Afd-Fcgj 334-134-5 mg Tab] Rosuvastatin [Crestor] 10 mg PO DAILY 06/24/23 10/09/23 History Acetaminophen Tab [Tylenol Tab] 500 mg PO DIRECTED PRN 08/12/23 10/09/23 History Amiodarone HCl [Pacerone] 100 mg PO DAILY 09/23/23 10/09/23 History Multivit with Calcium,Iron,Min 1 tab PO DAILY 09/23/23 10/09/23 History [Women's Multivitamin] diphenhydrAMINE [Benadryl] 25 - 50 mg PO HS PRN 09/23/23 10/09/23 History Mirtazapine [Remeron] 15 mg PO DIRECTED 10/09/23 10/09/23 History Allergies Allergy/AdvReac Type Severity Reaction Status Date / Time bee venom protein (honey bee) Allergy Nausea & Verified 10/09/23 20:29 Vomiting Physical Exam Vitals: Vital Signs Temp Pulse Pulse Pulse Resp BP BP 10/10/23 12:24 97.6 F 65 19 115/62 10/10/23 07:11 98.0 F 68 17 125/60 10/10/23 01:10 98.6 F 65 16 131/64 10/09/23 23:30 62 18 122/66 10/09/23 22:51 68 19 127/99 10/09/23 17:15 97.9 F 59 L 22 157/68 Pulse Ox 10/10/23 12:24 100 10/10/23 07:11 98 10/10/23 01:10 98 10/09/23 23:30 99 10/09/23 22:51 100 10/09/23 17:15 99 Intake and Output 10/10/23 10/10/23 10/10/23 06:59 14:59 22:59 Other: # Voids 1 1 # Bowel Movements 1 Weight 50.349 kg Patient is sitting up in the side of the bed, appears to be in no acute distress, finishing her dinner. Holding her right side as movement seems to be causing her some discomfort and pain. She is then. No leg swelling. Some tenderness on palpation of the right chest wall. No respiratory distress. Results CBC & Chem 7: 10/10/23 04:51 10/10/23 04:51 Labs: Abnormal Lab Results - Last 24 Hours (Table) 10/09/23 10/09/23 10/09/23 Range/Units 17:47 17:47 17:47 WBC 16.1 H (3.8-10.6) k/uL RBC (4.10-5.20) X 10*6/uL Hgb 10.6 L (11.4-16.0) gm/dL Hct 33.4 L (34.0-46.0) % MCH (27.0-32.0) pg MCHC (32.0-37.0) g/dL RDW 17.0 H (11.5-15.5) % Immature Gran # (0.00-0.04) X 10*3/uL Neutrophils # 13.6 H (1.3-7.7) k/uL Lymphocytes # 0.8 L (1.0-4.8) k/uL Monocytes # 1.3 H (0-1.0) k/uL PT 12.8 H (10.0-12.5) sec INR 1.2 H (<1.2) D-Dimer 3.04 H (<0.60) mg/L FEU Sodium 134 L (137-145) mmol/L Chloride 95 L (98-107) mmol/L Anion Gap (4.00-12.00) mmol/L BUN 35 H (7-17) mg/dL Creatinine 1.58 H (0.52-1.04) mg/dL Est GFR (CKD-EPI) (>=60) Glucose 103 H (74-99) mg/dL Calcium 13.6 H* (8.4-10.2) mg/dL Magnesium 2.7 H (1.6-2.3) mg/dL AST 41 H (14-36) U/L Alkaline Phosphatase 159 H (38-126) U/L Albumin (3.8-4.9) g/dL Albumin/Globulin Ratio (1.60-3.17) Ratio PTH Intact (14.0-72.0) pg/mL 10/10/23 10/10/23 10/10/23 Range/Units 04:51 04:51 04:51 WBC 13.60 H (3.8-10.6) k/uL RBC 3.36 L (4.10-5.20) X 10*6/uL Hgb 8.9 L (11.4-16.0) gm/dL Hct 27.9 L (34.0-46.0) % MCH 26.5 L (27.0-32.0) pg MCHC 31.9 L (32.0-37.0) g/dL RDW 17.6 H (11.5-15.5) % Immature Gran # 0.06 H (0.00-0.04) X 10*3/uL Neutrophils # 11.00 H (1.3-7.7) k/uL Lymphocytes # 0.68 L (1.0-4.8) k/uL Monocytes # 1.74 H (0-1.0) k/uL PT (10.0-12.5) sec INR (<1.2) D-Dimer (<0.60) mg/L FEU Sodium (137-145) mmol/L Chloride 95 L (98-107) mmol/L Anion Gap 14.60 H (4.00-12.00) mmol/L BUN 31.5 H (7-17) mg/dL Creatinine 1.6 H (0.52-1.04) mg/dL Est GFR (CKD-EPI) 35 L (>=60) Glucose (74-99) mg/dL Calcium 13.7 A* (8.4-10.2) mg/dL Magnesium (1.6-2.3) mg/dL AST (14-36) U/L Alkaline Phosphatase 145 H (38-126) U/L Albumin 3.5 L (3.8-4.9) g/dL Albumin/Globulin Ratio 1.09 L (1.60-3.17) Ratio PTH Intact 7.8 L (14.0-72.0) pg/mL CT scan - chest: report reviewed, image reviewed Assessment and Plan Assessment: 1. Right chest pain due to pathologic fracture of the ribs 2. Metastatic head and neck squamous cell carcinoma with lung mets 3. Acute kidney injury 4. Hypercalcemia of malignancy Plan: Ms. Morales is a very pleasant 68-year-old female with multiple comorbidities including history of head and neck squamous cell carcinoma, with lung mets, with the plan of initiation of palliative immunotherapy after discussion of her overall condition a week ago by Dr. Lyman, who is here for right-sided chest pain. Workup revealed SEE with hypercalcemia as well as bilateral lung mets which were known on CT/PE as well as a new pathologic fracture in the right rib. -Hypercalcemia of malignancy with SEE, status post calcitonin and Zometa, continue aggressive hydration and monitor calcium levels -Pathologic fracture, pain control, will start low-dose morphine and titrate as needed for pain control -Bone scan and CT of the abdomen pelvis while patient -Consult radiation oncology, patient known to Dr. Silver. Discussed with patient and her at bedside and they are agreeable to the plan. All their questions were answered. Discussed with nursing staff.
[2023-10-11 09:47] LABS: Anisocytosis Slight; Basophils % (A) 0 %; Eosinophils # (A) 0.1 k/uL (0-0.7); Eosinophils % (A) 1 %; HCT 29.6 % (34.0-46.0); Hypochromasia Marked; Lymphocytes # (A) 0.3 k/uL (1.0-4.8); Lymphocytes % (A) 3 %; MCH 27.3 pg (25.0-35.0); MCHC 30.9 g/dL (31.0-37.0); MCV 88.5 fL (80.0-100.0); Mean Platelet Volume 7.8; Monocytes % (A) 7 %; Neutrophils # (A) 11.9 k/uL (1.3-7.7); Neutrophils % (A) 88 %; Platelet Count 289 k/uL (150-450); RBC 3.34 m/uL (3.80-5.40); RDW 16.8 % (11.5-15.5); WBC 13.5 k/uL (3.8-10.6)
[2023-10-11 10:03] LABS: HGB 9.1 gm/dL (11.4-16.0)
[2023-10-11 10:17] LABS: African American GFR (CKD) 46 (>60 ml/min/1.73 sqM); Anion Gap 11 mmol/L; Blood Urea Nitrogen 34 mg/dL (7-17); Calcium 9.8 mg/dL (8.4-10.2); Carbon Dioxide 19 mmol/L (22-30); Chloride 105 mmol/L (98-107); Glucose 131 mg/dL (74-99); Magnesium 1.9 mg/dL (1.6-2.3); Non-African American GFR(CKD) 40 (>60 ml/min/1.73 sqM); Potassium 3.3 mmol/L (3.5-5.1); Sodium 135 mmol/L (137-145)
--- NOTE | 2023-10-11 12:04 | P.PN ---
Subjective Progress Note Date: 10/11/23 No new complaints. Pts abd pain improved. Gen: In NAD, non-toxic, elderly cachectic woman HEENT: normocephalic, atraumatic, hearing acuity is intant, mucous membranes moist CVS: perfusing all extremities well, no pitting edema, Respiratory: symmetric chest expansion, no accessory muscle use, GI: soft, tenderness to palpation in the epigastrium : no suprapubic tenderness, no CVA tenderness MSK/Derm: no rashes, cyanosis, tenderness to palpation of the mid back around T11/12 Neuro: CN II-XII intact, no motor weakness, Psych: cooperative, euthymic mood, judgment and insight is intact Hospital course: 68-year-old female with history of head and neck cancer 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 Mild elevation of creatinine 1.5, BUN 35 Sodium 134 potassium 4.7 Elevated D-dimer 3.04 with pleuritic chest pain rule out PE CT angio of the chest performed, no acute PE Chronic findings redemonstrated please refer to full report, including redemonstration of extensive metastatic disease multiple bilateral lung nodules and masses and possible pathologic fracture CAT scan picked up on moderate volume ascites that is stable compared to before Assessment/plan: Moderate hypercalcemia calcium level 13.6 (13.8 corrected to albumen level) Currently symptomatic with abdominal pain Check PTH intact, vitamin D hydroxy 25 and vitamin D hydroxy 1, 25, phosphorus, Aggressive IV fluid hydration status post 1 L bolus continue with normal saline 150 cc/h, goal urine output more than 100 cc/h Add Lasix IV push 40 mg twice daily starting in the morning to avoid fluid overload due to mild renal impairment Calcitonin 200 units subcu once, reevaluate calcium in the morning if responsive continue twice daily Zoledronic acid one-time dose of 4 mg, due to pathologic fracture to prevent further bone resorption, close monitoring of renal function due to mild impairment reassess in the morning before continuing with therapy, Acute kidney injury Repeat renal function in the morning Monitor urine output Liver cirrhosis History of alcohol abuse A-fib on Xarelto Continue Xarelto Continue with amiodarone Continue with metoprolol 50 mg p.o. twice daily History of head and neck cancer Squamous cell cancer of the lung with metastasis Oncology consult for further recommendations Fall precautions Full code DVT prophylaxis on Xarelto for A-fib Objective - Vital Signs Vital signs: Vital Signs Temp 98.4 F 10/11/23 07:22 Pulse 65 10/11/23 07:22 Resp 17 10/11/23 07:22 BP 116/68 10/11/23 07:22 Pulse Ox 98 10/11/23 07:22 FiO2 Intake & Output 10/10/23 10/11/23 10/11/23 17:59 06:59 18:59 Intake Total Output Total Balance Intake: Oral Output: Stool Other: # Voids 1 # Bowel Movements 1 - Labs CBC & Chem 7: 10/11/23 09:25 10/11/23 09:25 Labs: Abnormal Lab Results - Last 24 Hours (Table) 10/10/23 10/11/23 10/11/23 Range/Units 04:51 09:25 09:25 WBC 13.5 H (3.8-10.6) k/uL RBC 3.34 L (3.80-5.40) m/uL Hgb 9.1 L D (11.4-16.0) gm/dL Hct 29.6 L (34.0-46.0) % MCHC 30.9 L (31.0-37.0) g/dL RDW 16.8 H (11.5-15.5) % Neutrophils # 11.9 H (1.3-7.7) k/uL Lymphocytes # 0.3 L (1.0-4.8) k/uL Sodium 135 L (137-145) mmol/L Potassium 3.3 L (3.5-5.1) mmol/L Carbon Dioxide 19 L (22-30) mmol/L BUN 34 H (7-17) mg/dL Creatinine 1.36 H (0.52-1.04) mg/dL Glucose 131 H (74-99) mg/dL PTH Intact 7.8 L (14.0-72.0) pg/mL
[2023-10-11] MEDS: ACETAMINOPHEN TAB 500 MG TAB PO PRN (13:52)
[2023-10-11] MEDS: POTASSIUM CHLORIDE ER 20 MEQ TAB.ER PO STA (13:52)
[2023-10-12 11:07] LABS: Basophils # (A) 0.03 X 10*3/uL (0.00-0.10); Basophils % (A) 0.2 %; Eosinophils % (A) 1.4 %; HCT 26.4 % (37.2-46.3); HGB 8.3 g/dL (12.0-15.0); Lymphocytes # (A) 0.49 X 10*3/uL (0.90-5.00); Lymphocytes % (A) 3.3 %; MCH 26.9 pg (27.0-32.0); MCHC 31.4 g/dL (32.0-37.0); MCV 85.4 FL (80.0-97.0); Mean Platelet Volume 10.1 FL (9.5-12.2); Monocytes % (A) 11.6 %; NRBC Per 100 WBC 0 X 10*3/uL (0.00-0.01); Neutrophils # (A) 12.23 X 10*3/uL (1.80-7.70); Neutrophils % (A) 83.2 %; Platelet Count 266 X 10*3/uL (140-440); RBC 3.09 X 10*6/uL (4.10-5.20); RDW 17.6 % (11.5-14.5)
[2023-10-12 11:20] LABS: Magnesium 1.7 mg/dL (1.5-2.4)
[2023-10-12 11:23] LABS: BUN/Creat Ratio 21.17 Ratio (12.00-20.00); Blood Urea Nitrogen 25.4 mg/dL (9.0-27.0); Calcium 8.4 mg/dL (8.7-10.3); Carbon Dioxide 21.5 mmol/L (21.6-31.8); Chloride 102 mmol/L (96-109); Glucose 84 mg/dL (70-110); Potassium 3.7 mmol/L (3.5-5.5); Sodium 136 mmol/L (135-145)
[2023-10-12] MEDS ORDERED: MAGNESIUM HYDROXIDE 2,400 MG/30 ML CUP PO PRN (14:27)
--- NOTE | 2023-10-12 14:28 | P.PN ---
Subjective Progress Note Date: 10/12/23 Principal diagnosis: Squamous cell head and neck cancer In follow-up today patient reports that her pain is moving around, today she is complaining of it and the ribs, on both sides, denies any aggravating factor at this time. She is not reporting any confusion, muscle spasms, nausea or constipation. Objective - Vital Signs Vital signs: Vital Signs Temp 97.5 F L 10/12/23 12:37 Pulse 56 L 10/12/23 12:37 Resp 17 10/12/23 12:37 BP 106/48 10/12/23 12:37 Pulse Ox 100 10/12/23 12:37 FiO2 Intake & Output 10/11/23 10/12/23 10/12/23 18:59 06:59 18:59 Intake Total 240 Balance 240 Intake: Oral 240 Other: Voiding Method Bedside Commode # Voids 1 6 1 # Bowel Movements 1 - Constitutional General appearance: Present: average body habitus, cooperative, no acute distress - EENT Eyes: Present: anicteric sclerae, EOMI ENT: Present: hearing grossly normal - Respiratory Details: Respirations are even and unlabored at rest - Cardiovascular Details: Skin is warm and dry to the touch - Gastrointestinal General gastrointestinal: Present: soft - Neurologic Neurologic: Present: CNII-XII intact (Grossly) - Musculoskeletal Musculoskeletal: Present: generalized weakness - Psychiatric Psychiatric: Present: A&O x's 3, appropriate affect, intact judgment & insight - Labs CBC & Chem 7: 10/12/23 06:04 10/12/23 06:04 Labs: Abnormal Lab Results - Last 24 Hours (Table) 10/12/23 10/12/23 Range/Units 06:04 06:04 WBC 14.70 H (4.50-10.00) X 10*3/uL RBC 3.09 L (4.10-5.20) X 10*6/uL Hgb 8.3 L (12.0-15.0) g/dL Hct 26.4 L (37.2-46.3) % MCH 26.9 L (27.0-32.0) pg MCHC 31.4 L (32.0-37.0) g/dL RDW 17.6 H (11.5-14.5) % Immature Gran # 0.05 H (0.00-0.04) X 10*3/uL Neutrophils # 12.23 H (1.80-7.70) X 10*3/uL Lymphocytes # 0.49 L (0.90-5.00) X 10*3/uL Monocytes # 1.70 H (0.20-1.00) X 10*3/uL Carbon Dioxide 21.5 L (21.6-31.8) mmol/L Anion Gap 12.50 H (4.00-12.00) mmol/L Est GFR (CKD-EPI) 49 L (>=60) BUN/Creatinine Ratio 21.17 H (12.00-20.00) Ratio Calcium 8.4 L (8.7-10.3) mg/dL Assessment and Plan (1) Hypercalcemia of malignancy Current Visit: Yes Status: Resolved Priority: High Code(s): E83.52 - HYPERCALCEMIA SNOMED Code(s): 10311525 (2) Pain due to malignant neoplasm metastatic to bone Current Visit: Yes Status: Acute Priority: High Code(s): G89.3 - NEOPLASM RELATED PAIN (ACUTE) (CHRONIC); C79.51 - SECONDARY MALIGNANT NEOPLASM OF BONE SNOMED Code(s): 868244118 (3) Squamous cell carcinoma of head and neck Current Visit: Yes Status: Chronic Priority: High Code(s): C76.0 - MALIGNA NT NEOPLASM OF HEAD, FACE AND NECK SNOMED Code(s): 780010941 Plan: Hypercalcemia of malignancy -Patient's calcium was 9.8 yesterday. -Patient received zoledronic acid and calcitonin on 10/09. -Please hold any calcium supplements Pathological fracture -Consult placed for Radiation Oncology. Case discussed with Radiation Oncology -Continue pain management -Medications for prevention of narcotic induced constipation ordered Metastatic squamous cell head and neck malignancy with bone and lung metastases -Patient due to start palliative immunotherapy in the near future. Still pending insurance approval and start date.
--- NOTE | 2023-10-12 14:31 | P.PN ---
Subjective Progress Note Date: 10/12/23 Hospital Course: 68-year-old female with history of head and neck cancer 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 Mild elevation of creatinine 1.5, BUN 35 Sodium 134 potassium 4.7 Elevated D-dimer 3.04 with pleuritic chest pain rule out PE. CT angio of the chest performed, no acute PE. Chronic findings redemonstrated, including redemonstration of extensive metastatic disease multiple bilateral lung nodules and masses and possible pathologic fracture. CAT scan picked up on moderate volume ascites that is stable compared to before. Patient also had moderate hypercalcemia, likely secondary to malignancy, started on aggressive IV fluid hydration as well as IV Lasix, also received calcitonin and zoledronic acid. Hypercalcemia resolved. Subjective: Patient seen and examined at bedside. No acute events overnight. Complaining of some abdominal pain, had 2 bowel movements yesterday. Pertinent positives and negatives as discussed above, a complete review of systems was performed and all other systems are negative. Vitals Signs Reviewed. General: Nontoxic, no distress, appears at stated age Derm: Warm, dry Head: Atraumatic, normocephalic, symmetric Eyes: EOMI, no lid lag, anicteric sclera Mouth: No lip lesion, mucus membranes moist Cardiovascular: S1S2 reg, no murmur Lungs: CTA bilateral, no rhonchi, no rales, no accessory muscle use Abdominal: Soft, nontender to palpation, no guarding, no appreciable organomegaly Ext: No gross muscle atrophy, no edema, no contractures Neuro: CN II-XI grossly intact, no focal neuro deficits Psych: Alert, oriented, appropriate affect Data Reviewed Today: Pertinent Labs: WBC 14.7, hemoglobin 8.3, potassium 3.7, creatinine 1.2, magnesium 1.7 Imaging: No new imaging Assessment and Plan: Moderate hypercalcemia, resolved, likely in the setting of malignancy Acute kidney injury, resolved Normal saline decreased to 75 cc an hour, discontinued IV Lasix Continue to monitor renal function and urine output -avoid hypotension -continue midodrine 10 3 times daily History of head and neck cancer Squamous cell cancer of the lung with metastasis Oncology note reviewed, started on low-dose morphine as needed for pain control, bone scan, CT abdomen pelvis pending, radiation oncology consulted Liver cirrhosis History of alcohol abuse A-fib on Xarelto Continue Xarelto Continue with amiodarone Continue with metoprolol 50 mg p.o. twice daily Dyslipidemia Continue atorvastatin 20 daily Chronic normocytic anemia Leukocytosis, likely reactive Repeat CBC tomorrow DVT prophylaxis on Xarelto for A-fib Full code Anticipated discharge place: Pending clinical course Anticipated discharge time: Pending clinical course Objective - Vital Signs Vital signs: Vital Signs Temp 97.5 F L 10/12/23 12:37 Pulse 56 L 10/12/23 12:37 Resp 17 10/12/23 12:37 BP 106/48 10/12/23 12:37 Pulse Ox 100 10/12/23 12:37 FiO2 Intake & Output 10/11/23 10/12/23 10/12/23 18:59 06:59 18:59 Intake Total 240 Balance 240 Intake: Oral 240 Other: Voiding Method Bedside Commode # Voids 1 6 1 # Bowel Movements 1 - Labs CBC & Chem 7: 10/12/23 06:04 10/12/23 06:04 Labs: Abnormal Lab Results - Last 24 Hours (Table) 10/12/23 10/12/23 Range/Units 06:04 06:04 WBC 14.70 H (4.50-10.00) X 10*3/uL RBC 3.09 L (4.10-5.20) X 10*6/uL Hgb 8.3 L (12.0-15.0) g/dL Hct 26.4 L (37.2-46.3) % MCH 26.9 L (27.0-32.0) pg MCHC 31.4 L (32.0-37.0) g/dL RDW 17.6 H (11.5-14.5) % Immature Gran # 0.05 H (0.00-0.04) X 10*3/uL Neutrophils # 12.23 H (1.80-7.70) X 10*3/uL Lymphocytes # 0.49 L (0.90-5.00) X 10*3/uL Monocytes # 1.70 H (0.20-1.00) X 10*3/uL Carbon Dioxide 21.5 L (21.6-31.8) mmol/L Anion Gap 12.50 H (4.00-12.00) mmol/L Est GFR (CKD-EPI) 49 L (>=60) BUN/Creatinine Ratio 21.17 H (12.00-20.00) Ratio Calcium 8.4 L (8.7-10.3) mg/dL
[2023-10-12] MEDS: SENNOSIDES 8.6 MG TAB PO SCH (20:03)
--- NOTE | 2023-10-13 08:58 | P.CONS ---
History of Present Illness - Reason for Consult Consult date: 10/12/23 rib pain Requesting physician: Naif Perez - Chief Complaint rib pain - History of Present Illness The patient is a 68-year-old female with a history of cirrhosis. 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 She completed definitive chemoradiation on 01/29/2023. Unfortunately, she was found to have numerous pulmonary nodules suspicious for metastatic disease in April 2023. She was set up for bronchoscopy, but biopsy was not possible as the patient had a spontaneous left pneumothorax prior to the procedure. Ultimately, the patient underwent repeat biopsy in September 2023 with left lower lung lesion showing squamous cell carcinoma. This is felt to be likely metastatic from her head and neck cancer. The patient was hospitalized secondary to chest pain on 10/09/2023. The patient is a poor historian, and her does help somewhat to filling the gap. She states that she had been having significant pain at home involving the right lateral lower ribs and the right upper chest wall. She also had been having some left-sided ear pain. She states that the pain was up to 10 out of 10 at home, and she was having difficulty getting out of bed. She presented to the ER and underwent a CTA of the chest. This revealed no PE, but there were numerous bilateral pulmonary nodules, the largest measuring 4.5 cm and the left upper lobe. There was a right anterior chest wall mass with invasion of the second rib, as well as a likely pathologic fracture of the left lateral eighth rib. The patient also had suspicious mediastinal, hilar and upper abdominal adenopathy. At the time of my consultation, the patient reports her pain has improved. According to nursing, she has not requested much for pain over the past couple of days except for Tylenol. 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 History of Any Multi-Drug Resistant Organisms: None Reported Past Surgical History: Heart Catheterization Additional Past Surgical History / Comment(s): breast biopsy (benign), bilateral eye surgery; Left lymph node biopsy October. paracentesis' Past Anesthesia/Blood Transfusion Reactions: No Reported Reaction Past Psychological History: No Psychological Hx Reported Smoking Status: Current every day smoker Past Alcohol Use History: Abuse Additional Past Alcohol Use History / Comment(s): smokes 2 cigarettes / day, hx of 1 ppd, smoking for 50 years. hx of heavy alcohol use., quit drinking 2016 Past Drug Use History: None Reported Additional Drug Use History / Comment(s): past marijuana use - Past Family History Brother(s) Family Medical History: Cancer Additional Family Medical History / Comment(s): pancreatic cancer Medications and Allergies Home Medications Medication Instructions Recorded Confirmed Type Lactulose [Constulose] 10 gm PO PC-LUNCH 02/06/21 10/09/23 History Rivaroxaban [Xarelto] 20 mg PO HS 02/06/21 10/09/23 History Furosemide [Lasix] 40 mg PO BID 01/26/23 10/09/23 History Midodrine HCl [ProAmatine] 10 mg PO TID 01/26/23 10/09/23 History Spironolactone 100 mg PO DAILY 01/26/23 10/09/23 History Metoprolol Tartrate [Lopressor] 50 mg PO BID 03/26/23 10/09/23 History Calcium Carb/Mag Ox/Zinc Sulf 1 tab PO DAILY 06/24/23 10/09/23 History [Yvn-Yft-Phit 334-134-5 mg Tab] Rosuvastatin [Crestor] 10 mg PO DAILY 06/24/23 10/09/23 History Acetaminophen Tab [Tylenol Tab] 500 mg PO DIRECTED PRN 08/12/23 10/09/23 History Amiodarone HCl [Pacerone] 100 mg PO DAILY 09/23/23 10/09/23 History Multivit with Calcium,Iron,Min 1 tab PO DAILY 09/23/23 10/09/23 History [Women's Multivitamin] diphenhydrAMINE [Benadryl] 25 - 50 mg PO HS PRN 09/23/23 10/09/23 History Mirtazapine [Remeron] 15 mg PO DIRECTED 10/09/23 10/09/23 History Allergies Allergy/AdvReac Type Severity Reaction Status Date / Time bee venom protein (honey bee) Allergy Nausea & Verified 10/09/23 20:29 Vomiting Physical Exam Vitals: Vital Signs Temp Pulse Resp BP BP Pulse Ox 10/13/23 08:05 98 10/13/23 07:16 97.9 F 63 20 94/46 100/34 98 10/13/23 02:00 98.1 F 70 16 144/72 98 10/12/23 20:00 71 18 10/12/23 19:18 97.8 F 71 16 130/64 100 10/12/23 12:37 97.5 F L 56 L 17 106/48 100 Intake and Output 10/12/23 10/13/23 10/13/23 22:59 06:59 14:59 Intake Total 100 Balance 100 Intake: Oral 100 Other: Voiding Method Bedside Commode # Voids 2 3 1 # Bowel Movements 1 - Constitutional General appearance: no acute distress - EENT Eyes: EOMI, PERRLA ENT: hearing grossly normal - Neck Neck: lymphadenopathy (left neck 2 cm node palpable level III) - Respiratory Respiratory: bilateral: CTA - Cardiovascular Rhythm: regular - Gastrointestinal General gastrointestinal: distended, no tenderness - Integumentary Integumentary: pale - Neurologic Neurologic: CNII-XII intact - Musculoskeletal Musculoskeletal: strength equal bilaterally - Psychiatric Psychiatric: no appropriate affect Results CBC & Chem 7: 10/12/23 06:04 10/12/23 06:04 Labs: Abnormal Lab Results - Last 24 Hours (Table) 10/10/23 10/12/23 10/12/23 Range/Units 04:51 06:04 06:04 WBC 14.70 H (4.50-10.00) X 10*3/uL RBC 3.09 L (4.10-5.20) X 10*6/uL Hgb 8.3 L (12.0-15.0) g/dL Hct 26.4 L (37.2-46.3) % MCH 26.9 L (27.0-32.0) pg MCHC 31.4 L (32.0-37.0) g/dL RDW 17.6 H (11.5-14.5) % Immature Gran # 0.05 H (0.00-0.04) X 10*3/uL Neutrophils # 12.23 H (1.80-7.70) X 10*3/uL Lymphocytes # 0.49 L (0.90-5.00) X 10*3/uL Monocytes # 1.70 H (0.20-1.00) X 10*3/uL Carbon Dioxide 21.5 L (21.6-31.8) mmol/L Anion Gap 12.50 H (4.00-12.00) mmol/L Est GFR (CKD-EPI) 49 L (>=60) BUN/Creatinine Ratio 21.17 H (12.00-20.00) Ratio Calcium 8.4 L (8.7-10.3) mg/dL Vit D 1,25-Dihydroxy 19 L (20 - 79) pg/mL CT scan - chest: report reviewed, image reviewed Assessment and Plan Assessment: The patient is a 68-year-old female with a history of cirrhosis. 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 She completed definitive chemoradiation on 01/29/2023. Unfortunately, she was found to have numerous pulmonary nodules suspicious for metastatic disease in April 2023. She was set up for bronchoscopy, but biopsy was not possible as the patient had a spontaneous left pneumothorax prior to the procedure. Ultimately, the patient underwent repeat biopsy in September 2023 with left lower lung lesion showing squamous cell carcinoma. This is felt to be likely metastatic from her head and neck cancer. The patient was hospitalized secondary to chest pain on 10/09/2023. Plan: 1. Chest-wall pain: This is likely due to the patient's underlying metastatic disease. As detailed above, the patient has a large right anterior chest wall lesion with erosion of the second rib. There is additional likely pathologic fracture of the right lower eighth rib. Despite her presentation with severe pain, the patient actually was not complaining of significant pain at the time of my consultation. I discussed with the patient and her that we could consider a palliative course of radiation to these 2 locations. I explained this could be done as little as 1 week or even 1 treatment. I explained this would likely have minimal toxicity, but possibilities included fatigue, skin irritation, cough, and low risk of late toxicity. 2. Metastatic Sqaumous cell carcinoma of the base of tongue: As detailed above, the patient unfortunately has not undergone any systemic therapy as her biopsy was delayed several months secondary to pneumothorax. The patient has discussed palliative immunotherapy. She appears to be interested in treatment. I will discuss her case further with Dr. Perez. 3. Confusion: On my evaluation, the patient does seem a little bit off of her baseline. I would recommend CT Head w/ contrast to ensure she does not have metastatic disease involving the brain. Time with Patient: Greater than 30
[2023-10-13] MEDS ORDERED: RX INFO: IV CONTRAST WAS GIVEN 1 EACH MISC MISCELLANE PRN (09:08)
[2023-10-13 11:14] LABS: Basophils # (A) 0.03 X 10*3/uL (0.00-0.10); Basophils % (A) 0.3 %; Eosinophils # (A) 0.24 X 10*3/uL (0.04-0.35); Eosinophils % (A) 2.2 %; HCT 24.4 % (37.2-46.3); HGB 7.6 g/dL (12.0-15.0); Lymphocytes # (A) 0.37 X 10*3/uL (0.90-5.00); Lymphocytes % (A) 3.4 %; MCH 26.4 pg (27.0-32.0); MCHC 31.1 g/dL (32.0-37.0); MCV 84.7 FL (80.0-97.0); Mean Platelet Volume 10.2 FL (9.5-12.2); Monocytes # (A) 1.66 X 10*3/uL (0.20-1.00); Monocytes % (A) 15.4 %; NRBC Per 100 WBC 0 X 10*3/uL (0.00-0.01); Neutrophils # (A) 8.43 X 10*3/uL (1.80-7.70); Neutrophils % (A) 78.2 %; Platelet Count 237 X 10*3/uL (140-440); RBC 2.88 X 10*6/uL (4.10-5.20); RDW 17.4 % (11.5-14.5); WBC 10.78 X 10*3/uL (4.50-10.00)
[2023-10-13 11:25] LABS: BUN/Creat Ratio 19.55 Ratio (12.00-20.00); Blood Urea Nitrogen 21.5 mg/dL (9.0-27.0); Calcium 7.7 mg/dL (8.7-10.3); Chloride 105 mmol/L (96-109); Glucose 87 mg/dL (70-110); Potassium 3.2 mmol/L (3.5-5.5); Sodium 136 mmol/L (135-145)
--- NOTE | 2023-10-13 15:08 | P.PN ---
Subjective Progress Note Date: 10/13/23 Hospital Course: 68-year-old female with history of head and neck cancer 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 Mild elevation of creatinine 1.5, BUN 35 Sodium 134 potassium 4.7 Elevated D-dimer 3.04 with pleuritic chest pain rule out PE. CT angio of the chest performed, no acute PE. Chronic findings redemonstrated, including redemonstration of extensive metastatic disease multiple bilateral lung nodules and masses and possible pathologic fracture. CAT scan picked up on moderate volume ascites that is stable compared to before. Patient also had moderate hypercalcemia, likely secondary to malignancy, started on aggressive IV fluid hydration as well as IV Lasix, also received calcitonin and zoledronic acid. Hypercalcemia resolved. Subjective: Patient seen and examined at bedside. No acute events overnight. Had bowel movements yesterday. Pertinent positives and negatives as discussed above, a complete review of systems was performed and all other systems are negative. Vitals Signs Reviewed. General: Nontoxic, no distress, appears at stated age Derm: Warm, dry Head: Atraumatic, normocephalic, symmetric Eyes: EOMI, no lid lag, anicteric sclera Mouth: No lip lesion, mucus membranes moist Cardiovascular: S1S2 reg, no murmur Lungs: CTA bilateral, no rhonchi, no rales, no accessory muscle use Abdominal: Soft, nontender to palpation, no guarding, no appreciable organomegaly Ext: No gross muscle atrophy, no edema, no contractures Neuro: CN II-XI grossly intact, no focal neuro deficits Psych: Alert, oriented, appropriate affect Data Reviewed Today: Pertinent Labs: WBC 10.78, hemoglobin 7.6, platelet 237, potassium 3.2, creatinine 1.1 Imaging: No new imaging Assessment and Plan: Moderate hypercalcemia, resolved, likely in the setting of malignancy Acute kidney injury, resolved Hypokalemia Normal saline at 75 cc an hour Continue to monitor renal function and urine output -avoid hypotension -continue midodrine 10 3 times daily 40 mill equivalent of oral potassium given Repeat BMP and magnesium tomorrow History of head and neck cancer Squamous cell cancer of the lung with metastasis Oncology following, started on low-dose morphine as needed for pain control, bone scan Radiation oncology note reviewed, considering palliative course of radiation Recommended CT head due to concerns for new brain mets given periods of confusion, pending Liver cirrhosis History of alcohol abuse A-fib on Xarelto -Continue Xarelto -Continue with amiodarone -Continue with metoprolol 50 mg p.o. twice daily Dyslipidemia Continue atorvastatin 20 daily Chronic normocytic anemia, worsening Leukocytosis, likely reactive, resolved Repeat CBC tomorrow No active bleeding DVT prophylaxis on Xarelto for A-fib Full code Anticipated discharge place: Pending clinical course Anticipated discharge time: Pending clinical course Objective - Vital Signs Vital signs: Vital Signs Temp 97.8 F 10/13/23 12:41 Pulse 66 10/13/23 12:41 Resp 16 10/13/23 12:41 BP 119/52 10/13/23 12:41 Pulse Ox 97 10/13/23 14:43 FiO2 Intake & Output 10/12/23 10/13/23 10/13/23 18:59 06:59 18:59 Intake Total 100 Balance 100 Intake: Oral 100 Other: Voiding Method Bedside Commode # Voids 1 3 1 # Bowel Movements 1 1 - Labs CBC & Chem 7: 10/13/23 06:04 10/13/23 06:04 Labs: Abnormal Lab Results - Last 24 Hours (Table) 10/10/23 10/13/23 10/13/23 Range/Units 04:51 06:04 06:04 WBC 10.78 H (4.50-10.00) X 10*3/uL RBC 2.88 L (4.10-5.20) X 10*6/uL Hgb 7.6 L (12.0-15.0) g/dL Hct 24.4 L (37.2-46.3) % MCH 26.4 L (27.0-32.0) pg MCHC 31.1 L (32.0-37.0) g/dL RDW 17.4 H (11.5-14.5) % Immature Gran # 0.05 H (0.00-0.04) X 10*3/uL Neutrophils # 8.43 H (1.80-7.70) X 10*3/uL Lymphocytes # 0.37 L (0.90-5.00) X 10*3/uL Monocytes # 1.66 H (0.20-1.00) X 10*3/uL Potassium 3.2 L (3.5-5.5) mmol/L Carbon Dioxide 21.0 L (21.6-31.8) mmol/L Est GFR (CKD-EPI) 54 L (>=60) Calcium 7.7 L (8.7-10.3) mg/dL Vit D 1,25-Dihydroxy 19 L (20 - 79) pg/mL
[2023-10-13] MEDS: POTASSIUM CHLORIDE ER 20 MEQ TAB.ER PO STA (15:30)
--- NOTE | 2023-10-13 18:55 | CT ---
EXAMINATION TYPE: CT brain w con DATE OF EXAM: 10/13/2023 COMPARISON: Head CT 04/17/2023 HISTORY: 68-year-old female malignancy, Increased confusion TECHNIQUE: Contiguous axial scanning of the brain performed with IV Contrast, patient injected with 8 0 cc mL of Isovue 370. Coronal and sagittal reconstructions performed. CT DLP: 1116 mGycm Automated exposure control for dose reduction was used. FINDINGS: Severe white matter hypodensities throughout the bilateral cerebral hemispheres. Other scattered calc ifications in the carotid siphons. Some asymmetric distention of the left superior ophthalmic vein. There is opacification of the left sphenoid sinus with destruction of the inferior posterior maxilla with soft tissue extending to the pterygoid plates, posterior nasopharynx, posterior aspect of the le ft maxillary sinus, and left lateral aspect of the nasopharynx. This measures up to 4.4 cm craniocaud al3 by 2.9 cm wide. There is a focal negative lucency anterior left parietal calvarium with some associated mild perioste al soft tissue. Dural venous sinuses are patent. No midline shift, hydrocephalus, or extra-axial fluid collection is seen. No effacement of cerebral sulci or basal subarachnoid cisterns. There is fluid within the left middle ear cavity and left mastoid air cells. IMPRESSION: 1. DESTRUCTIVE SOFT TISSUE MASS CENTERED WITHIN THE INFERIOR LEFT SPHENOID SINUS EXTENDING INFERIORLY ALONG THE POSTERIOR LEFT MAXILLA, DESTROYING THE POSTERIOR WALL OF THE LEFT MAXILLARY SINUS AND EXTE NDING INTO THE CERVICAL MUCOSAL SPACE OF THE LEFT LATERAL NASOPHARYNX AND POSSIBLY EXTENDING TO THE S OFT PALATE WELL. THIS MEASURES UP TO 2.9 CM WIDE BY 4.4 CM CRANIOCAUDAL. THERE HAS BEEN DRAMATIC P ROGRESSION COMPARED TO 04/17/2023. 2. SECONDARY OBSTRUCTION OF THE TUBOTYMPANIC SYSTEM ON THE LEFT WITH MIDDLE EAR CAVITY AND MASTOID AI R CELL OPACIFICATION. 3. LYTIC METASTASIS TO THE ANTERIOR LEFT PARIETAL CALVARIUM. 4. SEVERE BURDEN OF CHRONIC SMALL VESSEL ISCHEMIC DISEASE. NO ENHANCING INTRACRANIAL METASTASES IDENT IFIED.
--- NOTE | 2023-10-13 20:11 | P.PN ---
Subjective Progress Note Date: 10/13/23 Principal diagnosis: Squamous cell head and neck cancer In follow-up today patient reports that pain is stable, not worse. She denies feeling confused or having trouble thinking. Objective - Vital Signs Vital signs: Vital Signs Temp 97.9 F 10/13/23 07:16 Pulse 63 10/13/23 07:16 Resp 20 10/13/23 07:16 BP 94/46 10/13/23 07:16 Pulse Ox 98 10/13/23 08:05 FiO2 Intake & Output 10/12/23 10/13/23 10/13/23 18:59 06:59 18:59 Intake Total 100 Balance 100 Intake: Oral 100 Other: Voiding Method Bedside Commode # Voids 1 3 1 # Bowel Movements 1 1 - Constitutional General appearance: Present: average body habitus, cooperative, no acute distress - EENT Eyes: Present: anicteric sclerae, EOMI ENT: Present: hearing grossly normal - Respiratory Respiratory: bilateral: CTA - Cardiovascular Rhythm: regular Heart sounds: normal: S1, S2 Abnormal Heart Sounds: Absent: systolic murmur, diastolic murmur, rub, S3 Gallop, S4 Gallop, click, other - Peripheral edema leg Peripheral Edema: bilateral: None - Gastrointestinal General gastrointestinal: Present: normal bowel sounds, soft - Integumentary Integumentary: Present: normal - Neurologic Neurologic: Present: CNII-XII intact - Musculoskeletal Musculoskeletal: Present: generalized weakness - Psychiatric Psychiatric Comment(s): Alert, oriented to self, place, wrong day/date, but knew month Psychiatric: Present: appropriate affect, intact judgment & insight - Labs CBC & Chem 7: 10/13/23 06:04 10/13/23 06:04 Labs: Abnormal Lab Results - Last 24 Hours (Table) 10/10/23 10/12/23 10/13/23 Range/Units 04:51 06:04 06:04 WBC 10.78 H (4.50-10.00) X 10*3/uL RBC 2.88 L (4.10-5.20) X 10*6/uL Hgb 7.6 L (12.0-15.0) g/dL Hct 24.4 L (37.2-46.3) % MCH 26.4 L (27.0-32.0) pg MCHC 31.1 L (32.0-37.0) g/dL RDW 17.4 H (11.5-14.5) % Immature Gran # 0.05 H (0.00-0.04) X 10*3/uL Neutrophils # 8.43 H (1.80-7.70) X 10*3/uL Lymphocytes # 0.37 L (0.90-5.00) X 10*3/uL Monocytes # 1.66 H (0.20-1.00) X 10*3/uL Carbon Dioxide 21.5 L (21.6-31.8) mmol/L Anion Gap 12.50 H (4.00-12.00) mmol/L Est GFR (CKD-EPI) 49 L (>=60) BUN/Creatinine Ratio 21.17 H (12.00-20.00) Ratio Calcium 8.4 L (8.7-10.3) mg/dL Vit D 1,25-Dihydroxy 19 L (20 - 79) pg/mL Assessment and Plan (1) Hypercalcemia of malignancy Current Visit: Yes Status: Resolved Priority: High Code(s): E83.52 - HYPERCALCEMIA SNOMED Code(s): 71852123 (2) Pain due to malignant neoplasm metastatic to bone Current Visit: Yes Status: Acute Priority: High Code(s): G89.3 - NEOPLASM RELATED PAIN (ACUTE) (CHRONIC); C79.51 - SECONDARY MALIGNANT NEOPLASM OF BONE SNOMED Code(s): 633239669 (3) Squamous cell carcinoma of head and neck Current Visit: Yes Status: Chronic Priority: High Code(s): C76.0 - MALIGNANT NEOPLASM OF HEAD, FACE AND NECK SNOMED Code(s): 988258736 Plan: Hypercalcemia of malignancy -Calcium 7.7 today. -Patient received zoledronic acid and calcitonin on 10/09. -Please hold any calcium supplements for now Pathological fracture -Radiation Oncology has seen pt, plans for some radiation to painful bone mets. -Case discussed with Radiation Oncologist. -Continue pain management -Medications for prevention of narcotic induced constipation ordered Metastatic squamous cell head and neck malignancy with bone and lung metastases -Patient due to start palliative immunotherapy in the near future. Still pending insurance approval and start date. -CT head ordered for mild confusion, rule out brain mets Doctor attests: I performed a history and physical examination of this patient, developed impression and plan of care. Discussed with dictator. I agree with dictators note, documented as a scribe.
[2023-10-14 08:35] LABS: Basophils # (A) 0.03 X 10*3/uL (0.00-0.10); Basophils % (A) 0.3 %; Eosinophils # (A) 0.16 X 10*3/uL (0.04-0.35); Eosinophils % (A) 1.5 %; HCT 24.1 % (37.2-46.3); HGB 7.5 g/dL (12.0-15.0); Lymphocytes % (A) 3.6 %; MCH 26.6 pg (27.0-32.0); MCHC 31.1 g/dL (32.0-37.0); MCV 85.5 FL (80.0-97.0); Mean Platelet Volume 10.3 FL (9.5-12.2); Monocytes # (A) 1.65 X 10*3/uL (0.20-1.00); NRBC Per 100 WBC 0 X 10*3/uL (0.00-0.01); Neutrophils # (A) 8.71 X 10*3/uL (1.80-7.70); Neutrophils % (A) 79.1 %; Platelet Count 218 X 10*3/uL (140-440); RBC 2.82 X 10*6/uL (4.10-5.20); RDW 17.8 % (11.5-14.5)
[2023-10-14 09:02] LABS: BUN/Creat Ratio 16.56 Ratio (12.00-20.00); Blood Urea Nitrogen 14.9 mg/dL (9.0-27.0); Calcium 7.2 mg/dL (8.7-10.3); Carbon Dioxide 18.2 mmol/L (21.6-31.8); Chloride 107 mmol/L (96-109); Glucose 83 mg/dL (70-110); Magnesium 1.5 mg/dL (1.5-2.4); Potassium 3.6 mmol/L (3.5-5.5); Sodium 135 mmol/L (135-145)
[2023-10-14 09:25] VITALS: TEMP 97.5
[2023-10-14 11:09] VITALS: BMI 19.0
--- NOTE | 2023-10-14 11:11 | P.PN ---
Subjective Progress Note Date: 10/14/23 Principal diagnosis: Squamous cell head and neck cancer In follow-up today patient reports that pain in the ribs is persistent, not progressive. No PERRY, she does have left ear pain that is persistent. Denies hearing loss or jaw pain. No other acute c/o. Objective - Vital Signs Vital signs: Vital Signs Temp 97.5 F L 10/14/23 08:53 Pulse 73 10/14/23 08:53 Resp 18 10/14/23 08:53 BP 131/66 10/14/23 08:53 Pulse Ox 98 10/14/23 08:53 FiO2 Intake & Output 10/13/23 10/14/23 10/14/23 18:59 06:59 18:59 Intake Total 900 Balance 900 Weight 50.349 kg Intake: Intake, IV Titration 900 Amount Sodium Chloride 0.9% 1, 900 000 ml @ 75 mls/hr IV . [id number] SHREE Rx#:[id number] Other: Voiding Method Bedside Commode Bedside Commode # Voids 1 3 - Constitutional General appearance: Present: cooperative, no acute distress, thin - EENT Eyes: Present: anicteric sclerae, EOMI - Respiratory Details: resp even and unlabored at rest - Cardiovascular Details: skin warm and dry to touch - Peripheral edema leg Peripheral Edema: bilateral: None - Gastrointestinal General gastrointestinal: Present: soft - Integumentary Integumentary: Present: pale - Musculoskeletal Musculoskeletal: Present: generalized weakness, strength equal bilaterally - Psychiatric Psychiatric: Present: A&O x's 3, appropriate affect, intact judgment & insight - Labs CBC & Chem 7: 10/14/23 05:44 10/14/23 05:44 Labs: Abnormal Lab Results - Last 24 Hours (Table) 10/13/23 10/13/23 10/14/23 Range/Units 06:04 06:04 05:44 WBC 10.78 H 11.00 H (4.50-10.00) X 10*3/uL RBC 2.88 L 2.82 L (4.10-5.20) X 10*6/uL Hgb 7.6 L 7.5 L (12.0-15.0) g/dL Hct 24.4 L 24.1 L (37.2-46.3) % MCH 26.4 L 26.6 L (27.0-32.0) pg MCHC 31.1 L 31.1 L (32.0-37.0) g/dL RDW 17.4 H 17.8 H (11.5-14.5) % Immature Gran # 0.05 H 0.05 H (0.00-0.04) X 10*3/uL Neutrophils # 8.43 H 8.71 H (1.80-7.70) X 10*3/uL Lymphocytes # 0.37 L 0.40 L (0.90-5.00) X 10*3/uL Monocytes # 1.66 H 1.65 H (0.20-1.00) X 10*3/uL Potassium 3.2 L (3.5-5.5) mmol/L Carbon Dioxide 21.0 L (21.6-31.8) mmol/L Est GFR (CKD-EPI) 54 L (>=60) Calcium 7.7 L (8.7-10.3) mg/dL 10/14/23 Range/Units 05:44 WBC (4.50-10.00) X 10*3/uL RBC (4.10-5.20) X 10*6/uL Hgb (12.0-15.0) g/dL Hct (37.2-46.3) % MCH (27.0-32.0) pg MCHC (32.0-37.0) g/dL RDW (11.5-14.5) % Immature Gran # (0.00-0.04) X 10*3/uL Neutrophils # (1.80-7.70) X 10*3/uL Lymphocytes # (0.90-5.00) X 10*3/uL Monocytes # (0.20-1.00) X 10*3/uL Potassium (3.5-5.5) mmol/L Carbon Dioxide 18.2 L (21.6-31.8) mmol/L Est GFR (CKD-EPI) (>=60) Calcium 7.2 L (8.7-10.3) mg/dL - Imaging and Cardiology CT Scan - head: report reviewed Assessment and Plan (1) Hypercalcemia of malignancy Current Visit: Yes Status: Resolved Priority: High Code(s): E83.52 - HYPERCALCEMIA SNOMED Code(s): 67366994 (2) Pain due to malignant neoplasm metastatic to bone Current Visit: Yes Status: Acute Priority: High Code(s): G89.3 - NEOPLASM RELATED PAIN (ACUTE) (CHRONIC); C79.51 - SECONDARY MALIGNANT NEOPLASM OF BONE SNOMED Code(s): 056234450 (3) Squamous cell carcinoma of head and neck Current Visit: Yes Status: Chronic Priority: High Code(s): C76.0 - MALIGNANT NEOPLASM OF HEAD, FACE AND NECK SNOMED Code(s): 904943797 Plan: Hypercalcemia of malignancy -Calcium 7.2 today. -Patient received zoledronic acid and calcitonin on 10/09. -Please hold any calcium supplements for now Pathological fracture -Radiation Oncology has seen pt, plans for some radiation to painful bone mets. -Continue pain management. Pt encouraged to request adjustments to pain meds if she does not have adequate pain control. She understands that her pain may not be zero but, it should be controlled enough that she can perform ADLs ect... -Medications for prevention of narcotic induced constipation. Pt reports BM this AM Metastatic squamous cell head and neck malignancy with bone and lung metastases -Patient due to start palliative immunotherapy in the near future. Still pending insurance approval and start date. -CT head report reads opacification of the left sphenoid sinus with destruction of the inferior posterior maxilla with soft tissue extending into the pterygoid plates, posterior nasopharynx, posterior aspect of the left maxillary sinus and left lateral aspect of the nasopharynx, measures 4.4 cm x 2.9 cm. Radiation Oncology will review and make recommendations. Confusion was more likely from hypercalcemia as mentation improves a little each day. -From a Medical Oncology standpoint recommend starting palliative systemic treatment as soon as able. -Will send a copy of this report to patient's ENT Dr. Brady
[2023-10-14 13:25] VITALS: BP 109/58; PULSE 63; RESP 16
--- NOTE | 2023-10-14 13:39 | P.DS ---
Providers Date of admission: 10/09/23 21:28 Expected date of discharge: 10/14/23 Attending physician: Gautam Molina MD Consults: 10/09/23 21:30 Consult Physician Routine Consulting Provider: Naif Perez Consult Reason/Comments: cancer Do you want consulting provider notified?: Yes 10/12/23 14:09 Consult Physician Routine Consulting Provider: Eduardo Silver Consult Reason/Comments: painful bone mets Do you want consulting provider notified?: Already Contacted Primary care physician: Emery Mckeon MD Hospital Course: Discharge Diagnosis: Moderate hypercalcemia Acute kidney injury History of head and neck cancer 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 Mild elevation of creatinine 1.5, BUN 35 Sodium 134 potassium 4.7 Elevated D-dimer 3.04 with pleuritic chest pain rule out PE. CT angio of the chest performed, no acute PE. Chronic findings redemonstrated, including redemonstration of extensive metastatic disease multiple bilateral lung nodules and masses and possible pathologic fracture. CAT scan picked up on moderate volume ascites that is stable compared to before. Patient also had moderate hypercalcemia, likely secondary to malignancy, started on aggressive IV fluid hydration as well as IV Lasix, also received calcitonin and zoledronic acid. Hypercalcemia resolved. Patient seen by oncology, recommending outpatient follow-up for palliative immunotherapy. Radiation oncology also consulted, recommending palliative radiation for her chest wall metastasis. Patient was also encephalopathic, now back to normal likely in the setting of hypercalcemia. CT head did not show destructive soft tissue mass centered within the inferior left sphenoid sinus extending inferiorly along the posterior left maxilla, measuring 2.9 cm wide by 4.4 cm, with progression compared to previous scan in April 2023. 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 Patient started on oral narcotics for pain control, oral diuretics held given euvolemic status as well as increased risk for further dehydration and hypercalcemia. She will follow-up with oncology outpatient as well as PCP. Patient has very poor prognosis, high risk for readmission. Patient seen and examined at bedside. Vital signs reviewed and stable. General: Nontoxic, no distress, appears at stated age Derm: Warm, dry Head: Atraumatic, normocephalic, symmetric Eyes: EOMI, no lid lag, anicteric sclera Mouth: No lip lesion, mucus membranes moist Cardiovascular: S1S2 reg, no murmur Lungs: CTA bilateral, no rhonchi, no rales, no accessory muscle use Abdominal: Soft, nontender to palpation, no guarding, no appreciable organomegaly Ext: No gross muscle atrophy, no edema, no contractures Neuro: CN II-XI grossly intact, no focal neuro deficits Psych: Alert, oriented, appropriate affect A total of 33 minutes of time were spent preparing this complex discharge summary. Patient was discharged on 10/14/2023 at 1314. Patient Condition at Discharge: Fair Plan - Discharge Summary Discharge Rx Participant: No New Discharge Prescriptions: New Morphine Sulfate Ir [MSIR] 15 mg PO Q4H PRN 3 Days #18 tab PRN Reason: Severe Breakthrough Pain Sennosides [Senokot] 8.6 mg PO BID #60 tab Continue Rivaroxaban [Xarelto] 20 mg PO HS Lactulose [Constulose] 10 gm PO PC-LUNCH Midodrine HCl [ProAmatine] 10 mg PO TID Metoprolol Tartrate [Lopressor] 50 mg PO BID Rosuvastatin [Crestor] 10 mg PO DAILY Acetaminophen Tab [Tylenol] 500 mg PO DIRECTED PRN PRN Reason: Pain Amiodarone HCl [Pacerone] 100 mg PO DAILY diphenhydrAMINE [Benadryl] 25 - 50 mg PO HS PRN PRN Reason: Itching Mirtazapine [Remeron] 15 mg PO DIRECTED Discontinued Spironolactone 100 mg PO DAILY Furosemide [Lasix] 40 mg PO BID Multivit with Calcium,Iron,Min [Women's Multivitamin] 1 tab PO DAILY Calcium Carb/Mag Ox/Zinc Sulf [Axx-Ilq-Vxxy 334-134-5 mg Tab] 1 tab PO DAILY Discharge Medication List Lactulose [Constulose] 10 gm PO PC-LUNCH 02/06/21 [History] Rivaroxaban [Xarelto] 20 mg PO HS 02/06/21 [History] Midodrine HCl [ProAmatine] 10 mg PO TID 01/26/23 [History] Metoprolol Tartrate [Lopressor] 50 mg PO BID 03/26/23 [History] Rosuvastatin [Crestor] 10 mg PO DAILY 06/24/23 [History] Acetaminophen Tab [Tylenol] 500 mg PO DIRECTED PRN 08/12/23 [History] Amiodarone HCl [Pacerone] 100 mg PO DAILY 09/23/23 [History] diphenhydrAMINE [Benadryl] 25 - 50 mg PO HS PRN 09/23/23 [History] Mirtazapine [Remeron] 15 mg PO DIRECTED 10/09/23 [History] Morphine Sulfate Ir [MSIR] 15 mg PO Q4H PRN 3 Days #18 tab 10/14/23 [Rx] Sennosides [Senokot] 8.6 mg PO BID #60 tab 10/14/23 [Rx] Follow up Appointment(s)/Referral(s): Naif Perez [STAFF PHYSICIAN] - 11/12/23 1:45 pm (Pt will be contacted about chemo appt and given date and time) Emery Mckeon MD [Primary Care Provider] - 10/20/23 1:30 pm [facility] Visiting Nurse, [NON-STAFF] - 1-2 Days (Agency will call within 24-48 hours after d/c to make an appointment. ) Patient Instructions/Handouts: Constipation (DC), Hypercalcemia (DC) Activity/Diet/Wound Care/Special Instructions: Please see your PCP and oncology. Also follow up with radiation oncologist with regards to palliative radiation. Discharge Disposition: HOME SELF-CARE
--- NOTE | 2023-10-20 13:16 | CDI ---
Documentation Clarification Form Date: 10/20/2023 12:49:32 PM From: Marta Arreola RN, CCDS Email: [email or web address] Admit Date: 10/09/2023 09:28:00 PM Patient Name: Nina Morales Visit Number: [id number] Discharge Date: 10/14/2023 05:30:00 PM ATTENTION: The Clinical Documentation Specialists (CDI) and [facility] Coding Staff appreciate your assistance in clarifying documentation. Please respond to the clarification below the line at the bottom and electronically sign. The CDI & [facility] Coding staff will review the response and follow-up if needed. Please note: Queries are made part of the Legal Health Record. If you have any questions, please contact the author of this message via ITS. Dr. Dennys Rhodes 'Patient was Encephalopathic' is documented in the Discharge Summary. Additional clarification regarding the type of encephalopathy is requested. History/Risk Factors: A fib, COPD, HLD and metastatic head and neck SCC with lung mets. Presented with SOB and chest pain. Admitted with pathologic fracture and hypocalcemia. Clinical Indicators: 10/08-10/13 Labs: Ca 13.6-13.7-9.8-7.2; Cr 1.58-1.6-1.36-0.9; Mg 2.7-1.9-1.5 10/12 Oncology: "CT head ordered for mild confusion, rule out brain mets." 10/12 IM: "Recommended CT head due to concerns for new brain mets given periods of confusion, pending." Discharge summary: "Patient was also encephalopathic, now back to normal likely in the setting of hypercalcemia. CT Brain: Lytic metastases to the anterior left parietal calvarium Treatment: IV Zometa 4mg x1 on 10/09; Calcitonin 200 units SC x1 on 10/09; 1L 0.9 NS IV bolus on 10/08; monitor daily labs 10/09 Oncology Consult: "Hypercalcemia of malignancy with SEE." Please clarify the type of encephalopathy, if known: [x ] Metabolic Encephalopathy due to hypercalcemia [ ] Other, please specify [ ] Unable to determine MTDD
== END 2023-10-14 17:30 | disposition home or self-care (01) | DRG 542 ==
LOC: EC 17:13 → 5NMEDONC 21:28
PROVIDERS: ADMIT Internal Medicine; ATTEND Internal Medicine
DX: M84.48XA Pathological fracture, other site, initial encounter for fracture (principal); G93.41 Metabolic encephalopathy; C78.01 Secondary malignant neoplasm of right lung; N17.9 Acute kidney failure, unspecified; R64 Cachexia; C78.02 Secondary malignant neoplasm of left lung; C79.51 Secondary malignant neoplasm of bone; Z68.1 Body mass index [BMI] 19.9 or less, adult; G93.40 Encephalopathy, unspecified; G89.3 Neoplasm related pain (acute) (chronic); C76.0 Malignant neoplasm of head, face and neck; E83.52 Hypercalcemia; E87.6 Hypokalemia; E78.5 Hyperlipidemia, unspecified; Z91.030 Bee allergy status; I48.91 Unspecified atrial fibrillation; M06.9 Rheumatoid arthritis, unspecified; K70.31 Alcoholic cirrhosis of liver with ascites; R04.0 Epistaxis; Z79.01 Long term (current) use of anticoagulants; Z79.899 Other long term (current) drug therapy; Z85.118 Personal history of other malignant neoplasm of bronchus and lung; Z85.89 Personal history of malignant neoplasm of other organs and systems; Z85.828 Personal history of other malignant neoplasm of skin; Z92.3 Personal history of irradiation
CPT/HCPCS: 36415; 70460; 71046; 71275; 80048; 80053; 82306; 82652; 83735; 83970; 84100; 84484; 85025; 85379; 85610; 85730; 87636; 93005; 94760; 96360; 96361; 99285

== ENCOUNTER 2023-10-27 17:17 | Inpatient (IN) | payer MEDICARE ==
--- NOTE | 2023-10-27 17:34 | ED ---
General Adult HPI - General Source: patient, family Mode of arrival: wheelchair <Alis Bello - Last Filed: 10/27/23 17:34> - General Source: patient, family, RN notes reviewed, old records reviewed Limitations: no limitations <Jonn Haywood - Last Filed: 10/27/23 20:56> - General Stated complaint: DMITRIY,pain all over Time Seen by Provider: 10/27/23 17:33 - History of Present Illness Initial comments: Quick note: 68-year-old female with history of lung cancer presents to the emergency department for evaluation of increased shortness of breath and pain in her right sided rib cage. She was recently hospitalized for high calcium. She was supposed to start radiation a couple of weeks ago but was unable to. (Alis Bello) Patient is a pleasant 68-year-old female presenting to the emergency department with concerns with shortness of breath. Symptoms have progressed over the past several days. Patient has been having decreased appetite and more fatigue. Patient has difficulty getting around and has not been able to make it to radiation. Patient was advised by her doctor to come to the hospital. Primary care physician and family is concerned that patient may need placement. (Jonn Haywood) - Related Data Home Medications Medication Instructions Recorded Confirmed Lactulose [Constulose] 10 gm PO PC-LUNCH 02/06/21 10/09/23 Rivaroxaban [Xarelto] 20 mg PO HS 02/06/21 10/09/23 Midodrine HCl [ProAmatine] 10 mg PO TID 01/26/23 10/09/23 Metoprolol Tartrate [Lopressor] 50 mg PO BID 03/26/23 10/09/23 Rosuvastatin [Crestor] 10 mg PO DAILY 06/24/23 10/09/23 Acetaminophen Tab [Tylenol] 500 mg PO DIRECTED PRN 08/12/23 10/09/23 Amiodarone HCl [Pacerone] 100 mg PO DAILY 09/23/23 10/09/23 diphenhydrAMINE [Benadryl] 25 - 50 mg PO HS PRN 09/23/23 10/09/23 Mirtazapine [Remeron] 15 mg PO DIRECTED 10/09/23 10/09/23 Previous Rx's Medication Instructions Recorded Morphine Sulfate Ir [MSIR] 15 mg PO Q4H PRN 3 Days #18 tab 03/13/24 Sennosides [Senokot] 8.6 mg PO BID #60 tab 10/14/23 Allergies Allergy/AdvReac Type Severity Reaction Status Date / Time bee venom protein (honey bee) Allergy Nausea & Verified 10/09/23 20:29 Vomiting Review of Systems ROS Other: All systems not noted in ROS Statement are negative. <Alis Bello - Last Filed: 10/27/23 17:34> ROS Other: All systems not noted in ROS Statement are negative. Constitutional: Denies: fever Eyes: Denies: eye pain ENT: Denies: ear pain Respiratory: Reports: as per HPI, cough, dyspnea Cardiovascular: Reports: other (Right-sided rib pain with known lesion) Gastrointestinal: Denies: abdominal pain Neurological: Denies: headache <Jonn Haywood - Last Filed: 10/27/23 20:56> ROS Statement: Those systems with pertinent positive or pertinent negative responses have been documented in the HPI. 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 History of Any Multi-Drug Resistant Organisms: None Reported Past Surgical History: Heart Catheterization Additional Past Surgical History / Comment(s): breast biopsy (benign), bilateral eye surgery; Left lymph node biopsy October. paracentesis' Past Anesthesia/Blood Transfusion Reactions: No Reported Reaction Past Psychological History: No Psychological Hx Reported Smoking Status: Current every day smoker Past Alcohol Use History: Abuse Additional Past Alcohol Use History / Comment(s): smokes 2 cigarettes / day, hx of 1 ppd, smoking for 50 years. hx of heavy alcohol use., quit drinking 2016 Past Drug Use History: None Reported Additional Drug Use History / Comment(s): past marijuana use - Past Family History Brother(s) Family Medical History: Cancer Additional Family Medical History / Comment(s): pancreatic cancer <Alis Bello - Last Filed: 10/27/23 17:34> General Exam <Alis Bello - Last Filed: 10/27/23 17:34> Limitations: no limitations General appearance: alert, in no apparent distress Head exam: Present: normocephalic Eye exam: Present: normal appearance Neck exam: Present: normal inspection Respiratory exam: Present: rales Cardiovascular Exam: Present: regular rate, normal rhythm GI/Abdominal exam: Present: soft. Absent: tenderness Extremities exam: Present: normal inspection Neurological exam: Present: alert Psychiatric exam: Present: normal affect, normal mood Skin exam: Present: normal color <Jonn Haywood - Last Filed: 10/27/23 20:56> - General Exam Comments Initial Comments: Visual Physical Exam Vital signs reviewed General: Well-appearing, nontoxic, no acute distress. Head: Normocephalic, atraumatic Eyes: PERRLA, EOMI ENT: Airway patent Chest: Nonlabored breathing Skin: No visual rash, normal skin tone Neuro: Alert and oriented 3 Musculoskeletal: No gross abnormalities (Alis Bello) Course Vital Signs 10/27/23 10/27/23 10/27/23 17:32 18:05 18:56 Temperature 97.3 F L Pulse Rate 84 116 H Respiratory 20 20 18 Rate Blood Pressure 86/54 114/64 O2 Sat by Pulse 97 96 Oximetry 10/27/23 19:00 Temperature 98.1 F Pulse Rate 106 H Respiratory 20 Rate Blood Pressure 127/70 O2 Sat by Pulse 96 Oximetry EKG Findings - EKG Results: EKG: interpreted by ERMD (Inferior Q waves), sinus rhythm, normal axis, normal ST/T EKG shows: tachycardia <Jonn Haywood - Last Filed: 10/27/23 20:56> Medical Decision Making <Alis Bello - Last Filed: 10/27/23 17:34> - Lab Data Result diagrams: 10/27/23 19:19 10/27/23 19:19 <Jonn Haywood - Last Filed: 10/27/23 20:56> - Medical Decision Making Quick note preformed and electronically signed by Alis Bello PA-C (Alis Bello) Was pt. sent in by a medical professional or institution ([facility], [employer], urgent care, hospital, or detention...) When possible be specific @ -No Did you speak to anyone other than the patient for history (EMS, parent, family, police, friend...)? What history was obtained from this source @ -Family is present and help provides history as patient is a poor historian Did you review nursing and triage notes (agree or disagree)? Why? @ -I reviewed and agree with nursing and triage notes Were old charts reviewed (outside hosp., previous admission, EMS record, old EKG, old radiological studies, urgent care reports/EKG's, detention records)? Report findings @ -Previous chest x-ray reviewed Differential Diagnosis (chest pain, altered mental status, abdominal pain women, abdominal pain men, vaginal bleeding, weakness, fever, dyspnea, syncope, headache, dizziness, GI bleed, back pain, seizure, CVA, palpatations, mental health, musculoskeletal)? @ -MDM differential distal EKG interpreted by me (3pts min.). @ -As above X-rays interpreted by me (1pt min.). @ -Chest x-ray shows diffuse metastatic disease similar to previous CT interpreted by me (1pt min.). @ -None done U/S interpreted by me (1pt. min.). @ -None done What testing was considered but not performed or refused? (CT, X-rays, U/S, labs)? Why? @ -None What meds were considered but not given or refused? Why? @ -None Did you discuss the management of the patient with other professionals (professionals i.e. , PA, [employer]ER, lab, RT, psych nurse, drug abuse social worker, concessions manager, teacher, railway patrol officer, spring encaser)? Give summary @ -Discussed with Dr. Haynes who will admit covering Dr. Garza Was smoking cessation discussed for >3mins.? @ -No Was critical care preformed (if so, how long)? @ -No Were there social determinants of health that impacted care today? How? ( Homelessness, low income, unemployed, alcoholism, drug addiction, transportation, low edu. Level, literacy, decrease access to med. care, mcc, rehab)? @ -No Was there de-escalation of care discussed even if they declined (Discuss DNR or withdrawal of care, Hospice)? DNR status @ -No What co-morbidities impacted this encounter? (DM, HTN, Smoking, COPD, CAD, Cancer, CVA, ARF, Chemo, Hep., AIDS, mental health diagnosis, sleep apnea, morbid obesity)? @ -Metastatic lung disease Was patient admitted / discharged? Hospital course, mention meds given and route, prescriptions, significant lab abnormalities, going to OR and other pertinent info. @ -Patient reevaluated and updated. Patient will be admitted with social work consult for possible placement as well as oncology consult. Admission orders written. Patient did test positive for COVID infection Undiagnosed new problem with uncertain prognosis? @ -No Drug Therapy requiring intensive monitoring for toxicity (Heparin, Nitro, Insulin, Cardizem)? @ -No Were any procedures done? @ -No Diagnosis/symptom? @ -Dyspnea, failure to thrive, COVID-19 Acute, or Chronic, or Acute on Chronic? @ -Acute, acute, acute Uncomplicated (without systemic symptoms) or Complicated (systemic symptoms)? @ -Default Side effects of treatment? @ -No Exacerbation, Progression, or Severe Exacerbation? @ -No Poses a threat to life or bodily function? How? (Chest pain, [place], [place], pneumonia, PE, COPD, DKA, ARF, appy, cholecystitis, CVA, Diverticulitis, Homicidal, Suicidal, threat to staff... and all critical care pts) @ -No (Jonn Haywood) - Lab Data Lab Results 10/27/23 10/27/23 10/27/23 Range/Units 17:54 19:19 19:19 WBC 11.6 H (3.8-10.6) k/uL RBC 3.85 (3.80-5.40) m/uL Hgb 10.3 L (11.4-16.0) gm/dL Hct 32.4 L (34.0-46.0) % MCV 84.0 (80.0-100.0) fL MCH 26.7 (25.0-35.0) pg MCHC 31.8 (31.0-37.0) g/dL RDW 18.6 H (11.5-15.5) % Plt Count 118 L D (150-450) k/uL MPV 8.4 Neutrophils % 89 % Lymphocytes % 3 % Monocytes % 6 % Eosinophils % 0 % Basophils % 0 % Neutrophils # 10.3 H (1.3-7.7) k/uL Lymphocytes # 0.3 L (1.0-4.8) k/uL Monocytes # 0.7 (0-1.0) k/uL Eosinophils # 0.0 (0-0.7) k/uL Basophils # 0.0 (0-0.2) k/uL Hypochromasia Moderate Poikilocytosis Slight Anisocytosis Slight Sodium 137 (137-145) mmol/L Potassium 3.1 L (3.5-5.1) mmol/L Chloride 105 (98-107) mmol/L Carbon Dioxide 20 L (22-30) mmol/L Anion Gap 12 mmol/L BUN 25 H (7-17) mg/dL Creatinine 0.81 (0.52-1.04) mg/dL Est GFR (CKD-EPI)AfAm 86 (>60 ml/min/1.73 sqM) Est GFR (CKD-EPI)NonAf 75 (>60 ml/min/1.73 sqM) Glucose 83 (74-99) mg/dL Calcium 8.0 L (8.4-10.2) mg/dL Total Bilirubin 1.6 H (0.2-1.3) mg/dL AST 31 (14-36) U/L ALT 14 (4-34) U/L Alkaline Phosphatase 131 H (38-126) U/L Total Protein 5.9 L (6.3-8.2) g/dL Albumin 2.7 L (3.5-5.0) g/dL Influenza Type A (PCR) Not Detected (Not Detectd) Influenza Type B (PCR) Not Detected (Not Detectd) RSV (PCR) Not Detected (Not Detectd) SARS-CoV-2 (PCR) Detected A (Not Detectd) Disposition <Alis Bello - Last Filed: 10/27/23 17:34> Is patient prescribed a controlled substance at d/c from ED?: No Time of Disposition: 20:56 <Jonn Haywood - Last Filed: 10/27/23 20:56> Clinical Impression: Dyspnea, COVID-19, Failure to thrive Disposition: ADMITTED IP TO THIS HOSP Referrals: Emery Mckeon MD [Primary Care Provider] - 1-2 days
[2023-10-27] MEDS: MORPHINE SULFATE 2 MG/ML SYRINGE IVP STA (18:57)
[2023-10-27] MEDS: IPRATROPIUM-ALBUTEROL 3 ML NEB INHALATION STA (19:41)
[2023-10-27 20:13] LABS: Anisocytosis Slight; Basophils % (A) 0 %; Eosinophils % (A) 0 %; HCT 32.4 % (34.0-46.0); HGB 10.3 gm/dL (11.4-16.0); Hypochromasia Moderate; Lymphocytes # (A) 0.3 k/uL (1.0-4.8); Lymphocytes % (A) 3 %; MCH 26.7 pg (25.0-35.0); MCHC 31.8 g/dL (31.0-37.0); Mean Platelet Volume 8.4; Monocytes # (A) 0.7 k/uL (0-1.0); Monocytes % (A) 6 %; Neutrophils # (A) 10.3 k/uL (1.3-7.7); Neutrophils % (A) 89 %; Poikilocytosis Slight; RBC 3.85 m/uL (3.80-5.40); RDW 18.6 % (11.5-15.5); WBC 11.6 k/uL (3.8-10.6)
--- NOTE | 2023-10-27 20:40 | XR ---
EXAMINATION TYPE: XR chest 2V DATE OF EXAM: 10/27/2023 6:45 PM CLINICAL INDICATION:Female, 68 years old with history of difficulty breathing; [facility] COMPARISON: Chest radiographs from 10/09/2023 and priors TECHNIQUE: XR chest 2V Frontal and lateral views of the chest. FINDINGS: Lungs/Pleura: Scattered metastatic lesions seen throughout the lungs. There is no evidence of pleural effusion, focal consolidation, or pneumothorax. Pulmonary vascularity: Unremarkable. Heart/mediastinum: Cardiomediastinal silhouette is unremarkable. Musculoskeletal: No acute osseous pathology. IMPRESSION: 1. No acute cardiopulmonary disease/process. 2. No demonstration of metastatic disease
[2023-10-27 20:53] LABS: ALT 14 U/L (4-34); AST 31 U/L (14-36); African American GFR (CKD) 86 (>60 ml/min/1.73 sqM); Albumin 2.7 g/dL (3.5-5.0); Alkaline Phosphatase 131 U/L (38-126); Anion Gap 12 mmol/L; Blood Urea Nitrogen 25 mg/dL (7-17); Carbon Dioxide 20 mmol/L (22-30); Chloride 105 mmol/L (98-107); Glucose 83 mg/dL (74-99); Non-African American GFR(CKD) 75 (>60 ml/min/1.73 sqM); Potassium 3.1 mmol/L (3.5-5.1); Sodium 137 mmol/L (137-145); Total Bilirubin 1.6 mg/dL (0.2-1.3); Total Protein 5.9 g/dL (6.3-8.2)
[2023-10-27 20:54] LABS: Platelet Count 118 k/uL (150-450)
[2023-10-27] MEDS ORDERED: NALOXONE 0.4 MG/ML 1 ML VIAL IV PRN (20:57)
[2023-10-27] MEDS: FAMOTIDINE 20 MG TAB PO SCH (21:26)
[2023-10-27] MEDS: POTASSIUM CHLORIDE ER 20 MEQ TAB.ER PO STA (21:26)
[2023-10-27] MEDS: ASCORBIC ACID 500 MG TAB PO SCH (21:27)
[2023-10-27] MEDS: SODIUM CHLORIDE 0.9% 1,000 ML IV SCH (21:27)
--- NOTE | 2023-10-27 22:58 | P.HPIM ---
History of Present Illness H&P Date: 10/27/23 Patient is a 68-year-old female with a PMH of metastatic squamous cell lung cancer (following with Dr. Lyman, currently undergoing therapy), EtOH abuse with liver cirrhosis, A-fib on Xarelto, hyperlipidemia, chronic leukocytosis, who presents to the emergency room with complaints of shortness of breath and chest wall pain. Patient reports that over the past few days she has had gradually worsening right lateral chest wall pain as well as anorexia and shortness of breath. Denied experiencing fever, chills, diarrhea. Chest x-ray in the emergency room revealed scattered metastatic lesions throu ghout the lungs with EKG showing sinus tachycardia with PVCs at 106 bpm with poor baseline. Laboratory evaluation was remarkable for COVID-positive, leukocytosis of 11.6, hemoglobin 10.3, platelet count 118, potassium 3.1, CO2 20, BUN 25, creatinine 0.81, alk phos 131. ED documentation reviewed and case discussed with ED provider. Review of systems: Pertinent positives and negatives as discussed in HPI, a complete review of systems was performed and all other systems are negative. Physical examination: Vital signs reviewed General: non toxic, no distress, appears older than stated age, frail Derm: no unusual rashes/lesions, warm Head: atraumatic, normocephalic, symmetric Eyes: EOMI, no lid lag, anicteric sclera, pupils equal round reactive to light ENT: Nose and ears atraumatic Neck: No cervical lymphadenopathy, trachea midline, supple Mouth: no lip lesion, mucus membranes moist Cardiovascular: S1S2 reg, no murmur, positive dorsalis pedis pulse bilateral, no edema Lungs: Scattered rhonchi without wheezing or rales, no accessory muscle use Abdominal: soft, nontender to palpation, no guarding Ext: muscle strength 4 out of 5 in all 4 extremities grossly, no gross muscle atrophy, no contractures, Neuro: CN II-XI grossly intact, no gross focal neuro deficits Psych: Alert, oriented, appropriate affect Assessment: COVID-19 infection in setting of metastatic lung cancer Hypokalemia Bicytopenia, may be due to ongoing chemotherapy Leukocytosis, chronic, at baseline Chronic conditions: A-fib, hyperlipidemia, alcohol abuse with liver cirrhosis Imaging: Chest x-ray in the emergency room revealed scattered metastatic lesions throughout the lungs with EKG showing sinus tachycardia with PVCs at 106 bpm with poor baseline. Data Review: Laboratory evaluation was remarkable for COVID-positive, leukocytosis of 11.6, hemoglobin 10.3, platelet count 118, potassium 3.1, CO2 20, BUN 25, creatinine 0.81, alk phos 131. Plan: Start patient on Decadron 6 mg p.o. 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 History of Any Multi-Drug Resistant Organisms: None Reported Past Surgical History: Heart Catheterization Additional Past Surgical History / Comment(s): breast biopsy (benign), bilateral eye surgery; Left lymph node biopsy October. paracentesis' Past Anesthesia/Blood Transfusion Reactions: No Reported Reaction Past Psychological History: No Psychological Hx Reported Smoking Status: Current every day smoker Past Alcohol Use History: Abuse Additional Past Alcohol Use History / Comment(s): smokes 2 cigarettes / day, hx of 1 ppd, smoking for 50 years. hx of heavy alcohol use., quit drinking 2016 Past Drug Use History: None Reported Additional Drug Use History / Comment(s): past marijuana use - Past Family History Brother(s) Family Medical History: Cancer Additional Family Medical History / Comment(s): pancreatic cancer Medications and Allergies Home Medications Medication Instructions Recorded Confirmed Type Lactulose [Constulose] 10 gm PO PC-LUNCH 02/06/21 10/09/23 History Rivaroxaban [Xarelto] 20 mg PO HS 02/06/21 10/09/23 History Midodrine HCl [ProAmatine] 10 mg PO TID 01/26/23 10/09/23 History Metoprolol Tartrate [Lopressor] 50 mg PO BID 03/26/23 10/09/23 History Rosuvastatin [Crestor] 10 mg PO DAILY 06/24/23 10/09/23 History Acetaminophen Tab [Tylenol] 500 mg PO DIRECTED PRN 08/12/23 10/09/23 History Amiodarone HCl [Pacerone] 100 mg PO DAILY 09/23/23 10/09/23 History diphenhydrAMINE [Benadryl] 25 - 50 mg PO HS PRN 09/23/23 10/09/23 History Mirtazapine [Remeron] 15 mg PO DIRECTED 10/09/23 10/09/23 History Morphine Sulfate Ir [MSIR] 15 mg PO Q4H PRN 3 Days #18 tab 10/14/23 Rx Sennosides [Senokot] 8.6 mg PO BID #60 tab 10/14/23 Rx Allergies Allergy/AdvReac Type Severity Reaction Status Date / Time bee venom protein (honey bee) Allergy Nausea & Verified 10/09/23 20:29 Vomiting Physical Exam Vitals: Vital Signs Temp Pulse Resp BP Pulse Ox 10/27/23 21:00 98.2 F 105 H 18 137/81 100 10/27/23 20:00 100 18 142/78 99 10/27/23 19:00 98.1 F 106 H 20 127/70 96 10/27/23 18:56 116 H 18 114/64 96 10/27/23 18:05 20 10/27/23 17:32 97.3 F L 84 20 86/54 97 Intake and Output 10/27/23 10/27/23 10/27/23 06:59 14:59 22:59 Other: Weight 54.431 kg Results CBC & Chem 7: 10/27/23 19:19 10/27/23 19:19 Labs: Abnormal Lab Results - Last 24 Hours (Table) 10/27/23 10/27/23 10/27/23 Range/Units 17:54 19:19 19:19 WBC 11.6 H (3.8-10.6) k/uL Hgb 10.3 L (11.4-16.0) gm/dL Hct 32.4 L (34.0-46.0) % RDW 18.6 H (11.5-15.5) % Plt Count 118 L D (150-450) k/uL Neutrophils # 10.3 H (1.3-7.7) k/uL Lymphocytes # 0.3 L (1.0-4.8) k/uL Potassium 3.1 L (3.5-5.1) mmol/L Carbon Dioxide 20 L (22-30) mmol/L BUN 25 H (7-17) mg/dL Calcium 8.0 L (8.4-10.2) mg/dL Total Bilirubin 1.6 H (0.2-1.3) mg/dL Alkaline Phosphatase 131 H (38-126) U/L Total Protein 5.9 L (6.3-8.2) g/dL Albumin 2.7 L (3.5-5.0) g/dL SARS-CoV-2 (PCR) Detected A (Not Detectd)
[2023-10-28] MEDS: dexAMETHasone 2 MG TAB PO SCH (01:04)
[2023-10-28] MEDS: traMADol 50 MG TAB PO PRN (01:47)
[2023-10-28] MEDS: MORPHINE SULFATE 4 MG/ML SYRINGE IV PRN (03:17)
[2023-10-28] MEDS: ZINC SULFATE 220 MG CAP PO SCH (08:46)
[2023-10-28] MEDS: CHOLECALCIFEROL 125 MCG (5000 IU) TABLET PO SCH (08:46)
[2023-10-28 09:02] LABS: ALT 13 U/L (4-34); AST 28 U/L (14-36); African American GFR (CKD) >90 (>60 ml/min/1.73 sqM); Albumin 2.5 g/dL (3.5-5.0); Alkaline Phosphatase 116 U/L (38-126); Anion Gap 10 mmol/L; Blood Urea Nitrogen 25 mg/dL (7-17); Calcium 7.7 mg/dL (8.4-10.2); Carbon Dioxide 19 mmol/L (22-30); Chloride 105 mmol/L (98-107); Glucose 138 mg/dL (74-99); Non-African American GFR(CKD) 79 (>60 ml/min/1.73 sqM); Potassium 3.5 mmol/L (3.5-5.1); Sodium 134 mmol/L (137-145); Total Bilirubin 1.5 mg/dL (0.2-1.3); Total Protein 5.4 g/dL (6.3-8.2)
[2023-10-28 09:11] LABS: Anisocytosis Slight; Basophils % (A) 0 %; Eosinophils % (A) 0 %; HCT 28.4 % (34.0-46.0); Hypochromasia Moderate; Lymphocytes # (A) 0.1 k/uL (1.0-4.8); Lymphocytes % (A) 1 %; MCHC 30.7 g/dL (31.0-37.0); MCV 84.7 fL (80.0-100.0); Mean Platelet Volume 7.7; Monocytes # (A) 0.2 k/uL (0-1.0); Monocytes % (A) 2 %; Neutrophils # (A) 9.1 k/uL (1.3-7.7); Neutrophils % (A) 96 %; Platelet Count 100 k/uL (150-450); Poikilocytosis Slight; RBC 3.35 m/uL (3.80-5.40); RDW 18.9 % (11.5-15.5); WBC 9.5 k/uL (3.8-10.6)
[2023-10-28 09:15] LABS: HGB 8.7 gm/dL (11.4-16.0)
--- NOTE | 2023-10-28 14:29 | P.PN ---
Subjective Progress Note Date: 10/28/23 Hospital Course: 68-year-old female with a PMH of metastatic squamous cell lung cancer (following with Dr. Lyman, currently undergoing therapy), EtOH abuse with liver cirrhosis, A-fib on Xarelto, hyperlipidemia, chronic leukocytosis, who presents to the emergency room with complaints of shortness of breath and chest wall pain. Chest x-ray in the emergency room revealed scattered metastatic lesions throughout the lungs with EKG showing sinus tachycardia with PVCs at 106 bpm with poor baseline . Laboratory evaluation was remarkable for COVID-positive, leukocytosis of 11.6, hemoglobin 10.3, platelet count 118, potassium 3.1, CO2 20, BUN 25, creatinine 0.81, alk phos 131. Patient admitted for acute COVID-19 infection and hypoxic respiratory failure. Subjective: Patient seen and examined at bedside. No acute events overnight. Pertinent positives and negatives as discussed above, a complete review of systems was performed and all other systems are negative. Vitals Signs Reviewed. General: non toxic, no distress, appears older than stated age, frail Derm: no unusual rashes/lesions, warm Head: atraumatic, normocephalic, symmetric Eyes: EOMI, no lid lag, anicteric sclera, pupils equal round reactive to light ENT: Nose and ears atraumatic Neck: No cervical lymphadenopathy, trachea midline, supple Mouth: no lip lesion, mucus membranes moist Cardiovascular: S1S2 reg, no murmur, positive dorsalis pedis pulse bilateral, no edema Lungs: Scattered rhonchi without wheezing or rales, no accessory muscle use Abdominal: soft, nontender to palpation, no guarding Ext: muscle strength 4 out of 5 in all 4 extremities grossly, no gross muscle atrophy, no contractures, Neuro: CN II-XI grossly intact, no gross focal neuro deficits Psych: Alert, oriented, appropriate affect Data Reviewed Today: Pertinent Labs: WBC 9.5, hemoglobin 8.7, platelet 110, sodium 134, potassium 3.5, creatinine 0.77 Imaging: No new imaging Assessment and Plan: Active: COVID-19 infection in setting of metastatic lung cancer Hypokalemia Bicytopenia, may be due to ongoing chemotherapy Leukocytosis, chronic, at baseline Continue Decadron 6 mg p.o. daily Wean oxygen Oncology consulted, pending recommendations Continue IV fluids 75 cc an hour Oral Tylenol as needed, IV morphine as needed, tramadol as needed PT/OT Chronic: A-fib, hyperlipidemia, alcohol abuse with liver cirrhosis DVT ppx: Xarelto Code status: Full code Anticipated discharge place: Pending clinical course Anticipated discharge time: Pending clinical course Objective - Vital Signs Vital signs: Vital Signs Temp 97.9 F 10/28/23 14:00 Pulse 87 10/28/23 14:00 Resp 16 10/28/23 14:00 BP 130/69 10/28/23 14:00 Pulse Ox 97 10/28/23 14:00 FiO2 Intake & Output 10/27/23 10/28/23 10/28/23 18:59 06:59 18:59 Weight 54.431 kg 54.431 kg Other: # Voids 1 - Labs CBC & Chem 7: 10/28/23 08:34 10/28/23 08:34 Labs: Abnormal Lab Results - Last 24 Hours (Table) 10/27/23 10/27/23 10/27/23 Range/Units 17:54 19:19 19:19 WBC 11.6 H (3.8-10.6) k/uL RBC (3.80-5.40) m/uL Hgb 10.3 L (11.4-16.0) gm/dL Hct 32.4 L (34.0-46.0) % MCHC (31.0-37.0) g/dL RDW 18.6 H (11.5-15.5) % Plt Count 118 L D (150-450) k/uL Neutrophils # 10.3 H (1.3-7.7) k/uL Lymphocytes # 0.3 L (1.0-4.8) k/uL Sodium (137-145) mmol/L Potassium 3.1 L (3.5-5.1) mmol/L Carbon Dioxide 20 L (22-30) mmol/L BUN 25 H (7-17) mg/dL Glucose (74-99) mg/dL Calcium 8.0 L (8.4-10.2) mg/dL Total Bilirubin 1.6 H (0.2-1.3) mg/dL Alkaline Phosphatase 131 H (38-126) U/L Total Protein 5.9 L (6.3-8.2) g/dL Albumin 2.7 L (3.5-5.0) g/dL SARS-CoV-2 (PCR) Detected A (Not Detectd) 10/28/23 10/28/23 Range/Units 08:34 08:34 WBC (3.8-10.6) k/uL RBC 3.35 L (3.80-5.40) m/uL Hgb 8.7 L D (11.4-16.0) gm/dL Hct 28.4 L (34.0-46.0) % MCHC 30.7 L (31.0-37.0) g/dL RDW 18.9 H (11.5-15.5) % Plt Count 100 L (150-450) k/uL Neutrophils # 9.1 H (1.3-7.7) k/uL Lymphocytes # 0.1 L (1.0-4.8) k/uL Sodium 134 L (137-145) mmol/L Potassium (3.5-5.1) mmol/L Carbon Dioxide 19 L (22-30) mmol/L BUN 25 H (7-17) mg/dL Glucose 138 H (74-99) mg/dL Calcium 7.7 L (8.4-10.2) mg/dL Total Bilirubin 1.5 H (0.2-1.3) mg/dL Alkaline Phosphatase (38-126) U/L Total Protein 5.4 L (6.3-8.2) g/dL Albumin 2.5 L (3.5-5.0) g/dL SARS-CoV-2 (PCR) (Not Detectd)
[2023-10-28] MEDS: MIDODRINE 5 MG TAB PO SCH (17:37)
--- NOTE | 2023-10-28 20:16 | P.CONS ---
History of Present Illness - Reason for Consult Consult date: 10/28/23 metastatic cancer Requesting physician: Jonn Haywood - Chief Complaint SOB - History of Present Illness Ms. 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 She is a patient of Dr. Perez. The patient states that she had noted a lump in the left upper neck in early 2021. There was slow increase in size with subsequent development of some discomfort. She was referred to ENT when she brought it to the attention of her PCP, in 08/25. She had a CT of the chest without contrast on 07/03/22, that showed stable groundglass nodules assistive of postinflammatory changes, as well as a stable pericardial nodule. Ultrasound of the neck on the same day showed multiple thickened lymph nodes at the area of the palpable mass, largest submandibular one measuring 1.8 x 2 x 1.4 cm. Patient had an ultrasound-guided FNA and core biopsy of the neck mass in 08/18/42, that showed metastatic carcinoma. the material was limited, and after consultation at the [facility] this was initially read as metastatic adenocarcinoma of the head and neck or aerodigestive tract. CT of the soft tissue of the neck on 09/01/23 left neck masses consistent with abnormal adenopathy. A primary mucosal mass was not clearly seen. PET CT on 09/12/22 showed abnormal activity in the left oral cavity near the base of the tongue, extending into the left piriform sinus. Multiple left-sided large nodes, which are positive, proceeding including left parapharyngeal, level II, level III and level IV with the largest 1.7 cm at level III. The patient then underwent triple endoscopy on 10/08/22 revealing the primary site in the left lateral hypopharynx. Biopsy showed invasive poorly differentiated squamous cell carcinoma, p 16 negative, and p40 positive. The patient was seen by radiation oncology, and also recommended concurrent chemoradiation. Weekly carboplatin as needed is status post ordered. However the patient had very poor dentition, and was recommended extractions prior to be able to start radiation. Patient completed her dental extractions the end of 11/23. Apparently other lesion was seen involving the left posterior tongue, that was biopsied by the dentist, with results showing squamous cell ca. However this area was in the proposed RT field, and thus this did not climate change analyst. She started weekly Carbo with RT on 12/09/22. She is s/p 7 weekly cycles, completing chemotherapy on 01/20/23. She completed radiation on 01/27/23. She had a follow-up PET scan in 04/25, that unfortunately appeared to show metastatic recurrence of bilateral, positive lung nodules. Discussion of opti ons, the patient decided for active treatment. She was referred for a biopsy. However when she went into the hospital for bronchoscopic biopsy (06/2023) and she was found to have a large spontaneous pneumothorax requiring chest tube placement. Therefore biopsy was deferred. Biopsy was performed on 09/24/23, and confirmed malignancy with abundant tumor necrosis, and small amounts of malignant cell fragments consistent with squamous cell carcinoma. Tumor was p16 negative, p40 positive, consistent with her head and neck malignancy. She was advised that her malignancy, at the current stage, would not be considered curable and the objective of treatment would be to prolong duration of life and palliation of symptoms. We also discussed comfort care versus active treatment, and prognosis with and without treatment. For active treatment, ICI immunotherapy would be recommended. She ultimately decided to proceed with active treatment. Plan was for patient to start Opdivo, however, patient has yet to start treatment. CT AP ordered for restaging, and was scheduled for 10/07/23, but testing was not obtained. She was admitted at [facility] on 10/09/23 for chest pain, found to have pathologic rib fracture, and was also treated for hypercalcemia. Patient represented to the emergency room with complaints of shortness of breath and right-sided chest pain. HPI somewhat limited due to patient's confusion. Patient reports intermittent right-sided chest pain but denies pain at this time. Denies shortness of breath but reports that she was experiencing cough prior to admission. On admission patient did test positive for COVID infection. Chest x-ray revealed no acute cardiopulmonary processes. CBC revealed, WBC 9.5, hemoglobin 8.7, platelets 100,000. Creatinine 0.77. Bilirubin 1.5, LFTs WNL. Calcium 7.7. Patient is afebrile, SpO2 96% 2L. 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 History of Any Multi-Drug Resistant Organisms: None Reported Past Surgical History: Heart Catheterization Additional Past Surgical History / Comment(s): breast biopsy (benign), bilateral eye surgery; Left lymph node biopsy October. paracentesis' Past Anesthesia/Blood Transfusion Reactions: No Reported Reaction Past Psychological History: No Psychological Hx Reported Smoking Status: Former smoker Past Alcohol Use History: Abuse Additional Past Alcohol Use History / Comment(s): smokes 2 cigarettes / day, hx of 1 ppd, smoking for 50 years. hx of heavy alcohol use., quit drinking 2016 Past Drug Use History: None Reported Additional Drug Use History / Comment(s): past marijuana use - Past Family History Brother(s) Family Medical History: Cancer Additional Family Medical History / Comment(s): pancreatic cancer Medications and Allergies Home Medications Medication Instructions Recorded Confirmed Type Lactulose [Constulose] 10 gm PO PC-LUNCH 02/06/21 10/28/23 History Rivaroxaban [Xarelto] 20 mg PO HS 02/06/21 10/28/23 History Midodrine HCl [ProAmatine] 10 mg PO TID 01/26/23 10/28/23 History Metoprolol Tartrate [Lopressor] 50 mg PO BID 03/26/23 10/28/23 History Rosuvastatin [Crestor] 10 mg PO DAILY 06/24/23 10/28/23 History Acetaminophen Tab [Tylenol] 500 mg PO Q6H PRN 08/12/23 10/28/23 History Amiodarone HCl [Pacerone] 100 mg PO DAILY 09/23/23 10/28/23 History diphenhydrAMINE [Benadryl] 25 - 50 mg PO HS PRN 09/23/23 10/28/23 History Mirtazapine [Remeron] 15 mg PO HS 10/09/23 10/28/23 History Morphine Sulfate Ir [MSIR] 15 mg PO Q4H PRN 3 Days #18 tab 10/14/23 10/28/23 Rx Sennosides [Senokot] 8.6 mg PO BID #60 tab 10/14/23 10/28/23 Rx Allergies Allergy/AdvReac Type Severity Reaction Status Date / Time bee venom protein (honey bee) Allergy Unknown Verified 10/28/23 08:46 Physical Exam Vitals: Vital Signs Temp Pulse Pulse Resp BP BP Pulse Ox 10/28/23 14:00 97.9 F 87 16 130/69 97 10/28/23 07:51 97.8 F 90 19 114/61 96 10/28/23 07:50 96 10/28/23 00:58 98.2 F 96 20 138/72 96 10/28/23 00:00 98 F 106 H 18 135/82 98 10/27/23 23:00 97.7 F 109 H 18 146/85 98 10/27/23 22:00 98.1 F 112 H 18 147/80 99 10/27/23 21:00 98.2 F 105 H 18 137/81 100 10/27/23 20:00 100 18 142/78 99 10/27/23 19:00 98.1 F 106 H 20 127/70 96 10/27/23 18:56 116 H 18 114/64 96 10/27/23 18:05 20 10/27/23 17:32 97.3 F L 84 20 86/54 97 Intake and Output 10/28/23 10/28/23 10/28/23 06:59 14:59 22:59 Other: # Voids 1 Weight 54.431 kg - Constitutional General appearance: average body habitus, no acute distress - EENT Eyes: anicteric sclerae, EOMI ENT: hearing grossly normal - Respiratory breathing is even and unlabored - Cardiovascular skin warm and dry - Gastrointestinal General gastrointestinal: no tenderness - Integumentary Integumentary: no cyanotic - Musculoskeletal Musculoskeletal: generalized weakness - Psychiatric A&Ox1 Results CBC & Chem 7: 10/28/23 08:34 10/28/23 08:34 Labs: Abnormal Lab Results - Last 24 Hours (Table) 10/27/23 10/27/23 10/27/23 Range/Units 17:54 19:19 19:19 WBC 11.6 H (3.8-10.6) k/uL RBC (3.80-5.40) m/uL Hgb 10.3 L (11.4-16.0) gm/dL Hct 32.4 L (34.0-46.0) % MCHC (31.0-37.0) g/dL RDW 18.6 H (11.5-15.5) % Plt Count 118 L D (150-450) k/uL Neutrophils # 10.3 H (1.3-7.7) k/uL Lymphocytes # 0.3 L (1.0-4.8) k/uL Sodium (137-145) mmol/L Potassium 3.1 L (3.5-5.1) mmol/L Carbon Dioxide 20 L (22-30) mmol/L BUN 25 H (7-17) mg/dL Glucose (74-99) mg/dL Calcium 8.0 L (8.4-10.2) mg/dL Total Bilirubin 1.6 H (0.2-1.3) mg/dL Alkaline Phosphatase 131 H (38-126) U/L Total Protein 5.9 L (6.3-8.2) g/dL Albumin 2.7 L (3.5-5.0) g/dL SARS-CoV-2 (PCR) Detected A (Not Detectd) 10/28/23 10/28/23 Range/Units 08:34 08:34 WBC (3.8-10.6) k/uL RBC 3.35 L (3.80-5.40) m/uL Hgb 8.7 L D (11.4-16.0) gm/dL Hct 28.4 L (34.0-46.0) % MCHC 30.7 L (31.0-37.0) g/dL RDW 18.9 H (11.5-15.5) % Plt Count 100 L (150-450) k/uL Neutrophils # 9.1 H (1.3-7.7) k/uL Lymphocytes # 0.1 L (1.0-4.8) k/uL Sodium 134 L (137-145) mmol/L Potassium (3.5-5.1) mmol/L Carbon Dioxide 19 L (22-30) mmol/L BUN 25 H (7-17) mg/dL Glucose 138 H (74-99) mg/dL Calcium 7.7 L (8.4-10.2) mg/dL Total Bilirubin 1.5 H (0.2-1.3) mg/dL Alkaline Phosphatase (38-126) U/L Total Protein 5.4 L (6.3-8.2) g/dL Albumin 2.5 L (3.5-5.0) g/dL SARS-CoV-2 (PCR) (Not Detectd) Chest x-ray: report reviewed CT scan - chest: report reviewed CT Scan - head: report reviewed Assessment and Plan (1) COVID-19 Current Visit: Yes Status: Acute Priority: High Code(s): U07.1 - COVID-19 SNOMED Code(s): 762148130 (2) Dyspnea Current Visit: Yes Status: Acute Priority: High Code(s): R06.00 - DYSPNEA, UNSPECIFIED SNOMED Code(s): 023829980 (3) Pain due to malignant neoplasm metastatic to bone Current Visit: Yes Status: Acute Priority: Medium Code(s): G89.3 - NEOPLASM RELATED PAIN (ACUTE) (CHRONIC); C79.51 - SECONDARY MALIGNANT NEOPLASM OF BONE SNOMED Code(s): 544854610 (4) Squamous cell carcinoma of head and neck Current Visit: Yes Status: Chronic Priority: Medium Code(s): C76.0 - MALIGNANT NEOPLASM OF HEAD, FACE AND NECK SNOMED Code(s): 359306619 Plan: COVID: -Tested positive for COVID infection upon admission -Defer management to admitting team Right chest wall pain, pathological fracture -Has established care with radiation Oncology. With plans for radiation to painful bone mets. Will discuss case with rad/onc to see what treatments have been received since last admission -Continue pain management -Medications for prevention of narcotic induced constipation ordered Confusion: -Recent admission for hypercalcemia of malignancy -Calcium 7.7 today -CT brain w/ on 10/13/23 showed no evidence of intracranial metastasis -Confusion may be due acute COVID infection. Will obtain UA and ammonia level Metastatic squamous cell head and neck malignancy with bone and lung metastases -Full oncological history in HPI -Patient due to start palliative immunotherapy in the near future -Will obtain CT AP outpt once acutely recovered -F/u scheduled on 11/[address] Perez
[2023-10-28] MEDS: MIRTAZAPINE 15 MG TAB PO SCH (22:02)
[2023-10-28] MEDS: SENNOSIDES 8.6 MG TAB PO SCH (22:02)
[2023-10-28] MEDS: METOPROLOL TARTRATE 50 MG TAB PO SCH (22:02)
[2023-10-28] MEDS: RIVAROXABAN 15 MG TAB PO SCH (22:03)
[2023-10-29 07:43] LABS: Anisocytosis Slight; Basophils # (A) 0.1 k/uL (0-0.2); Basophils % (A) 0 %; Eosinophils % (A) 0 %; HCT 28.3 % (34.0-46.0); HGB 8.7 gm/dL (11.4-16.0); Hypochromasia Marked; Lymphocytes # (A) 0.2 k/uL (1.0-4.8); Lymphocytes % (A) 1 %; MCH 26.2 pg (25.0-35.0); MCHC 30.8 g/dL (31.0-37.0); Mean Platelet Volume 9.2; Monocytes # (A) 1.1 k/uL (0-1.0); Monocytes % (A) 4 %; Neutrophils # (A) 24.2 k/uL (1.3-7.7); Neutrophils % (A) 94 %; Platelet Count 117 k/uL (150-450); Poikilocytosis Slight; RBC 3.32 m/uL (3.80-5.40); RDW 19.2 % (11.5-15.5); WBC 25.7 k/uL (3.8-10.6)
[2023-10-29 07:55] LABS: African American GFR (CKD) >90 (>60 ml/min/1.73 sqM); Anion Gap 12 mmol/L; Blood Urea Nitrogen 27 mg/dL (7-17); Carbon Dioxide 17 mmol/L (22-30); Chloride 108 mmol/L (98-107); Glucose 115 mg/dL (74-99); Non-African American GFR(CKD) 81 (>60 ml/min/1.73 sqM); Sodium 137 mmol/L (137-145)
[2023-10-29 07:57] LABS: Potassium 4.1 mmol/L (3.5-5.1)
[2023-10-29] MEDS: AMIODARONE 100 MG TAB PO SCH (09:18)
[2023-10-29] MEDS: ATORVASTATIN 20 MG TAB PO SCH (09:18)
[2023-10-29 10:56] LABS: Appearance,Urine Clear (Clear); Bilirubin,Urine Negative (Negative); Blood,Urine Negative (Negative); Color,Urine Light Yellow; Glucose,Urine (UA) Negative (Negative); Ketones,Urine Negative (Negative); Leukocyte Esterase,Urine Negative (Negative); Nitrite,Urine Negative (Negative); PH, Urine 6.5 (5.0-8.0); Protein,Urine Trace (Negative); Specific Gravity,Urine 1.016 (1.001-1.035); Urobilinogen,Urine <2.0 mg/dL (<2.0)
--- NOTE | 2023-10-29 15:04 | P.PN ---
Subjective Progress Note Date: 10/29/23 Hospital Course: 68-year-old female with a PMH of metastatic squamous cell lung cancer (following with Dr. Lyman, currently undergoing therapy), EtOH abuse with liver cirrhosis, A-fib on Xarelto, hyperlipidemia, chronic leukocytosis, who presents to the emergency room with complaints of shortness of breath and chest wall pain. Chest x-ray in the emergency room revealed scattered metastatic lesions throughout the lungs with EKG showing sinus tachycardia with PVCs at 106 bpm with poor baseline . Laboratory evaluation was remarkable for COVID-positive, leukocytosis of 11.6, hemoglobin 10.3, platelet count 118, potassium 3.1, CO2 20, BUN 25, creatinine 0.81, alk phos 131. Patient admitted for acute COVID-19 infection and hypoxic respiratory failure. Patient is also very encephalopathic. Having urinary retention. Urine catheter placed. Oncology also consulted. She did pull out her IV line Subjective: Patient seen and examined at bedside. Overnight, has been climbing out of the bed. Pertinent positives and negatives as discussed above, a complete review of systems was performed and all other systems are negative. Vitals Signs Reviewed. General: non toxic, no distress, appears older than stated age, frail Derm: no unusual rashes/lesions, warm Head: atraumatic, normocephalic, symmetric Eyes: EOMI, no lid lag, anicteric sclera, pupils equal round reactive to light ENT: Nose and ears atraumatic Neck: No cervical lymphadenopathy, trachea midline, supple Mouth: no lip lesion, mucus membranes moist Cardiovascular: S1S2 reg, no murmur, positive dorsalis pedis pulse bilateral, no edema Lungs: Scattered rhonchi without wheezing or rales, no accessory muscle use Abdominal: soft, nontender to palpation, no guarding Ext: muscle strength 4 out of 5 in all 4 extremities grossly, no gross muscle atrophy, no contractures, Neuro: CN II-XI grossly intact, no gross focal neuro deficits Psych: Alert, oriented x1 , appropriate affect Data Reviewed Today: Pertinent Labs: WBC 25.7, hemoglobin 8.7, bicarb 17, anion gap 12, creatinine 0.76, urinalysis negative for nitrates and leukocyte esterase Imaging: No new imaging Assessment and Plan: Active: Acute metabolic encephalopathy Acute urinary retention, status post Hendrickson catheter placement COVID-19 infection in setting of metastatic lung cancer Severe leukocytosis, chronic as well as steroid-induced Hypokalemia, resolved Bicytopenia, may be due to ongoing chemotherapy Oncology was planning for palliative radiation in the future Family, including wants to pursue further cancer treatment, however her prognosis is really poor Continue to wean oxygen, continue Decadron 6 mg p.o. daily Encephalopathy likely in the setting of COVID-19 infection as well as acute urinary retention, urinalysis otherwise unremarkable Continue IV fluids 75 cc an hour Oral Tylenol as needed, IV morphine as needed, tramadol as needed, avoid narcotics as much as possible, monitor for sedation Patient to likely go home with at the time of discharge Chronic: A-fib, hyperlipidemia, alcohol abuse with liver cirrhosis DVT ppx: Xarelto Code status: Full code Anticipated discharge place: Pending clinical course Anticipated discharge time: Pending clinical course Objective - Vital Signs Vital signs: Vital Signs Temp 97.5 F L 10/29/23 07:33 Pulse 65 10/29/23 07:33 Resp 18 10/29/23 07:33 BP 114/70 10/29/23 07:33 Pulse Ox 100 10/29/23 07:33 FiO2 Intake & Output 10/28/23 10/29/23 10/29/23 18:59 06:59 18:59 Output Total 662 Balance -662 Output: Urine 300 Uretheral (Hendrickson) 300 Post Void Residual 362 Other: Voiding Method Toilet # Voids 2 2 - Labs CBC & Chem 7: 10/29/23 06:10 10/29/23 06:10 Labs: Abnormal Lab Results - Last 24 Hours (Table) 10/29/23 10/29/23 10/29/23 Range/Units 06:10 06:10 10:10 WBC 25.7 H (3.8-10.6) k/uL RBC 3.32 L (3.80-5.40) m/uL Hgb 8.7 L (11.4-16.0) gm/dL Hct 28.3 L (34.0-46.0) % MCHC 30.8 L (31.0-37.0) g/dL RDW 19.2 H (11.5-15.5) % Plt Count 117 L (150-450) k/uL Neutrophils # 24.2 H (1.3-7.7) k/uL Lymphocytes # 0.2 L (1.0-4.8) k/uL Monocytes # 1.1 H (0-1.0) k/uL Chloride 108 H (98-107) mmol/L Carbon Dioxide 17 L (22-30) mmol/L BUN 27 H (7-17) mg/dL Glucose 115 H (74-99) mg/dL Calcium 8.0 L (8.4-10.2) mg/dL Urine Protein Trace H (Negative)
[2023-10-29] MEDS: LACTULOSE 20 GM/30 ML CUP PO SCH (16:46)
[2023-10-30 09:08] LABS: African American GFR (CKD) >90 (>60 ml/min/1.73 sqM); Anion Gap 6 mmol/L; Blood Urea Nitrogen 22 mg/dL (7-17); Calcium 8.1 mg/dL (8.4-10.2); Carbon Dioxide 24 mmol/L (22-30); Chloride 107 mmol/L (98-107); Glucose 111 mg/dL (74-99); Magnesium 1.7 mg/dL (1.6-2.3); Non-African American GFR(CKD) >90 (>60 ml/min/1.73 sqM); Potassium 3.1 mmol/L (3.5-5.1); Sodium 137 mmol/L (137-145)
[2023-10-30 09:26] LABS: Anisocytosis Slight; HCT 34.8 % (34.0-46.0); HGB 10.7 gm/dL (11.4-16.0); Hypochromasia Marked; MCH 26.3 pg (25.0-35.0); MCHC 30.7 g/dL (31.0-37.0); MCV 85.7 fL (80.0-100.0); Mean Platelet Volume 8.2; Poikilocytosis Slight; RBC 4.06 m/uL (3.80-5.40); RDW 19.3 % (11.5-15.5); WBC 29.4 k/uL (3.8-10.6)
[2023-10-30 10:04] LABS: Lymphocytes # (M) 0.59 k/uL (1.0-4.8); Monocytes # (M) 1.47 k/uL (0-1.0); Neutrophils # (M) 27.64 k/uL (1.3-7.7); Neutrophils % (M) 94 %; Nucleated Red Blood Cells 0 /100 WBC (0-0); Total Cells Counted 200
[2023-10-30 10:06] LABS: Platelet Count 96 k/uL (150-450)
[2023-10-30] MEDS: POTASSIUM CHLORIDE ER 20 MEQ TAB.ER PO STA (14:47)
[2023-10-30] MEDS: LACTULOSE 20 GM/30 ML CUP PO SCH (14:48)
--- NOTE | 2023-10-30 14:48 | P.PN ---
Subjective Progress Note Date: 10/30/23 Hospital Course: 68-year-old female with a PMH of metastatic squamous cell lung cancer (following with Dr. Lyman, currently undergoing therapy), EtOH abuse with liver cirrhosis, A-fib on Xarelto, hyperlipidemia, chronic leukocytosis, who presents to the emergency room with complaints of shortness of breath and chest wall pain. Chest x-ray in the emergency room revealed scattered metastatic lesions throughout the lungs with EKG showing sinus tachycardia with PVCs at 106 bpm with poor baseline . Laboratory evaluation was remarkable for COVID-positive, leukocytosis of 11.6, hemoglobin 10.3, platelet count 118, potassium 3.1, CO2 20, BUN 25, creatinine 0.81, alk phos 131. Patient admitted for acute COVID-19 infection and hypoxic respiratory failure. Patient is also very encephalopathic. Having urinary retention. Urine catheter placed. Oncology also consulted. Encephalopathy slightly improved. Subjective: Patient seen and examined at bedside. No acute events overnight. Pertinent positives and negatives as discussed above, a complete review of systems was performed and all other systems are negative. Vitals Signs Reviewed. General: non toxic, no distress, appears older than stated age, frail Derm: no unusual rashes/lesions, warm Head: atraumatic, normocephalic, symmetric Eyes: EOMI, no lid lag, anicteric sclera, pupils equal round reactive to light ENT: Nose and ears atraumatic Neck: No cervical lymphadenopathy, trachea midline, supple Mouth: no lip lesion, mucus membranes moist Cardiovascular: S1S2 reg, no murmur, positive dorsalis pedis pulse bilateral, no edema Lungs: Scattered rhonchi without wheezing or rales, no accessory muscle use Abdominal: soft, nontender to palpation, no guarding Ext: muscle strength 4 out of 5 in all 4 extremities grossly, no gross muscle atrophy, no contractures, Neuro: CN II-XI grossly intact, no gross focal neuro deficits Psych: Alert, oriented x1 , appropriate affect Data Reviewed Today: Pertinent Labs: WBC 29.4, hemoglobin 10.7, platelet 96, potassium 3.1, magnesium 1.7, ammonia 26 Imaging: No new imaging Assessment and Plan: Due to poor prognosis, hospice has been consulted. Active: Acute metabolic encephalopathy, possibly infectious versus hepatic Acute urinary retention, status post Hendrickson catheter placement COVID-19 infection in setting of metastatic lung cancer Severe leukocytosis, chronic as well as steroid-induced Hypokalemia Bicytopenia, may be due to ongoing chemotherapy Oncology was planning for palliative radiation in the future History of liver cirrhosis Mental status slightly improved after Hendrickson catheter placement yesterday Will do a voiding trial Lactulose increased to 10 3 times daily Leukocytosis worsening, possibly in the setting of steroid use, however no other acute infectious source identified other than COVID-19 infection, continue to monitor off of antibiotics continue Decadron 6 mg p.o. daily Continue IV fluids 75 cc an hour Oral Tylenol as needed, IV morphine as needed, tramadol as needed, avoid narcotics as much as possible, monitor for sedation May need rehab Chronic: A-fib, hyperlipidemia, history of alcohol use DVT ppx: Xarelto Code status: Full code Anticipated discharge place: Pending clinical course Anticipated discharge time: Pending clinical course Objective - Vital Signs Vital signs: Vital Signs Temp 98.1 F 10/30/23 13:32 Pulse 72 10/30/23 13:32 Resp 15 10/30/23 13:32 BP 114/67 10/30/23 13:32 Pulse Ox 96 10/30/23 13:32 FiO2 Intake & Output 10/29/23 10/30/23 10/30/23 18:59 06:59 18:59 Intake Total 1200 Output Total 1462 Balance -1462 1200 Intake: Oral 1200 Output: Urine 1100 Uretheral (Hendrickson) 300 Post Void Residual 362 Other: Voiding Method Toilet Indwelling Catheter Indwelling Catheter # Voids 350 - Labs CBC & Chem 7: 10/30/23 08:11 10/30/23 08:11 Labs: Abnormal Lab Results - Last 24 Hours (Table) 10/30/23 10/30/23 Range/Units 08:11 08:11 WBC 29.4 H (3.8-10.6) k/uL Hgb 10.7 L (11.4-16.0) gm/dL MCHC 30.7 L (31.0-37.0) g/dL RDW 19.3 H (11.5-15.5) % Plt Count 96 L (150-450) k/uL Neutrophils # (Manual) 27.64 H (1.3-7.7) k/uL Lymphocytes # (Manual) 0.59 L (1.0-4.8) k/uL Monocytes # (Manual) 1.47 H (0-1.0) k/uL Potassium 3.1 L (3.5-5.1) mmol/L BUN 22 H (7-17) mg/dL Glucose 111 H (74-99) mg/dL Calcium 8.1 L (8.4-10.2) mg/dL
[2023-10-31 08:30] LABS: Anisocytosis Slight; Basophils # (A) 0.1 k/uL (0-0.2); Basophils % (A) 0 %; Eosinophils % (A) 0 %; HCT 34.3 % (34.0-46.0); HGB 10.3 gm/dL (11.4-16.0); Hypochromasia Marked; Lymphocytes # (A) 0.2 k/uL (1.0-4.8); Lymphocytes % (A) 1 %; MCH 26.8 pg (25.0-35.0); MCHC 30.1 g/dL (31.0-37.0); MCV 88.8 fL (80.0-100.0); Mean Platelet Volume 9.5; Monocytes # (A) 1.1 k/uL (0-1.0); Monocytes % (A) 4 %; Neutrophils % (A) 94 %; Poikilocytosis Slight; RBC 3.86 m/uL (3.80-5.40); RDW 19.4 % (11.5-15.5); WBC 25.5 k/uL (3.8-10.6)
[2023-10-31 08:36] LABS: Platelet Count 95 k/uL (150-450)
[2023-10-31] MEDS: ACETAMINOPHEN TAB 325 MG TAB PO PRN (08:46)
[2023-10-31 09:15] LABS: African American GFR (CKD) >90 (>60 ml/min/1.73 sqM); Anion Gap 8 mmol/L; Blood Urea Nitrogen 24 mg/dL (7-17); Calcium 8.4 mg/dL (8.4-10.2); Carbon Dioxide 21 mmol/L (22-30); Chloride 108 mmol/L (98-107); Glucose 125 mg/dL (74-99); Magnesium 1.9 mg/dL (1.6-2.3); Non-African American GFR(CKD) >90 (>60 ml/min/1.73 sqM); Potassium 3.8 mmol/L (3.5-5.1); Sodium 137 mmol/L (137-145)
--- NOTE | 2023-10-31 11:22 | P.PN ---
Subjective Progress Note Date: 10/30/23 No acute events. Pt mentation improving, more alert and answering questions appropriately. Spouse at bedside. Updated pt and family on POC. Pending discharge and placement as pt will likely need rehab, treatment would have to be on hold. Clinic f/u scheduled on 11/[address] Perez. For now treatment will be on hold until pt has acutely recovered Objective - Vital Signs Vital signs: Vital Signs Temp 98.1 F 10/30/23 13:32 Pulse 72 10/30/23 13:32 Resp 15 10/30/23 13:32 BP 114/67 10/30/23 13:32 Pulse Ox 96 10/30/23 13:32 FiO2 Intake & Output 10/29/23 10/30/23 10/30/23 18:59 06:59 18:59 Intake Total 1200 Output Total 1462 750 Balance -1462 1200 -750 Intake: Oral 1200 Output: Urine 1100 750 Uretheral (Hendrickson) 300 Post Void Residual 362 Other: Voiding Method Toilet Indwelling Catheter Indwelling Catheter # Voids 350 # Bowel Movements 2 - Constitutional General appearance: Present: no acute distress, thin - EENT Eyes: Present: anicteric sclerae, EOMI ENT: Present: hearing grossly normal - Respiratory Details: breathing is even and unlabored - Cardiovascular Details: skin warm and dry - Gastrointestinal General gastrointestinal: Present: soft. Absent: tenderness - Integumentary Integumentary: Absent: cyanotic - Musculoskeletal Musculoskeletal: Present: generalized weakness - Labs CBC & Chem 7: 10/31/23 07:43 10/31/23 07:43 Labs: Abnormal Lab Results - Last 24 Hours (Table) 10/30/23 10/30/23 Range/Units 08:11 08:11 WBC 29.4 H (3.8-10.6) k/uL Hgb 10.7 L (11.4-16.0) gm/dL MCHC 30.7 L (31.0-37.0) g/dL RDW 19.3 H (11.5-15.5) % Plt Count 96 L (150-450) k/uL Neutrophils # (Manual) 27.64 H (1.3-7.7) k/uL Lymphocytes # (Manual) 0.59 L (1.0-4.8) k/uL Monocytes # (Manual) 1.47 H (0-1.0) k/uL Potassium 3.1 L (3.5-5.1) mmol/L BUN 22 H (7-17) mg/dL Glucose 111 H (74-99) mg/dL Calcium 8.1 L (8.4-10.2) mg/dL Assessment and Plan (1) COVID-19 Current Visit: Yes Status: Acute Priority: High Code(s): U07.1 - COVID-19 SNOMED Code(s): 953688092 (2) Dyspnea Current Visit: Yes Status: Acute Priority: High Code(s): R06.00 - DYSPNEA, UNSPECIFIED SNOMED Code(s): 319400227 (3) Pain due to malignant neoplasm metastatic to bone Current Visit: Yes Status: Acute Priority: Medium Code(s): G89.3 - NEOPLASM RELATED PAIN (ACUTE) (CHRONIC); C79.51 - SECONDARY MALIGNANT NEOPLASM OF BONE SNOMED Code(s): 900248754 (4) Squamous cell carcinoma of head and neck Current Visit: Yes Status: Chronic Priority: Medium Code(s): C76.0 - MALIGNANT NEOPLASM OF HEAD, FACE AND NECK SNOMED Code(s): 112122638 Plan: COVID: -Tested positive for COVID infection upon admission -Defer management to admitting team Right chest wall pain, pathological fracture -Has established care with radiation Oncology, with plans for radiation to painful bone mets. Radiation has not been started yet due to repeat hospitalizations -Continue pain management -Medications for prevention of narcotic induced constipation ordered Confusion: -Recent admission for hypercalcemia of malignancy -Calcium 8.1 -CT brain w/ on 10/13/23 showed no evidence of intracranial metastasis -Confusion likely secondary to liver cirrhosis, superimposed by acute COVID infection. UA and ammonia level obtained -UA negative for UTI, ammonia 10. Lactulose increased to TID. Mentation is showing improvement Metastatic squamous cell head and neck malignancy with bone and lung metastases -Full oncological history in HPI -Patient due to start palliative immunotherapy, but has had multiple delays in treatment due to other medical complications and repeat hospital admissions -Will obtain CT AP outpt once acutely recovered -Patient will likely need rehab upon discharge. Discussed with pt and spouse today, that treatment would be held until discharge from rehab facility. -F/u scheduled on 4/[address] Perez. Will further discuss treatment and goals of care
--- NOTE | 2023-10-31 14:06 | P.PN ---
Subjective Progress Note Date: 10/31/23 Hospital Course: 68-year-old female with a PMH of metastatic squamous cell lung cancer (following with Dr. Lyman, currently undergoing therapy), EtOH abuse with liver cirrhosis, A-fib on Xarelto, hyperlipidemia, chronic leukocytosis, who presents to the emergency room with complaints of shortness of breath and chest wall pain. Chest x-ray in the emergency room revealed scattered metastatic lesions throughout the lungs with EKG showing sinus tachycardia with PVCs at 106 bpm with poor baseline . Laboratory evaluation was remarkable for COVID-positive, leukocytosis of 11.6, hemoglobin 10.3, platelet count 118, potassium 3.1, CO2 20, BUN 25, creatinine 0.81, alk phos 131. Patient admitted for acute COVID-19 infection and hypoxic respiratory failure. Patient is also very encephalopathic. Having urinary retention. Urine catheter placed. Oncology also consulted. Encephalopathy slightly improved. Subjective: Patient seen and examined at bedside. No acute events overnight. Pertinent positives and negatives as discussed above, a complete review of systems was performed and all other systems are negative. Vitals Signs Reviewed. General: non toxic, no distress, appears older than stated age, frail Derm: no unusual rashes/lesions, warm Head: atraumatic, normocephalic, symmetric Eyes: EOMI, no lid lag, anicteric sclera, pupils equal round reactive to light ENT: Nose and ears atraumatic Neck: No cervical lymphadenopathy, trachea midline, supple Mouth: no lip lesion, mucus membranes moist Cardiovascular: S1S2 reg, no murmur, positive dorsalis pedis pulse bilateral, no edema Lungs: Scattered rhonchi without wheezing or rales, no accessory muscle use Abdominal: soft, nontender to palpation, no guarding Ext: muscle strength 4 out of 5 in all 4 extremities grossly, no gross muscle atrophy, no contractures, Neuro: CN II-XI grossly intact, no gross focal neuro deficits Psych: Alert, oriented x1 , appropriate affect Data Reviewed Today: Pertinent Labs: WBC 25.5, hemoglobin 10.3, platelet 95, sodium 137, potassium 3.8, creatinine 0.62, magnesium 1.9 Imaging: No new imaging Assessment and Plan: Active: Acute metabolic encephalopathy, possibly infectious versus hepatic, resolving Acute urinary retention, status post Hendrickson catheter placement, now discontinued COVID-19 infection Metastatic lung cancer , With mets to chest wall Severe leukocytosis, chronic as well as steroid-induced Hypokalemia, resolved Bicytopenia, may be due to ongoing chemotherapy, and cirrhosis History of liver cirrhosis Mental status continues to improve, likely at her baseline and family would still like to pursue further care Per oncology, patient will likely need palliative immunotherapy and possibly radiation to right chest wall, at the site of pathologic fracture] Continue lactulose 10 3 times daily Does not have any significant ascites on exam, will get an abdominal ultrasound to rule out abdominal ascites, if present may need a paracentesis to rule out SBP However, given limited resources, will pursue with empirically treating with IV ceftriaxone. Also continue dexamethasone oral 6 mg daily Continue IV fluids 75 cc an hour -Oral Tylenol as needed, IV morphine as needed, tramadol as needed, avoid narcotics as much as possible, monitor for sedation -May need rehab Chronic: A-fib, hyperlipidemia, history of alcohol use DVT ppx: Xarelto Code status: Full code Anticipated discharge place: Pending clinical course Anticipated discharge time: Pending clinical course Objective - Vital Signs Vital signs: Vital Signs Temp 97.8 F 10/31/23 07:31 Pulse 64 10/31/23 07:31 Resp 20 10/31/23 10:28 BP 156/72 10/31/23 07:31 Pulse Ox 97 10/31/23 07:31 FiO2 Intake & Output 10/30/23 10/31/23 10/31/23 18:59 06:59 18:59 Intake Total 420 180 Output Total 750 Balance -750 420 180 Intake: Oral 420 180 Output: Urine 750 Other: Voiding Method Indwelling Catheter Toilet Toilet Diaper Diaper # Voids 2 # Bowel Movements 2 1 - Labs CBC & Chem 7: 10/31/23 07:43 10/31/23 07:43 Labs: Abnormal Lab Results - Last 24 Hours (Table) 10/31/23 10/31/23 Range/Units 07:43 07:43 WBC 25.5 H (3.8-10.6) k/uL Hgb 10.3 L (11.4-16.0) gm/dL MCHC 30.1 L (31.0-37.0) g/dL RDW 19.4 H (11.5-15.5) % Plt Count 95 L (150-450) k/uL Neutrophils # 24.0 H (1.3-7.7) k/uL Lymphocytes # 0.2 L (1.0-4.8) k/uL Monocytes # 1.1 H (0-1.0) k/uL Chloride 108 H (98-107) mmol/L Carbon Dioxide 21 L (22-30) mmol/L BUN 24 H (7-17) mg/dL Glucose 125 H (74-99) mg/dL
--- NOTE | 2023-10-31 15:35 | US ---
EXAMINATION TYPE: US abdomen limited DATE OF EXAM: 10/31/2023 COMPARISON: CT angiogram chest 10/09/2023 and other exams CLINICAL INDICATION: Female, 68 years old with history of assess for ascites; Ascites TECHNIQUE AND FINDINGS: Limited abdominal ultrasound was performed in all 4 quadrants to assess for ascites. Moderate amount of ascites present throughout the abdomen, largest pocket anterior to liver and right kidney. Cirrhotic hepatic morphology. IMPRESSION: 1. Moderate ascites. 2. Hepatic cirrhosis.
[2023-10-31] MEDS: bisacodyL 10 MG SUPP RECTAL ONE (20:24)
[2023-10-31] MEDS: SODIUM CHLORIDE 0.9% 1,000 ML IV SCH ×2 (21:43→22:05)
[2023-11-01 08:15] LABS: African American GFR (CKD) >90 (>60 ml/min/1.73 sqM); Anion Gap 5 mmol/L; Blood Urea Nitrogen 22 mg/dL (7-17); Calcium 8.3 mg/dL (8.4-10.2); Carbon Dioxide 21 mmol/L (22-30); Chloride 109 mmol/L (98-107); Glucose 110 mg/dL (74-99); Non-African American GFR(CKD) >90 (>60 ml/min/1.73 sqM); Sodium 135 mmol/L (137-145)
[2023-11-01 08:16] LABS: Potassium 4.2 mmol/L (3.5-5.1)
[2023-11-01 08:22] LABS: Anisocytosis Slight; Basophils % (A) 0 %; Eosinophils % (A) 0 %; HCT 31.9 % (34.0-46.0); HGB 9.7 gm/dL (11.4-16.0); Hypochromasia Marked; Lymphocytes # (A) 0.3 k/uL (1.0-4.8); Lymphocytes % (A) 1 %; MCH 26.1 pg (25.0-35.0); MCHC 30.6 g/dL (31.0-37.0); MCV 85.2 fL (80.0-100.0); Mean Platelet Volume 10.4; Monocytes % (A) 4 %; Neutrophils % (A) 95 %; Poikilocytosis Slight; RBC 3.74 m/uL (3.80-5.40); RDW 19.6 % (11.5-15.5); WBC 27.5 k/uL (3.8-10.6)
[2023-11-01 08:23] LABS: Platelet Count 76 k/uL (150-450)
[2023-11-01 09:24] LABS: Hypersegmented Neutrophils Present
--- NOTE | 2023-11-01 12:38 | P.PN ---
Subjective Progress Note Date: 11/01/23 Hospital Course: 68-year-old female with a PMH of metastatic squamous cell lung cancer (following with Dr. Lyman, currently undergoing therapy), EtOH abuse with liver cirrhosis, A-fib on Xarelto, hyperlipidemia, chronic leukocytosis, who presents to the emergency room with complaints of shortness of breath and chest wall pain. Chest x-ray in the emergency room revealed scattered metastatic lesions throughout the lungs with EKG showing sinus tachycardia with PVCs at 106 bpm with poor baseline . Laboratory evaluation was remarkable for COVID-positive, leukocytosis of 11.6, hemoglobin 10.3, platelet count 118, potassium 3.1, CO2 20, BUN 25, creatinine 0.81, alk phos 131. Patient admitted for acute COVID-19 infection and hypoxic respiratory failure. Patient is also very encephalopathic. Having urinary retention. Urine catheter placed. Oncology also consulted. Encephalopathy slightly improved. Having bowel movements Subjective: Patient seen and examined at bedside. Had 2 bowel movements overnight. Hendrickson catheter currently discontinued Pertinent positives and negatives as discussed above, a complete review of systems was performed and all other systems are negative. Vitals Signs Reviewed. General: non toxic, no distress, appears older than stated age, frail Derm: no unusual rashes/lesions, warm Head: atraumatic, normocephalic, symmetric Eyes: EOMI, no lid lag, anicteric sclera, pupils equal round reactive to light ENT: Nose and ears atraumatic Neck: No cervical lymphadenopathy, trachea midline, supple Mouth: no lip lesion, mucus membranes moist Cardiovascular: S1S2 reg, no murmur, positive dorsalis pedis pulse bilateral, no edema Lungs: Scattered rhonchi without wheezing or rales, no accessory muscle use Abdominal: soft, nontender to palpation, no guarding Ext: muscle strength 4 out of 5 in all 4 extremities grossly, no gross muscle atrophy, no contractures, Neuro: CN II-XI grossly intact, no gross focal neuro deficits Psych: Alert, oriented x1 , appropriate affect Data Reviewed Today: Pertinent Labs: WBC 27.5, hemoglobin 9.7, platelet 76, sodium 135, creatinine 0.54. Imaging: Abdominal ultrasound does show moderate ascites, and hepatic cirrhosis Assessment and Plan: Active: Acute metabolic encephalopathy, possibly infectious versus hepatic, resolving Acute urinary retention, status post Hendrickson catheter placement, now discontinued COVID-19 infection Metastatic lung cancer , With mets to chest wall Severe leukocytosis, chronic as well as steroid-induced Hypokalemia, resolved Bicytopenia, may be due to ongoing chemotherapy, and cirrhosis History of liver cirrhosis - Mental status continues to improve, likely at her baseline - and family would still like to pursue further care - Per oncology, patient will likely need palliative immunotherapy and possibly radiation to right chest wall, at the site of pathologic fracture - Continue lactulose 10 3 times daily, patient continues to have bowel movements -Does have moderate ascites on abdominal ultrasound, will get a paracentesis, however currently patient is being empirically treated with IV ceftriaxone - Also continue dexamethasone oral 6 mg daily -Continue IV fluids 75 cc an hour -Oral Tylenol as needed, IV morphine as needed, tramadol as needed, avoid narcotics as much as possible, monitor for sedation -May need rehab Chronic: A-fib, hyperlipidemia, history of alcohol use DVT ppx: Xarelto Code status: Full code Anticipated discharge place: Pending clinical course Anticipated discharge time: Pending clinical course Objective - Vital Signs Vital signs: Vital Signs Temp 97.4 F L 11/01/23 07:44 Pulse 56 L 11/01/23 07:44 Resp 18 11/01/23 07:44 BP 166/75 11/01/23 07:44 Pulse Ox 98 11/01/23 07:44 FiO2 Intake & Output 10/31/23 11/01/23 11/01/23 18:59 06:59 18:59 Intake Total 480 650 Output Total 400 300 300 Balance 80 350 -300 Intake: Oral 480 650 Output: Urine 400 300 300 Other: Voiding Method Toilet Indwelling Catheter Diaper - Labs CBC & Chem 7: 11/01/23 07:40 11/01/23 07:40 Labs: Abnormal Lab Results - Last 24 Hours (Table) 10/31/23 11/01/23 11/01/23 Range/Units 07:43 07:40 07:40 WBC 27.5 H (3.8-10.6) k/uL RBC 3.74 L (3.80-5.40) m/uL Hgb 9.7 L (11.4-16.0) gm/dL Hct 31.9 L (34.0-46.0) % MCHC 30.6 L (31.0-37.0) g/dL RDW 19.6 H (11.5-15.5) % Plt Count 76 L (150-450) k/uL Neutrophils # 26.0 H (1.3-7.7) k/uL Lymphocytes # 0.3 L (1.0-4.8) k/uL Sodium 135 L (137-145) mmol/L Chloride 109 H (98-107) mmol/L Carbon Dioxide 21 L (22-30) mmol/L BUN 22 H (7-17) mg/dL Glucose 110 H (74-99) mg/dL Calcium 8.3 L (8.4-10.2) mg/dL C-Reactive Protein 3.9 H (<1.0) mg/dL
[2023-11-02 06:44] LABS: Anisocytosis Slight; Basophils % (A) 0 %; Eosinophils % (A) 0 %; HCT 32.8 % (34.0-46.0); HGB 9.6 gm/dL (11.4-16.0); Hypochromasia Marked; Lymphocytes # (A) 0.3 k/uL (1.0-4.8); Lymphocytes % (A) 1 %; MCHC 29.2 g/dL (31.0-37.0); Mean Platelet Volume 9.6; Monocytes # (A) 1.3 k/uL (0-1.0); Monocytes % (A) 5 %; Neutrophils # (A) 25.1 k/uL (1.3-7.7); Neutrophils % (A) 93 %; Poikilocytosis Slight; RBC 3.68 m/uL (3.80-5.40); RDW 19.9 % (11.5-15.5); WBC 26.8 k/uL (3.8-10.6)
[2023-11-02 06:46] LABS: Platelet Count 84 k/uL (150-450)
[2023-11-02 09:01] LABS: ALT 43 U/L (8-44); AST 44 U/L (13-35); Albumin 2.9 g/dL (3.8-4.9); Albumin/Globulin Ratio 1.26 Ratio (1.60-3.17); Alkaline Phosphatase 150 U/L (41-126); Blood Urea Nitrogen 18.9 mg/dL (9.0-27.0); Calcium 8.6 mg/dL (8.7-10.3); Carbon Dioxide 20.6 mmol/L (21.6-31.8); Chloride 105 mmol/L (96-109); Globulin 2.3 g/dL (1.6-3.3); Glucose 118 mg/dL (70-110); Magnesium 1.8 mg/dL (1.5-2.4); Potassium 4.2 mmol/L (3.5-5.5); Sodium 136 mmol/L (135-145); Total Bilirubin 0.6 mg/dL (0.3-1.2); Total Protein 5.2 g/dL (6.2-8.2)
[2023-11-02 09:46] LABS: INR 1.7 (<1.2); Prothrombin Time 17.4 sec (10.0-12.5)
--- NOTE | 2023-11-02 13:49 | P.PN ---
Subjective Progress Note Date: 11/02/23 Hospital Course: 68-year-old female with a PMH of metastatic squamous cell lung cancer (following with Dr. Lyman, currently undergoing therapy), EtOH abuse with liver cirrhosis, A-fib on Xarelto, hyperlipidemia, chronic leukocytosis, who presents to the emergency room with complaints of shortness of breath and chest wall pain. Chest x-ray in the emergency room revealed scattered metastatic lesions throughout the lungs with EKG showing sinus tachycardia with PVCs at 106 bpm with poor baseline . Laboratory evaluation was remarkable for COVID-positive, leukocytosis of 11.6, hemoglobin 10.3, platelet count 118, potassium 3.1, CO2 20, BUN 25, creatinine 0.81, alk phos 131. Patient admitted for acute COVID-19 infection and hypoxic respiratory failure. Patient is also very encephalopathic. Having urinary retention. Urine catheter placed, now discontinued. Oncology also consulted, recommending palliative therapy. Hospice was consulted, however still wants to continue pursuing further treatment. Patient now having bowel movements on increased dose of lactulose. Encephalopathy slightly improved. Abdominal ultrasound shows moderate ascites. Paracentesis pending. However, patient is currently on IV ceftriaxone. Subjective: Patient seen and examined at bedside. No acute events overnight. Mental status improved. Complaining of right-sided rib cage pain Pertinent positives and negatives as discussed above, a complete review of systems was performed and all other systems are negative. Vitals Signs Reviewed. General: non toxic, no distress, appears older than stated age, frail Derm: no unusual rashes/lesions, warm Head: atraumatic, normocephalic, symmetric Eyes: EOMI, no lid lag, anicteric sclera, pupils equal round reactive to light ENT: Nose and ears atraumatic Neck: No cervical lymphadenopathy, trachea midline, supple Mouth: no lip lesion, mucus membranes moist Cardiovascular: S1S2 reg, no murmur, positive dorsalis pedis pulse bilateral, no edema Lungs: Scattered rhonchi without wheezing or rales, no accessory muscle use Abdominal: soft, distended, nontender to palpation, no guarding Ext: muscle strength 4 out of 5 in all 4 extremities grossly, no gross muscle atrophy, no contractures, Neuro: CN II-XI grossly intact, no gross focal neuro deficits Psych: Alert, oriented x2 , appropriate affect Data Reviewed Today: Pertinent Labs: WBC 26.8, hemoglobin 9.6, platelet 84, potassium 4.2, creatinine 0.7, magnesium 1.8 total bili 0.6 Imaging: No new imaging Assessment and Plan: Active: Acute metabolic encephalopathy, possibly infectious versus hepatic, resolving Suspected spontaneous bacterial peritonitis Severe leukocytosis, infectious versus steroid-induced History of liver cirrhosis COVID-19 infection Acute urinary retention, resolved Hypokalemia, resolved Metastatic lung cancer , With mets to chest wall Bicytopenia, may be due to ongoing chemotherapy, and cirrhosis - Mental status continues to improve, likely at her baseline - and family would still like to pursue further care - Per oncology, patient will likely need palliative immunotherapy and possibly radiation to right chest wall, at the site of pathologic fracture - Continue lactulose 10 3 times daily, patient continues to have bowel movements -Does have moderate ascites on abdominal ultrasound, will get a paracentesis, however currently patient is being empirically treated with IV ceftriaxone - Also continue dexamethasone oral 6 mg daily -Oral Tylenol as needed, IV morphine as needed, tramadol as needed, avoid narcotics as much as possible, monitor for sedation -May need rehab Chronic: A-fib, hyperlipidemia, history of alcohol use DVT ppx: Xarelto discontinued for paracentesis tomorrow Code status: Full code Anticipated discharge place: Pending clinical course Anticipated discharge time: Pending clinical course Objective - Vital Signs Vital signs: Vital Signs Temp 97.6 F 11/02/23 07:31 Pulse 65 11/02/23 07:31 Resp 18 11/02/23 07:31 BP 146/67 11/02/23 07:31 Pulse Ox 97 11/02/23 07:31 FiO2 Intake & Output 11/01/23 11/02/23 11/02/23 18:59 06:59 18:59 Intake Total 480 Output Total 450 Balance -450 480 Intake: Oral 480 Output: Urine 450 Other: Voiding Method Toilet Toilet Diaper # Voids 3 1 # Bowel Movements 1 - Labs CBC & Chem 7: 11/02/23 06:11 11/02/23 06:11 Labs: Abnormal Lab Results - Last 24 Hours (Table) 11/02/23 11/02/23 11/02/23 Range/Units 06:11 06:11 08:59 WBC 26.8 H (3.8-10.6) k/uL RBC 3.68 L (3.80-5.40) m/uL Hgb 9.6 L (11.4-16.0) gm/dL Hct 32.8 L (34.0-46.0) % MCHC 29.2 L (31.0-37.0) g/dL RDW 19.9 H (11.5-15.5) % Plt Count 84 L (150-450) k/uL Neutrophils # 25.1 H (1.3-7.7) k/uL Lymphocytes # 0.3 L (1.0-4.8) k/uL Monocytes # 1.3 H (0-1.0) k/uL PT 17.4 H (10.0-12.5) sec INR 1.7 H (<1.2) Carbon Dioxide 20.6 L (21.6-31.8) mmol/L BUN/Creatinine Ratio 27.00 H (12.00-20.00) Ratio Glucose 118 H (70-110) mg/dL Calcium 8.6 L (8.7-10.3) mg/dL AST 44 H (13-35) U/L Alkaline Phosphatase 150 H (41-126) U/L Total Protein 5.2 L (6.2-8.2) g/dL Albumin 2.9 L (3.8-4.9) g/dL Albumin/Globulin Ratio 1.26 L (1.60-3.17) Ratio
[2023-11-03 10:05] VITALS: BMI 23.4
[2023-11-03 11:20] LABS: Blood Urea Nitrogen 18.6 mg/dL (9.0-27.0); Calcium 8.3 mg/dL (8.7-10.3); Carbon Dioxide 22.7 mmol/L (21.6-31.8); Chloride 104 mmol/L (96-109); Glucose 110 mg/dL (70-110); LDH 678 U/L (120-246); Magnesium 1.7 mg/dL (1.5-2.4); Sodium 137 mmol/L (135-145)
[2023-11-03 12:43] LABS: Acanthocytes 2+; Basophils # (A) 0.05 X 10*3/uL (0.00-0.10); Basophils % (A) 0.2 %; Eosinophils # (A) 0 X 10*3/uL (0.04-0.35); Eosinophils % (A) 0 %; HCT 29.2 % (37.2-46.3); Immature Platelet Fraction 12.4 % (1.1-6.1); Lymphocytes # (A) 0.17 X 10*3/uL (0.90-5.00); Lymphocytes % (A) 0.6 %; MCH 26.2 pg (27.0-32.0); MCHC 30.8 g/dL (32.0-37.0); MCV 85.1 FL (80.0-97.0); Monocytes # (A) 2.14 X 10*3/uL (0.20-1.00); Monocytes % (A) 7.5 %; NRBC Per 100 WBC 0 X 10*3/uL (0.00-0.01); Neutrophils # (A) 25.96 X 10*3/uL (1.80-7.70); Neutrophils % (A) 90.8 %; Platelet Count 73 X 10*3/uL (140-440); RBC 3.43 X 10*6/uL (4.10-5.20); RDW 21.2 % (11.5-14.5); WBC 28.59 X 10*3/uL (4.50-10.00)
--- NOTE | 2023-11-03 13:29 | US ---
EXAMINATION TYPE: US paracentesis abd w/image DATE OF EXAM: 11/03/2023 12:54 PM CLINICAL INDICATION:Female, 68 years old with history of ascites COMPARISON: 10/04/2023 ATTENDING: Dr. Herbert Worthy PROCEDURE: Informed consent was obtained. The risks of the procedure were extensively explained incl uding risk of damage to surrounding bowel with perforation and need for additional procedures. Proced ure was performed in the ultrasound procedure suite. Ultrasound imaging of the abdomen demonstrate as citic fluid. An appropriate access site was localized to the right lower abdomen. Timeout was taken p er protocol. The skin was prepped and draped in the usual sterile fashion and then locally anesthetiz ed with 1% lidocaine. The peritoneal cavity was then accessed via a 5-Turkmen one-step needle/cathete r. Approximately 3.6 cc of serosanguineous fluid was obtained. Samples were sent to the lab for anal ysis. Postprocedural imaging of the abdomen demonstrate a minimal amount of abdominal fluid. Patient tolerated procedure well without immediate complication. Hemostasis at the procedural site w as obtained with a sterile bandage placed. The patient was monitored in the holding area following th e procedure and was subsequently discharged in stable condition. IMPRESSION: Ultrasound guided paracentesis, with approximately 3.6 cc of serosanguineous fluid drained. Pathology results pending. No immediate complications were evident.
--- NOTE | 2023-11-03 16:41 | P.PN ---
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 In the ER she underwent extensive evaluation. Chest x-ray showed scattered metastatic lesions throughout the lungs, EKG demonstrated sinus tachycardia. Initial laboratory evaluation was remarkable for COVID positivity, white blood cell count of 11.6, hemoglobin 10.3, platelets 118, potassium 3.1, CO2 20, BUN 25, creatinine 0.81, and alkaline phosphatase of 131. Patient was admitted for acute hypoxic respiratory failure and COVID in conjunction with metastatic disease. She was noted to be very encephalopathic and was having urinary retention. Patient had a Hendrickson catheter placed which was subsequently able to be discontinued. Oncology was consulted and is recommending palliative therapy. She did receive a hospice consult however wanted to continue to pursue further treatment. Patient's mentation improved, her respiratory failure resolved. Abdominal ultrasound did show moderate ascites and patient was having abdominal pain. Patient's Eliquis was held in anticipation of paracentesis. During her hospital stay patient had also been on prophylactic Rocephin due to concerns for possible SBP. Patient seen and examined at bedside. She continues to have some confusion. However she is asking appropriate questions and is able to tell me that she is here for COVID. She denies any chest pain, shortness of breath, nausea, vomiting. Vital signs reviewed General: Nontoxic, no distress, appears at stated age Cardiovascular: S1S2 reg, no murmur Lungs: Course bs bilateral, no rhonchi, no rales, no accessory muscle use Abdominal: + distended, soft, nontender to palpation, no guarding Ext: No gross muscle atrophy, no edema b/l lower extremities, no contractures Neuro: CN II-XI grossly intact, no focal neuro deficits Psych: Alert, oriented, appropriate affect Assessment/Plan: Acute metabolic encephalopathy, possibly infectious versus hepatic, resolving Suspected spontaneous bacterial peritonitis with hx of cirrhosis Acute COVID-19 infection Severe leukocytosis, infectious versus steroid-induced metastatic squamous carcinoma of the head and neck with mets to bone, lung, and left sphenoid sinus -If confusion is not improving tomorrow would consider MRI brain given significant sphenoid involvement just discovered 10/24 -Stop Decadron given that patient has been afebrile and is now satting 97% on room air she has completed 7 days of therapy -Continue with vitamin C 500 mg twice daily and zinc 220 mg daily -Oncology recommendations: Follow-up scheduled on 11/[address] Valderrama, likely will need rehab on discharge, palliative radiation has been delayed due to multiple medical comorbid conditions -Continue with lactulose 10 g 3 times daily Bicytopenia likely secondary to malignancy and treatment as well as liver disea se -Platelets and hemoglobin stable -Continue to follow CBC Paroxysmal atrial fibrillation -Continue with amiodarone 100 mg daily -Lopressor 50 mg twice daily -Resume Xarelto 20 mg at night Acute urinary retention, resolved Hypokalemia, resolved Imaging: None new Data Review: Labs reviewed DVT prophylaxis: Eliqus Anticipated discharge date: in AM Anticipated discharge place: [facility] This dictation was prepared using [employer] voice recognition software. Though every attempt is made to correct errors during dictation some may still exist. Objective - Vital Signs Vital signs: Vital Signs Temp 97.7 F 11/03/23 14:59 Pulse 58 L 11/03/23 14:59 Resp 18 11/03/23 14:59 BP 123/62 11/03/23 14:59 Pulse Ox 97 11/03/23 14:59 FiO2 Intake & Output 11/02/23 11/03/23 11/03/23 18:59 06:59 18:59 Intake Total 300 Output Total 50 Balance 250 Weight 54.431 kg Intake: Intake, IV Titration 300 Amount Sodium Chloride 0.9% 1, 300 000 ml @ 75 mls/hr IV . [id number] [facility] Rx#:[id number] Output: Urine 50 Uretheral (Hendrickson) 50 Other: Voiding Method Toilet Toilet # Voids 2 1 0 # Bowel Movements 1 - Labs CBC & Chem 7: 11/03/23 06:14 11/03/23 06:14 Labs: Abnormal Lab Results - Last 24 Hours (Table) 11/03/23 11/03/23 Range/Units 06:14 06:14 WBC 28.59 H (4.50-10.00) X 10*3/uL RBC 3.43 L (4.10-5.20) X 10*6/uL Hgb 9.0 L (12.0-15.0) g/dL Hct 29.2 L (37.2-46.3) % MCH 26.2 L (27.0-32.0) pg MCHC 30.8 L (32.0-37.0) g/dL RDW 21.2 H (11.5-14.5) % Plt Count 73 L (140-440) X 10*3/uL Immature Gran # 0.27 H (0.00-0.04) X 10*3/uL Neutrophils # 25.96 H (1.80-7.70) X 10*3/uL Lymphocytes # 0.17 L (0.90-5.00) X 10*3/uL Monocytes # 2.14 H (0.20-1.00) X 10*3/uL Eosinophils # 0 L (0.04-0.35) X 10*3/uL Immature Plt Fraction 12.4 H (1.1-6.1) % Acanthocytes (Spur) 2+ A BUN/Creatinine Ratio 31.00 H (12.00-20.00) Ratio Calcium 8.3 L (8.7-10.3) mg/dL Lactate Dehydrogenase 678 H (120-246) U/L
[2023-11-03] MEDS: RIVAROXABAN 20 MG TAB PO SCH (17:51)
[2023-11-04] MEDS ORDERED: DEXTROSE 5% IN WATER 100 ML with AMIODARONE 150 MG IV ONE (03:00)
[2023-11-04] MEDS ORDERED: AMIODARONE 360 MG in DEXTROSE 5% IN WATER 200 ML IV ONE (03:10)
[2023-11-04] MEDS: SODIUM CHLORIDE 0.9% 500 ML 500 ML IV ONE (03:28)
[2023-11-04 04:03] LABS: LDH, Body Fluid Source Ascites; T. Protein, Body Fluid Source Ascites; Total Protein, Body Fluid 1540 mg/dL
[2023-11-04 05:01] LABS: Appearance,BF Bloody (Clear)
[2023-11-04] MEDS: METOPROLOL TARTRATE 5 MG/5 ML VIAL IVP STA (05:09)
[2023-11-04] MEDS: DEXTROSE 5% IN WATER 100 ML with AMIODARONE 150 MG IV ONE (05:12)
[2023-11-04] MEDS: AMIODARONE 360 MG in DEXTROSE 5% IN WATER 200 ML IV ONE (05:32)
[2023-11-04 06:55] LABS: African American GFR (CKD) >90 (>60 ml/min/1.73 sqM); Anion Gap 5 mmol/L; Blood Urea Nitrogen 18 mg/dL (7-17); Calcium 7.8 mg/dL (8.4-10.2); Carbon Dioxide 20 mmol/L (22-30); Chloride 106 mmol/L (98-107); Glucose 130 mg/dL (74-99); Non-African American GFR(CKD) >90 (>60 ml/min/1.73 sqM); Sodium 131 mmol/L (137-145)
[2023-11-04 07:02] LABS: Anisocytosis Slight; HCT 31.8 % (34.0-46.0); HGB 9.6 gm/dL (11.4-16.0); Hypochromasia Marked; MCH 26.1 pg (25.0-35.0); MCHC 30.2 g/dL (31.0-37.0); MCV 86.5 fL (80.0-100.0); Mean Platelet Volume 10.4; Platelet Count 90 k/uL (150-450); Poikilocytosis Slight; RBC 3.68 m/uL (3.80-5.40); RDW 19.9 % (11.5-15.5)
[2023-11-04] MEDS ORDERED: AMIODARONE 100 MG TAB PO SCH (09:00)
--- NOTE | 2023-11-04 09:47 | CA ---
Transthoracic Echo Report Name: Nina Morales Age: 68 Gender: F : 1955 Exam Date: 11/04/2023 07:49 Exam Location: [place] [facility] Ht (in): 60 Wt (lb): 120 Ordering Physician: Gautam Molina MD Attending/Referring Phys: [id number], Jesse Assembler [employer] Yue Pickens RDCS Procedure CPT: Indications: A. Flutter Cardiac Hx: Technical Quality: Contrast 1: Total Dose (mL): Contrast 2: Total Dose (mL): MEASUREMENTS (Male / Female) Normal Values 2D ECHO LV Diastolic Diameter PLAX 3.6 cm 4.2 - 5.9 / 3.9 - 5.3 cm LV Systolic Diameter PLAX 2.3 cm IVS Diastolic Thickness 0.9 cm 0.6 - 1.0 / 0.6 - 0.9 cm LVPW Diastolic Thickness 1.0 cm 0.6 - 1.0 / 0.6 - 0.9 cm LV Relative Wall Thickness 0.5 LVOT Diameter 1.5 cm Aortic Root Diameter 3.3 cm LA Systolic Diameter LX 3.2 cm 3.0 - 4.0 / 2.7 - 3.8 cm DOPPLER AV Peak Velocity 127.5 cm/s AV Peak Gradient 6.5 mmHg AV Mean Velocity 72.7 cm/s AV Mean Gradient 2.6 mmHg AV Velocity Time Integral 18.4 cm LVOT Peak Velocity 84.0 cm/s LVOT Peak Gradient 2.8 mmHg LVOT Velocity Time Integral 15.1 cm LVOT Stroke Volume 27.5 cm??? LVOT Stroke Volume Index 18.3 ml/m??? LVOT Cardiac Index 1476.0 cm???/min???m??? AV Area Cont Eq vti 1.5 cm??? AV Area Cont Eq pk 1.2 cm??? MV Area PHT 2.4 cm??? MR Peak Velocity 209.5 cm/s MR Peak Gradient 17.6 mmHg Mitral E Point Velocity 52.9 cm/s Mitral A Point Velocity 97.1 cm/s Mitral E to A Ratio 0.5 MV Deceleration Time 314.0 ms TR Peak Velocity 219.8 cm/s TR Peak Gradient 19.3 mmHg PV Peak Velocity 86.1 cm/s PV Peak Gradient 3.0 mmHg FINDINGS Left Ventricle Mildly increased posterior wall thickness. Left ventricular ejection fraction is estimated at 55 %. Normal left ventricular systolic function with no obvious regional wall motion abnormalities. Right Ventricle Normal right ventricular size. Right Atrium Normal right atrial size. Left Atrium Normal left atrial size. Mitral Valve Trace to mild mitral regurgitation. Aortic Valve No aortic valve stenosis or regurgitation. Tricuspid Valve Mild tricuspid regurgitation. Pulmonic Valve Trace pulmonic regurgitation. Pericardium No pericardial effusion. Aorta Normal size aortic root. CONCLUSIONS Mildly increased left ventricular wall thickness Left ventricular ejection fraction 55% Trace to mild mitral regurgitation Mild tricuspid regurgitation Previewed by: Dr. Adam Macdonald DO (Electronically Signed) Final Date: 04 November 2023 09:46
[2023-11-04] MEDS: AMIODARONE 200 MG TAB PO SCH (10:04)
[2023-11-04] MEDS: METOPROLOL TARTRATE 50 MG TAB PO SCH (10:04)
--- NOTE | 2023-11-04 10:24 | P.CRDCN ---
History of Present Illness History of present illness: HISTORY OF PRESENT ILLNESS: This is a 68-year-old female with a past medical history significant for paroxysmal atrial fibrillation, valvular heart disease, liver disease with recurrent ascites and multiple paracentesis, hypertension, hyperlipidemia, coronary artery disease, thoracic aortic dilatation, carotid atherosclerosis, and head and neck cancer. Patient follows in the office with Dr. Kay. We have been asked to see the patient in consultation for atrial flutter. Patient exami domingo at the bedside. Patient went into A-fib with RVR overnight. She was started on IV amiodarone. She is maintaining sinus mechanism this morning. She denies chest pain or pressure. She denies SOB. Vital signs are stable. DIAGNOSTICS: - EKG reveals atrial fibrillation with RVR - Chest xray negative for acute process - Laboratory data: WBC 5.0. Hemoglobin 12.8. Platelet count 143. - Current home cardiac medications include amiodarone 100 mg daily, metoprolol tartrate 50 mg twice a day, lovastatin 10 mg daily, Xarelto 20 mg daily, and midodrine 10 mg 3 times daily - Most recent echocardiogram obtained in January 2023 revealing normal EF, moderate TR, moderate MR - Cardiac catheterization history: October 2018 revealing intermediate to severe disease of the RCA and left circumflex REVIEW OF SYSTEMS: At the time of my exam: CONSTITUTIONAL: Denies fever or chills. HEENT: Denies blurred vision, vision changes, or eye pain. Denies hemoptysis CARDIOVASCULAR: Denies chest pain. Denies orthopnea. Denies PND. Denies palpitations RESPIRATORY: Denies shortness of breath. GASTROINTESTINAL: Denies abdominal pain. Denies nausea or vomiting. HEMATOLOGIC: Denies bleeding disorders. GENITOURINARY: Denies any blood in urine. SKIN: Denies pruitis. Denies rash. PHYSICAL EXAM: VITAL SIGNS: Reviewed. GENERAL: Well-developed in no acute distress. HEENT: Head is normocephalic. Pupils are equal, round. Sclerae anicteric. Mucous membranes of the mouth are moist. Neck supple. No JVD or thyromegaly LUNGS: Respirations even and unlabored. Lungs essentially clear to auscultation bilaterally. HEART: Regular rate and rhythm. S1 and S2 heard. Systolic murmur noted ABDOMEN: Soft. Nondistended. Nontender. EXTREMITIES: Normal range of motion. No clubbing or cyanosis. Peripheral pulses intact. No lower extremity edema NEUROLOGIC: Awake and alert. Oriented x 3. ASSESSMENT: COVID Acute metabolic encephalopathy Suspected spontaneous bacterial peritonitis Paroxysmal atrial fibrillation/flutter with RVR Leukocytosis Coronary artery disease without previous stenting Chronic liver disease with recurrent ascites requiring paracentesis Hypertension Hyperlipidemia Known thoracic dilatation Carotid atherosclerosis Valvular heart disease PLAN: Discontinue IV amiodarone Increase oral amiodarone to 200 mg daily Increase metoprolol to 75 mg twice a day Continue telemetry monitoring Further recommendations pending patient course Nurse practitioner note has been reviewed by physician. Signing provider agrees with the documented findings, assessment, and plan of care documented by LARGE SHEETFED PRESS OPERATOR as a scribe. 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 History of Any Multi-Drug Resistant Organisms: None Reported Past Surgical History: Heart Catheterization Additional Past Surgical History / Comment(s): breast biopsy (benign), bilateral eye surgery; Left lymph node biopsy October. paracentesis' Past Anesthesia/Blood Transfusion Reactions: No Reported Reaction Past Psychological History: No Psychological Hx Reported Smoking Status: Former smoker Past Alcohol Use History: Abuse Additional Past Alcohol Use History / Comment(s): smokes 2 cigarettes / day, hx of 1 ppd, smoking for 50 years. hx of heavy alcohol use., quit drinking 2016 Past Drug Use History: None Reported Additional Drug Use History / Comment(s): past marijuana use - Past Family History Brother(s) Family Medical History: Cancer Additional Family Medical History / Comment(s): pancreatic cancer Medications and Allergies Home Medications Medication Instructions Recorded Confirmed Type Lactulose [Constulose] 10 gm PO PC-LUNCH 02/06/21 10/28/23 History Rivaroxaban [Xarelto] 20 mg PO HS 02/06/21 10/28/23 History Midodrine HCl [ProAmatine] 10 mg PO TID 01/26/23 10/28/23 History Metoprolol Tartrate [Lopressor] 50 mg PO BID 03/26/23 10/28/23 History Rosuvastatin [Crestor] 10 mg PO DAILY 06/24/23 10/28/23 History Acetaminophen Tab [Tylenol] 500 mg PO Q6H PRN 08/12/23 10/28/23 History Amiodarone HCl [Pacerone] 100 mg PO DAILY 09/23/23 10/28/23 History diphenhydrAMINE [Benadryl] 25 - 50 mg PO HS PRN 09/23/23 10/28/23 History Mirtazapine [Remeron] 15 mg PO HS 10/09/23 10/28/23 History Morphine Sulfate Ir [MSIR] 15 mg PO Q4H PRN 3 Days #18 tab 10/14/23 10/28/23 Rx Sennosides [Senokot] 8.6 mg PO BID #60 tab 10/14/23 10/28/23 Rx Allergies Allergy/AdvReac Type Severity Reaction Status Date / Time bee venom protein (honey bee) Allergy Unknown Verified 10/28/23 08:46 Physical Exam Vitals: Vital Signs Temp Pulse Resp BP BP Pulse Ox 11/04/23 04:45 98.3 F 89 16 134/71 96 11/04/23 02:00 97.9 F 149 H 118/75 96 11/03/23 19:05 97.6 F 70 16 143/72 97 11/03/23 17:49 145/72 11/03/23 14:59 97.7 F 58 L 18 123/62 97 11/03/23 13:20 55 L 16 146/74 98 11/03/23 13:03 54 L 16 147/71 97 11/03/23 12:40 55 L 16 151/72 98 11/03/23 08:16 97.9 F 60 19 145/68 96 Intake and Output 11/03/23 11/04/23 11/04/23 22:59 06:59 14:59 Other: Voiding Method Toilet Toilet # Voids 0 1 Results 11/04/23 06:30 11/04/23 06:30 Cardiac Enzymes 11/03/23 Range/Units 06:14 Lactate Dehydrogenase 678 H (120-246) U/L CBC 11/03/23 11/04/23 Range/Units 06:14 06:30 WBC 28.59 H 29.0 H (4.50-10.00) X 10*3/uL RBC 3.43 L 3.68 L (4.10-5.20) X 10*6/uL Hgb 9.0 L 9.6 L (12.0-15.0) g/dL Hct 29.2 L 31.8 L (37.2-46.3) % Plt Count 73 L 90 L (140-440) X 10*3/uL Comprehensive Metabolic Panel 11/03/23 11/04/23 Range/Units 06:14 06:30 Sodium 137 131 L (135-145) mmol/L Potassium 4.0 4.0 (3.5-5.5) mmol/L Chloride 104 106 (96-109) mmol/L Carbon Dioxide 22.7 20 L (21.6-31.8) mmol/L BUN 18.6 18 H (9.0-27.0) mg/dL Creatinine 0.6 0.47 L (0.6-1.5) mg/dL Glucose 110 130 H (70-110) mg/dL Calcium 8.3 L 7.8 L (8.7-10.3) mg/dL Current Medications Generic Name Dose Route Start Last Admin Trade Name Freq PRN Reason Stop Dose Admin Acetaminophen 650 mg 10/27/23 20:57 11/02/23 13:39 Acetaminophen Tab 325 Mg Tab PO 650 mg Q6HR PRN Administration Mild Pain or Fever > 100.5 Amiodarone HCl 100 mg 11/04/23 09:00 Amiodarone 100 Mg Tab PO DAILY SHREE Ascorbic Acid 500 mg 10/27/23 21:00 11/03/23 21:08 Ascorbic Acid 500 Mg Tab PO 500 mg BID SHREE Administration Atorvastatin Calcium 20 mg 10/29/23 09:00 11/03/23 09:52 Atorvastatin 20 Mg Tab PO 20 mg DAILY SHREE Administration Cholecalciferol 125 mcg 10/28/23 09:00 11/03/23 09:52 Cholecalciferol 125 Mcg (5000 Iu) Tablet PO 125 mcg DAILY SHREE Administration Famotidine 20 mg 10/27/23 21:00 11/03/23 21:08 Famotidine 20 Mg Tab PO 20 mg BID SHREE Administration Ceftriaxone Sodium 2 gm/ 50 mls @ 100 mls/hr 10/31/23 14:15 11/03/23 09:45 Sodium Chloride IVPB 100 mls/hr Q24HR SHREE Administration Protocol Amiodarone HCl 450 mg/ 250 mls @ 16.667 mls/hr 11/04/23 11:00 Dextrose/Water IV 11/05/23 04:59 .Q15H SHREE Protocol 0.5 MG/MIN Amiodarone HCl 360 mg/ 200 mls @ 33.333 mls/hr 11/04/23 05:00 11/04/23 05:32 Dextrose/Water IV 11/04/23 10:59 1 mg/min .Q6H ONE 33.333 mls/hr Administration Protocol 1 MG/MIN Lactulose 10 gm 10/30/23 09:15 11/03/23 21:08 Lactulose 20 Gm/30 Ml Cup PO 10 gm TID SHREE Administration Metoprolol Tartrate 50 mg 10/28/23 21:00 11/03/23 21:08 Metoprolol Tartrate 50 Mg Tab PO 50 mg BID SHREE Administration Midodrine 10 mg 10/28/23 17:30 11/04/23 06:25 Midodrine 5 Mg Tab PO Not Given AC-TID SHREE Mirtazapine 15 mg 10/28/23 21:00 11/03/23 21:08 Mirtazapine 15 Mg Tab PO 15 mg HS SHREE Administration Morphine Sulfate 4 mg 10/27/23 20:57 10/28/23 20:47 Morphine Sulfate 4 Mg/Ml Syringe IV 4 mg Q4HR PRN Administration Severe Pain (Scale 7 to 10) Naloxone HCl 0.2 mg 10/27/23 20:57 Naloxone 0.4 Mg/Ml 1 Ml Vial IV Q2M PRN Opioid Reversal Rivaroxaban 20 mg 11/03/23 17:30 11/03/23 17:51 Rivaroxaban 20 Mg Tab PO 20 mg W/SUPPER SHREE Administration Protocol Senna 8.6 mg 10/28/23 21:00 11/03/23 21:08 Sennosides 8.6 Mg Tab PO 8.6 mg BID SHREE Administration Tramadol HCl 50 mg 10/27/23 20:57 11/03/23 23:33 Tramadol 50 Mg Tab PO 50 mg Q6H PRN Administration Moderate Pain (Scale 4 to 6) Zinc Sulfate 220 mg 10/28/23 09:00 11/03/23 09:53 Zinc Sulfate 220 Mg Cap PO 220 mg DAILY SHREE Administration Intake and Output 11/03/23 11/04/23 11/04/23 22:59 06:59 14:59 Other: Voiding Method Toilet Toilet # Voids 0 1 11/04/23 06:30 11/04/23 06:30
[2023-11-04] MEDS ORDERED: HYDROcodone/APAP 5-325MG 1 EACH TAB PO PRN (10:26)
[2023-11-04] MEDS ORDERED: AMIODARONE 450 MG in DEXTROSE 5% IN WATER 250 ML IV SCH (11:00)
--- NOTE | 2023-11-04 16:00 | P.PN ---
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 In the ER she underwent extensive evaluation. Chest x-ray showed scattered metastatic lesions throughout the lungs, EKG demonstrated sinus tachycardia. Initial laboratory evaluation was remarkable for COVID positivity, white blood cell count of 11.6, hemoglobin 10.3, platelets 118, potassium 3.1, CO2 20, BUN 25, creatinine 0.81, and alkaline phosphatase of 131. Patient was admitted for acute hypoxic respiratory failure and COVID in conjunction with metastatic disease. She was noted to be very encephalopathic and was having urinary retention. Patient had a Hendrickson catheter placed which was subsequently able to be discontinued. Oncology was consulted and is recommending palliative therapy. She did receive a hospice consult however wanted to continue to pursue further treatment. Patient's mentation improved, her respiratory failure resolved. Abdominal ultrasound did show moderate ascites and patient was having abdominal pain. Patient's Eliquis was held in anticipation of paracentesis. During her hospital stay patient had also been on prophylactic Rocephin due to concerns for possible SBP. On the evening of 11/04 patient went into atrial flutter and was subsequently started on amiodarone drip and transferred to the telemetry unit. Cardiology was consulted. They transition the patient to oral amiodarone on the morning of 11/04/2023. Patient seen and examined at bedside. She complains of being short of breath and having pain on my evaluation. Her HR is back to 140 discussed with nursing giving pain medication and monitoring HR. Vital signs reviewed General: Nontoxic, no distress, appears at stated age Cardiovascular: S1S2 reg, no murmur Lungs: Course bs bilateral, no rhonchi, no rales, no accessory muscle use Abdominal: + distended, soft, nontender to palpation, no guarding Ext: No gross muscle atrophy, no edema b/l lower extremities, no contractures Neuro: CN II-XI grossly intact, no focal neuro deficits Psych: Alert, oriented, appropriate affect Assessment/Plan: Acute metabolic encephalopathy, possibly infectious versus hepatic, resolving Suspected spontaneous bacterial peritonitis with hx of cirrhosis vs head and neck infection Acute COVID-19 infection Severe leukocytosis, infectious versus steroid-induced Metastatic squamous carcinoma of the head and neck with mets to bone, lung, and left sphenoid sinus -Case discussed with oncology at length. Case discussed with Dr. Perez. There could be some concern for possible CSF infection such as meningitis given the location of her sphenoid sinus mass. Patient has been on Rocephin which would be likely adequate coverage and she has remained afebrile with stable white blood cell count. Follow-up scheduled on 11/[address] Perez, - Rocephin 2 grams IVPB daily D # 5 -If confusion is not continuing to improve would consider MRI brain given significant sphenoid involvement just discovered 10/24 -Off decadron -Continue with vitamin C 500 mg twice daily and zinc 220 mg daily -Continue with lactulose 10 g 3 times daily - repeat CBC and CMP in AM Paroxysmal atrial fibrillation, episode of A flutter with RVR 11/04/23 -Cardiology note reviewed: DC IV amiodarone increase oral amiodarone to 200 mg daily and metoprolol to 75 mg twice daily -Resume Xarelto 20 mg at night Bicytopenia likely secondary to malignancy and treatment as well as liver disease -Platelets and hemoglobin stable -Continue to follow CBC Acute urinary retention, resolved Hypokalemia, resolved Imaging: Echocardiogram: EF 55-60, mild tricuspid regurg Data Review: Labs reviewed from today include CBC and basic metabolic profile which are remarkable for white blood cell count 29, hemoglobin 9.6, platelets 90, sodium 131. - PMN in ascitic fluid 79 Overall poor prognosis as she has been to ill for treatment of her cancer. DVT prophylaxis: Eliqus Anticipated discharge date: in 24-[address]: [facility] This dictation was prepared using [employer] voice recognition software. Though every attempt is made to correct errors during dictation some may still exist. Objective - Vital Signs Vital signs: Vital Signs Temp 98.3 F 11/04/23 04:45 Pulse 56 L 11/04/23 12:00 Resp 16 11/04/23 12:00 BP 125/62 11/04/23 12:00 Pulse Ox 100 11/04/23 12:00 FiO2 Intake & Output 11/03/23 11/04/23 11/04/23 18:59 06:59 18:59 Intake Total 118 Balance 118 Weight 54.431 kg Intake: Oral 118 Other: Voiding Method Toilet Toilet Toilet # Voids 0 1 - Labs CBC & Chem 7: 11/04/23 06:30 11/04/23 06:30 Labs: Abnormal Lab Results - Last 24 Hours (Table) 11/03/23 11/04/23 11/04/23 Range/Units 15:00 06:30 06:30 WBC 29.0 H (3.8-10.6) k/uL RBC 3.68 L (3.80-5.40) m/uL Hgb 9.6 L (11.4-16.0) gm/dL Hct 31.8 L (34.0-46.0) % MCHC 30.2 L (31.0-37.0) g/dL RDW 19.9 H (11.5-15.5) % Plt Count 90 L (150-450) k/uL Sodium 131 L (137-145) mmol/L Carbon Dioxide 20 L (22-30) mmol/L BUN 18 H (7-17) mg/dL Creatinine 0.47 L (0.52-1.04) mg/dL Glucose 130 H (74-99) mg/dL Calcium 7.8 L (8.4-10.2) mg/dL Fluid Appearance Bloody A (Clear) Microbiology - Last 24 Hours (Table) 11/03/23 15:00 Gram Stain - Preliminary Ascites Fluid
[2023-11-05 09:29] LABS: Anisocytosis Moderate; HGB 9.2 gm/dL (11.4-16.0); Hypochromasia Marked; MCH 27.4 pg (25.0-35.0); MCHC 30.6 g/dL (31.0-37.0); MCV 89.4 fL (80.0-100.0); Poikilocytosis Slight; RBC 3.36 m/uL (3.80-5.40); RDW 20.1 % (11.5-15.5); WBC 20.3 k/uL (3.8-10.6)
[2023-11-05 09:41] LABS: Platelet Count 88 k/uL (150-450)
[2023-11-05 09:50] LABS: ALT 64 U/L (4-34); African American GFR (CKD) >90 (>60 ml/min/1.73 sqM); Anion Gap 3 mmol/L; Blood Urea Nitrogen 21 mg/dL (7-17); Carbon Dioxide 21 mmol/L (22-30); Chloride 107 mmol/L (98-107); Glucose 67 mg/dL (74-99); Non-African American GFR(CKD) >90 (>60 ml/min/1.73 sqM); Sodium 131 mmol/L (137-145)
[2023-11-05 10:08] LABS: AST 70 U/L (14-36); Albumin 2.2 g/dL (3.5-5.0); Alkaline Phosphatase 181 U/L (38-126); Potassium 4.9 mmol/L (3.5-5.1); Total Protein 4.9 g/dL (6.3-8.2)
--- NOTE | 2023-11-05 11:36 | P.PN ---
Subjective HISTORY OF PRESENT ILLNESS: This is a 68-year-old female with a past medical history significant for paroxysmal atrial fibrillation, valvular heart disease, liver disease with recurrent ascites and multiple paracentesis, hypertension, hyperlipidemia, coronary artery disease, thoracic aortic dilatation, carotid atherosclerosis, and head and neck cancer. Patient follows in the office with Dr. Kay. We have been asked to see the patient in consultation for atrial flutter. Patient examined at the bedside. Patient went into A-fib with RVR overnight. She was started on IV amiodarone. She is maintaining sinus mechanism this morning. She denies chest pain or pressure. She denies SOB. Vital signs are stable. DIAGNOSTICS: - EKG reveals atrial fibrillation with RVR - Chest xray negative for acute process - Laboratory data: WBC 5.0. Hemoglobin 12.8. Platelet count 143. - Current home cardiac medications include amiodarone 100 mg daily, metoprolol tartrate 50 mg twice a day, lovastatin 10 mg daily, Xarelto 20 mg daily, and midodrine 10 mg 3 times daily - Most recent echocardiogram obtained in January 2023 revealing normal EF, moderate TR, moderate MR - Cardiac catheterization history: October 2018 revealing intermediate to severe disease of the RCA and left circumflex 11/05/2023 Patient examined this morning at the bedside. Patient denies chest pain or pressure. She denies shortness of breath. Telemetry reveals sinus mechanism with a heart rate in the 60s. Echocardiogram completed revealing ejection fraction 55%. PHYSICAL EXAM: VITAL SIGNS: Reviewed. GENERAL: Well-developed in no acute distress. HEENT: Head is normocephalic. Pupils are equal, round. Sclerae anicteric. Mucous membranes of the mouth are moist. Neck supple. No JVD or thyromegaly LUNGS: Respirations even and unlabored. Lungs essentially clear to auscultation bilaterally. HEART: Regular rate and rhythm. S1 and S2 heard. Systolic murmur noted ABDOMEN: Soft. Nondistended. Nontender. EXTREMITIES: Normal range of motion. No clubbing or cyanosis. Peripheral pulses intact. No lower extremity edema NEUROLOGIC: Awake and alert. Oriented x 3. ASSESSMENT: COVID Acute metabolic encephalopathy Suspected spontaneous bacterial peritonitis Paroxysmal atrial fibrillation/flutter with RVR Leukocytosis Coronary artery disease without previous stenting Chronic liver disease with recurrent ascites requiring paracentesis Hypertension Hyperlipidemia Known thoracic dilatation Carotid atherosclerosis Valvular heart disease PLAN: Continue oral amiodarone 200 mg daily Continue additional cardiac medications Continue telemetry monitoring Patient is currently stable from a cardiac standpoint Discharge per medicine Further recommendations pending patient course Nurse practitioner note has been reviewed by physician. Signing provider agrees with the documented findings, assessment, and plan of care documented by POWERHOUSE ELECTRICIAN as a scribe. Objective - Vital Signs Vital signs: Vital Signs Temp 97 F L 11/05/23 08:00 Pulse 65 11/05/23 08:00 Resp 16 11/05/23 08:00 BP 114/58 11/05/23 08:00 Pulse Ox 95 11/05/23 08:00 FiO2 Intake & Output 11/04/23 11/05/23 11/05/23 18:59 06:59 18:59 Intake Total 472 Balance 472 Intake: Oral 472 Other: Voiding Method Toilet Toilet Toilet # Voids 2 1 - Labs CBC & Chem 7: 11/05/23 08:19 11/05/23 08:19 Labs: Abnormal Lab Results - Last 24 Hours (Table) 11/05/23 11/05/23 Range/Units 08:19 08:19 WBC 20.3 H (3.8-10.6) k/uL RBC 3.36 L (3.80-5.40) m/uL Hgb 9.2 L (11.4-16.0) gm/dL Hct 30.0 L (34.0-46.0) % MCHC 30.6 L (31.0-37.0) g/dL RDW 20.1 H (11.5-15.5) % Plt Count 88 L (150-450) k/uL Sodium 131 L (137-145) mmol/L Carbon Dioxide 21 L (22-30) mmol/L BUN 21 H (7-17) mg/dL Creatinine 0.50 L (0.52-1.04) mg/dL Glucose 67 L (74-99) mg/dL Calcium 8.0 L (8.4-10.2) mg/dL AST 70 H (14-36) U/L ALT 64 H (4-34) U/L Alkaline Phosphatase 181 H (38-126) U/L Total Protein 4.9 L (6.3-8.2) g/dL Albumin 2.2 L (3.5-5.0) g/dL Microbiology - Last 24 Hours (Table) 11/03/23 15:00 Gram Stain - Preliminary Ascites Fluid Body Fluid Culture - Preliminary
--- NOTE | 2023-11-05 14:47 | P.PN ---
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 In the ER she underwent extensive evaluation. Chest x-ray showed scattered metastatic lesions throughout the lungs, EKG demonstrated sinus tachycardia. Initial laboratory evaluation was remarkable for COVID positivity, white blood cell count of 11.6, hemoglobin 10.3, platelets 118, potassium 3.1, CO2 20, BUN 25, creatinine 0.81, and alkaline phosphatase of 131. Patient was admitted for acute hypoxic respiratory failure and COVID in conjunction with metastatic disease. She was noted to be very encephalopathic and was having urinary retention. Patient had a Hendrickson catheter placed which was subsequently able to be discontinued. Oncology was consulted and is recommending palliative therapy. She did receive a hospice consult however wanted to continue to pursue further treatment. Patient's mentation improved, her respiratory failure resolved. Abdominal ultrasound did show moderate ascites and patient was having abdominal pain. Patient's Eliquis was held in anticipation of paracentesis. During her hospital stay patient had also been on prophylactic Rocephin due to concerns for possible SBP. On the evening of 11/04 patient went into atrial flutter and was subsequently started on amiodarone drip and transferred to the telemetry unit. Cardiology was consulted. They transition the patient to oral amiodarone on the morning of 11/04/2023. Heart rate controlled. Patient seen and examined at bedside. No acute events overnight. Vital signs reviewed General: Nontoxic, no distress, appears at stated age Cardiovascular: S1S2 reg, no murmur Lungs: Course bs bilateral, no rhonchi, no rales, no accessory muscle use Abdominal: + distended, soft, nontender to palpation, no guarding Ext: No gross muscle atrophy, no edema b/l lower extremities, no contractures Neuro: CN II-XI grossly intact, no focal neuro deficits Psych: Alert, oriented, appropriate affect Assessment/Plan: Acute metabolic encephalopathy, possibly infectious versus hepatic, resolving Suspected spontaneous bacterial peritonitis with hx of cirrhosis vs head and neck infection Acute COVID-19 infection Severe leukocytosis, infectious versus steroid-induced Metastatic squamous carcinoma of the head and neck with mets to bone, lung, and left sphenoid sinus -Case discussed with oncology at length. Case discussed with Dr. Perez. There could be some concern for possible CSF infection such as meningitis given the location of her sphenoid sinus mass. Patient has been on Rocephin which would be likely adequate coverage and she has remained afebrile with stable white blood cell count. Follow-up scheduled on 11/[address] Perez, - Rocephin 2 grams IVPB daily D # 6 -Mental status improved -Off decadron -Continue with vitamin C 500 mg twice daily and zinc 220 mg daily -Continue with lactulose 10 g 3 times daily - repeat CBC and CMP in AM Paroxysmal atrial fibrillation, episode of A flutter with RVR 11/04/23, now rate controlled -Cardiology note reviewed: oral amiodarone to 200 mg daily and metoprolol to 75 mg twice daily -Xarelto 20 mg at night Bicytopenia likely secondary to malignancy and treatment as well as liver disease -Platelets and hemoglobin stable -Continue to follow CBC Acute urinary retention, resolved Hypokalemia, resolved Imaging: Echocardiogram: EF 55-60, mild tricuspid regurg Data Review: WBC 20.3, hemoglobin 9.2, platelet 88, sodium 131, creatinine 0.5 Overall poor prognosis as she has been to ill for treatment of her cancer. DVT prophylaxis: Xarelto Anticipated discharge date: in 24-48 hours, pending authorization Anticipated discharge place: [facility] Objective - Vital Signs Vital signs: Vital Signs Temp 97 F L 11/05/23 08:00 Pulse 62 11/05/23 12:00 Resp 16 11/05/23 12:00 BP 127/60 11/05/23 12:00 Pulse Ox 95 11/05/23 12:00 FiO2 Intake & Output 11/04/23 11/05/23 11/05/23 18:59 06:59 18:59 Intake Total 472 Balance 472 Intake: Oral 472 Other: Voiding Method Toilet Toilet Toilet # Voids 2 1 - Labs CBC & Chem 7: 11/05/23 08:19 11/05/23 08:19 Labs: Abnormal Lab Results - Last 24 Hours (Table) 11/05/23 11/05/23 Range/Units 08:19 08:19 WBC 20.3 H (3.8-10.6) k/uL RBC 3.36 L (3.80-5.40) m/uL Hgb 9.2 L (11.4-16.0) gm/dL Hct 30.0 L (34.0-46.0) % MCHC 30.6 L (31.0-37.0) g/dL RDW 20.1 H (11.5-15.5) % Plt Count 88 L (150-450) k/uL Sodium 131 L (137-145) mmol/L Carbon Dioxide 21 L (22-30) mmol/L BUN 21 H (7-17) mg/dL Creatinine 0.50 L (0.52-1.04) mg/dL Glucose 67 L (74-99) mg/dL Calcium 8.0 L (8.4-10.2) mg/dL AST 70 H (14-36) U/L ALT 64 H (4-34) U/L Alkaline Phosphatase 181 H (38-126) U/L Total Protein 4.9 L (6.3-8.2) g/dL Albumin 2.2 L (3.5-5.0) g/dL Microbiology - Last 24 Hours (Table) 11/03/23 15:00 Gram Stain - Preliminary Ascites Fluid Body Fluid Culture - Preliminary
[2023-11-06] MEDS: DIGOXIN 250 MCG/ML 2 ML AMP IVP ONE (09:05)
[2023-11-06 09:53] LABS: ALT 65 U/L (4-34); AST 62 U/L (14-36); African American GFR (CKD) >90 (>60 ml/min/1.73 sqM); Albumin 2.3 g/dL (3.5-5.0); Alkaline Phosphatase 215 U/L (38-126); Anion Gap 9 mmol/L; Blood Urea Nitrogen 24 mg/dL (7-17); Calcium 8.8 mg/dL (8.4-10.2); Carbon Dioxide 20 mmol/L (22-30); Chloride 106 mmol/L (98-107); Glucose 73 mg/dL (74-99); Non-African American GFR(CKD) >90 (>60 ml/min/1.73 sqM); Potassium 4.1 mmol/L (3.5-5.1); Sodium 135 mmol/L (137-145); Total Bilirubin 1.1 mg/dL (0.2-1.3); Total Protein 5.1 g/dL (6.3-8.2)
[2023-11-06 09:56] LABS: Anisocytosis Moderate; Basophils # (A) 0.1 k/uL (0-0.2); Basophils % (A) 0 %; Eosinophils # (A) 0.1 k/uL (0-0.7); Eosinophils % (A) 0 %; HGB 10.6 gm/dL (11.4-16.0); Hypochromasia Marked; Lymphocytes # (A) 0.2 k/uL (1.0-4.8); Lymphocytes % (A) 1 %; MCH 26.7 pg (25.0-35.0); MCHC 29.4 g/dL (31.0-37.0); Macrocytosis Slight; Mean Platelet Volume 10.6; Monocytes # (A) 1.6 k/uL (0-1.0); Monocytes % (A) 8 %; Neutrophils # (A) 18.7 k/uL (1.3-7.7); Neutrophils % (A) 90 %; RBC 3.96 m/uL (3.80-5.40); RDW 20.4 % (11.5-15.5); WBC 20.9 k/uL (3.8-10.6)
[2023-11-06 10:00] LABS: Platelet Count 98 k/uL (150-450)
--- NOTE | 2023-11-06 12:12 | P.PN ---
Subjective HISTORY OF PRESENT ILLNESS: This is a 68-year-old female with a past medical history significant for paroxysmal atrial fibrillation, valvular heart disease, liver disease with recurrent ascites and multiple paracentesis, hypertension, hyperlipidemia, coronary artery disease, thoracic aortic dilatation, carotid atherosclerosis, and head and neck cancer. Patient follows in the office with Dr. Kay. We have been asked to see the patient in consultation for atrial flutter. Patient examined at the bedside. Patient went into [facility] with RVR overnight. She was started on IV amiodarone. She is maintaining sinus mechanism this morning. She denies chest pain or pressure. She denies SOB. Vital signs are stable. DIAGNOSTICS: - EKG reveals atrial fibrillation with RVR - Chest xray negative for acute process - Laboratory data: WBC 5.0. Hemoglobin 12.8. Platelet count 143. - Current home cardiac medications include amiodarone 100 mg daily, metoprolol tartrate 50 mg twice a day, lovastatin 10 mg daily, Xarelto 20 mg daily, and midodrine 10 mg 3 times daily - Most recent echocardiogram obtained in January 2023 revealing normal EF, moderate TR, moderate MR - Cardiac catheterization history: October 2018 revealing intermediate to severe disease of the RCA and left circumflex 11/05/2023 Patient examined this morning at the bedside. Patient denies chest pain or pressure. She denies shortness of breath. Telemetry reveals sinus mechanism with a heart rate in the 60s. Echocardiogram completed revealing ejection fraction 55%. 11/06/2023 Patient examined this morning at the bedside. Patient currently denies chest pain or pressure. She denies shortness of breath. Patient went back into [facility] with RVR this morning. She remains in atrial fibrillation with heart rate around 120. Patient's blood pressures were also low this morning with a systolic in the 80s90s. PHYSICAL EXAM: VITAL SIGNS: Reviewed. GENERAL: Well-developed in no acute distress. HEENT: Head is normocephalic. Pupils are equal, round. Sclerae anicteric. Mucous membranes of the mouth are moist. Neck supple. No JVD or thyromegaly LUNGS: Respirations even and unlabored. Lungs essentially clear to auscultation bilaterally. HEART: Regular rate and rhythm. S1 and S2 heard. Systolic murmur noted ABDOMEN: Soft. Nondistended. Nontender. EXTREMITIES: Normal range of motion. No clubbing or cyanosis. Peripheral pulses intact. No lower extremity edema NEUROLOGIC: Awake and alert. Oriented x 3. ASSESSMENT: COVID Acute metabolic encephalopathy Suspected spontaneous bacterial peritonitis Paroxysmal atrial fibrillation/flutter with RVR Leukocytosis Coronary artery disease without previous stenting Chronic liver disease with recurrent ascites requiring paracentesis Hypertension Hyperlipidemia Known thoracic dilatation Carotid atherosclerosis Valvular heart disease PLAN: Continue oral amiodarone 200 mg daily Give IV dig x 1. Begin oral digoxin 125 mcg daily starting tomorrow Continue additional cardiac medications Continue telemetry monitoring Further recommendations pending patient course Nurse practitioner note has been reviewed by physician. Signing provider agrees with the documented findings, assessment, and plan of care documented by CALL OR CONTACT CENTRE MANAGER as a scribe. Objective - Vital Signs Vital signs: Vital Signs Temp 98.3 F 11/05/23 20:05 Pulse 114 H 11/06/23 08:00 Resp 18 11/06/23 08:00 BP 86/47 11/06/23 08:00 Pulse Ox 97 11/06/23 08:00 FiO2 Intake & Output 11/05/23 11/06/23 11/06/23 18:59 06:59 18:59 Weight 54.431 kg Other: Voiding Method Toilet Toilet Toilet # Voids 2 2 # Bowel Movements 1 - Labs CBC & Chem 7: 11/06/23 07:20 11/06/23 07:20 Labs: Abnormal Lab Results - Last 24 Hours (Table) 11/06/23 11/06/23 Range/Units 07:20 07:20 WBC 20.9 H (3.8-10.6) k/uL Hgb 10.6 L (11.4-16.0) gm/dL MCHC 29.4 L (31.0-37.0) g/dL RDW 20.4 H (11.5-15.5) % Plt Count 98 L (150-450) k/uL Neutrophils # 18.7 H (1.3-7.7) k/uL Lymphocytes # 0.2 L (1.0-4.8) k/uL Monocytes # 1.6 H (0-1.0) k/uL Sodium 135 L (137-145) mmol/L Carbon Dioxide 20 L (22-30) mmol/L BUN 24 H (7-17) mg/dL Glucose 73 L (74-99) mg/dL AST 62 H (14-36) U/L ALT 65 H (4-34) U/L Alkaline Phosphatase 215 H (38-126) U/L Total Protein 5.1 L (6.3-8.2) g/dL Albumin 2.3 L (3.5-5.0) g/dL Microbiology - Last 24 Hours (Table) 11/03/23 15:00 Anaerobic Culture - Preliminary Ascites Fluid 11/03/23 15:00 Gram Stain - Preliminary Ascites Fluid Body Fluid Culture - Preliminary
--- NOTE | 2023-11-06 12:51 | P.PN ---
Subjective Progress Note Date: 11/06/23 Pt was noted to be in a-flutter, started on amioadrone drip, now converted. Pt somnolent, but responds to verbal stimuli. S/p paracentesis, 3.6L removed, cytology pending. Awaiting insurance auth for rehab placement at [facility]. Discussed with pt and family treatment would have to be on hold until d/c from rehab. Clinic f/u scheduled on 11/[address] Perez, will be rescheduled pending course of hospitalization and rehab. Objective - Vital Signs Vital signs: Vital Signs Temp 98.3 F 11/05/23 20:05 Pulse 114 H 11/06/23 08:00 Resp 18 11/06/23 08:00 BP 86/47 11/06/23 08:00 Pulse Ox 97 11/06/23 08:00 FiO2 Intake & Output 11/05/23 11/06/23 11/06/23 18:59 06:59 18:59 Weight 54.431 kg Other: Voiding Method Toilet Toilet Toilet # Voids 2 2 # Bowel Movements 1 - Constitutional General appearance: Present: thin - EENT Eyes: Present: anicteric sclerae, EOMI ENT: Present: hearing grossly normal - Respiratory Details: Breathing even and unlabo - Cardiovascular Details: Skin warm and dry - Gastrointestinal General gastrointestinal: Present: distended. Absent: tenderness - Integumentary Integumentary: Absent: cyanotic - Musculoskeletal Musculoskeletal: Present: generalized weakness - Psychiatric Psychiatric Comment(s): A&Ox 2 - Labs CBC & Chem 7: 11/06/23 07:20 11/06/23 07:20 Labs: Abnormal Lab Results - Last 24 Hours (Table) 11/06/23 11/06/23 Range/Units 07:20 07:20 WBC 20.9 H (3.8-10.6) k/uL Hgb 10.6 L (11.4-16.0) gm/dL MCHC 29.4 L (31.0-37.0) g/dL RDW 20.4 H (11.5-15.5) % Plt Count 98 L (150-450) k/uL Neutrophils # 18.7 H (1.3-7.7) k/uL Lymphocytes # 0.2 L (1.0-4.8) k/uL Monocytes # 1.6 H (0-1.0) k/uL Sodium 135 L (137-145) mmol/L Carbon Dioxide 20 L (22-30) mmol/L BUN 24 H (7-17) mg/dL Glucose 73 L (74-99) mg/dL AST 62 H (14-36) U/L ALT 65 H (4-34) U/L Alkaline Phosphatase 215 H (38-126) U/L Total Protein 5.1 L (6.3-8.2) g/dL Albumin 2.3 L (3.5-5.0) g/dL Microbiology - Last 24 Hours (Table) 11/03/23 15:00 Anaerobic Culture - Preliminary Ascites Fluid 11/03/23 15:00 Gram Stain - Preliminary Ascites Fluid Body Fluid Culture - Preliminary - Imaging and Cardiology US - abdomen: report reviewed Assessment and Plan (1) COVID-19 Current Visit: Yes Status: Acute Priority: High Code(s): U07.1 - COVID-19 SNOMED Code(s): 263648714 (2) Dyspnea Current Visit: Yes Status: Acute Priority: High Code(s): R06.00 - DYSPNEA, UNSPECIFIED SNOMED Code(s): 360617605 (3) Pain due to malignant neoplasm metastatic to bone Current Visit: Yes Status: Acute Priority: Medium Code(s): G89.3 - NEOPLASM RELATED PAIN (ACUTE) (CHRONIC); C79.51 - SECONDARY MALIGNANT NEOPLASM OF BONE SNOMED Code(s): 691571653 (4) Squamous cell carcinoma of head and neck Current Visit: Yes Status: Chronic Priority: Medium Code(s): C76.0 - MALIGNANT NEOPLASM OF HEAD, FACE AND NECK SNOMED Code(s): 357263099 Plan: COVID: -Tested positive for COVID infection upon admission -Defer management to admitting team Right chest wall pain, pathological fracture -Has established care with radiation Oncology, with plans for radiation to painful bone mets. Radiation has not been started yet due to repeat hospitalizations, will need to reestablish with them upon d/c from rehab -Continue pain management -Medications for prevention of narcotic induced constipation ordered Confusion: -Recent admission for hypercalcemia of malignancy -Calcium now in normal range -CT brain w/ on 10/13/23 showed no evidence of intracranial metastasis -Confusion likely secondary to liver cirrhosis, superimposed by acute COVID infection. UA and ammonia level obtained -UA negative for UTI, ammonia 10. Lactulose increased to TID. Mentation is showing improvement but still somnolent Metastatic squamous cell head and neck malignancy with bone and lung metastases -Full oncological history in HPI -Patient due to start palliative immunotherapy, but has had multiple delays in treatment due to other medical complications and repeat hospital admissions -Will obtain CT AP outpt once acutely recovered -S/p paracentesis, 3.6L removed, cytology pending -Plan for rehab upon discharge. Discussed with pt and spouse, that treatment would be held until discharge from rehab facility. -F/u scheduled on 11/[address] Perez, will reschedule pending course of hospitalization/rehab. Will further discuss treatment and goals of care at f/u
[2023-11-06] MEDS: ALBUMIN HUMAN 25% 50 ML in EMPTY BAG 1 BAG IVPB SCH (13:01)
--- NOTE | 2023-11-06 14:08 | P.PN ---
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 In the ER she underwent extensive evaluation. Chest x-ray showed scattered metastatic lesions throughout the lungs, EKG demonstrated sinus tachycardia. Initial laboratory evaluation was remarkable for COVID positivity, white blood cell count of 11.6, hemoglobin 10.3, platelets 118, potassium 3.1, CO2 20, BUN 25, creatinine 0.81, and alkaline phosphatase of 131. Patient was admitted for acute hypoxic respiratory failure and COVID in conjunction with metastatic disease. She was noted to be very encephalopathic and was having urinary retention. Patient had a Hendrickson catheter placed which was subsequently able to be discontinued. Oncology was consulted and is recommending palliative therapy. She did receive a hospice consult however wanted to continue to pursue further treatment. Patient's mentation improved, her respiratory failure resolved. Abdominal ultrasound did show moderate ascites and patient was having abdominal pain. Patient's Eliquis was held in anticipation of paracentesis. During her hospital stay patient had also been on prophylactic Rocephin due to concerns for possible SBP. On the evening of 11/04 patient went into atrial flutter and was subsequently started on amiodarone drip and transferred to the telemetry unit. Cardiology was consulted. They transition the patient to oral amiodarone on the morning of 11/04/2023. Patient is now hypotensive with A-fib RVR. Pulmonology also consulted. Patient is now DNR. Patient seen and examined at bedside. Hypotensive in A-fib RVR. Also having lightheadedness. Vital signs reviewed General: Nontoxic, no distress, appears at stated age Cardiovascular: S1S2 regular, tachycardic, no murmur Lungs: Course bs bilateral, no rhonchi, no rales, no accessory muscle use Abdominal: + distended, soft, nontender to palpation, no guarding Ext: No gross muscle atrophy, no edema b/l lower extremities, no contractures Neuro: CN II-XI grossly intact, no focal neuro deficits Psych: Alert, oriented, appropriate affect Assessment/Plan: Paroxysmal atrial fibrillation with RVR Hypotensive Lactic acidosis Cardiology note reviewed, patient started on digoxin 125 mcg daily, along with metoprolol 75 twice daily, Xarelto 20 Continue midodrine AC 3 times daily Also given IV albumin -Discussed management with pulmonology, if patient remains hypotensive, may need ICU, goals of care discussion were done, patient is now DNR Acute metabolic encephalopathy, possibly infectious versus hepatic, resolving Suspected spontaneous bacterial peritonitis with hx of cirrhosis vs head and neck infection Acute COVID-19 infection, resolved Severe leukocytosis Metastatic squamous carcinoma of the head and neck with mets to bone, lung, and left sphenoid sinus -Oncology note reviewed, palliative radiation after rehab, likely palliative immunotherapy in the future - Rocephin 2 grams IVPB daily D # 7 -Mental status improved -Off steroids -Continue with vitamin C 500 mg twice daily and zinc 220 mg daily -Continue with lactulose 10 g 3 times daily, patient having bowel movements - repeat CBC and CMP in AM Bicytopenia likely secondary to malignancy and treatment as well as liver disease -Platelets and hemoglobin stable -Continue to follow CBC Acute urinary retention, resolved Hypokalemia, resolved Imaging: Echocardiogram: EF 55-60, mild tricuspid regurg Data Review: WBC 20.9, hemoglobin 10.6, sodium 135, creatinine 0.59, lactate 3.1 Overall poor prognosis as she has been to ill for treatment of her cancer. DVT prophylaxis: Xarelto Anticipated discharge date: Pending clinical course Anticipated discharge place: [facility] Objective - Vital Signs Vital signs: Vital Signs Temp 98.4 F 11/06/23 12:00 Pulse 136 H 11/06/23 12:00 Resp 24 11/06/23 12:00 BP 74/45 11/06/23 12:00 Pulse Ox 97 11/06/23 08:00 FiO2 Intake & Output 11/05/23 11/06/23 11/06/23 18:59 06:59 18:59 Weight 54.431 kg Other: Voiding Method Toilet Toilet Toilet # Voids 2 2 # Bowel Movements 1 - Labs CBC & Chem 7: 11/06/23 07:20 11/06/23 07:20 Labs: Abnormal Lab Results - Last 24 Hours (Table) 11/06/23 11/06/23 11/06/23 Range/Units 07:20 07:20 12:57 WBC 20.9 H (3.8-10.6) k/uL Hgb 10.6 L (11.4-16.0) gm/dL MCHC 29.4 L (31.0-37.0) g/dL RDW 20.4 H (11.5-15.5) % Plt Count 98 L (150-450) k/uL Neutrophils # 18.7 H (1.3-7.7) k/uL Lymphocytes # 0.2 L (1.0-4.8) k/uL Monocytes # 1.6 H (0-1.0) k/uL Sodium 135 L (137-145) mmol/L Carbon Dioxide 20 L (22-30) mmol/L BUN 24 H (7-17) mg/dL Glucose 73 L (74-99) mg/dL Plasma Lactic Acid Vinnie 3.1 H* (0.7-2.0) mmol/L AST 62 H (14-36) U/L ALT 65 H (4-34) U/L Alkaline Phosphatase 215 H (38-126) U/L Total Protein 5.1 L (6.3-8.2) g/dL Albumin 2.3 L (3.5-5.0) g/dL Microbiology - Last 24 Hours (Table) 11/03/23 15:00 Anaerobic Culture - Preliminary Ascites Fluid 11/03/23 15:00 Gram Stain - Preliminary Ascites Fluid Body Fluid Culture - Preliminary
[2023-11-06] MEDS ORDERED: NOREPINEPHRINE 4 MG in SODIUM CHLORIDE 0.9% 250 ML IV SCH (14:15)
--- NOTE | 2023-11-06 14:22 | P.CNPUL ---
History of Present Illness Consult date: 11/06/23 Requesting physician: Dennys Rhodes Reason for consult: dyspnea, hypoxemia, abnormal CXR/CT, other Chief complaint: Hypotension. History of present illness: Pulmonary consult dated November 06, 2023. 68-year-old female patient with a history of head and neck cancer, squamous cell, who presented to the emergency department, on October 26, complaining of increasing shortness of breath, and pain in the right chest area. The patient was recently hospitalized for hypercalcemia. And was supposed to start radiation treatments, but could not start them. She has been in the hospital since the day of admission, and we were consulted today, because the patient became hypotensive. The admitting physician/Hospital physician, gave the patient some additional volume, and some albumin. He was concerned, that the patient may need the intensive care unit. She is seen today in room 352. Initially, she was on room air. We asked the nurse, to place her on 2 to 3 L by nasal cannula. She was getting saline by keep vein open. Albumin has been ordered. Her blood pressures were done in the 70s, but, did increase up to 107 systolic. On November 02, she had a large-volume paracentesis, with a 3.6 L of fluid being removed. Current laboratory data includes a white count 20.9, hemoglobin 10.6, hematocrit 36, and platelet count 98,000. Sodium 135, potassium 4.1, chlorides 106, CO2 20, BUN 24, and creatinine 0.59. The lactic acid level is 3.1. AST of 62. ALT is 65. Albumin is 2.3. The paracentesis fluid appears to be a transudate. The protein is 1.5 g, and the LDH is 180. It should also be noted that the patient did test positive for coronavirus. The chest x-ray done on the day of admission, shows scattered metastatic lesions throughout the chest. Review of Systems REVIEW OF SYSTEMS: CONSTITUTIONAL: Weakness, lethargy. NEUROLOGIC: [ Negative.] HEENT: [ Negative.] CARDIAC: Hypotension. PULMONARY: Shortness of breath. GI: [Negative.] : [Negative.] RHEUMATOLOGIC: [ Negative.] IMMUNOLOGIC: [ Negative.] ENDOCRINE: [Negative. 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 History of Any Multi-Drug Resistant Organisms: None Reported Past Surgical History: Heart Catheterization Additional Past Surgical History / Comment(s): breast biopsy (benign), bilateral eye surgery; Left lymph node biopsy October. paracentesis' Past Anesthesia/Blood Transfusion Reactions: No Reported Reaction Past Psychological History: No Psychological Hx Reported Smoking Status: Former smoker Past Alcohol Use History: Abuse Additional Past Alcohol Use History / Comment(s): smokes 2 cigarettes / day, hx of 1 ppd, smoking for 50 years. hx of heavy alcohol use., quit drinking 2016 Past Drug Use History: None Reported Additional Drug Use History / Comment(s): past marijuana use - Past Family History Brother(s) Family Medical History: Cancer Additional Family Medical History / Comment(s): pancreatic cancer Medications and Allergies Home Medications Medication Instructions Recorded Confirmed Type Lactulose [Constulose] 10 gm PO PC-LUNCH 02/06/21 10/28/23 History Rivaroxaban [Xarelto] 20 mg PO HS 02/06/21 10/28/23 History Midodrine HCl [ProAmatine] 10 mg PO TID 01/26/23 10/28/23 History Metoprolol Tartrate [Lopressor] 50 mg PO BID 03/26/23 10/28/23 History Rosuvastatin [Crestor] 10 mg PO DAILY 06/24/23 10/28/23 History Acetaminophen Tab [Tylenol] 500 mg PO Q6H PRN 08/12/23 10/28/23 History Amiodarone HCl [Pacerone] 100 mg PO DAILY 09/23/23 10/28/23 History diphenhydrAMINE [Benadryl] 25 - 50 mg PO HS PRN 09/23/23 10/28/23 History Mirtazapine [Remeron] 15 mg PO HS 10/09/23 10/28/23 History Morphine Sulfate Ir [MSIR] 15 mg PO Q4H PRN 3 Days #18 tab 10/14/23 10/28/23 Rx Sennosides [Senokot] 8.6 mg PO BID #60 tab 10/14/23 10/28/23 Rx Allergies Allergy/AdvReac Type Severity Reaction Status Date / Time bee venom protein (honey bee) Allergy Unknown Verified 10/28/23 08:46 Physical Exam Osteopathic Statement: *. No significant issues noted on an osteopathic structural exam other than those noted in the History and Physical/Consult. Vitals: Vital Signs Temp Pulse Resp BP Pulse Ox 11/06/23 12:00 98.4 F 136 H 24 74/45 11/06/23 08:00 114 H 18 86/47 97 11/06/23 04:30 76 16 129/60 95 11/05/23 23:54 71 16 118/58 94 L 11/05/23 20:05 98.3 F 67 18 137/91 92 L 11/05/23 17:01 73 16 131/67 97 11/05/23 16:00 98.1 F 60 16 170/78 95 Intake and Output 11/05/23 11/06/23 11/06/23 22:59 06:59 14:59 Other: Voiding Method Toilet Toilet Toilet # Voids 2 2 # Bowel Movements 1 No acute distress, lethargic/somnolent, very frail appearing, currently on room air. No respiratory distress. HEENT examination is grossly unremarkable. Neck supple. Full range of motion. No adenopathy thyromegaly or neck vein distention. Cardiovascular examination reveals regular rhythm rate. S1-S2 normal. No S3 or S4. No discernible murmur noted. Heart rate 114 bpm. Lungs reveal mild scattered rhonchi. No wheezes or crackles. Breath sounds equal. Room air saturation 97%. Abdomen soft bowel sounds are heard. No masses or tenderness. Extremities are intact. No cyanosis clubbing or edema. Skin is without rash or lesion. Neurologic examination is brief but nonfocal. Results - Laboratory Findings CBC and BMP: 11/06/23 07:20 11/06/23 07:20 PT/INR, D-dimer PT 17.4 sec (10.0-12.5) H 11/02/23 08:59 INR 1.7 (<1.2) H 11/02/23 08:59 Abnormal lab findings: Abnormal Labs 10/27/23 10/27/23 10/27/23 17:54 19:19 19:19 WBC 11.6 H RBC Hgb 10.3 L Hct 32.4 L MCH MCHC RDW 18.6 H Plt Count 118 L D Immature Gran # Neutrophils # 10.3 H Neutrophils # (Manual) Lymphocytes # 0.3 L Lymphocytes # (Manual) Monocytes # Monocytes # (Manual) Eosinophils # Immature Plt Fraction Acanthocytes (Spur) PT INR Sodium Potassium 3.1 L Chloride Carbon Dioxide 20 L BUN 25 H Creatinine BUN/Creatinine Ratio Glucose Plasma Lactic Acid Vinnie Calcium 8.0 L Total Bilirubin 1.6 H AST ALT Alkaline Phosphatase 131 H Lactate Dehydrogenase C-Reactive Protein Total Protein 5.9 L Albumin 2.7 L Albumin/Globulin Ratio Urine Protein Fluid Appearance SARS-CoV-2 (PCR) Detected A 10/28/23 10/28/23 10/29/23 08:34 08:34 06:10 WBC 25.7 H RBC 3.35 L 3.32 L Hgb 8.7 L D 8.7 L Hct 28.4 L 28.3 L MCH MCHC 30.7 L 30.8 L RDW 18.9 H 19.2 H Plt Count 100 L 117 L Immature Gran # Neutrophils # 9.1 H 24.2 H Neutrophils # (Manual) Lymphocytes # 0.1 L 0.2 L Lymphocytes # (Manual) Monocytes # 1.1 H Monocytes # (Manual) Eosinophils # Immature Plt Fraction Acanthocytes (Spur) PT INR Sodium 134 L Potassium Chloride Carbon Dioxide 19 L BUN 25 H Creatinine BUN/Creatinine Ratio Glucose 138 H Plasma Lactic Acid Vinnie Calcium 7.7 L Total Bilirubin 1.5 H AST ALT Alkaline Phosphatase Lactate Dehydrogenase C-Reactive Protein Total Protein 5.4 L Albumin 2.5 L Albumin/Globulin Ratio Urine Protein Fluid Appearance SARS-CoV-2 (PCR) 10/29/23 10/29/23 10/30/23 06:10 10:10 08:11 WBC 29.4 H RBC Hgb 10.7 L Hct MCH MCHC 30.7 L RDW 19.3 H Plt Count 96 L Immature Gran # Neutrophils # Neutrophils # (Manual) 27.64 H Lymphocytes # Lymphocytes # (Manual) 0.59 L Monocytes # Monocytes # (Manual) 1.47 H Eosinophils # Immature Plt Fraction Acanthocytes (Spur) PT INR Sodium Potassium Chloride 108 H Carbon Dioxide 17 L BUN 27 H Creatinine BUN/Creatinine Ratio Glucose 115 H Plasma Lactic Acid Vinnie Calcium 8.0 L Total Bilirubin AST ALT Alkaline Phosphatase Lactate Dehydrogenase C-Reactive Protein Total Protein Albumin Albumin/Globulin Ratio Urine Protein Trace H Fluid Appearance SARS-CoV-2 (PCR) 10/30/23 10/31/23 10/31/23 08:11 07:43 07:43 WBC 25.5 H RBC Hgb 10.3 L Hct MCH MCHC 30.1 L RDW 19.4 H Plt Count 95 L Immature Gran # Neutrophils # 24.0 H Neutrophils # (Manual) Lymphocytes # 0.2 L Lymphocytes # (Manual) Monocytes # 1.1 H Monocytes # (Manual) Eosinophils # Immature Plt Fraction Acanthocytes (Spur) PT INR Sodium Potassium 3.1 L Chloride 108 H Carbon Dioxide 21 L BUN 22 H 24 H Creatinine BUN/Creatinine Ratio Glucose 111 H 125 H Plasma Lactic Acid Vinnie Calcium 8.1 L Total Bilirubin AST ALT Alkaline Phosphatase Lactate Dehydrogenase C-Reactive Protein Total Protein Albumin Albumin/Globulin Ratio Urine Protein Fluid Appearance SARS-CoV-2 (PCR) 10/31/23 11/01/23 11/01/23 07:43 07:40 07:40 WBC 27.5 H RBC 3.74 L Hgb 9.7 L Hct 31.9 L MCH MCHC 30.6 L RDW 19.6 H Plt Count 76 L Immature Gran # Neutrophils # 26.0 H Neutrophils # (Manual) Lymphocytes # 0.3 L Lymphocytes # (Manual) Monocytes # Monocytes # (Manual) Eosinophils # Immature Plt Fraction Acanthocytes (Spur) PT INR Sodium 135 L Potassium Chloride 109 H Carbon Dioxide 21 L BUN 22 H Creatinine BUN/Creatinine Ratio Glucose 110 H Plasma Lactic Acid Vinnie Calcium 8.3 L Total Bilirubin AST ALT Alkaline Phosphatase Lactate Dehydrogenase C-Reactive Protein 3.9 H Total Protein Albumin Albumin/Globulin Ratio Urine Protein Fluid Appearance SARS-CoV-2 (PCR) 11/02/23 11/02/23 11/02/23 06:11 06:11 08:59 WBC 26.8 H RBC 3.68 L Hgb 9.6 L Hct 32.8 L MCH MCHC 29.2 L RDW 19.9 H Plt Count 84 L Immature Gran # Neutrophils # 25.1 H Neutrophils # (Manual) Lymphocytes # 0.3 L Lymphocytes # (Manual) Monocytes # 1.3 H Monocytes # (Manual) Eosinophils # Immature Plt Fraction Acanthocytes (Spur) PT 17.4 H INR 1.7 H Sodium Potassium Chloride Carbon Dioxide 20.6 L BUN Creatinine BUN/Creatinine Ratio 27.00 H Glucose 118 H Plasma Lactic Acid Vinnie Calcium 8.6 L Total Bilirubin AST 44 H ALT Alkaline Phosphatase 150 H Lactate Dehydrogenase C-Reactive Protein Total Protein 5.2 L Albumin 2.9 L Albumin/Globulin Ratio 1.26 L Urine Protein Fluid Appearance SARS-CoV-2 (PCR) 11/03/23 11/03/23 11/03/23 06:14 06:14 15:00 WBC 28.59 H RBC 3.43 L Hgb 9.0 L Hct 29.2 L MCH 26.2 L MCHC 30.8 L RDW 21.2 H Plt Count 73 L Immature Gran # 0.27 H Neutrophils # 25.96 H Neutrophils # (Manual) Lymphocytes # 0.17 L Lymphocytes # (Manual) Monocytes # 2.14 H Monocytes # (Manual) Eosinophils # 0 L Immature Plt Fraction 12.4 H Acanthocytes (Spur) 2+ A PT INR Sodium Potassium Chloride Carbon Dioxide BUN Creatinine BUN/Creatinine Ratio 31.00 H Glucose Plasma Lactic Acid Vinnie Calcium 8.3 L Total Bilirubin AST ALT Alkaline Phosphatase Lactate Dehydrogenase 678 H C-Reactive Protein Total Protein Albumin Albumin/Globulin Ratio Urine Protein Fluid Appearance Bloody A SARS-CoV-2 (PCR) 11/04/23 11/04/23 11/05/23 06:30 06:30 08:19 WBC 29.0 H 20.3 H RBC 3.68 L 3.36 L Hgb 9.6 L 9.2 L Hct 31.8 L 30.0 L MCH MCHC 30.2 L 30.6 L RDW 19.9 H 20.1 H Plt Count 90 L 88 L Immature Gran # Neutrophils # Neutrophils # (Manual) Lymphocytes # Lymphocytes # (Manual) Monocytes # Monocytes # (Manual) Eosinophils # Immature Plt Fraction Acanthocytes (Spur) PT INR Sodium 131 L Potassium Chloride Carbon Dioxide 20 L BUN 18 H Creatinine 0.47 L BUN/Creatinine Ratio Glucose 130 H Plasma Lactic Acid Vinnie Calcium 7.8 L Total Bilirubin AST ALT Alkaline Phosphatase Lactate Dehydrogenase C-Reactive Protein Total Protein Albumin Albumin/Globulin Ratio Urine Protein Fluid Appearance SARS-CoV-2 (PCR) 11/05/23 11/06/23 11/06/23 08:19 07:20 07:20 WBC 20.9 H RBC Hgb 10.6 L Hct MCH MCHC 29.4 L RDW 20.4 H Plt Count 98 L Immature Gran # Neutrophils # 18.7 H Neutrophils # (Manual) Lymphocytes # 0.2 L Lymphocytes # (Manual) Monocytes # 1.6 H Monocytes # (Manual) Eosinophils # Immature Plt Fraction Acanthocytes (Spur) PT INR Sodium 131 L 135 L Potassium Chloride Carbon Dioxide 21 L 20 L BUN 21 H 24 H Creatinine 0.50 L BUN/Creatinine Ratio Glucose 67 L 73 L Plasma Lactic Acid Vinnie Calcium 8.0 L Total Bilirubin AST 70 H 62 H ALT 64 H 65 H Alkaline Phosphatase 181 H 215 H Lactate Dehydrogenase C-Reactive Protein Total Protein 4.9 L 5.1 L Albumin 2.2 L 2.3 L Albumin/Globulin Ratio Urine Protein Fluid Appearance SARS-CoV-2 (PCR) 11/06/23 12:57 WBC RBC Hgb Hct MCH MCHC RDW Plt Count Immature Gran # Neutrophils # Neutrophils # (Manual) Lymphocytes # Lymphocytes # (Manual) Monocytes # Monocytes # (Manual) Eosinophils # Immature Plt Fraction Acanthocytes (Spur) PT INR Sodium Potassium Chloride Carbon Dioxide BUN Creatinine BUN/Creatinine Ratio Glucose Plasma Lactic Acid Vinnie 3.1 H* Calcium Total Bilirubin AST ALT Alkaline Phosphatase Lactate Dehydrogenase C-Reactive Protein Total Protein Albumin Albumin/Globulin Ratio Urine Protein Fluid Appearance SARS-CoV-2 (PCR) - Diagnostic Findings Chest x-ray: image reviewed Assessment and Plan Assessment: 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 History of atrial fibrillation. History of COPD. History of hyperlipidemia. History of chronic liver disease, with ascites, requiring paracentesis. History of rheumatoid arthritis. History of ongoing tobacco use with nicotine addiction. Prior history of heavy alcohol use. Plan: Plan dated November 06, 2023. The patient is seen today in room 352. The primary hospital service gave her some albumin, to raise her blood pressure up. I have asked the nurse to place her on a couple liters of oxygen by nasal cannula. Before we left the area, the patient's blood pressure had increased up to 107 systolic, from the mid 70s. I took the time to look at the labs, x-rays, etc. In addition, I spoke to the patient about CODE STATUS, and even called her Carlos, and spoke to him. He made it very clear, that the patient would not want life support at all. Therefore, we made the patient a DO NOT RESUSCITATE. The patient can receive other treatment such as fluids, antibiotics, breathing treatments, albumin, etc. The patient is also on midodrine, 10 mg 3 times a day for blood pressure support. Additional recommendations and suggestions are forthcoming. Prognosis is poor. Time with Patient: Greater than 30
[2023-11-06] MEDS: DILTIAZEM 125 MG in SODIUM CHLORIDE 0.9% 100 ML IV SCH (14:33)
[2023-11-06] MEDS: DILTIAZEM DRIP BOLUS FROM BAG 1 MG SOLN IV ONE (21:49)
[2023-11-07] MEDS: DIGOXIN 125 MCG TAB PO SCH (09:39)
[2023-11-07 10:44] LABS: Anisocytosis Moderate; Basophils % (A) 0 %; Eosinophils # (A) 0.1 k/uL (0-0.7); Eosinophils % (A) 0 %; HCT 30.4 % (34.0-46.0); Hypochromasia Marked; Lymphocytes # (A) 0.4 k/uL (1.0-4.8); Lymphocytes % (A) 2 %; MCH 26.6 pg (25.0-35.0); MCHC 29.6 g/dL (31.0-37.0); Monocytes # (A) 1.4 k/uL (0-1.0); Monocytes % (A) 7 %; Neutrophils # (A) 17.5 k/uL (1.3-7.7); Neutrophils % (A) 90 %; Platelet Count 113 k/uL (150-450); RBC 3.38 m/uL (3.80-5.40); RDW 20.3 % (11.5-15.5); WBC 19.5 k/uL (3.8-10.6)
[2023-11-07 11:11] LABS: ALT 60 U/L (4-34); AST 72 U/L (14-36); African American GFR (CKD) >90 (>60 ml/min/1.73 sqM); Albumin 2.7 g/dL (3.5-5.0); Alkaline Phosphatase 163 U/L (38-126); Anion Gap 8 mmol/L; Blood Urea Nitrogen 26 mg/dL (7-17); Calcium 9.6 mg/dL (8.4-10.2); Carbon Dioxide 22 mmol/L (22-30); Chloride 106 mmol/L (98-107); Glucose 112 mg/dL (74-99); Magnesium 2.2 mg/dL (1.6-2.3); Non-African American GFR(CKD) >90 (>60 ml/min/1.73 sqM); Potassium 4.2 mmol/L (3.5-5.1); Sodium 136 mmol/L (137-145); Total Bilirubin 1.2 mg/dL (0.2-1.3); Total Protein 5.1 g/dL (6.3-8.2)
--- NOTE | 2023-11-07 11:32 | P.PN ---
Subjective HISTORY OF PRESENT ILLNESS: This is a 68-year-old female with a past medical history significant for paroxysmal atrial fibrillation, valvular heart disease, liver disease with recurrent ascites and multiple paracentesis, hypertension, hyperlipidemia, coronary artery disease, thoracic aortic dilatation, carotid atherosclerosis, and head and neck cancer. Patient follows in the office with Dr. Kay. We have been asked to see the patient in consultation for atrial flutter. Patient examined at the bedside. Patient went into A-fib with RVR overnight. She was started on IV amiodarone. She is maintaining sinus mechanism this morning. She denies chest pain or pressure. She denies SOB. Vital signs are stable. DIAGNOSTICS: - EKG reveals atrial fibrillation with RVR - Chest xray negative for acute process - Laboratory data: WBC 5.0. Hemoglobin 12.8. Platelet count 143. - Current home cardiac medications include amiodarone 100 mg daily, metoprolol tartrate 50 mg twice a day, lovastatin 10 mg daily, Xarelto 20 mg daily, and midodrine 10 mg 3 times daily - Most recent echocardiogram obtained in January 2023 revealing normal EF, moderate TR, moderate MR - Cardiac catheterization history: October 2018 revealing intermediate to severe disease of the RCA and left circumflex 11/05/2023 Patient examined this morning at the bedside. Patient denies chest pain or pressure. She denies shortness of breath. Telemetry reveals sinus mechanism with a heart rate in the 60s. Echocardiogram completed revealing ejection fraction 55%. 11/06/2023 Patient examined this morning at the bedside. Patient currently denies chest pain or pressure. She denies shortness of breath. Patient went back into [facility] with RVR this morning. She remains in atrial fibrillation with heart rate around 120. Patient's blood pressures were also low this morning with a systolic in the 80s90s. 11/07/2023 Patient examined this morning. She is sitting on the side of the bed. Patient currently denies chest pain or pressure. She denies shortness of breath. Patient is maintaining sinus mechanism this morning. Blood pressure is stable. PHYSICAL EXAM: VITAL SIGNS: Reviewed. GENERAL: Well-developed in no acute distress. HEENT: Head is normocephalic. Pupils are equal, round. Sclerae anicteric. Mucous membranes of the mouth are moist. Neck supple. No JVD or thyromegaly LUNGS: Respirations even and unlabored. Lungs essentially clear to auscultation bilaterally. HEART: Regular rate and rhythm. S1 and S2 heard. Systolic murmur noted ABDOMEN: Soft. Nondistended. Nontender. EXTREMITIES: Normal range of motion. No clubbing or cyanosis. Peripheral pulses intact. No lower extremity edema NEUROLOGIC: Awake and alert. Oriented x 3. ASSESSMENT: COVID Acute metabolic encephalopathy Suspected spontaneous bacterial peritonitis Paroxysmal atrial fibrillation/flutter with RVR Leukocytosis Coronary artery disease without previous stenting Chronic liver disease with recurrent ascites requiring paracentesis Hypertension Hyperlipidemia Known thoracic dilatation Carotid atherosclerosis Valvular heart disease PLAN: Continue current cardiac medications Continue telemetry monitoring Patient is currently stable from a cardiac standpoint We will follow on an as-needed basis. Please call with questions or concerns. Nurse practitioner note has been reviewed by physician. Signing provider agrees with the documented findings, assessment, and plan of care documented by [employer] as a scribe. Objective - Vital Signs Vital signs: Vital Signs Temp 97.7 F 11/07/23 08:00 Pulse 65 11/07/23 08:00 Resp 17 11/07/23 08:00 BP 128/60 11/07/23 08:00 Pulse Ox 94 L 11/07/23 08:00 FiO2 Intake & Output 11/06/23 11/07/23 11/07/23 18:59 06:59 18:59 Intake Total 200 49.75 120 Output Total 150 Balance 200 -100.25 120 Intake: Intake, IV Titration 200 49.75 Amount Albumin Human 25% 50 ml 200 In Empty Bag 1 bag @ 50 mls/hr IVPB Q1H [facility] Rx#: [id number] Diltiazem 125 mg In 49.75 Sodium Chloride 0.9% 100 ml @ 5 MG/HR 5 mls/hr IV .Q24H [facility] Rx#:[id number] Oral 120 Output: Urine 150 Other: Voiding Method Toilet Toilet # Voids 2 1 # Bowel Movements 2 1 - Labs CBC & Chem 7: 11/07/23 10:08 11/07/23 10:08 Labs: Abnormal Lab Results - Last 24 Hours (Table) 11/06/23 11/07/23 11/07/23 Range/Units 12:57 10:08 10:08 WBC 19.5 H (3.8-10.6) k/uL RBC 3.38 L (3.80-5.40) m/uL Hgb 9.0 L D (11.4-16.0) gm/dL Hct 30.4 L (34.0-46.0) % MCHC 29.6 L (31.0-37.0) g/dL RDW 20.3 H (11.5-15.5) % Plt Count 113 L (150-450) k/uL Neutrophils # 17.5 H (1.3-7.7) k/uL Lymphocytes # 0.4 L (1.0-4.8) k/uL Monocytes # 1.4 H (0-1.0) k/uL Sodium 136 L (137-145) mmol/L BUN 26 H (7-17) mg/dL Glucose 112 H (74-99) mg/dL Plasma Lactic Acid Vinnie 3.1 H* (0.7-2.0) mmol/L AST 72 H (14-36) U/L ALT 60 H (4-34) U/L Alkaline Phosphatase 163 H (38-126) U/L Total Protein 5.1 L (6.3-8.2) g/dL Albumin 2.7 L (3.5-5.0) g/dL Microbiology - Last 24 Hours (Table) 11/03/23 15:00 Gram Stain - Preliminary Ascites Fluid Body Fluid Culture - Preliminary
--- NOTE | 2023-11-07 11:50 | P.PN ---
Subjective Progress Note Date: 11/07/23 Principal diagnosis: Hypotension. Pulmonary consult dated November 06, 2023. 68-year-old female patient with a history of head and neck cancer, squamous cell, who presented to the emergency department, on October 26, complaining of increasing shortness of breath, and pain in the right chest area. The patient was recently hospitalized for hypercalcemia. And was supposed to start r adiation treatments, but could not start them. She has been in the hospital since the day of admission, and we were consulted today, because the patient became hypotensive. The admitting physician/Hospital physician, gave the patient some additional volume, and some albumin. He was concerned, that the patient may need the intensive care unit. She is seen today in room 352. Initially, she was on room air. We asked the nurse, to place her on 2 to 3 L by nasal cannula. She was getting saline by keep vein open. Albumin has been ordered. Her blood pressures were done in the 70s, but, did increase up to 107 systolic. On November 02, she had a large-volume paracentesis, with a 3.6 L of fluid being removed. Current laboratory data includes a white count 20.9, hemoglobin 10.6, hematocrit 36, and platelet count 98,000. Sodium 135, potassium 4.1, chlorides 106, CO2 20, BUN 24, and creatinine 0.59. The lactic acid level is 3.1. AST of 62. ALT is 65. Albumin is 2.3. The paracentesis fl uid appears to be a transudate. The protein is 1.5 g, and the LDH is 180. It should also be noted that the patient did test positive for coronavirus. The chest x-ray done on the day of admission, shows scattered metastatic lesions throughout the chest. Progress note dated November 07, 2023. This is a 68-year-old female with history of head and neck cancer, which is metastatic, who we are asked to see yesterday in consultation, for hypotension. The patient received some additional volume, midodrine 10 mg, and some albumin. Today, the blood pressure is much better, at 128/60. She is on 2 L of oxygen. She is much more awake and alert. She is getting saline at 10 cc an hour. I was able to speak to the yesterday, and the patient was made DO NOT RESUSCITATE. Labs today include a white count 19.5, hemoglobin 9, hematocrit 30.4, and a platelet count of 113,000. Sodium 136, potassium 4.2, chlorides 106, CO2 22, BUN 26, creatinine 0.59. Albumin is 2.7. AST is 70. ALT is 60. Initial lactic acid was 3.1. Repeat was 1.6. Cultures are thus far negative. Objective - Vital Signs Vital signs: Vital Signs Temp 97.7 F 11/07/23 08:00 Pulse 65 11/07/23 08:00 Resp 17 11/07/23 08:00 BP 128/60 11/07/23 08:00 Pulse Ox 94 L 11/07/23 08:00 FiO2 Intake & Output 11/06/23 11/07/23 11/07/23 18:59 06:59 18:59 Intake Total 200 49.75 120 Output Total 150 Balance 200 -100.25 120 Intake: Intake, IV Titration 200 49.75 Amount Albumin Human 25% 50 ml 200 In Empty Bag 1 bag @ 50 mls/hr IVPB Q1H [facility] Rx#: [id number] Diltiazem 125 mg In 49.75 Sodium Chloride 0.9% 100 ml @ 5 MG/HR 5 mls/hr IV .Q24H [facility] Rx#:[id number] Oral 120 Output: Urine 150 Other: Voiding Method Toilet Toilet # Voids 2 1 # Bowel Movements 2 1 - Exam No acute distress, much more awake and alert. Currently on 2 L of oxygen. HEENT examination is grossly unremarkable. Neck supple. Full range of motion. No adenopathy thyromegaly or neck vein distention. Cardiovascular examination reveals regular rhythm rate. S1-S2 normal. No S3 or S4. No discernible murmur noted. Heart rate 65 bpm. Lungs reveal mild scattered rhonchi. No wheezes or crackles. Breath sounds equal. 2 L saturation is 98%. Abdomen soft bowel sounds are heard. No masses or tenderness. Extremities are intact. No cyanosis clubbing or edema. Skin is without rash or lesion. Neurologic examination is brief but nonfocal. - Labs CBC & Chem 7: 11/07/23 10:08 11/07/23 10:08 Labs: Abnormal Lab Results - Last 24 Hours (Table) 11/06/23 11/07/23 11/07/23 Range/Units 12:57 10:08 10:08 WBC 19.5 H (3.8-10.6) k/uL RBC 3.38 L (3.80-5.40) m/uL Hgb 9.0 L D (11.4-16.0) gm/dL Hct 30.4 L (34.0-46.0) % MCHC 29.6 L (31.0-37.0) g/dL RDW 20.3 H (11.5-15.5) % Plt Count 113 L (150-450) k/uL Neutrophils # 17.5 H (1.3-7.7) k/uL Lymphocytes # 0.4 L (1.0-4.8) k/uL Monocytes # 1.4 H (0-1.0) k/uL Sodium 136 L (137-145) mmol/L BUN 26 H (7-17) mg/dL Glucose 112 H (74-99) mg/dL Plasma Lactic Acid Vinnie 3.1 H* (0.7-2.0) mmol/L AST 72 H (14-36) U/L ALT 60 H (4-34) U/L Alkaline Phosphatase 163 H (38-126) U/L Total Protein 5.1 L (6.3-8.2) g/dL Albumin 2.7 L (3.5-5.0) g/dL Microbiology - Last 24 Hours (Table) 11/03/23 15:00 Gram Stain - Preliminary Ascites Fluid Body Fluid Culture - Preliminary Assessment and Plan Assessment: 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 Hypotension, transient, and much improved. History of atrial fibrillation. History of COPD. History of hyperlipidemia. History of chronic liver disease, with ascites, requiring paracentesis. History of rheumatoid arthritis. History of ongoing tobacco use with nicotine addiction. Prior history of heavy alcohol use. Plan: Plan dated November 06, 2023. The patient is seen today in room 352. The primary hospital service gave her some albumin, to raise her blood pressure up. I have asked the nurse to place her on a couple liters of oxygen by nasal cannula. Before we left the area, the patient's blood pressure had increased up to 107 systolic, from the mid 70s. I took the time to look at the labs, x-rays, etc. In addition, I spoke to the patient about CODE STATUS, and even called her Carlos, and spoke to him. He made it very clear, that the patient would not want life support at all. Therefore, we made the patient a DO NOT RESUSCITATE. The patient can receive other treatment such as fluids, antibiotics, breathing treatments, albumin, etc. The patient is also on midodrine, 10 mg 3 times a day for blood pressure support. Additional recommendations and suggestions are forthcoming. Prognosis is poor. Plan dated November 07, 2023. The patient was seen today in room 352. She is much more awake and alert than she was yesterday. She continues on 2 L by nasal cannula. She is getting saline at 10 cc an hour. Labs, x-rays, and medications are reviewed. The patient's blood pressure today is much improved at 128/60. I did have the opportunity to speak to the patient's yesterday, and, the patient was made a DO NOT RESUSCITATE, as her stated, that it was her prior wishes. We will continue to follow make recommendations along the way. Prognosis is poor. Time with Patient: Less than 30
--- NOTE | 2023-11-07 16:24 | P.PN ---
Subjective Progress Note Date: 11/07/23 (delayed charting seen at 0930) Patient is a 68-year-old female with metastatic squamous carcinoma of the head and neck with mets to bone, lung, and left sphenoid sinus, cirrhosis with prior alcohol abuse, A-fib on Xarelto, dyslipidemia, and multiple other comorbid conditions who presented to the emergency department with shortness of breath. In the ER she underwent extensive evaluation. Chest x-ray showed scattered metastatic lesions throughout the lungs, EKG demonstrated sinus tachycardia. Initial laboratory evaluation was remarkable for COVID positivity, white blood cell count of 11.6, hemoglobin 10.3, platelets 118, potassium 3.1, CO2 20, BUN 25, creatinine 0.81, and alkaline phosphatase of 131. Patient was admitted for acute hypoxic respiratory failure and COVID in conjunction with metastatic disease. She was noted to be very encephalopathic and was having urinary retention. Patient had a Hendrickson catheter placed which was subsequently able to be discontinued. Oncology was consulted and is recommending palliative therapy. She did receive a hospice consult however wanted to continue to pursue further treatment. Patient's mentation improved, her respiratory failure resolved. Abdominal ultrasound did show moderate ascites and patient was having abdominal pain. Patient's Eliquis was held in anticipation of paracentesis. During her hospital stay patient had also been on prophylactic Rocephin due to concerns for possible SBP. On the evening of 11/04 patient went into atrial flutter and was subsequently started on amiodarone drip and transferred to the telemetry unit. Cardiology was consulted. They transition the patient to oral amiodarone on the morning of 11/04/2023. She did well and then again went into A-fib with RVR on 11/05 and was hypotensive requiring albumin after her BP improved. She was again started on Cardizem drip and digoxin. Patient seen and examined at bedside. She states she is feeling slightly better today. She was denies any shortness of breath or chest pain. She is asking when she can go home and I reiterated with her that she will be going to rehab due to her weakness. Vital signs reviewed General: Nontoxic, no distress, appears at stated age Cardiovascular: S1S2 reg, no murmur Lungs: Course bs bilateral, no rhonchi, no rales, no accessory muscle use Abdominal: + distended, soft, nontender to palpation, no guarding Ext: No gross muscle atrophy, no edema b/l lower extremities, no contractures Neuro: CN II-XI grossly intact, no focal neuro deficits Psych: Alert, oriented, appropriate affect Assessment/Plan: Acute metabolic encephalopathy, possibly infectious versus hepatic, resolving Suspected spontaneous bacterial peritonitis with hx of cirrhosis vs head and neck infection Acute COVID-19 infection Severe leukocytosis, infectious versus steroid-induced Metastatic squamous carcinoma of the head and neck with mets to bone, lung, and left sphenoid sinus -Oncology note reviewed from 11/05: Prognosis poor. Follow-up scheduled with Dr. Perez on 11/11. -Pulmonary note reviewed: Continue current care. - Rocephin completed -Off decadron -Continue with vitamin C 500 mg twice daily and zinc 220 mg daily -Continue with lactulose 10 g 3 times daily - repeat CBC and CMP in AM Paroxysmal atrial fibrillation, episode of A flutter with RVR 11/04/23 -Cardiology note reviewed: Continue current medications, stable from cardiac standpoint, we will follow-up on as-needed basis. -Amiodarone to 200 mg daily and metoprolol to 75 mg twice daily, digoxin 125 mg daily, - On midodrine 10 mg TID due to low BP -Xarelto 20 mg at night Bicytopenia likely secondary to malignancy and treatment as well as liver disease -Platelets and hemoglobin stable -Continue to follow CBC Acute urinary retention, resolved Hypokalemia, resolved Imaging: None new Prior Imaging: Echocardiogram: EF 55-60, mild tricuspid regurg Data Review: Labs reviewed from today include CBC and CMP which are remarkable for white blood cell count 19.5, hemoglobin 9, platelets 113, sodium 136, BUN 26, AST 72, ALT 60, and alkaline phosphatase of 163. Overall poor prognosis as she has been to ill for treatment of her cancer. DVT prophylaxis: Eliqus Anticipated discharge date: in 24-[address]: [facility] This dictation was prepared using [employer] voice recognition software. Though every attempt is made to correct errors during dictation some may still exist. Objective - Vital Signs Vital signs: Vital Signs Temp 97.7 F 11/07/23 08:00 Pulse 65 11/07/23 08:00 Resp 17 11/07/23 08:00 BP 128/60 11/07/23 08:00 Pulse Ox 94 L 11/07/23 08:00 FiO2 Intake & Output 04/05/24 04/06/24 04/06/24 18:59 06:59 18:59 Intake Total 200 49.75 240 Output Total 150 Balance 200 -100.25 240 Intake: Intake, IV Titration 200 49.75 Amount Albumin Human 25% 50 ml 200 In Empty Bag 1 bag @ 50 mls/hr IVPB Q1H [facility] Rx#: [id number] Diltiazem 125 mg In 49.75 Sodium Chloride 0.9% 100 ml @ 5 MG/HR 5 mls/hr IV .Q24H [facility] Rx#:[id number] Oral 240 Output: Urine 150 Other: Voiding Method Toilet Toilet # Voids 2 0 # Bowel Movements 2 0 - Labs CBC & Chem 7: 11/07/23 10:08 11/07/23 10:08 Labs: Abnormal Lab Results - Last 24 Hours (Table) 11/07/23 11/07/23 Range/Units 10:08 10:08 WBC 19.5 H (3.8-10.6) k/uL RBC 3.38 L (3.80-5.40) m/uL Hgb 9.0 L D (11.4-16.0) gm/dL Hct 30.4 L (34.0-46.0) % MCHC 29.6 L (31.0-37.0) g/dL RDW 20.3 H (11.5-15.5) % Plt Count 113 L (150-450) k/uL Neutrophils # 17.5 H (1.3-7.7) k/uL Lymphocytes # 0.4 L (1.0-4.8) k/uL Monocytes # 1.4 H (0-1.0) k/uL Sodium 136 L (137-145) mmol/L BUN 26 H (7-17) mg/dL Glucose 112 H (74-99) mg/dL AST 72 H (14-36) U/L ALT 60 H (4-34) U/L Alkaline Phosphatase 163 H (38-126) U/L Total Protein 5.1 L (6.3-8.2) g/dL Albumin 2.7 L (3.5-5.0) g/dL Microbiology - Last 24 Hours (Table) 11/03/23 15:00 Gram Stain - Preliminary Ascites Fluid Body Fluid Culture - Preliminary
[2023-11-08 05:40] LABS: Appearance,Urine Cloudy (Clear); Bilirubin,Urine Negative (Negative); Blood,Urine Moderate (Negative); Color,Urine Light Red; Glucose,Urine (UA) Negative (Negative); Ketones,Urine Trace (Negative); Leukocyte Esterase,Urine Moderate (Negative); Mucus,Urine Rare /hpf; Nitrite,Urine Negative (Negative); Protein,Urine 2+ (Negative); RBC,Urine >182 /hpf (0-5); Specific Gravity,Urine 1.024 (1.001-1.035); Squamous Epithelial Cell,Urine 3 /hpf (0-4); Urobilinogen,Urine <2.0 mg/dL (<2.0); WBC,Urine 68 /hpf (0-5)
[2023-11-08 06:39] LABS: Anisocytosis Moderate; HCT 27.8 % (34.0-46.0); HGB 8.5 gm/dL (11.4-16.0); Hypochromasia Marked; MCH 26.9 pg (25.0-35.0); MCHC 30.5 g/dL (31.0-37.0); Mean Platelet Volume 9.7; Platelet Count 112 k/uL (150-450); RBC 3.16 m/uL (3.80-5.40); RDW 20.1 % (11.5-15.5)
[2023-11-08 06:50] LABS: African American GFR (CKD) >90 (>60 ml/min/1.73 sqM); Anion Gap 6 mmol/L; Blood Urea Nitrogen 26 mg/dL (7-17); Calcium 9.3 mg/dL (8.4-10.2); Carbon Dioxide 22 mmol/L (22-30); Chloride 106 mmol/L (98-107); Glucose 77 mg/dL (74-99); Non-African American GFR(CKD) >90 (>60 ml/min/1.73 sqM); Potassium 3.8 mmol/L (3.5-5.1); Sodium 134 mmol/L (137-145)
--- NOTE | 2023-11-08 09:15 | US ---
EXAMINATION TYPE: US renals and bladder DATE OF EXAM: 11/08/2023 COMPARISON: CT, US CLINICAL INDICATION: Female, 68 years old with history of hematuria, known metastatic cancer; Hematur ia EXAM MEASUREMENTS: Right Kidney: 11.3 x 4.8 x 4.9 cm Left Kidney: 10.0 x 5.7 x 4.8 cm Right Kidney: Appeared wnl, no evidence of hydro Left Kidney: No evidence of hydro, limited views due to overlying bowel content Bladder: Difficult to visualize, not fully distended Bilateral Jets seen: No There is no evidence for hydronephrosis at this point in time. No nephrolithiasis is seen. No nima s are identified. IMPRESSION: No distinct abnormality seen.
[2023-11-08] MEDS: ENOXAPARIN 40 MG/0.4 ML SYRINGE SQ SCH (10:43)
--- NOTE | 2023-11-08 11:07 | P.PN ---
Subjective Progress Note Date: 11/08/23 Principal diagnosis: Hypotension. Pulmonary consult dated November 06, 2023. 68-year-old female patient with a history of head and neck cancer, squamous cell, who presented to the emergency department, on October 26, complaining of increasing shortness of breath, and pain in the right chest area. The patient was recently hospitalized for hypercalcemia. And was supposed to start r adiation treatments, but could not start them. She has been in the hospital since the day of admission, and we were consulted today, because the patient became hypotensive. The admitting physician/Hospital physician, gave the patient some additional volume, and some albumin. He was concerned, that the patient may need the intensive care unit. She is seen today in room 352. Initially, she was on room air. We asked the nurse, to place her on 2 to 3 L by nasal cannula. She was getting saline by keep vein open. Albumin has been ordered. Her blood pressures were done in the 70s, but, did increase up to 107 systolic. On November 02, she had a large-volume paracentesis, with a 3.6 L of fluid being removed. Current laboratory data includes a white count 20.9, hemoglobin 10.6, hematocrit 36, and platelet count 98,000. Sodium 135, potassium 4.1, chlorides 106, CO2 20, BUN 24, and creatinine 0.59. The lactic acid level is 3.1. AST of 62. ALT is 65. Albumin is 2.3. The paracentesis fl uid appears to be a transudate. The protein is 1.5 g, and the LDH is 180. It should also be noted that the patient did test positive for coronavirus. The chest x-ray done on the day of admission, shows scattered metastatic lesions throughout the chest. Progress note dated November 07, 2023. This is a 68-year-old female with history of head and neck cancer, which is metastatic, who we are asked to see yesterday in consultation, for hypotension. The patient received some additional volume, midodrine 10 mg, and some albumin. Today, the blood pressure is much better, at 128/60. She is on 2 L of oxygen. She is much more awake and alert. She is getting saline at 10 cc an hour. I was able to speak to the yesterday, and the patient was made DO NOT RESUSCITATE. Labs today include a white count 19.5, hemoglobin 9, hematocrit 30.4, and a platelet count of 113,000. Sodium 136, potassium 4.2, chlorides 106, CO2 22, BUN 26, creatinine 0.59. Albumin is 2.7. AST is 70. ALT is 60. Initial lactic acid was 3.1. Repeat was 1.6. Cultures are thus far negative. Progress note dated November 08, 2023. 68-year-old female with history of metastatic head and neck cancer. Currently, the patient is seen today in room 352. She is on room air. She is not receiving any IV fluids. Her blood pressures have been a little bit low. The patient is a DNR patient, as I discussed that with the patient, and the patient's . Current laboratory data includes a white count 15, hemoglobin 8.5, hematocrit 27.8, and platelet count 112,000. Sodium 134, potassium 3.8, chlorides 106, CO2 22, BUN 26, and creatinine 0.56. Urine is light red and cloudy. There is 2+ protein. Trace ketones, moderate blood, moderate leukocyte esterases, more than 182 RBCs, 68 WBCs, and 3 squamous epithelial cells. So far, cultures are negative. Objective - Vital Signs Vital signs: Vital Signs Temp 97.5 F L 11/08/23 08:10 Pulse 69 11/08/23 10:48 Resp 17 11/08/23 08:10 BP 113/68 11/08/23 10:48 Pulse Ox 97 11/08/23 08:10 FiO2 Intake & Output 11/07/23 11/08/23 11/08/23 18:59 06:59 18:59 Intake Total 890 250 280 Balance 890 250 280 Intake: Intake, IV Titration 50 Amount cefTRIAXone 2 gm In 50 Sodium Chloride 0.9% 50 ml @ 100 mls/hr IVPB Q24HR [facility] Rx#:[id number] Oral 840 250 280 Other: Voiding Method Toilet # Voids 3 1 # Bowel Movements 0 0 - Exam No acute distress, much more awake and alert. Currently on room air. HEENT examination is grossly unremarkable. Neck supple. Full range of motion. No adenopathy thyromegaly or neck vein distention. Cardiovascular examination reveals regular rhythm rate. S1-S2 normal. No S3 or S4. No discernible murmur noted. Heart rate 89 bpm. Lungs reveal mild scattered rhonchi. No wheezes or crackles. Breath sounds equ al. Room air saturation is 97%. Abdomen soft bowel sounds are heard. No masses or tenderness. Extremities are intact. No cyanosis clubbing or edema. Skin is without rash or lesion. Neurologic examination is brief but nonfocal. - Labs CBC & Chem 7: 11/08/23 06:09 11/08/23 06:09 Labs: Abnormal Lab Results - Last 24 Hours (Table) 11/07/23 11/07/23 11/08/23 Range/Units 10:08 10:08 05:00 WBC 19.5 H (3.8-10.6) k/uL RBC 3.38 L (3.80-5.40) m/uL Hgb 9.0 L D (11.4-16.0) gm/dL Hct 30.4 L (34.0-46.0) % MCHC 29.6 L (31.0-37.0) g/dL RDW 20.3 H (11.5-15.5) % Plt Count 113 L (150-450) k/uL Neutrophils # 17.5 H (1.3-7.7) k/uL Lymphocytes # 0.4 L (1.0-4.8) k/uL Monocytes # 1.4 H (0-1.0) k/uL Sodium 136 L (137-145) mmol/L BUN 26 H (7-17) mg/dL Glucose 112 H (74-99) mg/dL AST 72 H (14-36) U/L ALT 60 H (4-34) U/L Alkaline Phosphatase 163 H (38-126) U/L Total Protein 5.1 L (6.3-8.2) g/dL Albumin 2.7 L (3.5-5.0) g/dL Urine Appearance Cloudy H (Clear) Urine Protein 2+ H (Negative) Urine Ketones Trace H (Negative) Urine Blood Moderate H (Negative) Ur Leukocyte Esterase Moderate H (Negative) Urine RBC >182 H (0-5) /hpf Urine WBC 68 H (0-5) /hpf Urine Mucus Rare H (None) /hpf 11/08/23 11/08/23 Range/Units 06:09 06:09 WBC 15.0 H (3.8-10.6) k/uL RBC 3.16 L (3.80-5.40) m/uL Hgb 8.5 L (11.4-16.0) gm/dL Hct 27.8 L (34.0-46.0) % MCHC 30.5 L (31.0-37.0) g/dL RDW 20.1 H (11.5-15.5) % Plt Count 112 L (150-450) k/uL Neutrophils # (1.3-7.7) k/uL Lymphocytes # (1.0-4.8) k/uL Monocytes # (0-1.0) k/uL Sodium 134 L (137-145) mmol/L BUN 26 H (7-17) mg/dL Glucose (74-99) mg/dL AST (14-36) U/L ALT (4-34) U/L Alkaline Phosphatase (38-126) U/L Total Protein (6.3-8.2) g/dL Albumin (3.5-5.0) g/dL Urine Appearance (Clear) Urine Protein (Negative) Urine Ketones (Negative) Urine Blood (Negative) Ur Leukocyte Esterase (Negative) Urine RBC (0-5) /hpf Urine WBC (0-5) /hpf Urine Mucus (None) /hpf Microbiology - Last 24 Hours (Table) 11/03/23 15:00 Anaerobic Culture - Final Ascites Fluid 11/03/23 15:00 Gram Stain - Final Ascites Fluid Body Fluid Culture - Final Assessment and Plan Assessment: 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 Hypotension, transient, and much improved. History of atrial fibrillation. History of COPD. History of hyperlipidemia. History of chronic liver disease, with ascites, requiring paracentesis. History of rheumatoid arthritis. History of ongoing tobacco use with nicotine addiction. Prior history of heavy alcohol use. Plan: Plan dated November 06, 2023. The patient is seen today in room 352. The primary hospital service gave her some albumin, to raise her blood pressure up. I have asked the nurse to place her on a couple liters of oxygen by nasal cannula. Before we left the area, the patient's blood pressure had increased up to 107 systolic, from the mid 70s. I took the time to look at the labs, x-rays, etc. In addition, I spoke to the patient about [employer], and even called her Carlos, and spoke to him. He made it very clear, that the patient would not want life support at all. Therefore, we made the patient a DO NOT RESUSCITATE. The patient can receive other treatment such as fluids, antibiotics, breathing treatments, albumin, etc. The patient is also on midodrine, 10 mg 3 times a day for blood pressure support. Additional recommendations and suggestions are forthcoming. Prognosis is poor. Plan dated November 07, 2023. The patient was seen today in room 352. She is much more awake and alert than she was yesterday. She continues on 2 L by nasal cannula. She is getting saline at 10 cc an hour. Labs, x-rays, and medications are reviewed. The patient's blood pressure today is much improved at 128/60. I did have the op portunity to speak to the patient's yesterday, and, the patient was made a DO NOT RESUSCITATE, as her stated, that it was her prior wishes. We will continue to follow make recommendations along the way. Prognosis is poor. Plan dated November 08, 2023. The patient is seen today in room 352. The patient is currently on room air. She is not receiving any IV fluids. Labs, x-rays, and medications are reviewed. The patient's overall prognosis remains poor. The patient is a DO NOT RESUSCITATE patient. I clarified that with the patient's . She would not want anything heroic done, including intubation with mechanical ventilation. We will continue to follow make recommendations. Prognosis is certainly poor. Time with Patient: Less than 30
--- NOTE | 2023-11-08 12:22 | P.PN ---
Subjective Progress Note Date: 11/08/23 Patient is a 68-year-old female with metastatic squamous carcinoma of the head and neck with mets to bone, lung, and left sphenoid sinus, cirrhosis with prior alcohol abuse, A-fib on Xarelto, dyslipidemia, and multiple other comorbid conditions who presented to the emergency department with shortness of breath. In the ER she underwent extensive evaluation. Chest x-ray showed scattered metastatic lesions throughout the lungs, EKG demonstrated sinus tachycardia. Initial laboratory evaluation was remarkable for COVID positivity, white blood cell count of 11.6, hemoglobin 10.3, platelets 118, potassium 3.1, CO2 20, BUN 25, creatinine 0.81, and alkaline phosphatase of 131. Patient was admitted for acute hypoxic respiratory failure and COVID in conjunction with metastatic disease. She was noted to be very encephalopathic and was having urinary retention. Patient had a Hendrickson catheter placed which was subsequently able to be discontinued. Oncology was consulted and is recommending palliative therapy. She did receive a hospice consult however wanted to continue to pursue further treatment. Patient's mentation improved, her respiratory failure resolved. Abdominal ultrasound did show moderate ascites and patient was having abdominal pain. Patient's Eliquis was held in anticipation of paracentesis. During her hospital stay patient had also been on prophylactic Rocephin due to concerns for possible SBP. On the evening of 11/04 patient went into atrial flutter and was subsequently started on amiodarone drip and transferred to the telemetry unit. Cardiology was consulted. They transition the patient to oral amiodarone on the morning of 11/04/2023. She did well and then again went into A-fib with RVR on 11/05 and was hypotensive requiring albumin after her BP improved. She was again started on Cardizem drip and digoxin. Patient seen and examined at bedside. She complains of blood in her urine and some lower abdominal discomfort. She denies any chest pain or shortness of breath. She is asking to go home. Per nursing patient is having significant hematuria. She is also more lethargic than yesterday. No sedative medications have been administered. Vital signs reviewed General: Nontoxic, no distress, appears at stated age Cardiovascular: S1S2 reg, no murmur Lungs: Course bs bilateral, no rhonchi, no rales, no accessory muscle use Abdominal: + distended, soft, nontender to palpation, no guarding Ext: No gross muscle atrophy, no edema b/l lower extremities, no contractures Neuro: CN II-XI grossly intact, no focal neuro deficits Psych: Alert, oriented, appropriate affect Assessment/Plan: Acute metabolic encephalopathy, possibly infectious versus hepatic Suspected spontaneous bacterial peritonitis with hx of cirrhosis vs head and neck infection Acute COVID-19 infection Severe leukocytosis, infectious versus steroid-induced Metastatic squamous carcinoma of the head and neck with mets to bone, lung, and left sphenoid sinus - encephalopathy worsening again today, check head CT given sphenoid sinus mass noted last month -Await further oncology recs: Prognosis poor. Follow-up scheduled with Dr. Perez on 11/11. -Pulmonary note reviewed: Poor prognosis, DO NOT RESUSCITATE - Rocephin completed -Off decadron -Continue with vitamin C 500 mg twice daily and zinc 220 mg daily -Continue with lactulose 10 g 3 times daily Hematuria -Repeat CBC at 1400 and then every 8 hours, check renal ultrasound, check urinalysis. -Continue to monitor -Discontinue Xarelto Paroxysmal atrial fibrillation, episode of A flutter with RVR 11/04/23 -Cardiology note reviewed: Continue current medications. Will sign off -Amiodarone to 200 mg daily and metoprolol to 75 mg twice daily, digoxin 125 mg daily, - On midodrine 10 mg TID due to low BP -Xarelto on hold due to hematuria Bicytopenia likely secondary to malignancy and treatment as well as liver disease -Platelets and hemoglobin stable -Continue to follow CBC Acute urinary retention, resolved Hypokalemia, resolved Imaging: Renal ultrasound ordered and reviewed -No distinct abnormality Prior Imaging: Echocardiogram: EF 55-60, mild tricuspid regurg Data Review: Labs reviewed from today include CBC and basic metabolic profile which are remarkable for white blood cell count 15, hemoglobin 8.5, platelets 112, sodium 134. Stat ammonia level ordered and reviewed at 9. Urinalysis reviewed from this morning which shows greater than 182 red blood cells. DVT prophylaxis: Eliqus Anticipated discharge date: in 24-[address]: [facility] This dictation was prepared using [employer] voice recognition software. Though every attempt is made to correct errors during dictation some may still exist. Objective - Vital Signs Vital signs: Vital Signs Temp 97.5 F L 11/08/23 08:10 Pulse 69 11/08/23 10:48 Resp 17 11/08/23 08:10 BP 113/68 11/08/23 10:48 Pulse Ox 97 11/08/23 08:10 FiO2 Intake & Output 11/07/23 11/08/23 11/08/23 18:59 06:59 18:59 Intake Total 890 250 280 Balance 890 250 280 Intake: Intake, IV Titration 50 Amount cefTRIAXone 2 gm In 50 Sodium Chloride 0.9% 50 ml @ 100 mls/hr IVPB Q24HR [facility] Rx#:[id number] Oral 840 250 280 Other: Voiding Method Toilet # Voids 3 1 # Bowel Movements 0 0 - Labs CBC & Chem 7: 11/08/23 06:09 11/08/23 06:09 Labs: Abnormal Lab Results - Last 24 Hours (Table) 11/08/23 11/08/23 11/08/23 Range/Units 05:00 06:09 06:09 WBC 15.0 H (3.8-10.6) k/uL RBC 3.16 L (3.80-5.40) m/uL Hgb 8.5 L (11.4-16.0) gm/dL Hct 27.8 L (34.0-46.0) % MCHC 30.5 L (31.0-37.0) g/dL RDW 20.1 H (11.5-15.5) % Plt Count 112 L (150-450) k/uL Sodium 134 L (137-145) mmol/L BUN 26 H (7-17) mg/dL Urine Appearance Cloudy H (Clear) Urine Protein 2+ H (Negative) Urine Ketones Trace H (Negative) Urine Blood Moderate H (Negative) Ur Leukocyte Esterase Moderate H (Negative) Urine RBC >182 H (0-5) /hpf Urine WBC 68 H (0-5) /hpf Urine Mucus Rare H (None) /hpf Microbiology - Last 24 Hours (Table) 11/03/23 15:00 Anaerobic Culture - Final Ascites Fluid 11/03/23 15:00 Gram Stain - Final Ascites Fluid Body Fluid Culture - Final
--- NOTE | 2023-11-08 13:48 | CT ---
EXAMINATION TYPE: CT brain wo con CT DLP: 1183.4 mGycm, Automated exposure control for dose reduction was used. DATE OF EXAM: 11/08/2023 1:10 PM COMPARISON: 10/13/2023. CLINICAL INDICATION:Female, 68 years old with history of lethargy, hx of sinus mass, Lethargy, hx sin us tumor TECHNIQUE: Brain: Axial CT images of the brain were obtained with coronal and sagittal reformats created and rev iewed. Contrast used: None. Oral contrast used: None. FINDINGS: Brain: Extra-axial spaces: No abnormal extra-axial fluid collections. Ventricular system: Dilatation in proportion to cerebral atrophy. Cerebral parenchyma: Cerebral atrophy. No acute intraparenchymal hemorrhage or mass effect. The meyer -white junction is well differentiated. Scattered hypoattenuating areas are seen within the white mat ter. Cerebellum: Unremarkable. Mass effect: No evidence of midline shift. Intracranial vasculature: Atherosclerotic calcifications of the intracranial vessels. Soft tissues: Left scalp soft tissue overlying area of lucency within the calvarium which is not seen on prior CTA head from 01/26/2023. Calvarium/osseous structures: No depressed skull fracture. Lucent area in the scalp near the soft tis anna described above measuring up to 14 x 8 mm possibly eroding through the inner and outer plates of the skull. Paranasal sinuses and mastoid air cells: Mild scattered paranasal sinus disease. Visualized orbits: Bilateral aphakia IMPRESSION: 1. Left parietal scalp crescentic soft tissue overlying the area of irregular shaped lucency within the skull. Given history of sinus mass consider further evaluation with MRI brain with IV contrast fi ndings are new from 01/26/2023 2. No acute intracranial process. 3. Nonspecific white matter changes, likely secondary to chronic small vessel ischemic disease.
[2023-11-08 14:31] LABS: Anisocytosis Moderate; HGB 9.4 gm/dL (11.4-16.0); Hypochromasia Marked; MCH 26.6 pg (25.0-35.0); MCHC 29.5 g/dL (31.0-37.0); MCV 90.2 fL (80.0-100.0); Mean Platelet Volume 9.3; Platelet Count 140 k/uL (150-450); RBC 3.54 m/uL (3.80-5.40); RDW 20.1 % (11.5-15.5); WBC 23.2 k/uL (3.8-10.6)
[2023-11-08] MEDS: SODIUM CHLORIDE 0.9% 500 ML 500 ML IV ONE (14:34)
[2023-11-08 14:40] LABS: INR 2.1 (<1.2); Partial Thromboplastin Time 36.7 sec (22.0-30.0); Prothrombin Time 20.8 sec (10.0-12.5)
[2023-11-08] MEDS: DEXTROSE 5% IN WATER 100 ML with AMIODARONE 150 MG IV ONE (15:02)
[2023-11-08] MEDS: AMIODARONE 360 MG in DEXTROSE 5% IN WATER 200 ML IV ONE (15:18)
[2023-11-08] MEDS: ALBUMIN HUMAN 25% 50 ML in EMPTY BAG 1 BAG IVPB SCH (15:21)
[2023-11-08] MEDS: METOPROLOL TARTRATE 25 MG TAB PO SCH (16:59)
[2023-11-08] MEDS: AMIODARONE 450 MG in DEXTROSE 5% IN WATER 250 ML IV SCH (20:10)
[2023-11-08 22:50] LABS: Anisocytosis Moderate; HCT 25.8 % (34.0-46.0); HGB 8.3 gm/dL (11.4-16.0); Hypochromasia Moderate; MCH 27.8 pg (25.0-35.0); MCHC 32.1 g/dL (31.0-37.0); MCV 86.8 fL (80.0-100.0); Mean Platelet Volume 9.6; Platelet Count 133 k/uL (150-450); RBC 2.97 m/uL (3.80-5.40); RDW 20.3 % (11.5-15.5); WBC 19.2 k/uL (3.8-10.6)
[2023-11-09 08:08] LABS: Anisocytosis Moderate; HCT 26.7 % (34.0-46.0); HGB 8.1 gm/dL (11.4-16.0); Hypochromasia Marked; MCH 26.7 pg (25.0-35.0); MCHC 30.4 g/dL (31.0-37.0); MCV 87.8 fL (80.0-100.0); Mean Platelet Volume 9.7; Platelet Count 128 k/uL (150-450); RBC 3.04 m/uL (3.80-5.40); RDW 20.2 % (11.5-15.5); WBC 17.8 k/uL (3.8-10.6)
[2023-11-09 08:34] LABS: ALT 73 U/L (4-34); AST 81 U/L (14-36); African American GFR (CKD) >90 (>60 ml/min/1.73 sqM); Albumin 2.1 g/dL (3.5-5.0); Alkaline Phosphatase 208 U/L (38-126); Anion Gap 2 mmol/L; Blood Urea Nitrogen 23 mg/dL (7-17); Calcium 9.9 mg/dL (8.4-10.2); Carbon Dioxide 24 mmol/L (22-30); Chloride 105 mmol/L (98-107); Glucose 78 mg/dL (74-99); Non-African American GFR(CKD) >90 (>60 ml/min/1.73 sqM); Phosphorus 2.4 mg/dL (2.5-4.5); Potassium 3.8 mmol/L (3.5-5.1); Sodium 131 mmol/L (137-145); Total Bilirubin 1.2 mg/dL (0.2-1.3); Total Protein 4.3 g/dL (6.3-8.2)
[2023-11-09 09:54] LABS: Digoxin 0.4 ng/mL
--- NOTE | 2023-11-09 15:54 | P.PN ---
Subjective Progress Note Date: 11/09/23 68-year-old female patient with a history of head and neck cancer, squamous cell, who presented to the emergency department, on October 26, complaining of increasing shortness of breath, and pain in the right chest area. The patient was recently hospitalized for hypercalcemia. And was supposed to start r adiation treatments, but could not start them. She has been in the hospital since the day of admission, and we were consulted today, because the patient became hypotensive. The admitting physician/Hospital physician, gave the patient some additional volume, and some albumin. He was concerned, that the patient may need the intensive care unit. She is seen today in room 352. Initially, she was on room air. We asked the nurse, to place her on 2 to 3 L by nasal cannula. She was getting saline by keep vein open. Albumin has been ordered. Her blood pressures were done in the 70s, but, did increase up to 107 systolic. On November 02, she had a large-volume paracentesis, with a 3.6 L of fluid being removed. Current laboratory data includes a white count 20.9, hemoglobin 10.6, hematocrit 36, and platelet count 98,000. Sodium 135, potassium 4.1, chlorides 106, CO2 20, BUN 24, and creatinine 0.59. The lactic acid level is 3.1. AST of 62. ALT is 65. Albumin is 2.3. The paracentesis fl uid appears to be a transudate. The protein is 1.5 g, and the LDH is 180. It should also be noted that the patient did test positive for coronavirus. The chest x-ray done on the day of admission, shows scattered metastatic lesions throughout the chest. Progress note dated November 07, 2023. This is a 68-year-old female with history of head and neck cancer, which is metastatic, who we are asked to see yesterday in consultation, for hypotension. The patient received some additional volume, midodrine 10 mg, and some albumin. Today, the blood pressure is much better, at 128/60. She is on 2 L of oxygen. She is much more awake and alert. She is getting saline at 10 cc an hour. I was able to speak to the yesterday, and the patient was made DO NOT RESUSCITATE. Labs today include a white count 19.5, hemoglobin 9, hematocrit 30.4, and a platelet count of 113,000. Sodium 136, potassium 4.2, chlorides 106, CO2 22, BUN 26, creatinine 0.59. Albumin is 2.7. AST is 70. ALT is 60. Initial lactic acid was 3.1. Repeat was 1.6. Cultures are thus far negative. Progress note dated November 08, 2023. 68-year-old female with history of metastatic head and neck cancer. Currently, the patient is seen today in room 352. She is on room air. She is not receiving any IV fluids. Her blood pressures have been a little bit low. The patient is a DNR patient, as I discussed that with the patient, and the patient's . Current laboratory data includes a white count 15, hemoglobin 8.5, hematocrit 27.8, and platelet count 112,000. Sodium 134, potassium 3.8, chlorides 106, CO2 22, BUN 26, and creatinine 0.56. Urine is light red and cloudy. There is 2+ protein. Trace ketones, moderate blood, moderate leukocyte esterases, more than 182 RBCs, 68 WBCs, and 3 squamous epithelial cells. So far, cultures are negative. 11/09/2023, the patient is being seen for a follow-up. She is awake and alert and communicating. She does have some abdominal distention related to ascites. She has had a previous paracentesis during this current admission with removal of a total of 3 L of ascitic fluid. No evidence of any SBP at this point in time and the cultures are negative. The patient's white cell count remains elevated at 17.8 with a hemoglobin of 8.1 and a platelet count of 128. BUN is at 23 with a creatinine of 0.5 and a sodium levels at 131. Due to her waxing and waning mentation, CAT scan of the brain was done yesterday and the patient was found to have a left parietal scalp crescentic soft tissue overlying the area of irregular shaped lucency within the skull. There is also a sinus mass for which an MRI of the brain was recommended. No acute intracranial process was seen. There was some nonspecific white matter disease changes. She continues to have episodes of paroxysmal atrial fibrillation. She is on amiodarone 200 mg p.o. twice a day in addition to metoprolol 50 mg 3 times daily. She is on midodrine 10 mg p.o. 3 times daily for hypotension. She is also on digoxin 0.25 mg on a daily basis. She is taking lactulose 10 g 3 times daily. No active hematuria at this point in time. Objective - Vital Signs Vital signs: Vital Signs Temp 97.9 F 11/09/23 08:00 Pulse 52 L 11/09/23 08:00 Resp 17 11/09/23 08:00 BP 130/61 11/09/23 08:00 Pulse Ox 95 11/09/23 08:00 FiO2 Intake & Output 11/08/23 11/09/23 11/09/23 18:59 06:59 18:59 Intake Total 400 Balance 400 Intake: Oral 400 Other: Voiding Method Toilet Toilet # Voids 1 1 1 # Bowel Movements 0 - Exam No acute distress, much more awake and alert. Currently on room air. The patient is cachectic and weak with a body mass index of 23.4 HEENT examination is grossly unremarkable. Neck supple. Full range of motion. No adenopathy thyromegaly or neck vein distention. Cardiovascular examination reveals regular rhythm rate. S1-S2 normal. No S3 or S4. No discernible murmur noted. Lungs reveal mild scattered rhonchi. No wheezes or crackles. Breath sounds equal. . Abdomen soft bowel sounds are heard. No masses or tenderness. There is shifting wave consistent with ascites. Extremities are intact. No cyanosis clubbing or edema. Skin is without rash or lesion. Neurologic examination is brief but nonfocal. Awake and alert and communicating. No signs of encephalopathy at the time of my evaluation. - Labs CBC & Chem 7: 11/09/23 07:47 11/09/23 07:46 Labs: Abnormal Lab Results - Last 24 Hours (Table) 11/08/23 11/08/23 11/08/23 Range/Units 14:04 14:04 22:19 WBC 23.2 H 19.2 H (3.8-10.6) k/uL RBC 3.54 L 2.97 L (3.80-5.40) m/uL Hgb 9.4 L 8.3 L (11.4-16.0) gm/dL Hct 32.0 L 25.8 L (34.0-46.0) % MCHC 29.5 L (31.0-37.0) g/dL RDW 20.1 H 20.3 H (11.5-15.5) % Plt Count 140 L 133 L (150-450) k/uL PT 20.8 H (10.0-12.5) sec INR 2.1 H (<1.2) APTT 36.7 H (22.0-30.0) sec Sodium (137-145) mmol/L BUN (7-17) mg/dL Phosphorus (2.5-4.5) mg/dL AST (14-36) U/L ALT (4-34) U/L Alkaline Phosphatase (38-126) U/L Total Protein (6.3-8.2) g/dL Albumin (3.5-5.0) g/dL 11/09/23 11/09/23 Range/Units 07:46 07:47 WBC 17.8 H (3.8-10.6) k/uL RBC 3.04 L (3.80-5.40) m/uL Hgb 8.1 L (11.4-16.0) gm/dL Hct 26.7 L (34.0-46.0) % MCHC 30.4 L (31.0-37.0) g/dL RDW 20.2 H (11.5-15.5) % Plt Count 128 L (150-450) k/uL PT (10.0-12.5) sec INR (<1.2) APTT (22.0-30.0) sec Sodium 131 L (137-145) mmol/L BUN 23 H (7-17) mg/dL Phosphorus 2.4 L (2.5-4.5) mg/dL AST 81 H (14-36) U/L ALT 73 H (4-34) U/L Alkaline Phosphatase 208 H (38-126) U/L Total Protein 4.3 L (6.3-8.2) g/dL Albumin 2.1 L (3.5-5.0) g/dL Assessment and Plan Plan: metastatic squamous cell carcinoma of the head and neck. The patient has metastasis to the bone and to the lungs and this was confirmed by transbronchial biopsy of the lung. There is also a left sphenoid sinus lesion. Hypotension, transient, and much improved. paroxysmal atrial fibrillation. The patient is currently on metoprolol and amiodarone and digoxin and she continues to have episodes of paroxysmal atrial fibrillation. History of COPD. COVID 19 infection, currently inactive and stable History of hyperlipidemia. History of chronic liver disease, with ascites, requiring paracentesis. History of rheumatoid arthritis. History of ongoing tobacco use with nicotine addiction. Prior history of heavy alcohol use. Episodic hematura, currently off anticoagulation and the patient is not having an active hematuria at this point. Plan: Patient is stable on room air oxygen No active signs of encephalopathy and the patient maintains on lactulose The patient does have some abdominal distention and ascites. No evidence of any SBP. 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
--- NOTE | 2023-11-09 16:37 | P.PN ---
Subjective Progress Note Date: 11/09/23 (chris charting seen at 1030) Patient is a 68-year-old female with metastatic squamous carcinoma of the head and neck with mets to bone, lung, and left sphenoid sinus, cirrhosis with prior alcohol abuse, A-fib on Xarelto, dyslipidemia, and multiple other comorbid conditions who presented to the emergency department with shortness of breath. In the ER she underwent extensive evaluation. Chest x-ray showed scattered metastatic lesions throughout the lungs, EKG demonstrated sinus tachycardia. Initial laboratory evaluation was remarkable for COVID positivity, white blood cell count of 11.6, hemoglobin 10.3, platelets 118, potassium 3.1, CO2 20, BUN 25, creatinine 0.81, and alkaline phosphatase of 131. Patient was admitted for acute hypoxic respiratory failure and COVID in conjunction with metastatic disease. She was noted to be very encephalopathic and was having urinary retention. Patient had a Hendrickson catheter placed which was subsequently able to be discontinued. Oncology was consulted and is recommending palliative therapy. She did receive a hospice consult however wanted to continue to pursue further treatment. Patient's mentation improved, her respiratory failure resolved. Abdominal ultrasound did show moderate ascites and patient was having abdominal pain. Patient's Eliquis was held in anticipation of paracentesis. During her hospital stay patient had also been on prophylactic Rocephin due to concerns for possible SBP. On the evening of 11/04 patient went into atrial flutter and was subsequently started on amiodarone drip and transferred to the telemetry unit. Cardiology was consulted. They transitioned the patient to oral amiodarone on the morning of 11/04/2023. She did well and then again went into A-fib with RVR on 11/05 and was hypotensive requiring albumin after her BP improved. She was again started on Cardizem drip and digoxin which was weaned. Patient was more confused on the morning of 11/07. In the evening of 11/07 the patient again went into atrial fibrillation with rapid ventricular response with heart rates up into the 140s initially her blood pressure was tolerating this and I asked nursing to contact cardiology however she then became hypotensive and I ordered 500 cc bolus of NS as well as 12.5 g of albumin with improvement in her blood pressures. Due to her tenuous blood pressures her oral metoprolol was increased to 75 mg 3 times daily and she was restarted on amiodarone drip. Cardiology was reconsulted. Patient seen and examined at bedside. She denies any shortness of breath or lightheadedness. She is again asking to go home and we explained why she continues to need hospitalization. She states that her urine is no longer red. Vital signs reviewed General: Nontoxic, no distress, appears at stated age Cardiovascular: S1S2 reg, no murmur Lungs: Course bs bilateral, no rhonchi, no rales, no accessory muscle use Abdominal: non distended, soft, nontender to palpation, no guarding Ext: No gross muscle atrophy, no edema b/l lower extremities, no contractures Neuro: CN II-XI grossly intact, no focal neuro deficits Psych: Alert, oriented, appropriate affect Assessment/Plan: Acute metabolic encephalopathy, possibly infectious versus hepatic Suspected spontaneous bacterial peritonitis with hx of cirrhosis vs head and neck infection Acute COVID-19 infection, out of isolation Continue leukocytosis Metastatic squamous carcinoma of the head and neck with mets to bone, lung, and left sphenoid sinus - await MRI brain based on head CT recommendations -Await further oncology recs: Prognosis poor. Follow-up scheduled with Dr. Perez on 11/11. -Pulmonary note reviewed: Continue current care. - Rocephin completed -Off decadron -Continue with vitamin C 500 mg twice daily and zinc 220 mg daily -Continue with lactulose 10 g 3 times daily Hematuria - Await CT abd and pelvis with IV contrast - Continue to monitor - Continue off Xarelto Paroxysmal atrial fibrillation, episode of A flutter with RVR 11/04/23 -Cardiology reconsulted on the evening of 11/08/23 due to recurrent A fib wtih RVR. Cardiology canceled their consult on the morning of 11/09/23. Ordered replaced for cardio consult afternoon of 11/09/23. - D/C amio gtt as now in NSR and start oral amio at 200 mg BID, continue digoxin (level 0.4), Patient again with low BP and Metoprolol decreased to 50mg TID - On midodrine 10 mg TID due to low BP - Xarelto on hold due to hematuria Bicytopenia likely secondary to malignancy and treatment as well as liver disease -Platelets and hemoglobin stable -Continue to follow CBC Acute urinary retention, resolved Hypokalemia, resolved Imaging: Renal ultrasound ordered and reviewed -No distinct abnormality Prior Imaging: Echocardiogram: EF 55-60, mild tricuspid regurg Data Review: Reviewed from today include CBC and CMP which are remarkable for white blood cell count 17.8, hemoglobin 8.1, platelets 128, sodium 131, phosphorus 2.4, AST 81, ALT 73, alkaline phosphatase 208. Digoxin level 0.4 which is below the therapeutic range. DVT prophylaxis: Xxarelto on hold, SCDs Anticipated discharge date: in 24-[address]: [facility] This dictation was prepared using [employer] voice recognition software. Lane reina every attempt is made to correct errors during dictation some may still exist. Objective - Vital Signs Vital signs: Vital Signs Temp 97.2 F L 11/09/23 11:29 Pulse 60 11/09/23 14:00 Resp 17 11/09/23 14:00 BP 131/69 11/09/23 11:29 Pulse Ox 97 11/09/23 11:29 FiO2 Intake & Output 11/08/23 11/09/23 11/09/23 18:59 06:59 18:59 Intake Total 400 Balance 400 Weight 54.431 kg Intake: Oral 400 Other: Voiding Method Toilet Toilet Toilet # Voids 1 1 0 # Bowel Movements 0 0 - Labs CBC & Chem 7: 11/09/23 07:47 11/09/23 07:46 Labs: Abnormal Lab Results - Last 24 Hours (Table) 11/08/23 11/09/23 11/09/23 Range/Units 22:19 07:46 07:47 WBC 19.2 H 17.8 H (3.8-10.6) k/uL RBC 2.97 L 3.04 L (3.80-5.40) m/uL Hgb 8.3 L 8.1 L (11.4-16.0) gm/dL Hct 25.8 L 26.7 L (34.0-46.0) % MCHC 30.4 L (31.0-37.0) g/dL RDW 20.3 H 20.2 H (11.5-15.5) % Plt Count 133 L 128 L (150-450) k/uL Sodium 131 L (137-145) mmol/L BUN 23 H (7-17) mg/dL Phosphorus 2.4 L (2.5-4.5) mg/dL AST 81 H (14-36) U/L ALT 73 H (4-34) U/L Alkaline Phosphatase 208 H (38-126) U/L Total Protein 4.3 L (6.3-8.2) g/dL Albumin 2.1 L (3.5-5.0) g/dL
[2023-11-09] MEDS: METOPROLOL TARTRATE 50 MG TAB PO SCH (17:31)
--- NOTE | 2023-11-09 18:07 | CT ---
EXAMINATION TYPE: CT abdomen pelvis w con CT DLP: 746 mGycm, Automated exposure control for dose reduction was used. DATE OF EXAM: 11/09/2023 5:00 PM COMPARISON: CT abdomen pelvis most recent from CLINICAL INDICATION:Female, 68 years old with history of pain and hematuria; TECHNIQUE: Axial CT abdomen pelvis w con;Sagittal and coronal reformats were created on a separate w orkstation. Contrast used: mL of , (none if empty) Oral contrast used: (none if empty) FINDINGS: LOWER CHEST: Diffuse metastatic pulmonary nodules identified in the visualized lungs, greater than 20 . Multiple pleural-based nodular thickening metastatic foci are also present. ABDOMEN LIVER: Cirrhotic liver with shrunken morphology. Is at least 2 low-density areas within the liver par enchyma. The largest in the left hepatic lobe measuring 19 mm in the segment 4A measuring 15 mm. GALLBLADDER AND BILE DUCTS: Nondistended gallbladder with multiple high density gallstones. PANCREAS: Unremarkable. SPLEEN: Within normal limits for size. At least 2 hypodense areas within the spleen possibly represen ting metastatic foci. ADRENAL GLANDS: Unremarkable. KIDNEYS AND URETERS: No evidence of hydronephrosis or renal calculus. The ureters are unremarkable. PELVIS BLADDER: Unremarkable REPRODUCTIVE: Unremarkable. ABDOMEN & PELVIS STOMACH AND BOWEL: No evidence of bowel obstruction. PERITONEUM/RETROPERITONEUM: No evidence of pneumoperitoneum. Free fluid throughout the abdomen. VASCULATURE: No evidence of aortic aneurysm. Varicosities are seen in the upper abdomen with recanali zation of the periumbilical vein. Severe atherosclerosis of the arterial vasculature. MUSCULOSKELETAL: No acute osseous abnormalities LYMPH NODES: No gross evidence for lymphadenopathy. SOFT TISSUE/ABDOMINAL WALL: Unremarkable IMPRESSION: 1. No evidence for obstructive uropathy or renal calculus. No finding to correlate with hematuria. 2. Scattered metastatic disease involving the pleura, pulmonary parenchyma, suspected liver and sple en. 3. hepatic cirrhosis an portal hypertension and ascites.
[2023-11-09] MEDS: AMIODARONE 200 MG TAB PO SCH (19:56)
[2023-11-10 08:12] LABS: Anisocytosis Moderate; HCT 27.1 % (34.0-46.0); HGB 8.1 gm/dL (11.4-16.0); Hypochromasia Marked; MCH 26.3 pg (25.0-35.0); MCV 87.8 fL (80.0-100.0); Mean Platelet Volume 9.3; Platelet Count 115 k/uL (150-450); RBC 3.09 m/uL (3.80-5.40); RDW 20.2 % (11.5-15.5); WBC 16.7 k/uL (3.8-10.6)
[2023-11-10 08:25] VITALS: RESP 16
[2023-11-10 09:54] LABS: African American GFR (CKD) >90 (>60 ml/min/1.73 sqM); Anion Gap 2 mmol/L; Blood Urea Nitrogen 21 mg/dL (7-17); Calcium 10.3 mg/dL (8.4-10.2); Carbon Dioxide 25 mmol/L (22-30); Chloride 106 mmol/L (98-107); Glucose 68 mg/dL (74-99); Non-African American GFR(CKD) >90 (>60 ml/min/1.73 sqM); Potassium 4.1 mmol/L (3.5-5.1); Sodium 133 mmol/L (137-145)
--- NOTE | 2023-11-10 11:53 | MR ---
EXAMINATION TYPE: MR brain wo/w con DATE OF EXAM: 11/10/2023 11:22 AM CLINICAL INDICATION:Female, 68 years old with history of metastatic lesions, head CT 11/07/22 and ; [facility], Mets COMPARISON: CT 11/08/2023, 10/13/2023 TECHNIQUE: Multi planar, multi sequence imaging was performed through the brain including: T1, T2, In version recovery, susceptibility weighted imaging and gradient echo imaging and Diffusion weighted im aging. The patient was then given intravenous contrast and multi planar, T1 fat-saturation images wer e obtained. IV Contrast: 5.5 cc Gadavist FINDINGS: Mild cerebral atrophy with proportional dilation of ventricular system. Diffusion-weighted imaging s hows no evidence of restricted diffusion to suggest acute/subacute infarct. Intracranial arterial uma w voids are maintained. Midline structures show no abnormality. Scattered foci of high T2 signal inte nsity are seen within the periventricular white matter. The susceptibility weighted images do not rev eal any evidence for micro-hemorrhage. After administration of gadolinium, no abnormal intra-axial en hancement is seen. Ill-defined soft tissue extending in the area of concern on prior CT brain in the left parietal bone and left parietal scalp. There is some irregular enhancement within this region wh ich is somewhat curvilinear. The finding in the skin surface extends into the diploic space. Soft tis anna measures approximately 2.7 x 1.0 cm. Name mass in the posterior aspect of the left maxillary sinu s and extending into the parapharyngeal space remains present measuring 34 x 33 mm this was visualize d first on 10/13/2023 Paranasal sinuses and mastoid air cells: Trace left mastoid air cell effusion. There is paranasal sin us mucosal thickening within the left maxillary sinus. Visualized orbits: Bilaterally aphakia. IMPRESSION: 1. Ill-defined soft tissue extending into the diploic space of the left parietal bone. There is some irregular enhancement within this region findings concerning for malignancy until proven otherwise. There remains a destructive soft tissue mass in the left oropharynx mucosa with extension to the left parapharyngeal space measuring at least 3.4 x 3.4 cm. This was previously seen on 10/13/2023 CT brain . PET/CTs recommended if not recently performed. Findings possibly representing primary malignancy si te. 2. Nonspecific white matter changes, likely related to small vessel ischemic disease.
[2023-11-10 12:29] VITALS: TEMP 98
--- NOTE | 2023-11-10 13:41 | P.PN ---
Subjective Progress Note Date: 11/10/23 68-year-old female patient with a history of head and neck cancer, squamous cell, who presented to the emergency department, on October 26, complaining of increasing shortness of breath, and pain in the right chest area. The patient was recently hospitalized for hypercalcemia. And was supposed to start r adiation treatments, but could not start them. She has been in the hospital since the day of admission, and we were consulted today, because the patient became hypotensive. The admitting physician/Hospital physician, gave the patient some additional volume, and some albumin. He was concerned, that the patient may need the intensive care unit. She is seen today in room 352. Initially, she was on room air. We asked the nurse, to place her on 2 to 3 L by nasal cannula. She was getting saline by keep vein open. Albumin has been ordered. Her blood pressures were done in the 70s, but, did increase up to 107 systolic. On November 02, she had a large-volume paracentesis, with a 3.6 L of fluid being removed. Current laboratory data includes a white count 20.9, hemoglobin 10.6, hematocrit 36, and platelet count 98,000. Sodium 135, potassium 4.1, chlorides 106, CO2 20, BUN 24, and creatinine 0.59. The lactic acid level is 3.1. AST of 62. ALT is 65. Albumin is 2.3. The paracentesis fl uid appears to be a transudate. The protein is 1.5 g, and the LDH is 180. It should also be noted that the patient did test positive for coronavirus. The chest x-ray done on the day of admission, shows scattered metastatic lesions throughout the chest. Progress note dated November 07, 2023. This is a 68-year-old female with history of head and neck cancer, which is metastatic, who we are asked to see yesterday in consultation, for hypotension. The patient received some additional volume, midodrine 10 mg, and some albumin. Today, the blood pressure is much better, at 128/60. She is on 2 L of oxygen. She is much more awake and alert. She is getting saline at 10 cc an hour. I was able to speak to the yesterday, and the patient was made DO NOT RESUSCITATE. Labs today include a white count 19.5, hemoglobin 9, hematocrit 30.4, and a platelet count of 113,000. Sodium 136, potassium 4.2, chlorides 106, CO2 22, BUN 26, creatinine 0.59. Albumin is 2.7. AST is 70. ALT is 60. Initial lactic acid was 3.1. Repeat was 1.6. Cultures are thus far negative. Progress note dated November 08, 2023. 68-year-old female with history of metastatic head and neck cancer. Currently, the patient is seen today in room 352. She is on room air. She is not receiving any IV fluids. Her blood pressures have been a little bit low. The patient is a DNR patient, as I discussed that with the patient, and the patient's . Current laboratory data includes a white count 15, hemoglobin 8.5, hematocrit 27.8, and platelet count 112,000. Sodium 134, potassium 3.8, chlorides 106, CO2 22, BUN 26, and creatinine 0.56. Urine is light red and cloudy. There is 2+ protein. Trace ketones, moderate blood, moderate leukocyte esterases, more than 182 RBCs, 68 WBCs, and 3 squamous epithelial cells. So far, cultures are negative. 11/09/2023, the patient is being seen for a follow-up. She is awake and alert and communicating. She does have some abdominal distention related to ascites. She has had a previous paracentesis during this current admission with removal of a total of 3 L of ascitic fluid. No evidence of any SBP at this point in time and the cultures are negative. The patient's white cell count remains elevated at 17.8 with a hemoglobin of 8.1 and a platelet count of 128. BUN is at 23 with a creatinine of 0.5 and a sodium levels at 131. Due to her waxing and waning mentation, CAT scan of the brain was done yesterday and the patient was found to have a left parietal scalp crescentic soft tissue overlying the area of irregular shaped lucency within the skull. There is also a sinus mass for which an MRI of the brain was recommended. No acute intracranial process was seen. There was some nonspecific white matter disease changes. She continues to have episodes of paroxysmal atrial fibrillation. She is on amiodarone 200 mg p.o. twice a day in addition to metoprolol 50 mg 3 times daily. She is on midodrine 10 mg p.o. 3 times daily for hypotension. She is also on digoxin 0.25 mg on a daily basis. She is taking lactulose 10 g 3 times daily. No active hematuria at this point in time. On today's evaluation on 11/10/2023, the patient is being seen for a follow-up. The patient is having an MRI of her brain done today as part of an evaluation of an underlying mental status. Abdomen remains slightly distended. The WBC count is 16.7 with a hemoglobin of 8.1 and a platelet count of 115. BUN is at 21 with a creatinine of 0.5 and a sodium levels at 133. No hematuria. The patient remains on Lovenox 40 mg subcu for DVT prophylaxis. No respiratory distress and the patient is currently on room air oxygen with a pulse ox of 98%. CAT scan of the abdomen and pelvis was completed yesterday and the patient was found to have no evidence of any obstructive uropathy or renal calculus. No findings to correlate with hematuria. Scattered metastatic disease involving the pleura, lung parenchyma and suspected liver and splenic metastases. There is also evidence of hepatic cirrhosis with portal hypertension and ascites as expected. The patient otherwise is quite debilitated. also needed to define the soft tissue density seen over the left parietal bone. Objective - Vital Signs Vital signs: Vital Signs Temp 97.6 F 11/10/23 08:00 Pulse 57 L 11/10/23 08:00 Resp 16 11/10/23 08:00 BP 121/67 11/10/23 08:00 Pulse Ox 97 11/10/23 08:00 FiO2 Intake & Output 11/09/23 11/10/23 11/10/23 18:59 06:59 18:59 Intake Total 360 180 Balance 360 180 Weight 54.431 kg Intake: Oral 360 180 Other: Voiding Method Toilet Toilet Diaper Incontinent # Voids 3 2 # Bowel Movements 0 - Exam No acute distress, much more awake and alert. Currently on room air. The patient is cachectic and weak with a body mass index of 23.4 HEENT examination is grossly unremarkable. Neck supple. Full range of motion. No adenopathy thyromegaly or neck vein distention. Cardiovascular examination reveals regular rhythm rate. S1-S2 normal. No S3 or S4. No discernible murmur noted. Lungs reveal mild scattered rhonchi. No wheezes or crackles. Breath sounds equal. . Abdomen soft bowel sounds are heard. No masses or tenderness. There is shifting wave consistent with ascites. Extremities are intact. No cyanosis clubbing or edema. Skin is without rash or lesion. Neurologic examination is brief but nonfocal. Awake and alert and communicating. No signs of encephalopathy at the time of my evaluation. - Labs CBC & Chem 7: 11/10/23 07:20 11/10/23 07:20 Labs: Abnormal Lab Results - Last 24 Hours (Table) 11/10/23 11/10/23 Range/Units 07:20 07:20 WBC 16.7 H (3.8-10.6) k/uL RBC 3.09 L (3.80-5.40) m/uL Hgb 8.1 L (11.4-16.0) gm/dL Hct 27.1 L (34.0-46.0) % MCHC 30.0 L (31.0-37.0) g/dL RDW 20.2 H (11.5-15.5) % Plt Count 115 L (150-450) k/uL Sodium 133 L (137-145) mmol/L BUN 21 H (7-17) mg/dL Glucose 68 L (74-99) mg/dL Calcium 10.3 H (8.4-10.2) mg/dL Assessment and Plan Plan: metastatic squamous cell carcinoma of the head and neck. The patient has metastasis to the bone and to the lungs and this was confirmed by transbronchial biopsy of the lung. Awaiting MRI of the brain Hypotension, transient, and much improved. paroxysmal atrial fibrillation. The patient is currently on metoprolol and amiodarone and digoxin and she continues to have episodes of paroxysmal atrial fibrillation. History of COPD. COVID 19 infection, currently inactive and stable History of hyperlipidemia. History of chronic liver disease, with ascites, requiring paracentesis. History of rheumatoid arthritis. History of ongoing tobacco use with nicotine addiction. Prior history of heavy alcohol use. Episodic hematura, currently off anticoagulation and the patient is not having an active hematuria at this point. Plan: Proceed with MRI of the brain this morning Patient is stable on room air oxygen No active signs of encephalopathy and the patient maintains on lactulose The patient does have some abdominal distention and ascites. No evidence of any SBP. The CAT scan of the abdomen was completed and the patient has evidence of liver cirrhosis, hepatic metastases, splenic metastases and lung metastases. There is also some underlying ascites as expected. Monitor the white cell count Completed the course of Rocephin and she is currently off Decadron Continue lactulose 10 g 3 times daily Keep the Xarelto on hold for now Transfusion Aide on the case regarding the a paroxysmal A-fib Continue midodrine for low blood pressure DNR/DNI CODE STATUS.
--- NOTE | 2023-11-10 14:12 | P.DS ---
Providers Date of admission: 10/27/23 20:58 Expected date of discharge: 11/10/23 Attending physician: Ya Haynes MD Consults: 10/27/23 20:57 Consult Physician Routine Consulting Provider: Naif Perez Consult Reason/Comments: Metastatic lung disease Do you want consulting provider notified?: Yes 11/06/23 12:35 Consult Physician Routine Consulting Provider: Herbert Matias Consult Reason/Comments: hypotension Do you want consulting provider notified?: Already Contacted 11/08/23 14:53 Consult Physician Urgent Consulting Provider: Mendoza Phillip Consult Reason/Comments: Recurrent A fib with RVR Do you want consulting provider notified?: Yes 11/09/23 16:21 Consult Physician Routine Consulting Provider: Felix Estrada Consult Reason/Comments: multiple episodes of A fib RVR Do you want consulting provider notified?: Yes Primary care physician: Emery Mckeon MD Hospital Course: Discharge Diagnosis: Acute metabolic encephalopathy, possibly infectious versus hepatic Suspected spontaneous bacterial peritonitis with hx of cirrhosis vs head and neck infection Acute COVID-19 infection, out of isolation Continue leukocytosis Metastatic squamous carcinoma of the head and neck with mets to bone, lung, and left sphenoid sinus Hematuria, resolved Paroxysmal atrial fibrillation, episode of A flutter with RVR 11/04/23 Bicytopenia likely secondary to malignancy and treatment as well as liver disease Acute urinary retention, resolved Hypokalemia, resolved Hospital Course: Patient is a 68-year-old female with metastatic squamous carcinoma of the head and neck with mets to bone, lung, and left sphenoid sinus, cirrhosis with prior alcohol abuse, A-fib on Xarelto, dyslipidemia, and multiple other comorbid conditions who presented to the emergency department with shortness of breath. In the ER she underwent extensive evaluation. Chest x-ray showed scattered metastatic lesions throughout the lungs, EKG demonstrated sinus tachycardia. Initial laboratory evaluation was remarkable for COVID positivity, white blood cell count of 11.6, hemoglobin 10.3, platelets 118, potassium 3.1, CO2 20, BUN 25, creatinine 0.81, and alkaline phosphatase of 131. Patient was admitted for acute hypoxic respiratory failure and COVID in conjunction with metastatic disease. She was noted to be very encephalopathic and was having urinary retention. Patient had a Hendrickson catheter placed which was subsequently able to be discontinued. Oncology was consulted and is recommending palliative therapy. She did receive a hospice consult however wanted to continue to pursue further treatment. Patient's mentation improved, her respiratory failure resolved. Abdominal ultrasound did show moderate ascites and patient was having abdominal pain. Patient's Eliquis was held in anticipation of paracentesis. During her hospital stay patient had also been on prophylactic Rocephin due to concerns for possible SBP. On the evening of 11/04 patient went into atrial flutter and was subsequently started on amiodarone drip and transferred to the telemetry unit. Cardiology was consulted. They transitioned the patient to oral amiodarone on the morning of 11/04/2023. She did well and then again went into A-fib with RVR on 11/05 and was hypotensive requiring albumin after her BP improved. She was again started on Cardizem drip and digoxin which was weaned. Patient was more confused on the morning of 11/07. In the evening of 11/07 the patient again went into atrial fibrillation with rapid ventricular response with heart rates up into the 140s initially her blood pressure was tolerating this and I asked nursing to contact cardiology however she then became hypotensive and I ordered 500 cc bolus of NS as well as 12.5 g of albumin with improvement in her blood pressures. Due to her tenuous blood pressures her oral metoprolol was increased to 75 mg 3 times daily and she was restarted on amiodarone drip. Cardiology was reconsulted. She again went into normal sinus rhythm and amiodarone was transitioned to oral. Her metoprolol was adjusted to 50 mg 3 times daily. Her blood pressure normalized and she remained in normal sinus rhythm for greater than 1 day. She was determined stable for discharge. She did not undergo head CT which confirmed known sphenoid mass and recommended brain MRI which demonstrated ill-defined soft tissue lesion extending into the left parietal bone with destructive soft tissue mass in the left oral pharynx and nonspecific white matter ischemic changes. She also had undergone CT abdomen and pelvis due to hematuria that developed during her hospital stay. This showed no evidence of obstructive uropathy or renal calculi with no findings to correlate with hematuria but did show scattered metastatic disease involving the pleura, pulmonary parenchyma, liver and possible spleen as well as hepatic cirrhosis with ascites. She was improving slowly and was determined stable for discharge. Follow-up: Dr. Perez on 11/11, Dr. Kay in week. Has completed all antibitoics. Monitor for recurrent hematuria (none in 48 hours). She has persistent leukocytosis. Patient seen and examined at bedside. Doing well, no complaints, wants to go to rehab. Vital signs reviewed and stable. General: Nontoxic, no distress, appears at stated age Cardiovascular: S1S2 reg, no murmur, positive posterior tibial pulse bilateral, Lungs: Course bs bilateral, no rhonchi, no rales, no accessory muscle use Abdominal: Soft, nontender to palpation, no guarding, no appreciable organomegaly Ext: No gross muscle atrophy, no edema b/l lower extremities, no contractures Neuro: CN II-XI grossly intact, no focal neuro deficits Psych: Alert, oriented to self and hospital, appropriate affect A total of 35 minutes of time were spent preparing this complex discharge summary. Patient was discharged on 11/10/23. This dictation was prepared using [employer] voice recognition software. Though every attempt is made to correct errors during dictation some may still exist. Patient Condition at Discharge: Stable Plan - Discharge Summary Discharge Rx Participant: No New Discharge Prescriptions: New Lactulose [Cephulac] 10 gm PO TID ml Famotidine [Pepcid] 20 mg PO BID tab Ascorbic Acid [Vitamin C] 500 mg PO BID tab Amiodarone [Cordarone] 200 mg PO BID tab Digoxin [Lanoxin] 125 mcg PO DAILY tab Zinc Sulfate [Orazinc] 220 mg PO DAILY cap Cholecalciferol [Vitamin D3 (125 Mcg = 5000 Iu)] 125 mcg PO DAILY tab Continue Rivaroxaban [Xarelto] 20 mg PO HS Midodrine HCl [ProAmatine] 10 mg PO TID Metoprolol Tartrate [Lopressor] 50 mg PO BID Rosuvastatin [Crestor] 10 mg PO DAILY Morphine Sulfate Ir [MSIR] 15 mg PO Q4H PRN 3 Days #18 tab PRN Reason: Severe Breakthrough Pain Mirtazapine [Remeron] 15 mg PO HS Sennosides [Senokot] 8.6 mg PO BID #60 tab Discontinued Lactulose [Constulose] 10 gm PO PC-LUNCH Acetaminophen Tab [Tylenol] 500 mg PO Q6H PRN PRN Reason: Pain Amiodarone HCl [Pacerone] 100 mg PO DAILY diphenhydrAMINE [Benadryl] 25 - 50 mg PO HS PRN PRN Reason: Itching Discharge Medication List Rivaroxaban [Xarelto] 20 mg PO HS 02/06/21 [History] Midodrine HCl [ProAmatine] 10 mg PO TID 01/26/23 [History] Metoprolol Tartrate [Lopressor] 50 mg PO BID 03/26/23 [History] Rosuvastatin [Crestor] 10 mg PO DAILY 06/24/23 [History] Mirtazapine [Remeron] 15 mg PO HS 10/09/23 [History] Sennosides [Senokot] 8.6 mg PO BID #60 tab 10/14/23 [Rx] Amiodarone [Cordarone] 200 mg PO BID tab 11/10/23 [Rx] Ascorbic Acid [Vitamin C] 500 mg PO BID tab 11/10/23 [Rx] Cholecalciferol [Vitamin D3 (125 Mcg = 5000 Iu)] 125 mcg PO DAILY tab 11/10/23 [Rx] Digoxin [Lanoxin] 125 mcg PO DAILY tab 11/10/23 [Rx] Famotidine [Pepcid] 20 mg PO BID tab 11/10/23 [Rx] Lactulose [Cephulac] 10 gm PO TID ml 11/10/23 [Rx] Morphine Sulfate Ir [MSIR] 15 mg PO Q4H PRN 3 Days #18 tab 11/10/23 [Rx] Zinc Sulfate [Orazinc] 220 mg PO DAILY cap 11/10/23 [Rx] Follow up Appointment(s)/Referral(s): Naif Perez [STAFF PHYSICIAN] - 11/12/23 1:45 pm Mehdi Kay MD [STAFF PHYSICIAN] - 1 Week Emery Mckeon MD [Primary Care Provider] - 1-2 days Activity/Diet/Wound Care/Special Instructions: Activity: As tolerated, fall precautions Diet: Chopped diet with ensure Special Instructions: CBC and CMP in 2 days DX: SEE and hyponatremia
[2023-11-10 17:07] VITALS: BP 121/61; PULSE 66
== END 2023-11-10 18:50 | disposition home or self-care (01) | DRG 177 ==
LOC: EC 17:17 → 4SSUR 20:58 → 3SCARD 11-04 04:46
PROVIDERS: ADMIT Internal Medicine; ATTEND Internal Medicine
PROC: 0W9G3ZZ Drainage of Peritoneal Cavity, Percutaneous Approach (ICD-10-PCS; principal; 2023-11-03)
PROC: 02HV33Z Insertion of Infusion Device into Superior Vena Cava, Percutaneous Approach (ICD-10-PCS; 2023-11-05 15:35)
DX: U07.1 COVID-19 (principal); G93.41 Metabolic encephalopathy; J96.01 Acute respiratory failure with hypoxia; K65.2 Spontaneous bacterial peritonitis; C34.90 Malignant neoplasm of unspecified part of unspecified bronchus or lung; C78.00 Secondary malignant neoplasm of unspecified lung; C78.7 Secondary malignant neoplasm of liver and intrahepatic bile duct; C79.51 Secondary malignant neoplasm of bone; C79.89 Secondary malignant neoplasm of other specified sites; C76.0 Malignant neoplasm of head, face and neck; E78.5 Hyperlipidemia, unspecified; E83.52 Hypercalcemia; E87.6 Hypokalemia; F17.200 Nicotine dependence, unspecified, uncomplicated; G89.3 Neoplasm related pain (acute) (chronic); I07.1 Rheumatic tricuspid insufficiency; I10 Essential (primary) hypertension; I25.10 Atherosclerotic heart disease of native coronary artery without angina pectoris; I48.0 Paroxysmal atrial fibrillation; I65.29 Occlusion and stenosis of unspecified carotid artery; J44.9 Chronic obstructive pulmonary disease, unspecified; M06.9 Rheumatoid arthritis, unspecified; R62.7 Adult failure to thrive; Z66 Do not resuscitate; T38.0X5A Adverse effect of glucocorticoids and synthetic analogues, initial encounter; Z79.01 Long term (current) use of anticoagulants; Z79.899 Other long term (current) drug therapy; Z80.0 Family history of malignant neoplasm of digestive organs; Z85.118 Personal history of other malignant neoplasm of bronchus and lung; Z85.89 Personal history of malignant neoplasm of other organs and systems; Z92.3 Personal history of irradiation
CPT/HCPCS: 36410; 36415; 49083; 70450; 70553; 71046; 74177; 76705; 76770; 76937; 80048; 80053; 80162; 81001; 81003; 82140; 83605; 83615; 83735; 84100; 84157; 85025; 85027; 85610; 85652; 85730; 86140; 87070; 87075; 87205; 87636; 88108; 88305; 88341; 88342; 89050; 93005; 93306; 94760; 96361; 96374; 99285

== ENCOUNTER → 2023-11-09 | Outpatient (CLI) | payer MEDICARE | END | disposition home or self-care (01) | LOC: RADCTMAIN 11:30 | PROVIDERS: ATTEND Internal Medicine Hematology & Oncology | DX: Z53.9 Procedure and treatment not carried out, unspecified reason (principal) ==